=== PATIENT | female | born 1965 | race Hispanic/Latino ===

== ENCOUNTER → 2017-09-12 | Outpatient (CLI) | payer MEDICARE ==
[~2017-09-12] MED LIST: AMLO5TAB2 PO; CARV25TA PO; CINA30 PO; FOLI1TAB85 PO; INSU100I13 SQ; LANT1000 PO; LISI10TA7 PO; PRAV10TA39 PO; SEVE800T7 PO; TYL3 PO
== END | disposition home or self-care (01) ==
LOC: RAH 07:48
PROVIDERS: ATTEND Internal Medicine Cardiovascular Disease
DX: M47.26 Other spondylosis with radiculopathy, lumbar region (principal)
CPT/HCPCS: 72141; 72148

== ENCOUNTER 2017-10-07 21:31 | Emergency (ER) | payer MEDICARE ==
[2017-10-07] MEDS ORDERED: IBUPROFEN 800 MG TAB ONE (22:22)
== END 2017-10-07 23:19 | disposition home or self-care (01) ==
LOC: EDH 21:31
DX: S83.91XA Sprain of unspecified site of right knee, initial encounter (principal); S83.92XA Sprain of unspecified site of left knee, initial encounter; H04.019 Acute dacryoadenitis, unspecified lacrimal gland; M25.571 Pain in right ankle and joints of right foot; I12.0 Hypertensive chronic kidney disease with stage 5 chronic kidney disease or end stage renal disease; E11.22 Type 2 diabetes mellitus with diabetic chronic kidney disease; N18.6 End stage renal disease; Z90.710 Acquired absence of both cervix and uterus; Z99.2 Dependence on renal dialysis; W01.0XXA Fall on same level from slipping, tripping and stumbling without subsequent striking against object, initial encounter; Y93.89 Activity, other specified; Y92.89 Other specified places as the place of occurrence of the external cause; Y99.8 Other external cause status
CPT/HCPCS: 73562; 73600

== ENCOUNTER 2018-05-12 09:45 | Inpatient (IN) | payer MEDICARE ==
[~2018-05-12] VITALS: Ht 167.6 cm; Wt 132.3 kg
[~2018-05-12 09:45] MED LIST changes: -AMLO5TAB2 PO; +AMLO5TAB9 PO
[2018-05-12] MEDS ORDERED: IPRATROPIUM/ALBUTEROL SULFATE 3 ML SOLUTION IH ONE ×2 (10:16→11:48)
[2018-05-12 10:38] LABS: BASOPHILS % (AUTO) 0.6 % (0.0-5.0); EOSINOPHILS % (AUTO) 4.8 % (0.0-8.0); HEMATOCRIT 29.4 % (36-48); LYMPHOCYTES % (AUTO) 10.9 % (21.0-51.0); MEAN CORPUSCULAR HEMOGLOBIN 32.4 pg (27.0-33.0); MEAN CORPUSCULAR HGB CONC 33.4 g/dL (32.0-36.0); MEAN CORPUSCULAR VOLUME 96.9 fL (79-99); NEUTROPHILS % (AUTO) 77.7 % (40.0-77.0); NUCLEATED RED BLOOD CELLS 0.1 % (0.0-0.19); PLATELET COUNT (AUTO) 192 K/uL (130-400); RED BLOOD CELL COUNT(AUTO) 3.03 MIL/uL (4.00-5.50); RED CELL DISTRIBUTION WIDTH 16.6 % (11.0-15.5); WHITE BLOOD COUNT (AUTO) 7.7 K/uL (4.8-10.8)
[2018-05-12 10:54] LABS: ALBUMIN 3.4 g/dL (3.5-5.0); BILIRUBIN,TOTAL 0.4 mg/dL (0.2-1.0); POTASSIUM 4.9 mmol/L (3.5-5.1); TOTAL PROTEIN, SERUM 7.2 g/dL (6.0-8.3)
[2018-05-12 10:56] LABS: CREATININE 10.5 mg/dL (0.5-1.5)
[2018-05-12] MEDS ORDERED: METHYLPREDNISOLONE SOD SUCC 125MG/2ML VIAL ONE (13:37)
--- NOTE | 2018-05-12 15:00 | NUR ---
PATIENT STATES SHE URINATE EVERY OTHER DAY OR LESS Addendum: 05/12/18 at 2138 by RAQUEL STOVER RN RN Amended: Links added.
[2018-05-12 15:48] VITALS: BP 143/76
[2018-05-12] MEDS ORDERED: ACETAMINOPHEN 325 MG TAB PO PRN ×2 (16:00)
[2018-05-12] MEDS: CEFTRIAXONE SODIUM 1 GM IVP SCH (16:00)
[2018-05-12] MEDS ORDERED: IPRATROPIUM/ALBUTEROL SULFATE 3 ML SOLUTION IH PRN (16:00)
[2018-05-12] MEDS: AZITHROMYCIN 500MG+NS 250ML 250 ML IV SCH (17:00)
[2018-05-12] MEDS: IPRATROPIUM/ALBUTEROL SULFATE 3 ML SOLUTION IH SCH (19:14)
[2018-05-12 19:17] VITALS: BP 129/71
[2018-05-12] MEDS ORDERED: METHYLPREDNISOLONE SOD SUCC 40MG/ML 1ML ONE (20:57)
[2018-05-12] MEDS: METHYLPREDNISOLONE SOD SUCC 125MG/2ML VIAL IVP SCH (21:00)
[2018-05-12 23:27] VITALS: BP 127/74
[2018-05-13 03:35] VITALS: BP 136/71
[2018-05-13] MEDS: METHYLPREDNISOLONE SOD SUCC 125MG/2ML VIAL IVP SCH ×3 (05:00→21:17)
[2018-05-13] MEDS ORDERED: METHYLPREDNISOLONE SOD SUCC 40MG/ML 1ML ONE (05:10)
[2018-05-13] MEDS ORDERED: GLUCAGON 1MG KIT 1 MG ML IM PRN (05:30)
[2018-05-13] MEDS ORDERED: DEXTROSE 50%-WATER 50 ML DISP.SYRIN IV PRN (05:30)
[2018-05-13 05:38] LABS: BASOPHILS % (AUTO) 0.4 % (0.0-5.0); HEMATOCRIT 33.4 % (36-48); LYMPHOCYTES % (AUTO) 6.2 % (21.0-51.0); MEAN CORPUSCULAR HEMOGLOBIN 32.8 pg (27.0-33.0); MEAN CORPUSCULAR HGB CONC 33.6 g/dL (32.0-36.0); MEAN CORPUSCULAR VOLUME 97.4 fL (79-99); MONOCYTES % (AUTO) 0.8 % (3.0-13.0); NEUTROPHILS % (AUTO) 92.6 % (40.0-77.0); PLATELET COUNT (AUTO) 250 K/uL (130-400); RED BLOOD CELL COUNT(AUTO) 3.43 MIL/uL (4.00-5.50); RED CELL DISTRIBUTION WIDTH 16.7 % (11.0-15.5); WHITE BLOOD COUNT (AUTO) 7.4 K/uL (4.8-10.8)
[2018-05-13] MEDS: IPRATROPIUM/ALBUTEROL SULFATE 3 ML SOLUTION IH SCH ×3 (05:38→18:32)
[2018-05-13] MEDS ORDERED: LEVO500T89 PO (05:51)
[2018-05-13] MEDS ORDERED: LISI-613 PO ×2 (05:51)
[2018-05-13] MEDS ORDERED: LEVO25TA54 PO (05:51)
[2018-05-13] MEDS ORDERED: INSU100I13 SQ ×2 (05:51)
[2018-05-13] MEDS ORDERED: PRAV10TA39 PO (05:51)
[2018-05-13] MEDS ORDERED: SULI200T4 PO (05:51)
[2018-05-13] MEDS ORDERED: IBUP-2077 PO (05:51)
[2018-05-13] MEDS ORDERED: ONDA4TAB10 PO (05:51)
[2018-05-13 05:55] LABS: ALBUMIN 3.6 g/dL (3.5-5.0); BILIRUBIN,TOTAL 0.4 mg/dL (0.2-1.0); CREATININE 7.5 mg/dL (0.5-1.5); MAGNESIUM 2.6 mg/dL (1.80-2.40); PHOSPHORUS 5.3 mg/dL (2.5-4.9); THYROID STIMULATING HORMONE 1.29 uIU/mL (0.36-3.74)
[2018-05-13 06:21] LABS: % IRON SATURATION 18.4 % (22-44)
[2018-05-13] MEDS: INSULIN HUMULIN R 100 UNIT/ML 3ML SQ SCH ×4 (06:51→21:43)
--- NOTE | 2018-05-13 07:30 | NUR ---
NOTE AAOX3. DENIES PAIN OR DISCOMFORT. BBS SLIGHT WHEEZING STILL NOTED THROUGHOUT ALL LOBES. CAN HEAR SOME AIR EXCHANGE. NO COUGH NO PHLEGM AND NO FEVER. SHE IS ON STEROIDS. 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 OLIGURIA. CAME IN WITH ASTHMA EXACERBATION.
[2018-05-13 07:48] VITALS: BP 164/92
[2018-05-13] MEDS: FOLIC ACID/VITAMIN B COMP W-C 1 MG CAPSULE PO SCH (08:32)
[2018-05-13] MEDS: INSULIN LISPRO 100 UNIT/ML 3ML SQ SCH ×2 (08:44→21:42)
[2018-05-13 12:00] VITALS: BP 149/86
--- NOTE | 2018-05-13 13:09 | NUR ---
DCP CM met with pt and spouse discussed dc plans. Pt is independent prior to admission, lives at home w/spouse. Has a nebulizer and shower chair, goes to [facility] dialysis TTS. Pt feels safe to go back home, spouse able to assist with transportation and needs as necessary. DC plan to home once stable. CM to cont to follow up. Addendum: 05/13/18 at 1311 by SHELBY GUAN LVN CM Amended: Links added.
[2018-05-13 16:00] VITALS: BP 133/76
--- NOTE | 2018-05-13 18:00 | NUR ---
NOTE REMAINED STABLE THROUGHOUT THE DAY. DR KAUR CAME IN AND ORDERED FOR DIALYSIS TOMORROW AND SHE WILL GET LABS TOMORROW CBC BMP. NO CHANGE IN LOC OR RESPIRATORY STATUS.
[2018-05-13] MEDS: AZITHROMYCIN 500MG+NS 250ML 250 ML IV SCH (18:19)
[2018-05-13] MEDS: CEFTRIAXONE SODIUM 1 GM IVP SCH (18:19)
[2018-05-13 20:00] VITALS: BP 145/67
[2018-05-13] MEDS ORDERED: **HM** PRAVASTATIN 10MG PO SCH (21:00)
[2018-05-13] MEDS ORDERED: EPOETIN ALFA 10,000 UNIT/ML VIAL SQ ONE (21:00)
[2018-05-13] MEDS: CARVEDILOL 25 MG TABLET PO SCH (21:16)
[2018-05-14] VITALS: BP 134/67
[2018-05-14 04:00] VITALS: BP 134/83
[2018-05-14 04:51] LABS: HEMATOCRIT 34.1 % (36-48); MEAN CORPUSCULAR HEMOGLOBIN 32.5 pg (27.0-33.0); MEAN CORPUSCULAR HGB CONC 33.7 g/dL (32.0-36.0); MEAN CORPUSCULAR VOLUME 96.3 fL (79-99); PLATELET COUNT (AUTO) 243 K/uL (130-400); RED BLOOD CELL COUNT(AUTO) 3.55 MIL/uL (4.00-5.50); RED CELL DISTRIBUTION WIDTH 16.7 % (11.0-15.5); WHITE BLOOD COUNT (AUTO) 12.9 K/uL (4.8-10.8)
[2018-05-14 05:02] LABS: POTASSIUM 4.9 mmol/L (3.5-5.1)
[2018-05-14 05:24] LABS: CREATININE 9.4 mg/dL (0.5-1.5)
[2018-05-14] MEDS: IPRATROPIUM/ALBUTEROL SULFATE 3 ML SOLUTION IH SCH ×2 (05:34→08:57)
--- NOTE | 2018-05-14 05:51 | NUR ---
md dr. hassan to see and examen patient with orders to discharge today
[2018-05-14] MEDS: INSULIN HUMULIN R 100 UNIT/ML 3ML SQ SCH ×3 (06:14→18:18)
[2018-05-14] MEDS ORDERED: LEVOTHYROXINE 25 MCG TABLET PO SCH (07:30)
[2018-05-14 08:00] VITALS: BP 162/87
[2018-05-14] MEDS ORDERED: LISINOPRIL 20 MG TABLET PO SCH (09:00)
[2018-05-14] MEDS: METHYLPREDNISOLONE SOD SUCC 125MG/2ML VIAL IVP SCH (09:00)
[2018-05-14] MEDS: FOLIC ACID/VITAMIN B COMP W-C 1 MG CAPSULE PO SCH (09:00)
[2018-05-14] MEDS ORDERED: AMLODIPINE BESYLATE 5 MG TAB PO SCH (09:00)
[2018-05-14] MEDS: CARVEDILOL 25 MG TABLET PO SCH (09:00)
[2018-05-14] MEDS ORDERED: SULINDAC 200 MG PO SCH (09:00)
[2018-05-14 11:00] VITALS: BP 124/66
[2018-05-14] MEDS: INSULIN LISPRO 100 UNIT/ML 3ML SQ SCH (12:32)
[2018-05-14 16:00] VITALS: BP 119/59
[2018-05-14] MEDS: CEFTRIAXONE SODIUM 1 GM IVP SCH (16:00)
[2018-05-14] MEDS: AZITHROMYCIN 500MG+NS 250ML 250 ML IV SCH (17:00)
== END 2018-05-14 19:09 | disposition home or self-care (01) | DRG 202 ==
LOC: EDH 09:45 → OBSVTOIN 13:05 → EDHIP 13:05 → 4CH 14:43
PROVIDERS: ADMIT Internal Medicine; ATTEND Internal Medicine
PROC: 5A1D70Z Performance of Urinary Filtration, Intermittent, Less than 6 Hours Per Day (ICD-10-PCS; principal; 2018-05-12)
PROC: 5A1D70Z Performance of Urinary Filtration, Intermittent, Less than 6 Hours Per Day (ICD-10-PCS; 2018-05-14)
DX: J45.901 Unspecified asthma with (acute) exacerbation (principal); N18.6 End stage renal disease; I12.0 Hypertensive chronic kidney disease with stage 5 chronic kidney disease or end stage renal disease; Z68.42 Body mass index [BMI] 45.0-49.9, adult; E11.22 Type 2 diabetes mellitus with diabetic chronic kidney disease; D64.9 Anemia, unspecified; E11.51 Type 2 diabetes mellitus with diabetic peripheral angiopathy without gangrene; E66.01 Morbid (severe) obesity due to excess calories; E78.5 Hyperlipidemia, unspecified; E87.70 Fluid overload, unspecified; Z90.710 Acquired absence of both cervix and uterus; E11.65 Type 2 diabetes mellitus with hyperglycemia; I25.10 Atherosclerotic heart disease of native coronary artery without angina pectoris; Z79.84 Long term (current) use of oral hypoglycemic drugs; Z99.2 Dependence on renal dialysis
CPT/HCPCS: 36415; 71046; 80048; 80053; 82948; 83540; 83550; 83735; 84100; 84443; 85025; 85027; 87804; 90935; 93005; 93306; 94640; 94664; 99291; A4218; G0378; J0456; J0696; J0885; J1815; J2920; J2930

== ENCOUNTER 2019-01-25 00:07 | Emergency (ER) | payer MEDICARE ==
[~2019-01-25 00:07] MED LIST changes: -CINA30 PO; +IBUP-2077 PO; -LANT1000 PO; +LEVO25TA54 PO; +LEVO500T89 PO; +LISI-613 PO; -LISI10TA7 PO; +ONDA4TAB10 PO; -SEVE800T7 PO; +SULI200T4 PO
[2019-01-25] MEDS ORDERED: HYDROCODONE/ACETAMINOPHEN 10/325 MG TAB ONE (00:29)
== END 2019-01-25 02:17 | disposition home or self-care (01) ==
LOC: EDH 00:07
DX: S93.401A Sprain of unspecified ligament of right ankle, initial encounter (principal); I12.0 Hypertensive chronic kidney disease with stage 5 chronic kidney disease or end stage renal disease; E11.22 Type 2 diabetes mellitus with diabetic chronic kidney disease; N18.6 End stage renal disease; Z99.2 Dependence on renal dialysis; Z98.890 Other specified postprocedural states; Z90.710 Acquired absence of both cervix and uterus; W18.39XA Other fall on same level, initial encounter; Y93.01 Activity, walking, marching and hiking; Y92.89 Other specified places as the place of occurrence of the external cause; Y99.8 Other external cause status
CPT/HCPCS: 73610; 73620

== ENCOUNTER 2019-09-11 05:14 | Emergency (ER) | payer MEDICARE ==
[~2019-09-11 05:14] MED LIST changes: +AMLO-257 PO; -AMLO5TAB9 PO
[2019-09-11] MEDS ORDERED: ACETAMINOPHEN-CODEINE 300/30MG TAB ONE (06:04)
== END 2019-09-11 07:37 | disposition home or self-care (01) ==
LOC: EDH 05:14
DX: S52.611A Displaced fracture of right ulna styloid process, initial encounter for closed fracture (principal); S52.501A Unspecified fracture of the lower end of right radius, initial encounter for closed fracture; W18.39XA Other fall on same level, initial encounter; Y93.01 Activity, walking, marching and hiking; Y92.89 Other specified places as the place of occurrence of the external cause; Y99.8 Other external cause status
CPT/HCPCS: 29125; 73110

== ENCOUNTER 2019-12-25 11:42 | Emergency (ER) | payer MEDICARE ==
[~2019-12-25 11:42] MED LIST changes: -AMLO-257 PO; +AMLO5TAB9 PO
[2019-12-25 12:17] LABS: BASOPHILS % (AUTO) 0.3 % (0.0-5.0); EOSINOPHILS % (AUTO) 2.1 % (0.0-8.0); LYMPHOCYTES % (AUTO) 13.7 % (21.0-51.0); MEAN CORPUSCULAR HEMOGLOBIN 30.4 pg (27.0-33.0); MEAN CORPUSCULAR HGB CONC 31.4 g/dL (32.0-36.0); MEAN CORPUSCULAR VOLUME 96.9 fL (79-99); MONOCYTES % (AUTO) 10.3 % (3.0-13.0); NEUTROPHILS % (AUTO) 73.3 % (40.0-77.0); PLATELET COUNT (AUTO) 206 K/uL (130-400); RED BLOOD CELL COUNT(AUTO) 3.82 MIL/uL (4.00-5.50); RED CELL DISTRIBUTION WIDTH 16.5 % (11.0-15.5)
[2019-12-25 12:24] LABS: CREATININE 6.7 mg/dL (0.5-1.5); POTASSIUM 5.2 mmol/L (3.5-5.1)
[2019-12-25] MEDS ORDERED: HYDROCODONE/ACETAMINOPHEN 5/325 MG TAB ONE (12:29)
== END 2019-12-25 14:43 | disposition home or self-care (01) ==
LOC: EDH 11:42
DX: L98.499 Non-pressure chronic ulcer of skin of other sites with unspecified severity (principal); I12.0 Hypertensive chronic kidney disease with stage 5 chronic kidney disease or end stage renal disease; E11.22 Type 2 diabetes mellitus with diabetic chronic kidney disease; N18.6 End stage renal disease; Z90.49 Acquired absence of other specified parts of digestive tract; Z90.710 Acquired absence of both cervix and uterus; Z87.891 Personal history of nicotine dependence
CPT/HCPCS: 36415; 80048; 85025

== ENCOUNTER → 2020-08-10 | Outpatient (CLI) | payer MEDICARE ==
[~2020-08-10] MED LIST changes: +AMLO-257 PO; -AMLO5TAB9 PO; -LISI-613 PO; +LISI20TA24 PO
== END | disposition home or self-care (01) ==
LOC: RAH 11:39
PROVIDERS: ATTEND Internal Medicine
DX: Z12.31 Encounter for screening mammogram for malignant neoplasm of breast (principal)
CPT/HCPCS: 77067

== ENCOUNTER 2020-12-08 11:41 | Day surgery (SDC) | payer MEDICARE ==
[2020-12-08 13:06] LABS: BASOPHILS % (AUTO) 0.4 % (0.0-5.0); EOSINOPHILS % (AUTO) 4.1 % (0.0-8.0); HEMATOCRIT 34.8 % (36-48); LYMPHOCYTES % (AUTO) 16.7 % (21.0-51.0); MEAN CORPUSCULAR HEMOGLOBIN 31.3 pg (27.0-33.0); MEAN CORPUSCULAR HGB CONC 31.6 g/dL (32.0-36.0); MEAN CORPUSCULAR VOLUME 99.1 fL (79-99); NEUTROPHILS % (AUTO) 71.2 % (40.0-77.0); PLATELET COUNT (AUTO) 208 K/uL (130-400); RED BLOOD CELL COUNT(AUTO) 3.51 MIL/uL (4.00-5.50); RED CELL DISTRIBUTION WIDTH 14.1 % (11.0-15.5); WHITE BLOOD COUNT (AUTO) 7.7 K/uL (4.8-10.8)
[2020-12-08 13:21] LABS: INR 0.96 (0.85-1.15); PROTHROMBIN TIME 10.5 SEC (9.6-11.6)
[2020-12-08 13:22] LABS: PARTIAL THROMBOPLASTIN TIME 28.6 SEC (26.3-35.5)
[2020-12-08 13:23] LABS: ALBUMIN 3.3 g/dL (3.5-5.0); BILIRUBIN,TOTAL 0.3 mg/dL (0.2-1.0); POTASSIUM 5.2 mmol/L (3.5-5.1); TOTAL PROTEIN, SERUM 7.4 g/dL (6.0-8.3)
[2020-12-08 13:26] LABS: CREATININE 8.8 mg/dL (0.5-1.5)
[2020-12-08] MEDS ORDERED: MIDAZOLAM HCL 1 MG/ML 2ML VIAL ONE (15:15)
[2020-12-08] MEDS ORDERED: FENTANYL CITRATE PF 50 MCG/1 ML 2ML VIAL ONE (15:15)
[2020-12-08] MEDS ORDERED: HEPARIN 10,000 UNIT/10ML (1,000 UNIT/ML) VIAL ONE (15:15)
[2020-12-08] MEDS ORDERED: LIDOCAINE HCL 1% MDV 50ML VIAL ONE (15:15)
[2020-12-08] MEDS ORDERED: IODIXANOL 320 MG/ML 100 ML VIAL ONE (15:15)
== END 2020-12-08 16:45 | disposition home or self-care (01) ==
LOC: DAH 11:41
PROVIDERS: ATTEND Internal Medicine Nephrology
DX: T82.868A Thrombosis due to vascular prosthetic devices, implants and grafts, initial encounter (principal); T82.858A Stenosis of other vascular prosthetic devices, implants and grafts, initial encounter; Z79.01 Long term (current) use of anticoagulants; Y83.2 Surgical operation with anastomosis, bypass or graft as the cause of abnormal reaction of the patient, or of later complication, without mention of misadventure at the time of the procedure
CPT/HCPCS: 36415; 36905; 36907; 80053; 85025; 85610; 85730; C1757; C1769; C1894; J1644; J2250; J3010; J3490; Q9967

== ENCOUNTER → 2021-01-25 | Outpatient (CLI) | payer MEDICARE ==
[~2021-01-25] MED LIST changes: +MEPERIDINE-PF 50 MG/ML SYG ONE
== END | disposition home or self-care (01) ==
LOC: RAH 11:17
PROVIDERS: ATTEND Internal Medicine
DX: M51.35 Other intervertebral disc degeneration, thoracolumbar region (principal); M25.78 Osteophyte, vertebrae
CPT/HCPCS: 72081; J2175

== ENCOUNTER 2023-04-24 14:09 | Emergency (ER) | payer MEDICARE ==
[~2023-04-24] VITALS: Ht 162.6 cm; Wt 134.7 kg
[~2023-04-24 14:09] MED LIST changes: +LEVO-70 PO; -LEVO500T89 PO; -MEPERIDINE-PF 50 MG/ML SYG ONE; +PANT40TA55 PO
[2023-04-24 15:01] LABS: BASOPHILS # (AUTO) 0.02 K/uL (0.00-0.20); BASOPHILS % (AUTO) 0.3 % (0.0-5.0); EOSINOPHILS # (AUTO) 0.27 K/uL (0.00-0.70); EOSINOPHILS % (AUTO) 3.6 % (0.0-8.0); HEMATOCRIT 33.4 % (36-48); IMMATURE GRANULOCYTE ABSOLUTE 0.03 K/uL (0-1); LYMPHOCYTES # (AUTO) 1.2 K/uL (1.0-4.8); LYMPHOCYTES % (AUTO) 16.7 % (21.0-51.0); MEAN CORPUSCULAR HEMOGLOBIN 31.1 pg (27.0-33.0); MEAN CORPUSCULAR HGB CONC 32.6 g/dL (32.0-36.0); MEAN CORPUSCULAR VOLUME 95.2 fL (79-99); MONOCYTES # (AUTO) 0.7 K/uL (0.1-1.0); MONOCYTES % (AUTO) 8.9 % (3.0-13.0); NEUTROPHILS # (AUTO) 5.2 K/uL (1.8-7.7); NEUTROPHILS % (AUTO) 70.1 % (40.0-77.0); PLATELET COUNT (AUTO) 197 K/uL (130-400); RED BLOOD CELL COUNT(AUTO) 3.51 MIL/uL (4.00-5.50); RED CELL DISTRIBUTION WIDTH 13.2 % (11.0-15.5); WHITE BLOOD COUNT (AUTO) 7.4 K/uL (4.8-10.8)
[2023-04-24 15:20] LABS: INR 0.94 (0.85-1.15); PROTHROMBIN TIME 10.9 SEC (9.6-11.6)
[2023-04-24 15:21] LABS: PARTIAL THROMBOPLASTIN TIME 34.6 SEC (26.3-35.5)
[2023-04-24 15:25] LABS: ALBUMIN 3.3 g/dL (3.5-5.0); BILIRUBIN,TOTAL 0.4 mg/dL (0.2-1.0); POTASSIUM 4.4 mmol/L (3.5-5.1); TOTAL PROTEIN, SERUM 7.6 g/dL (6.0-8.3)
[2023-04-24 15:36] LABS: CREATININE 8.9 mg/dL (0.5-1.5)
[2023-04-24 19:15] VITALS: BP 154/59; PULSE 67; RESP 17; O2SAT 98
== END 2023-04-24 19:05 | disposition home or self-care (01) ==
LOC: EDH 14:09
DX: F41.0 Panic disorder [episodic paroxysmal anxiety] (principal); R55 Syncope and collapse; I25.10 Atherosclerotic heart disease of native coronary artery without angina pectoris; E11.9 Type 2 diabetes mellitus without complications; I10 Essential (primary) hypertension; F41.9 Anxiety disorder, unspecified; M19.90 Unspecified osteoarthritis, unspecified site; J45.909 Unspecified asthma, uncomplicated; Z79.4 Long term (current) use of insulin; Z79.899 Other long term (current) drug therapy
CPT/HCPCS: 36415; 71045; 80053; 84484; 85025; 85610; 85730; 93005

== ENCOUNTER 2024-05-26 07:23 | Inpatient (IN) | payer OTHER, MEDICARE ==
[2024-05-26] VITALS (20 sets, daily range): BP systolic 112–162; BP diastolic 29–68; PULSE 61–77; RESP 12–26; TEMP 97–97.5; O2SAT 100
[~2024-05-26] VITALS: Ht 162.6 cm; Wt 113.1 kg
[~2024-05-26 07:23] MED LIST changes: +ALBU18HF7 IH; -AMLO-257 PO; +AURYXIA PO; +CELE-125 PO; -FOLI1TAB85 PO; +GABA300C PO; -IBUP-2077 PO; -INSU100I13 SQ; +INSU100I24 SQ; -LEVO-70 PO; -LEVO25TA54 PO; -LISI20TA24 PO; -ONDA4TAB10 PO; -PANT40TA55 PO; +PHEN177S29 PO; -PRAV10TA39 PO; +SEVE800T27 PO; -SULI200T4 PO; -TYL3 PO
--- NOTE | 2024-05-26 07:31 | ERN ---
General Chief Complaint: Shortness of Breath Stated Complaint: SOB MISSED DIALYSIS X 1 WEEK Time Seen by MD: 07:25 History of Present Illness Initial Comments 58-year-old female brought in by EMS from home for respiratory distress. Patient has a history of ESRD on dialysis. She was had a flu-like illness for the last week or so. She normally goes dialysis Friday but missed the last Friday and Friday dialysis session due to the flu-like illness. She initially had fevers and a cough with a this is a side. She has had some diarrhea. She woke up this morning feeling fluid overloaded and short of breath. EMS found the patient be satting at 80% on room air tachypnea in fluid overload. They placed the patient on CPAP at 10, Lasix without urine output, nitroglycerin. Patient currently satting at 100%, mild distress, breathing about 30 times a minute with shallow inspirations. She denies any current fevers or sore throat. She was right chest wall access. Vocational Examiner is Dr. Hu. Allergies: Coded Allergies: No Known Drug Allergies (Verified Allergy, 05/18/13) Home Meds Reported Medications Phenol (Chloraseptic [place]) 1.4 % Admire, 2 SPRAY PO TID PRN for SORE THROAT for 7 Days, #20 ML 0 Refills 04/05/24 [Auryxia] No Conflict Check, 210 MG PO TID 04/02/24 Celecoxib (Celecoxib) 200 Mg Capsule, 1 CAP PO BID for pain for 30 Days, #30 CAP 0 Refills 04/02/24 Albuterol Sulfate (Ventolin Hfa) 90 Mcg Hfa.aer.ad, 2 PUFF IH QIDP PRN for wheezing for 30 Days, #18 GM 0 Refills 04/02/24 Insulin Degludec (Tresiba Flextouch U-100) 100 Unit/Ml (3 Ml) Insuln.pen, 40 UNIT SQ DAILY, SYRINGE 04/02/24 Gabapentin (Neurontin) 300 Mg Capsule, 1 CAP PO BID for 30 Days, #90 CAP 0 Refills 04/02/24 Sevelamer HCl (Sevelamer HCl) 800 Mg Tablet, 4000 MG PO TID, TAB 04/02/24 Carvedilol (Carvedilol) 25 Mg Tablet, 1 TAB PO DAILY for 30 Days, #60 TAB 0 Refills 04/02/24 Past Medical History Past Medical History: Anemia, Anxiety, Arthritis, Asthma, CAD, Diabetes-Type II, Hypertension, Hypotension, Renal Failure Medical History Other: ESRD Past Surgical History: Hysterectomy, Other, Surgical History Other: AV GRAFT R ARM W/RECENT REVISION Social History Social History: Negative, Lives with family Female( History) History: Not Applicable ROS Dictation CONSTITUTIONAL: No chills, no fever, no weakness, no diaphoresis, no malaise. HEAD/FACE: No signs of trauma. EENT: No eye pain, no blurred vision, no tearing, no double vision, no ear pain, no ear discharge, no nose pain, no nasal congestion, no throat pain, no throat swelling, no mouth pain. RESPIRATORY: Dyspnea CARDIOVASCULAR: No chest pain, no edema, no palpitations, no syncope. GASTROINTESTINAL/ABDOMINAL: No abdominal pain, no constipation, no diarrhea, no nausea, no vomiting. GENITOURINARY: No abnormal discharge, no dysuria, no frequent urination, no hematuria. No complaints of pain in the genitals. MUSCULOSKELETAL: No back pain, no gout, no joint pain, no joint swelling, no muscle pain, no muscle stiffness, no neck pain. INTEGUMENTARY: No change in color, no change in hair/nails, no dryness, no lesion, no lumps, no rash. NEUROLOGICAL/PSYCH: No anxiety, not depressed, no emotional problem, no headache, no numbness, no pre-existing deficit, no history of seizures, no t remors, no weakness. HEMATOLOGIC/LYMPHATIC: Not anemic, no history of blood clots, no apparent bleeding, no bruising, glands not swollen. All Systems Negative, Except as Noted. Physical Exam Physical Exam Dictation VITAL SIGNS: Reviewed. GENERAL APPEARANCE: Alert, oriented x3, moderate respiratory distress, obese HEAD AND FACE: Non-traumatic. EYES: PERRL, pink conjunctivas, eyelid no trauma, anterior chamber clear. EARS: Pinnas intact and no signs of trauma or erythema. Ear canals clear and no discharge. TMs no erythema. NOSE: No discharge, no bleeding. OROPHARYNX: Mouth normal, teeth no caries, tongue pink. Pharynx clear, no erythema. Tonsils no exudates, no abscesses noted. Mucous membrane moist. NECK: Supple, non-tender, no thyromegaly, no masses, no JVD, no bruits. BREAST: Deferred. CHEST: No tenderness, no crepitus, no paradoxical movement, no retractions. Right chest wall LUNGS: Pulmonary edema, shallow respirations, tachypneic HEART: Regular rate, regular rhythm, no murmur, no gallops. VASCULAR: No peripheral edema. ABDOMEN: Soft, positive bowel sounds, nondistended, no guarding, nontender, no rebound, no masses no hepatomegaly, no splenomegaly, no Raza's sign, no hernias. RECTAL: Deferred. GENITAL: Deferred. NEUROLOGICAL: Normal speech, gross motor function intact, gross sensory function intact. MUSCULOSKELETAL: Neck nontender, full range of motion, back nontender, full range of motion. Pedal edema EXTREMITIES: Nontender, full range of motion. SKIN: Color pink, dry, no turgor, no rash, no lacerations, no abrasions, no contusions. LYMPHATICS: Deferred. Results Laboratory and Microbiology Lab and Micro Result Laboratory Tests Test 05/26/24 07:44 05/26/24 07:57 White Blood Count 12.1 K/uL (4.8-10.8) H Red Blood Count 3.56 MIL/uL (4.00-5.50) L Hemoglobin 10.2 g/dL (12.0-16.0) L Hematocrit 32.4 % (36-48) L Mean Corpuscular Volume 91.0 fL (79-99) Mean Corpuscular Hemoglobin 28.7 pg (27.0-33.0) Mean Corpuscular Hemoglobin Concent 31.5 g/dL (32.0-36.0) L Red Cell Distribution Width 14.9 % (11.0-15.5) Platelet Count 147 K/uL (130-400) Mean Platelet Volume 12.0 fL (7.5-10.5) H Immature Granulocyte % (Auto) 0.5 % (0-1) Neutrophils (%) (Auto) 76.9 % (40.0-77.0) Lymphocytes (%) (Auto) 14.7 % (21.0-51.0) L Monocytes (%) (Auto) 7.4 % (3.0-13.0) Eosinophils (%) (Auto) 0.3 % (0.0-8.0) Basophils (%) (Auto) 0.2 % (0.0-5.0) Neutrophils # (Auto) 9.3 K/uL (1.8-7.7) H Lymphocytes # (Auto) 1.8 K/uL (1.0-4.8) Monocytes # (Auto) 0.9 K/uL (0.1-1.0) Eosinophils # (Auto) 0.04 K/uL (0.00-0.70) Basophils # (Auto) 0.03 K/uL (0.00-0.20) Absolute Immature Granulocyte (auto 0.06 K/uL (0-1) Nucleated Red Blood Cells 0.0 % (0.0-0.19) Sodium Level 131 mmol/L (136-145) L Potassium Level 7.5 mmol/L (3.5-5.1) *H Chloride Level 96 mmol/L (101-111) L Carbon Dioxide Level 18 mmol/L (21-32) L Blood Urea Nitrogen 87 mg/dL (7-18) *H Creatinine 14.8 mg/dL (0.5-1.0) *H Glomerular Filtration Rate Calc 3 mL/min (>90) Random Glucose 111 mg/dL (70-105) H Total Calcium 7.9 mg/dL (8.5-10.1) L Total Creatine Kinase 429 U/L (21-232) #*H Troponin I High Sensitivity 368.2 ng/L (4-50) *H B-Type Natriuretic Peptide 1460 pg/mL (0-100) H Blood Gas Specimen Type Arterial Arterial Blood pH 7.188 (7.350-7.450) Arterial Blood Partial Pressure CO2 35 mmHg (32-45) Arterial Blood Partial Pressure O2 212.1 mmHg (83.0-108.0) H Arterial Blood HCO3 12.9 mmol/L (21.0-28.0) L Arterial Blood Oxygen Saturation 98.9 % (94.0-98.0) H Arterial Blood Base Excess -14.3 mmol/L (-2.0-3.0) L Hemoglobin (Blood Gas) 11.0 g/dL (12.0-16.0) L Sodium (Blood Gas) 132 MMOL/L (136-145) L Bedside Potassium (Blood Gas) 6.8 MMOL/L (3.4-4.5) *H Bedside Chloride (Blood Gas) 102 MMOL/L (98-107) Bedside Glucose (Blood Gas) 97 MG/DL (65-95) H Bedside Ionized Calcium (Blood Gas) 1.07 MMOL/L (1.15-1.33) L Bedside Lactic Acid (Blood Gas) 0.79 MMOL/L (0.36-0.75) H Blood Gas Temperature 37.0 CELSIUS (35.5-37.0) Blood Gas Respiration Rate 19.0 min. Blood Gas Vent Mode BIPAP 12 6 (ROOM AIR) FiO2 50.0 % Blood Gas PEEP 6 cm H2O Blood Gas Specimen Comment LR DR CALIXTO MDM CC: Dyspnea Historian: Patient Comorbidities: ESRD requiring dialysis, diabetes, hypertension, obesity Differential diagnosis: Fluid overload, flu, pneumonia, electrolyte abnormalities, other. EKG: Sinus rhythm rate of 62 left axis deviation, delayed R-wave progression. No STEMI. Independently interpreted by me. Patient tachypneic, was on CPAP by EMS, switched to BiPAP. EMS already gave Lasix and nitroglycerin. Labs ( independently interpreted by me): Leukocytosis 85358 no shift no bands. Normocytic anemia hemoglobin 10.2. blood gas shows pH 7.188, P a O2 is stable. Bicarb 12.9, base excess -14. Potassium 6.8. Chemistry shows a BUN of 87 creatinine of 14.8 carbon dioxide 18 consistent with a needing dialysis. CK 429, troponin elevated 368, BNP 1460. Troponin likely due to the CKD. treatment in ED: BiPAP, hyperkalemia medications including calcium, albuterol, insulin, D5 Consultation: Dr. Carrera, nephrology, covering for [facility] [place] Consultation: Dr. Hardin, admission for Dr. burnett ED Course Orders Procedure Category Date Status Time Arterial Blood Gas RT 05/26/24 Transmitted 07:27 Bipap Settings RT 05/26/24 Transmitted 07:27 Cbc With Differential LAB 05/26/24 Complete 07:27 B-Type Natriuretic LAB 05/26/24 Complete Peptide 07:27 Cardiac Panel LAB 05/26/24 Complete 07:27 Chest 1vw RAD 05/26/24 Resulted 07:27 12 Lead Ekg Tracing- EKG 05/26/24 Complete Technical 07:27 Basic Metabolic Panel LAB 05/26/24 Complete 07:27 Arterial Blood Gas LAB 05/26/24 Complete Arterial + 07:57 Calcium Gluc 1gm PHA 05/26/24 Complete (Calcium Gluc 1gm 08:00 Dextrose 50%-Water PHA 05/26/24 Complete (Dextrose 50%-Water) 08:00 Insulin Regular, PHA 05/26/24 Complete Human 3ml (Humulin R 08:00 Albuterol 0.083% PHA 05/26/24 In Process 2.5mg/3ml (Proventil 08:00 Nephrology Consult CONPHYSVC 05/26/24 Transmitted 08:33 *Nursing CPOE 05/26/24 Transmitted Communication: 08:33 Dextrose 50%-Water PHA 05/26/24 Complete (Dextrose 50%-Water) 09:00 Admit Orders ADM 05/26/24 Transmitted 08:53 Dextrose 50%-Water PHA 05/26/24 Complete (D50w) 09:00 Current Medications Medications (Trade) Dose Ordered Sig/Susannah Route PRN Reason Start Time Stop Time Status Last Admin Dose Admin Albuterol Sulfate (Proventil 0.083% 2.5mg/3ml) 10 mg ONCE IH 05/26/24 08:00 06/25/24 07:59 05/26/24 08:11 Calcium Gluconate 1 gm/Sodium Chloride 110 ml @ 110 mls/hr ONCE ONCE IV 05/26/24 08:00 05/26/24 08:59 DC 05/26/24 08:51 Dextrose (D50w) 50 ml ONCE ONCE IV 05/26/24 09:00 05/26/24 09:01 DC 05/26/24 09:01 Dextrose (Dextrose 50%-Water) 25 gm ONCE ONCE IV 05/26/24 08:00 05/26/24 08:01 DC Dextrose (Dextrose 50%-Water) 25 gm ONCE ONCE IV 05/26/24 09:00 05/26/24 08:55 DC Insulin Human Regular (humuLIN R 100 UNIT/ML 3ML) 5 unit ONCE ONCE IV 05/26/24 08:00 05/26/24 08:01 DC 05/26/24 08:52 Vital Signs Date Time Temp Pulse Resp B/P (MAP) Pulse Ox O2 Delivery O2 Flow Rate FiO2 05/26/24 09:13 95.2 62 15 144/40 100 CPAP+ 50 05/26/24 08:32 95.2 61 15 130/54 99 CPAP+ 50 05/26/24 08:13 61 19 05/26/24 07:37 61 19 40 05/26/24 07:31 95.5 63 20 139/45 100 CPAP DX & DISP Disposition: Inpatient Departure Impression: Primary Impression: Respiratory failure with hypoxia Additional Impressions: Hyperkalemia, ESRD needing dialysis, Elevated troponin, Anemia in chronic illness, Metabolic acidosis Critical Time: 30 minutes (Critical Care Procedure NoteAuthorized and Performed by: meTotal critical care time: Approximately 36 minutesDue to a high probability of clinically significant, life threatening deterioration, the keo ent required my highest level of preparedness to intervene emergently and I personally spent this critical care time directly and personally managing the patient. This critical care time included obtaining a history; examining the patient; pulse oximetry; ordering and review of studies; arranging urgent treatment with development of a management plan; evaluation of patient's respon se to treatment; frequent reassessment; and, discussions with other providers.This critical care time was performed to assess and manage the high probability of imminent, life-threatening deterioration that could result in multi-organ failure. It was exclusive of separately billable procedures and treating other patients and teaching time.Please see MDM section and the rest of the note for further information on patient assessment and treatment.) Condition: Stable Referrals: DENISE BURNETT MD (PCP) ALONSO CALIXTO DO May 26, 2024 07:31
--- NOTE | 2024-05-26 07:44 | NUR ---
18 G LEFT AC VIA EMS
--- NOTE | 2024-05-26 07:45 | NUR ---
RT IONA AT BEDSIDE CPAP SETTINGS 03/26 RATE 18 50%
[2024-05-26 07:51] LABS: BASOPHILS # (AUTO) 0.03 K/uL (0.00-0.20); BASOPHILS % (AUTO) 0.2 % (0.0-5.0); EOSINOPHILS # (AUTO) 0.04 K/uL (0.00-0.70); EOSINOPHILS % (AUTO) 0.3 % (0.0-8.0); HEMATOCRIT 32.4 % (36-48); IMMATURE GRANULOCYTE ABSOLUTE 0.06 K/uL (0-1); LYMPHOCYTES # (AUTO) 1.8 K/uL (1.0-4.8); LYMPHOCYTES % (AUTO) 14.7 % (21.0-51.0); MEAN CORPUSCULAR HEMOGLOBIN 28.7 pg (27.0-33.0); MEAN CORPUSCULAR HGB CONC 31.5 g/dL (32.0-36.0); MONOCYTES # (AUTO) 0.9 K/uL (0.1-1.0); MONOCYTES % (AUTO) 7.4 % (3.0-13.0); NEUTROPHILS # (AUTO) 9.3 K/uL (1.8-7.7); NEUTROPHILS % (AUTO) 76.9 % (40.0-77.0); PLATELET COUNT (AUTO) 147 K/uL (130-400); RED BLOOD CELL COUNT(AUTO) 3.56 MIL/uL (4.00-5.50); RED CELL DISTRIBUTION WIDTH 14.9 % (11.0-15.5); WHITE BLOOD COUNT (AUTO) 12.1 K/uL (4.8-10.8)
--- NOTE | 2024-05-26 07:53 | NUR ---
RT MONSON OBTAINING ABG AT THIS TIME
--- NOTE | 2024-05-26 07:54 | EKG ---
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
[2024-05-26 07:59] LABS: ABG BASE EXCESS -14.3 mmol/L (-2.0-3.0); ABG HCO3 12.9 mmol/L (21.0-28.0); ABG OXYGEN SATURATION 98.9 % (94.0-98.0); ABG PCO2 35 mmHg (32-45); ABG PH 7.188 (7.350-7.450); CARBON MONOXIDE 0 % (0.5-1.5); HHb 1.1; PO2, ARTERIAL BG 212.1 mmHg (83.0-108.0); VENT MODE, BG BIPAP 12 6 (ROOM AIR)
[2024-05-26] MEDS: ALBUTEROL 0.083% 2.5 MG/3 ML INH IH SCH (08:11)
[2024-05-26 08:20] LABS: B-TYPE NATRIURETIC PEPTIDE 1460 pg/mL (0-100)
--- NOTE | 2024-05-26 08:33 | HMCIMG ---
Exam Type: CHEST 1VW Clinical Information: Dyspnea/SOB Comparison: None Findings: Pulmonary pattern is as before. No worrisome interval changes have taken place. Impression: Stable exam.
[2024-05-26 08:36] LABS: CREATININE 14.8 mg/dL (0.5-1.0)
[2024-05-26] MEDS: CALCIUM GLUC 1GM 1 GM in 0.9%NACL 100ML 100 ML IV ONE (08:51)
[2024-05-26] MEDS: INSULIN humuLIN R 100 UNIT/ML 3ML IV ONE (08:52)
[2024-05-26 08:54] LABS: POTASSIUM 7.5 mmol/L (3.5-5.1)
[2024-05-26] MEDS ORDERED: DEXTROSE 50%-WATER 25 GM/50 ML VIAL IV ONE (09:00)
[2024-05-26] MEDS: DEXTROSE 50%-WATER 25 GM/50 ML VIAL IV ONE (09:01)
[2024-05-26] MEDS: DEXTROSE 50%-WATER 50 ML DISP.SYRIN IV ONE (09:01)
--- NOTE | 2024-05-26 09:31 | NUR ---
HD NURSE BARBARA AWARE OF NEED FOR HD
--- NOTE | 2024-05-26 10:08 | NUR ---
pt opens eyes to verbal stimuli, unable to sign hd consent
--- NOTE | 2024-05-26 10:09 | NUR ---
glucose 112
--- NOTE | 2024-05-26 10:39 | NUR ---
pt alert and oriented x 4. unable to sign consent due to gbw. consent signed by 2 nurses. placed in chart
--- NOTE | 2024-05-26 11:07 | NUR ---
PT REMINDED NOT TO REMOVE CPAP. REVIEWED V/S AND LABS WITH PT, EXPLAINED WITHOUT CPAP SHE WILL DESAT AND NOT BE ABLE TO MOVE AIR CORRECTLY
--- NOTE | 2024-05-26 11:18 | NUR ---
PT RESTING, EYES CLOSED. OPENS TO VERBAL STIMULI. DOOR REMAINS OPEN FOR CLOSER OBSERVATION AND ROUNDING
--- NOTE | 2024-05-26 11:40 | NUR ---
pt placed rt recovery position, 2 pillows placed behind back. one between knees. and balnketd placed between pt and bars of stretcher for comfort. pt voicing comfort. denies complaint at this time
--- NOTE | 2024-05-26 12:16 | NUR ---
Mireya ryan in [facility] - 05/26/24 at 1315 by VIDHYA TONEY CHRISTIANSON [phone] DAUGHTER
--- NOTE | 2024-05-26 13:01 | NUR ---
HD NURSE BARBARA AT BEDSIDE
--- NOTE | 2024-05-26 13:11 | NUR ---
RETURNED CALL TO DAUGHTER, TONEY. NO ANSWER
--- NOTE | 2024-05-26 13:12 | NUR ---
REPORT TO EVANS BURDEN
--- NOTE | 2024-05-26 13:15 | NUR ---
DAUGHTER TONEY [phone] TALKED WITH DAUGHTER INFORMED OF ADMISSION
--- NOTE | 2024-05-26 14:40 | CONS ---
NEPHROLOGY CONSULTATION NOTE Date/Time Patient Seen: May 26, 2024 1315 Reason for Consultation: Respiratory distress, fluid overload, end-stage renal disease HISTORY OF PRESENT ILLNESS: This is a 58-year-old female with a past medical history of hypertension, diabetes mellitus type 2, end-stage renal disease on hemodialysis Friday, anemia, coronary artery disease, arthritis, anxiety, asthma, morbid obesity. She presented to the emergency with complaints of shortness of breath and flu- like symptoms. She reports missing dialysis sessions due to symptoms. She is due for dialysis today She was seen in the emergency room, currently on BiPAP Complaining of shortness of breath No family at the bedside REVIEW OF SYSTEMS: GENERAL: Positive for shortness of breath and flu-like symptoms NEUROLOGIC: Negative for any blurry vision, blind spots, double vision, facial asymmetry, dysphagia, dysarthria, hemiparesis, hemisensory deficits, vertigo, ataxia. HEENT: Negative for any head trauma, neck trauma, neck stiffness, photophobia, phonophobia, sinusitis, rhinitis. CARDIAC: Negative for any chest pain, dyspnea on exertion, paroxysmal nocturnal dyspnea, peripheral edema. PULMONARY: Negative for any shortness of breath, wheezing, COPD, or TB exposure. GASTROINTESTINAL: Negative for any abdominal pain, nausea, vomiting, bright red blood per rectum, melena. GENITOURINARY: Negative for any dysuria, hematuria, incontinence. INTEGUMENTARY: Negative for any rashes, cuts, insect bites. RHEUMATOLOGIC: Negative for any joint pains, photosensitive rashes, history of vasculitis or kidney problems. HEMATOLOGIC: Negative for any abnormal bruising, frequent infections or bleeding. PAST MEDICAL HISTORY: Hypertension, diabetes mellitus type 2, end-stage renal disease, anemia, coronary artery disease, arthritis, anxiety, asthma, morbid obesity. PAST SURGICAL HISTORY: Hysterectomy AV graft AV graft removal Exploration and debridement of the right ankle abscess and hardware removal PAST SOCIAL HISTORY: Denies the use of alcohol, tobacco or illicit drugs FAMILY HISTORY: Noncontributory PHYSICAL EXAM: GENERAL: Alert and oriented x 3.. Well-nourished. EYES: EOMI. Anicteric. HENT: Moist mucous membranes. No scleral icterus. No cervical lymphadenopathy. LUNGS: Clear to auscultation bilaterally. No accessory muscle use. CARDIOVASCULAR: Regular rate and rhythm. No murmur. No JVD. ABDOMEN: Soft, non-tender and non-distended. No palpable masses. EXTREMITIES: No edema. Non-tender. SKIN: No rashes or lesions. Warm. NEUROLOGIC: No focal neurological deficits. CN II-XII grossly intact, but not individually tested. PSYCHIATRIC: Cooperative. Appropriate mood and affect. MEDICATIONS: [ ] Current Medications Medications (Trade) Dose Ordered Sig/Susannah Route PRN Reason Start Time Stop Time Status Last Admin Dose Admin Albuterol Sulfate (Proventil 0.083% 2.5mg/3ml) 10 mg ONCE IH 05/26/24 08:00 06/25/24 07:59 05/26/24 08:11 10 MG Vital Signs (last 8hr) Date Time Temp Pulse Resp B/P (MAP) Pulse Ox O2 Delivery O2 Flow Rate FiO2 05/26/24 14:15 64 14 158/33 100 BIPAP 35 05/26/24 14:02 62 22 35 05/26/24 14:00 62 14 162/39 100 BIPAP 35 05/26/24 14:00 97.5 62 14 158/33 100 CPAP+ 50 05/26/24 13:45 62 14 157/39 100 BIPAP 35 05/26/24 13:30 61 14 145/36 100 BIPAP 35 05/26/24 13:23 97.5 62 16 139/44 100 BIPAP 35 05/26/24 13:00 97.5 62 14 139/44 100 BIPAP 35 05/26/24 11:18 96.6 16 18 138/41 100 CPAP+ 50 05/26/24 11:06 96.6 16 18 141/42 99 CPAP+ 50 05/26/24 10:24 96.6 60 18 141/42 100 CPAP+ 50 05/26/24 10:09 95.4 60 18 135/50 100 CPAP+ 50 05/26/24 09:13 95.2 62 15 144/40 100 CPAP+ 50 05/26/24 08:32 95.2 61 15 130/54 99 CPAP+ 50 05/26/24 08:13 61 19 05/26/24 07:37 61 19 40 05/26/24 07:31 95.5 63 20 139/45 100 CPAP DIAGNOSTICS / RADIOLOGY: REASON: Dyspnea/SOB ORDERING PHYSICIAN: ALONSO CALIXTO DO PROCEDURE: CXR1VW - CHEST 1VW Exam Type: CHEST 1VW Clinical Information: Dyspnea/SOB Comparison: None Findings: Pulmonary pattern is as before. No worrisome interval changes have taken place. Impression: Stable exam. DICTATED BY: NIKA SOTO MD DATE: 05/26/24 0829 LABORATORY: [ ] Hematology Labs: Test 05/26/24 07:44 Range/Units White Blood Count 12.1 H 4.8-10.8 K/uL Red Blood Count 3.56 L 4.00-5.50 MIL/uL Hemoglobin 10.2 L 12.0-16.0 g/dL Hematocrit 32.4 L 36-48 % Mean Corpuscular Volume 91.0 79-99 fL Mean Corpuscular Hemoglobin 28.7 27.0-33.0 pg Mean Corpuscular Hemoglobin Concent 31.5 L 32.0-36.0 g/dL Red Cell Distribution Width 14.9 11.0-15.5 % Platelet Count 147 130-400 K/uL Mean Platelet Volume 12.0 H 7.5-10.5 fL Immature Granulocyte % (Auto) 0.5 0-1 % Neutrophils (%) (Auto) 76.9 40.0-77.0 % Lymphocytes (%) (Auto) 14.7 L 21.0-51.0 % Monocytes (%) (Auto) 7.4 3.0-13.0 % Eosinophils (%) (Auto) 0.3 0.0-8.0 % Basophils (%) (Auto) 0.2 0.0-5.0 % Neutrophils # (Auto) 9.3 H 1.8-7.7 K/uL Lymphocytes # (Auto) 1.8 1.0-4.8 K/uL Monocytes # (Auto) 0.9 0.1-1.0 K/uL Eosinophils # (Auto) 0.04 0.00-0.70 K/uL Basophils # (Auto) 0.03 0.00-0.20 K/uL Absolute Immature Granulocyte (auto 0.06 0-1 K/uL Nucleated Red Blood Cells 0.0 0.0-0.19 % Chemistry Labs: Test 05/26/24 10:09 05/26/24 07:44 Range/Units Whole Blood Glucose 112 H 70-110 MG/DL Sodium Level 131 L 136-145 mmol/L Potassium Level 7.5 *H 3.5-5.1 mmol/L Chloride Level 96 L 101-111 mmol/L Carbon Dioxide Level 18 L 21-32 mmol/L Blood Urea Nitrogen 87 *H 7-18 mg/dL Creatinine 14.8 *H 0.5-1.0 mg/dL Glomerular Filtration Rate Calc 3 >90 mL/min Random Glucose 111 H 70-105 mg/dL Total Calcium 7.9 L 8.5-10.1 mg/dL Total Creatine Kinase 429 #*H 21-232 U/L Troponin I High Sensitivity 368.2 *H 4-50 ng/L B-Type Natriuretic Peptide 1460 H 0-100 pg/mL ASSESSMENT: Life-threatening hyperkalemia Fluid overload Respiratory failure with hypoxia Anemia Metabolic acidosis End-stage renal disease Diabetes mellitus type 2 Hypertension Morbid obesity PLAN: Labs and Diagnostics/ Radiology personally reviewed and interpreted by myself and supervising physician We have reviewed dialysis and external records in detail Patient received emergent dialysis today and Continue dialysis schedule Friday 1.5 L fluid restriction Continue to monitor H&H Epogen on dialysis days, as needed Continue with frequent monitoring of renal function, anemia, and electrolytes Order CBC, BMP, and electrolytes in the morning May use Dilaudid 0.5 mg IV every 6 hours as needed for severe pain Monitor blood pressure adjust medication doses as needed Maintain normotensive state Strict intake, output, and daily weight should be monitored Please renally adjust medications. Avoid nephrotoxics and nonsteroidal drugs. We will continue to monitor the patient closely We have discussed with the other team physicians in detail about the care plan Thank you for allowing us to participate in the care of this patient ATTESTATION BY PHYSICIAN I have seen and examined the patient. I reviewed the documentation, medical decision making, and treatment plan as noted by the mid-level provider above. I agree with the findings and plan of care. CARLO KAUR MD, [facility] May 26, 2024 14:40
[2024-05-26] MEDS ORDERED: 0.9% NACL 250ML 250 ML IV SCH (15:30)
--- NOTE | 2024-05-26 15:40 | NUR ---
WOUND TO RIGHT LE. PT HAS APPROX 6 INCH POORLY ADHESED INCISION TO LATERAL ASPECT OF RIGHT ANKLE AND APPROX 3 INCH POORLY ADHESED INCISION TO MEDIAL ASPECT OF RIGHT ANKLE. PT STATES LAST WOUND CLEANING WAS ON FRIDAY. CLEANING WAS DONE TODAY USING WOUND POOL CLEANER AND NON-ADHERENT BANDAGES. WRAPPED WITH KERLIX.
[2024-05-26] MEDS: HEParin 5,000 UNIT VIAL IRRIG SCH (16:06)
[2024-05-26] MEDS: 0.9%NACL 1000ML 1,000 ML IV SCH (16:06)
--- NOTE | 2024-05-26 16:52 | NUR ---
3 HRS OF HEMODIALYSIS AT BEDSIDE, 2.1 LITERS OF FLUID WERE REMOVED.
--- NOTE | 2024-05-26 17:18 | NUR ---
HBSAG - NEG OF 04/28/2024 (VI NELSON,RN @ [facility] - PT'S HD CLINIC)
--- NOTE | 2024-05-26 19:04 | NUR ---
PT WAS PLACED ON HOSPITAL BED
[2024-05-26 20:36] LABS: HEPATITIS B SURFACE ANTIBODY Negative (Reactive); HEPATITIS B SURFACE ANTIGEN Non-Reactive (Nonreactive); HEPATITIS C ANTIBODY Non-Reactive (Nonreactive)
[2024-05-26 20:37] LABS: HEPATITIS B CORE AB TOTAL Non-Reactive (Nonreactive)
[2024-05-27] VITALS (18 sets, daily range): BP systolic 116–177; BP diastolic 42–60; PULSE 71–82; RESP 19–24; TEMP 97.7–100.1; O2SAT 98–100
--- NOTE | 2024-05-27 02:19 | NUR ---
REPORT GIVEN TO KENZIE BURDEN
--- NOTE | 2024-05-27 03:37 | PN ---
SUBJECTIVE: This patient is seen for dialysis and seen multiple times. The patient is critically ill with acute hypoxic respiratory failure. The patient also has been on BiPAP. The patient has missed dialysis also. She has been having cold symptoms. No other associated finding. No other aggravating or relieving factors. The patient is generally weak. PHYSICAL EXAMINATION: GENERAL: The patient is in mild distress, on BiPAP. VITAL SIGNS: Blood pressure is around 131/56, pulse 73, respiratory rate is 16. HEENT: Head is atraumatic, normocephalic. Pupils are round, reactive to light. Sclerae are anicteric. Conjunctivae not pale. Oral mucosa is not dry. NECK: Supple. No masses or bruits. Thyroid is palpable. Neck has no bruits. CHEST: Shows equal thoracic percussion note being resonant in all areas. CARDIAC: Regular rhythm, no rub, no S3, S4. No parasternal heave. LABORATORY DATA: Labs have been reviewed and old records reviewed. PROBLEMS: Renal failure, respiratory failure, severe hypoxemia and the patient is on noninvasive ventilation. PLAN: To continue dialysis support. Continue monitoring of renal function. Overall condition is critical, guarded. Seen several times. I have discussed with other team members. We will follow up closely. Overall condition is critical, guarded. Thank you for this patient. TID: [id number] RECEIPT: [id number]
[2024-05-27 06:45] LABS: HEMATOCRIT 31.3 % (36-48); MEAN CORPUSCULAR HEMOGLOBIN 28.3 pg (27.0-33.0); MEAN CORPUSCULAR HGB CONC 31.6 g/dL (32.0-36.0); MEAN CORPUSCULAR VOLUME 89.4 fL (79-99); PLATELET COUNT (AUTO) 148 K/uL (130-400); RED CELL DISTRIBUTION WIDTH 15.1 % (11.0-15.5); WHITE BLOOD COUNT (AUTO) 7.5 K/uL (4.8-10.8)
[2024-05-27 07:02] LABS: ALBUMIN 2.5 g/dL (3.5-5.0); BILIRUBIN,TOTAL 0.4 mg/dL (0.2-1.0); PHOSPHORUS 4.5 mg/dL (2.5-4.9); POTASSIUM 5.3 mmol/L (3.5-5.1); TOTAL PROTEIN, SERUM 6.5 g/dL (6.0-8.3)
[2024-05-27 07:22] LABS: B-TYPE NATRIURETIC PEPTIDE 644 pg/mL (0-100)
[2024-05-27 07:29] LABS: CREATININE 9.5 mg/dL (0.5-1.0)
[2024-05-27 07:46] LABS: BAND NEUTROPHILS % (MANUAL) 2 % (0-2); LYMPHOCYTES % (MANUAL) 14 % (22-44); MAN.DIFF COMMENT-IMPRESSION MANUAL DIFFERENTIAL; MONOCYTES % (MANUAL) 9 % (2-9); PLATELET MORPHOLOGY COMMENT ADEQUATE; SEGMENTED NEUTROPHILS % 75 % (40-70); TOTAL CELLS COUNTED 100; WBC MORPHOLOGY CONSISTENT W/DIFF
[2024-05-27] MEDS ORDERED: cefTRIAXone 1G VIAL IVPB SCH ×2 (10:30→17:00)
--- NOTE | 2024-05-27 13:26 | PN ---
NEPHROLOGY PROGRESS NOTE Date/Time Patient Seen: May 27, 2024 Reason for Consultation: 13:25 SUBJECTIVE: This is a 58-year-old female with a past medical history of hypertension, diabetes mellitus type 2, end-stage renal disease on hemodialysis Friday, anemia, coronary artery disease, arthritis, anxiety, asthma, morbid obesity. She presented to the emergency with complaints of shortness of breath and flu- like symptoms. She reports missing dialysis sessions due to symptoms. Tolerated dialysis well yesterday She continues to complain of cough. She was seen in the medical floor , in no acute distress No family at the bedside REVIEW OF SYSTEMS: GENERAL: Positive for shortness of breath and flu-like symptoms NEUROLOGIC: Negative for any blurry vision, blind spots, double vision, facial asymmetry, dysphagia, dysarthria, hemiparesis, hemisensory deficits, vertigo, ataxia. HEENT: Negative for any head trauma, neck trauma, neck stiffness, photophobia, phonophobia, sinusitis, rhinitis. CARDIAC: Negative for any chest pain, dyspnea on exertion, paroxysmal nocturnal dyspnea, peripheral edema. PULMONARY: Negative for any shortness of breath, wheezing, COPD, or TB exposure. GASTROINTESTINAL: Negative for any abdominal pain, nausea, vomiting, bright red blood per rectum, melena. GENITOURINARY: Negative for any dysuria, hematuria, incontinence. INTEGUMENTARY: Negative for any rashes, cuts, insect bites. RHEUMATOLOGIC: Negative for any joint pains, photosensitive rashes, history of vasculitis or kidney problems. HEMATOLOGIC: Negative for any abnormal bruising, frequent infections or bleeding. PHYSICAL EXAM: GENERAL: Alert and oriented x 3.. Well-nourished. EYES: EOMI. Anicteric. HENT: Moist mucous membranes. No scleral icterus. No cervical lymphadenopathy. LUNGS: Clear to auscultation bilaterally. No accessory muscle use. CARDIOVASCULAR: Regular rate and rhythm. No murmur. No JVD. ABDOMEN: Soft, non-tender and non-distended. No palpable masses. EXTREMITIES: No edema. Non-tender. SKIN: No rashes or lesions. Warm. NEUROLOGIC: No focal neurological deficits. CN II-XII grossly intact, but not individually tested. PSYCHIATRIC: Cooperative. Appropriate mood and affect. LABORATORY: [ ] Hematology Labs: Test 05/27/24 06:00 05/26/24 07:44 Range/Units White Blood Count 7.5 # 4.8-10.8 K/uL Red Blood Count 3.50 L 4.00-5.50 MIL/uL Hemoglobin 9.9 L 12.0-16.0 g/dL Hematocrit 31.3 L 36-48 % Mean Corpuscular Volume 89.4 79-99 fL Mean Corpuscular Hemoglobin 28.3 27.0-33.0 pg Mean Corpuscular Hemoglobin Concent 31.6 L 32.0-36.0 g/dL Red Cell Distribution Width 15.1 11.0-15.5 % Platelet Count 148 130-400 K/uL Mean Platelet Volume 11.9 H 7.5-10.5 fL Segmented Neutrophils % 75 H 40-70 % Band Neutrophils % 2 0-2 % Lymphocytes % (Manual) 14 L 22-44 % Monocytes % (Manual) 9 2-9 % Nucleated Red Blood Cells 0.0 0.0-0.19 % Differential Comment MANUAL DIFFERENTIAL White Cell Morphology Comment CONSISTENT W/DIFF Platelet Morphology Comment ADEQUATE Red Blood Cell Morphology See comments Immature Granulocyte % (Auto) 0.5 0-1 % Neutrophils (%) (Auto) 76.9 40.0-77.0 % Lymphocytes (%) (Auto) 14.7 L 21.0-51.0 % Monocytes (%) (Auto) 7.4 3.0-13.0 % Eosinophils (%) (Auto) 0.3 0.0-8.0 % Basophils (%) (Auto) 0.2 0.0-5.0 % Neutrophils # (Auto) 9.3 H 1.8-7.7 K/uL Lymphocytes # (Auto) 1.8 1.0-4.8 K/uL Monocytes # (Auto) 0.9 0.1-1.0 K/uL Eosinophils # (Auto) 0.04 0.00-0.70 K/uL Basophils # (Auto) 0.03 0.00-0.20 K/uL Absolute Immature Granulocyte (auto 0.06 0-1 K/uL Chemistry Labs: Test 05/27/24 10:52 05/27/24 06:00 05/26/24 07:44 Range/Units Whole Blood Glucose 83 70-110 MG/DL Sodium Level 135 L 136-145 mmol/L Potassium Level 5.3 H 3.5-5.1 mmol/L Chloride Level 97 L 101-111 mmol/L Carbon Dioxide Level 25 21-32 mmol/L Blood Urea Nitrogen 49 #H 7-18 mg/dL Creatinine 9.5 *H 0.5-1.0 mg/dL Glomerular Filtration Rate Calc 4 >90 mL/min Random Glucose 82 70-105 mg/dL Total Calcium 7.6 L 8.5-10.1 mg/dL Phosphorus Level 4.5 2.5-4.9 mg/dL Total Bilirubin 0.4 0.2-1.0 mg/dL Aspartate Amino Transf (AST/SGOT) 30 10-37 U/L Alanine Aminotransferase (ALT/SGPT) 8 L 12-78 U/L Alkaline Phosphatase 380 H 50-136 U/L Troponin I High Sensitivity 164 *H 4-50 ng/L B-Type Natriuretic Peptide 644 H 0-100 pg/mL Total Protein 6.5 6.0-8.3 g/dL Albumin 2.5 L 3.5-5.0 g/dL Total Creatine Kinase 429 #*H 21-232 U/L DIAGNOSTICS / RADIOLOGY: REASON: Dyspnea/SOB ORDERING PHYSICIAN: ALONSO CALIXTO DO PROCEDURE: CXR1VW - CHEST 1VW Exam Type: CHEST 1VW Clinical Information: Dyspnea/SOB Comparison: None Findings: Pulmonary pattern is as before. No worrisome interval changes have taken place. Impression: Stable exam. DICTATED BY: NIKA SOTO MD DATE: 05/26/24828 ASSESSMENT: Life-threatening hyperkalemia Fluid overload Respiratory failure with hypoxia Anemia Metabolic acidosis End-stage renal disease Diabetes mellitus type 2 Hypertension Morbid obesity PLAN: Labs and Diagnostics/ Radiology personally reviewed and interpreted by myself and supervising physician We have reviewed dialysis and external records in detail Continue dialysis schedule Friday Consult CV surgeon for AV access evaluation 1.5 L fluid restriction Continue to monitor H&H Epogen on dialysis days, as needed Continue with frequent monitoring of renal function, anemia, and electrolytes Order CBC, BMP, and electrolytes in the morning May use Dilaudid 0.5 mg IV every 6 hours as needed for severe pain Monitor blood pressure adjust medication doses as needed Maintain normotensive state Strict intake, output, and daily weight should be monitored Please renally adjust medications. Avoid nephrotoxics and nonsteroidal drugs. We will continue to monitor the patient closely We have discussed with the other team physicians in detail about the care plan ATTESTATION BY PHYSICIAN I have seen and examined the patient. I reviewed the documentation, medical decision making, and treatment plan as noted by the mid-level provider above. I agree with the findings and plan of care. CARLO KAUR MD, [facility] May 27, 2024 13:26
--- NOTE | 2024-05-27 14:59 | NUR ---
DCP Patient lives at parent's house with daughter, Brandy Villegas sister/provider [phone] ([address]). daughter is provider with [facility] for about 20 hours. Brandy Villegas, [phone] is temporary POA at this time. receives $23 food stamps. needs assistance with most ADL's and is dependent of her daughter/provider. uses a walk in shower with a shower chair, walker with a seat, wheelchair and has bedside commode. Denies home health services and dialysis services. goes to [facility] Friday, Friday and Friday. PCP - Maya Crowder MD Pharmacy - [facility]. she prefers to go home; although, she has recently been discharged from [facility] for a bone infection which required 30 day antibiotic treatment (discharge date 04/19/2024); and, is satisfied with the facility. Sister Menendez [phone] will provide transportation home upon discharge. Addendum: 05/27/24 at 1518 by LYNDON CHAMBERS RN CM Amended: Links added.
[2024-05-27] MEDS ORDERED: hydrALAZine 20MG/ML VIAL IV PRN (15:00)
[2024-05-27] MEDS ORDERED: ceFEPime HCL 1 GM VIAL IVPB SCH (15:00)
[2024-05-27] MEDS: SODIUM CHLORIDE 3% FOR INHALATION 4 ML/AMP VIAL.NEB IH ONE ×3 (15:04→23:30)
[2024-05-27] MEDS: ALBUTEROL 0.083% 2.5 MG/3 ML INH IH SCH (15:08)
--- NOTE | 2024-05-27 15:14 | HP ---
[facility] HISTORY AND PHYSICAL Date of Service: May 27, 2024 Time of Service: 15:14 HISTORY OF PRESENT ILLNESS: Date Of service: 05/27/2024 This is a 58-year-old female with past medical history of ESRD on dialysis Friday, hypertension, hyperlipidemia, asthma presented hospital secondary to shortness of breaths. Please note there is no HNP available on chart review. Patient was initially admitted under Dr. Hardin's service since patient was previously being followed by and was admitted on 05/26/2024. Patient's history is obtained from chart review and from patient. Patient states previously she was admitted to [facility] secondary to right ankle abscess/cellulitis. Patient was evaluated by Orthopedic surgery secondary to failed hardware and had exploration and debridement of the abscess with removal of the lateral plate, screws including syndesmotic screw. Patient's wound culture was notable for MSSA and patient was being treated with IV antibiotics. Patient had PICC line placed and was thereafter discharged to [facility] for six weeks of IV antibiotics. Patient states he was discharged from [facility] on May 20 and was staying at home. She noted that her daughter was sick with URI and she developed fevers at home. She noted her temperature was 103 F and she had associated cough with sputum production. She also noted some episodes of diarrhea at home. Since she was not feeling well she did not undergo dialysis for the past 5-6 days. She thereafter was brought to the hospital secondary to non improving symptoms. She denied any chest pain, abdominal pain, nausea, vomiting. She gets dialysis through [facility] and she sees Dr. Hu as outpatient. She currently denies any chest pain at rest or exertion. Hospitalist service was consulted since Dr. Hardin wanted to transfer care to hospitalist. Patient states Dr. Crowder had fired her and she currently does not have a pcp. Labs were notable for white count of 12.1, hemoglobin was 10.2, platelet count was 147k, sodium on presentation was 131, potassium was 7.5, creatinine was 14.8 bicarb was 13, total CK was 429, troponin was mildly elevated at 368 and down trended to 164, BNP was 1460. Labs from morning showed potassium was 5.3, alk- phos was 380, BNP was 644 was today. Chest x-ray showed mild congestive changes. REVIEW OF SYSTEMS CONSTITUTIONAL: Denies or night sweats. No unintentional weight loss reported. Positive for fever, chills NEUROLOGICAL: Denies headache, amaurosis fugax, motor weakness, sensory deficit, vertigo/spinning sensation, gait abnormalities, or tremors. ENT: No hearing loss, otalgia, otorrhea, rhinitis, rhinorrhea, hoarseness, or sore throat. CARDIOVASCULAR: Denies any exertional angina, dyspnea on exertion, orthopnea, paroxysmal nocturnal dyspnea, palpitations, life-threatening arrhythmias, claudication. PULMONARY: Positive for cough, sputum production. Denied any hemoptysis GASTROINTESTINAL: Denies any type of dysphagia to either liquids or solids. Denies nausea, vomiting, pyrosis, early satiety, abdominal pain, constipation, or changes in stool consistency or caliber. Denies coffee-ground emesis, hematemesis, hematochezia, or melanotic stools. Positive for diarrhea GENITOURINARY: Denies frequency, urgency, nocturia, hematuria or incontinence (Storage/Irritative symptoms.) Low urinary stream, straining to void, urinary intermittency or hesitancy, splitting of the voiding stream, terminal dribbling. ENDOCRINOLOGIC: Denies polyuria, polydipsia, polyphagia or heat/cold intolerances. HEMATOLOGIC: Denies thrombophilia/previous clots, or coagulopathy/bleeding disorders. ONCOLOGIC: Denies personal history of malignancy. DERMATOLOGIC: Denies rashes or pruritus. PSYCHIATRIC: Denies any suicidal or homicidal ideation. Denies hallucinations. PAST MEDICAL HISTORY: ESRD, hypertension, hyperlipidemia, diabetes mellitus type 2, recent hospitalization for right ankle cellulitis/abscess, asthma PAST SURGICAL HISTORY: Hysterectomy, , history of AV graft, av graft removal, PermCath, hardware removal in the right ankle PAST SOCIAL HISTORY: Denied smoking, alcohol, drug use FAMILY HISTORY: Denied any pertinent family history Coded Allergies: No Known Drug Allergies (Verified Allergy, Unknown, 05/27/24) PHYSICAL EXAM GENERAL APPEARANCE: The patient is awake, alert, and oriented, in no acute cardiopulmonary distress. NEUROLOGICAL: Cranial nerves II-XII grossly intact. Motor is 5/5 in bilateral upper and lower extremities proximal to distal. No sensory deficits. HEENT: Face is symmetric. Pupils are equal and reactive. Extraocular movements are intact. NECK: Supple. No JVD. No thyromegaly. No submental, submandibular, pre-/p ostauricular, occipital or supraclavicular lymphadenopathy. CHEST: Normal chest expansion. No Telemetry. LUNGS: She has wheezing present bilaterally with rhonchi. CARDIOVASCULAR: Regular. S1 and S2 normal. No appreciable rubs, murmurs or gallops. ABDOMEN: Soft, nontender, and nondistended. There is no rebound, voluntary guarding, or rigidity. : Deferred. No Ardon. EXTREMITIES: She has a wound noted in the right ankle. She has a wound in the lateral and medial aspect of the leg. There is some purulent discharge noted. SKIN: No skin breakdown. Vital Sign (Last 24 Hours) 05/27/24 05/27/24 12:00 12:01 Temp 98.6 Pulse 78 Resp 20 B/P (MAP) 120/60 Pulse Ox 99 O2 Delivery N/Cannula Low lpm O2 Flow Rate 3.0 FiO2 32 Intake & Output (last 24hrs) 05/26/24 05/26/24 05/27/24 15:00 23:00 07:00 Output Total 4200 ml Balance -4200 ml LABS: Laboratory: Test 05/27/24 10:52 05/27/24 06:00 05/26/24 14:00 05/26/24 07:57 Range/Units Whole Blood Glucose 83 70-110 MG/DL White Blood Count 7.5 # 4.8-10.8 K/uL Red Blood Count 3.50 L 4.00-5.50 MIL/uL Hemoglobin 9.9 L 12.0-16.0 g/dL Hematocrit 31.3 L 36-48 % Mean Corpuscular Volume 89.4 79-99 fL Mean Corpuscular Hemoglobin 28.3 27.0-33.0 pg Mean Corpuscular Hemoglobin Concent 31.6 L 32.0-36.0 g/dL Red Cell Distribution Width 15.1 11.0-15.5 % Platelet Count 148 130-400 K/uL Mean Platelet Volume 11.9 H 7.5-10.5 fL Segmented Neutrophils % 75 H 40-70 % Band Neutrophils % 2 0-2 % Lymphocytes % (Manual) 14 L 22-44 % Monocytes % (Manual) 9 2-9 % Nucleated Red Blood Cells 0.0 0.0-0.19 % Differential Comment MANUAL DIFFERENTIAL White Cell Morphology Comment CONSISTENT W/DIFF Platelet Morphology Comment ADEQUATE Red Blood Cell Morphology See comments Sodium Level 135 L 136-145 mmol/L Potassium Level 5.3 H 3.5-5.1 mmol/L Chloride Level 97 L 101-111 mmol/L Carbon Dioxide Level 25 21-32 mmol/L Blood Urea Nitrogen 49 #H 7-18 mg/dL Creatinine 9.5 *H 0.5-1.0 mg/dL Glomerular Filtration Rate Calc 4 >90 mL/min Random Glucose 82 70-105 mg/dL Total Calcium 7.6 L 8.5-10.1 mg/dL Phosphorus Level 4.5 2.5-4.9 mg/dL Total Bilirubin 0.4 0.2-1.0 mg/dL Aspartate Amino Transf (AST/SGOT) 30 10-37 U/L Alanine Aminotransferase (ALT/SGPT) 8 L 12-78 U/L Alkaline Phosphatase 380 H 50-136 U/L Troponin I High Sensitivity 164 *H 4-50 ng/L B-Type Natriuretic Peptide 644 H 0-100 pg/mL Total Protein 6.5 6.0-8.3 g/dL Albumin 2.5 L 3.5-5.0 g/dL Hepatitis B Surface Antigen. Non-Reactive Nonreactive Hepatitis B Surface Antibody. Negative L Reactive Hepatitis B Core Total Antibody. Non-Reactive Nonreactive Hepatitis C Antibody Non-Reactive Nonreactive Blood Gas Specimen Type Arterial Arterial Blood pH 7.188 *L 7.350-7.450 Arterial Blood Partial Pressure CO2 35 32-45 mmHg Arterial Blood Partial Pressure O2 212.1 H 83.0-108.0 mmHg Arterial Blood HCO3 12.9 L 21.0-28.0 mmol/L Arterial Blood Oxygen Saturation 98.9 H 94.0-98.0 % Arterial Blood Base Excess -14.3 L -2.0-3.0 mmol/L Hemoglobin (Blood Gas) 11.0 L 12.0-16.0 g/dL Sodium (Blood Gas) 132 L 136-145 MMOL/L Bedside Potassium (Blood Gas) 6.8 *H 3.4-4.5 MMOL/L Bedside Chloride (Blood Gas) 102 98-107 MMOL/L Bedside Glucose (Blood Gas) 97 H 65-95 MG/DL Bedside Ionized Calcium (Blood Gas) 1.07 L 1.15-1.33 MMOL/L Bedside Lactic Acid (Blood Gas) 0.79 H 0.36-0.75 MMOL/L Blood Gas Temperature 37.0 35.5-37.0 CELSIUS Blood Gas Respiration Rate 19.0 min. Blood Gas Vent Mode BIPAP 12 6 ROOM AIR FiO2 50.0 % Blood Gas PEEP 6 cm H2O Blood Gas Specimen Comment LR DURGA Test 05/26/24 07:44 Range/Units Immature Granulocyte % (Auto) 0.5 0-1 % Neutrophils (%) (Auto) 76.9 40.0-77.0 % Lymphocytes (%) (Auto) 14.7 L 21.0-51.0 % Monocytes (%) (Auto) 7.4 3.0-13.0 % Eosinophils (%) (Auto) 0.3 0.0-8.0 % Basophils (%) (Auto) 0.2 0.0-5.0 % Neutrophils # (Auto) 9.3 H 1.8-7.7 K/uL Lymphocytes # (Auto) 1.8 1.0-4.8 K/uL Monocytes # (Auto) 0.9 0.1-1.0 K/uL Eosinophils # (Auto) 0.04 0.00-0.70 K/uL Basophils # (Auto) 0.03 0.00-0.20 K/uL Absolute Immature Granulocyte (auto 0.06 0-1 K/uL Total Creatine Kinase 429 #*H 21-232 U/L Current Medications Medications (Trade) Dose Ordered Sig/Susannah Route PRN Reason Start Time Stop Time Status Last Admin Dose Admin Acetaminophen (TYLenol 500MG TAB) 500 mg Q6H PRN PO MILD PAIN (1-3) 05/27/24 15:00 06/26/24 14:59 Albuterol Sulfate (Proventil 0.083% 2.5mg/3ml) 2.5MG [id number] IH 05/27/24 15:00 06/26/24 14:59 05/27/24 15:08 2.5 MG Albuterol Sulfate (Proventil 0.083% 2.5mg/3ml) 10 mg ONCE IH 05/26/24 08:00 05/26/24 15:17 DC 05/26/24 08:11 10 MG Cefepime HCl (MAXipime 1 GM vial) 1 gm Q12H IVPB 05/27/24 15:00 06/06/24 14:59 Ceftriaxone Sodium (ROCEphine 1G INJ) 1 gm Q24H IVPB 05/27/24 10:30 05/27/24 14:24 DC Ceftriaxone Sodium (ROCEphine 1G INJ) 1 gm Q24H IVPB 05/27/24 17:00 05/27/24 14:58 DC Heparin Sodium (Porcine) (HEParin 5,000 UNIT VIAL) 10,000 unit AD IRRIG 05/26/24 15:30 06/25/24 15:29 05/26/24 16:06 10,000 UNIT Hydralazine HCl (APRESOLine 20MG INJ) 10 mg Q6H PRN IV ADMINISTER FOR SBP > 180 05/27/24 15:00 06/26/24 14:59 Sodium Chloride 250 ml @ 0 mls/hr AD IV 05/26/24 15:30 06/25/24 15:29 Sodium Chloride 1,000 ml @ 0 mls/hr ONCE IV 05/26/24 15:30 06/25/24 15:29 05/26/24 16:06 100 MLS/HR DIAGNOSTICS / RADIOLOGY: [ ] ASSESSMENT: Acute hypoxic respiratory failure POA Volume overload secondary to missed dialysis Metabolic acidosis Troponin elevation likely in setting of missed dialysis and type 2 DE (down trending) no chest Metabolic/infectious encephalopathy. Suspected pneumonia/URI POA Acute asthma exacerbation History of right ankle abscess status post incision and drainage and hardware removal by Dr. Cabrera on 03/2025 Suspected cellulitis in the right ankle with mild purulent drainage History of MSSA infection Hypertension History of hyperlipidemia History of diabetes mellitus type two Obesity BMI 45.5 PLAN: - continue with admission in medical-surgical unit - in reference to asthma exacerbation. The patient will be started on vanc and cefepime doxycycline. We will obtain a sputum sample. Patient will be on albuterol q.6 hours. Repeat ABG. We will request consultation with pul monology. Obtain home medications to reconciled once available obtain a flu, COVID -in reference to volume overload/ESRD. Patient underwent dialysis yesterday with removal of 2.1 L fluid. Continue with recommendations service per Nephrology. -in reference to suspected right ankle cellulitis. We will request consultation with Wound Care. Obtain a foot x-ray. We will request ID consultation. Continue with vancomycin, cefepime. We will deescalate antibiotics if cultures remain negative. -obtain home medications which will be reconciled once available -in reference to troponin elevation. Patient currently denies any chest pain. We will obtain echocardiogram. -further orders per hospitalization course. Plan of care was discussed with patient at bedside Advanced Care Planning Which of the following were discussed: Hospice care: Yes __ No _x_ Therapeutic options: Yes __ No __ Advance directives: Yes __ No __ Other discussions: Discussed with who?: Patient (Patient, family or surrogates) Voluntary nature of this service was explained to the patient? Yes _x_ No __ Amount of time spent: 30 minutes CARMINE Meraz MD, MD May 27, 2024 15:14
--- NOTE | 2024-05-27 15:27 | NUR ---
[facility] Consult: Patient assessed by wound healing team. See wound assessment. Assessment and recommendations provided to primary nurse. Education provided. Addendum: 05/28/24 at 0943 by ANDREA CUMMINGS RN RN/ Amended: Links added.
[2024-05-27 15:34] LABS: ABG BASE EXCESS -1.4 mmol/L (-2.0-3.0); ABG HCO3 24.3 mmol/L (21.0-28.0); ABG OXYGEN SATURATION 97.8 % (94.0-98.0); ABG PCO2 45 mmHg (32-45); ABG PH 7.356 (7.350-7.450); PO2, ARTERIAL BG 109.3 mmHg (83.0-108.0); VENT MODE, BG NC (ROOM AIR)
[2024-05-27 15:45] LABS: HEMOGLOBIN A1C 6.9 % (4.0-6.0)
[2024-05-27] MEDS ORDERED: VANCOMYCIN PROTOCOL PER PHARMACY IV SCH (16:00)
--- NOTE | 2024-05-27 16:21 | HMCIMG ---
Exam Type: FOOT LIMITED 2VWS RT Clinical Information: history of ankle abscess, assess for osteo Comparison: None Findings and impression: Soft tissue swelling of the ankle which could represent cellulitis. Postoperative changes of the distal tibia. Degenerative changes of the interphalangeal joints. Calcaneal spurs. Osteopenia.
--- NOTE | 2024-05-27 17:42 | CONS ---
CONSULTATION NOTE Date of Service: May 27, 2024 Reason for Consultation: [ ] Requesting Physician: [ ] HISTORY OF PRESENT ILLNESS: [ ] REVIEW OF SYSTEMS CONSTITUTIONAL: Denies fever, chills, or fatigue. HEAD/FACE: No signs of trauma. EENT: Denies eye pain, blurred vision, double vision, or light sensitivity. RESPIRATORY: Denies shortness of breath, cough, wheezing CARDIOVASCULAR: Denies chest pain, palpitation, syncope GASTROINTESTINAL/ABDOMINAL: Denies abdominal pain, constipation, diarrhea, nausea or vomiting GENITOURINARY: Denies dysuria or hematuria. MUSCULOSKELETAL: Denies joint pain, tenderness, or trauma. INTEGUMENTARY: Denies rash or itchiness NEUROLOGICAL/PSYCH: Denies anxiety, depression, heat or cold intolerance. PAST MEDICAL HISTORY: [ ] PAST SURGICAL HISTORY: [ ] PAST SOCIAL HISTORY: [ ] FAMILY HISTORY: [ ] Coded Allergies: No Known Drug Allergies (Verified Allergy, Unknown, 05/27/24) PHYSICAL EXAM EYES: Anicteric. Pupils equal and reactive. HENT: No oral thrush seen, moist Oral mucosa NECK: Supple, no JVD or thyromegaly. LUNGS: Good air entry. No rales, no rhonchi. CARDIOVASCULAR: S1, S2 regular. No murmur heard. ABDOMEN: Soft, non tender, bowel sounds present, no organomegaly CENTRAL NERVOUS SYSTEM: Awake, alert, oriented x 3. No focal deficits. SKIN: No rashes, no swelling. LYMPHATICS: No peripheral lymphadenopathy MUSCULOSKELETAL: No joint swelling, erythema or tenderness. EXTREMITIES: No cyanosis or clubbing BACK: No deformity, no pressure ulcer. GENITOURINARY: No dysuria or hematuria Vital Sign (Last 24 Hours) 05/27/24 05/27/24 15:18 16:00 Temp 99.0 Pulse 80 Resp 21 B/P (MAP) 116/46 Pulse Ox 97 O2 Delivery Nasal Cannula O2 Flow Rate 3.0 FiO2 32 Intake & Output (last 24hrs) 05/26/24 05/26/24 05/27/24 15:00 23:00 07:00 Output Total 4200 ml Balance -4200 ml LABS: Laboratory: Test 05/27/24 15:41 05/27/24 15:33 05/27/24 15:30 05/27/24 06:00 Range/Units Whole Blood Glucose 75 70-110 MG/DL Blood Gas Specimen Type Arterial Arterial Blood pH 7.356 7.350-7.450 Arterial Blood Partial Pressure CO2 45 32-45 mmHg Arterial Blood Partial Pressure O2 109.3 H 83.0-108.0 mmHg Arterial Blood HCO3 24.3 21.0-28.0 mmol/L Arterial Blood Oxygen Saturation 97.8 94.0-98.0 % Arterial Blood Base Excess -1.4 -2.0-3.0 mmol/L Blood Gas Temperature 37.0 35.5-37.0 CELSIUS Blood Gas Flow-by 3.00 0.00-15.00 L/min Blood Gas Vent Mode NC ROOM AIR FiO2 32.0 % Blood Gas Specimen Comment RR SHREYA Lactic Acid Level 0.6 L 0.8-2.5 mmol/L Procalcitonin 2.73 H 0.05-0.5 ng/mL White Blood Count 7.5 # 4.8-10.8 K/uL Red Blood Count 3.50 L 4.00-5.50 MIL/uL Hemoglobin 9.9 L 12.0-16.0 g/dL Hematocrit 31.3 L 36-48 % Mean Corpuscular Volume 89.4 79-99 fL Mean Corpuscular Hemoglobin 28.3 27.0-33.0 pg Mean Corpuscular Hemoglobin Concent 31.6 L 32.0-36.0 g/dL Red Cell Distribution Width 15.1 11.0-15.5 % Platelet Count 148 130-400 K/uL Mean Platelet Volume 11.9 H 7.5-10.5 fL Segmented Neutrophils % 75 H 40-70 % Band Neutrophils % 2 0-2 % Lymphocytes % (Manual) 14 L 22-44 % Monocytes % (Manual) 9 2-9 % Nucleated Red Blood Cells 0.0 0.0-0.19 % Differential Comment MANUAL DIFFERENTIAL White Cell Morphology Comment CONSISTENT W/DIFF Platelet Morphology Comment ADEQUATE Red Blood Cell Morphology See comments Sodium Level 135 L 136-145 mmol/L Potassium Level 5.3 H 3.5-5.1 mmol/L Chloride Level 97 L 101-111 mmol/L Carbon Dioxide Level 25 21-32 mmol/L Blood Urea Nitrogen 49 #H 7-18 mg/dL Creatinine 9.5 *H 0.5-1.0 mg/dL Glomerular Filtration Rate Calc 4 >90 mL/min Random Glucose 82 70-105 mg/dL Hemoglobin A1c 6.9 H 4.0-6.0 % Estimated Average Glucose (eAG) 151 H 70-126 mg/dL Total Calcium 7.6 L 8.5-10.1 mg/dL Phosphorus Level 4.5 2.5-4.9 mg/dL Total Bilirubin 0.4 0.2-1.0 mg/dL Aspartate Amino Transf (AST/SGOT) 30 10-37 U/L Alanine Aminotransferase (ALT/SGPT) 8 L 12-78 U/L Alkaline Phosphatase 380 H 50-136 U/L Troponin I High Sensitivity 164 *H 4-50 ng/L B-Type Natriuretic Peptide 644 H 0-100 pg/mL Total Protein 6.5 6.0-8.3 g/dL Albumin 2.5 L 3.5-5.0 g/dL Test 05/26/24 14:00 05/26/24 07:57 05/26/24 07:44 Range/Units Hepatitis B Surface Antigen. Non-Reactive Nonreactive Hepatitis B Surface Antibody. Negative L Reactive Hepatitis B Core Total Antibody. Non-Reactive Nonreactive Hepatitis C Antibody Non-Reactive Nonreactive Hemoglobin (Blood Gas) 11.0 L 12.0-16.0 g/dL Sodium (Blood Gas) 132 L 136-145 MMOL/L Bedside Potassium (Blood Gas) 6.8 *H 3.4-4.5 MMOL/L Bedside Chloride (Blood Gas) 102 98-107 MMOL/L Bedside Glucose (Blood Gas) 97 H 65-95 MG/DL Bedside Ionized Calcium (Blood Gas) 1.07 L 1.15-1.33 MMOL/L Bedside Lactic Acid (Blood Gas) 0.79 H 0.36-0.75 MMOL/L Blood Gas Respiration Rate 19.0 min. Blood Gas PEEP 6 cm H2O Immature Granulocyte % (Auto) 0.5 0-1 % Neutrophils (%) (Auto) 76.9 40.0-77.0 % Lymphocytes (%) (Auto) 14.7 L 21.0-51.0 % Monocytes (%) (Auto) 7.4 3.0-13.0 % Eosinophils (%) (Auto) 0.3 0.0-8.0 % Basophils (%) (Auto) 0.2 0.0-5.0 % Neutrophils # (Auto) 9.3 H 1.8-7.7 K/uL Lymphocytes # (Auto) 1.8 1.0-4.8 K/uL Monocytes # (Auto) 0.9 0.1-1.0 K/uL Eosinophils # (Auto) 0.04 0.00-0.70 K/uL Basophils # (Auto) 0.03 0.00-0.20 K/uL Absolute Immature Granulocyte (auto 0.06 0-1 K/uL Total Creatine Kinase 429 #*H 21-232 U/L DIAGNOSTICS / RADIOLOGY: [ ] PROBLEM LIST : Medical Problems: (1) Anemia in chronic illness ICD Codes: D63.8 - Anemia in other chronic diseases classified elsewhere (2) Elevated troponin ICD Codes: R79.89 - Other specified abnormal findings of blood chemistry (3) ESRD needing dialysis ICD Codes: N18.6 - End stage renal disease; Z99.2 - Dependence on renal dialysis (4) Hyperkalemia ICD Codes: E87.5 - Hyperkalemia; Z99.2 - Dependence on renal dialysis (5) Metabolic acidosis ICD Codes: E87.20 - Acidosis, unspecified (6) Respiratory failure with hypoxia ICD Codes: J96.91 - Respiratory failure, unspecified with hypoxia PLAN: [ ] CRISPIN LAROSE MD May 27, 2024 17:42
[2024-05-27 19:01] LABS: SARS-CoV-2, RNA, NAAT NEGATIVE SARS CoV-2 (NEGATIVE)
[2024-05-27 19:08] LABS: INFLUENZA TYPE B Negative For Type B (NEGATIVE)
[2024-05-27] MEDS: BUDESONIDE 0.5 MG/2 ML INH IH SCH (19:15)
[2024-05-27 19:25] LABS: INFLUENZA TYPE A Positive For Type A (NEGATIVE)
[2024-05-27] MEDS ORDERED: PHARMACY COMMUNICATION MISC SCH (19:30)
[2024-05-27] MEDS ORDERED: DOXYCYCLINE HYCLATE 100 MG TABLET PO SCH (21:00)
[2024-05-27] MEDS ORDERED: Solu-medROL 40MG VIAL IVP SCH (21:00)
[2024-05-27] MEDS: OSELTAMIVIR PHOSPHATE 75 MG CAP PO SCH (21:41)
[2024-05-27] MEDS: ceFEPime HCL 1 GM VIAL IVPB SCH (21:41)
[2024-05-27] MEDS: carVEDIlol 12.5 MG TABLET PO SCH (21:41)
--- NOTE | 2024-05-27 21:57 | CONS ---
[facility] CONSULTATION NOTE Date Patient Seen: May 27, 2024 Time of Visit: 21:56 Supervising Physician: Dr. Berlin Barfield Reason for Consultation: Asthma exacerbation, possible pneumonia, respiratory distress Primary Care Physician: Attending team: Mark Hospitalist Team Outpatient Specialists: Inpatient Consults: BIS, pulmonology group Cardiovascular, infectious Disease, Nephrology, Wound Care PROBLEM LIST: Acute hypoxic respiratory failure POA Acute asthma exacerbation, POA Influenza A virus infection, POA Volume overload secondary to missed dialysis, POA Metabolic acidosis Troponin elevation likely in setting of missed dialysis and type 2 SD (down trending) no chest Metabolic/infectious encephalopathy. Suspected pneumonia/URI POA History of right ankle abscess status post incision and drainage and hardware removal by Dr. Cabrera on 03/2025 Suspected cellulitis in the right ankle with mild purulent drainage History of MSSA infection Hypertension History of hyperlipidemia History of diabetes mellitus type two Morbid obesity BMI 45.5 HPI: Ms. Villegas is a 58-year-old female with history of ESRD on dialysis Friday, hypertension, hyperlipidemia, and asthma who presented to [facility] on 05/26/24 for evaluation of shortness of breath. Per naa review the "patient stated previously she was admitted to [facility] secondary to right ankle abscess/cellulitis. Patient was evaluated by Orthopedic surgery secondary to failed hardware and had exploration and debridement of the abscess with removal of the lateral plate, screws including syndesmotic screw. Patient's wound culture was notable for MSSA and patient was being treated with IV antibiotics. Patient had PICC line placed and was thereafter discharged to [place] for six weeks of IV antibiotics. Patient states he was discharged from [place] on May 20 and was staying at home. She noted that her daughter was sick with URI and she developed fevers at home. She noted her temperature was 103 F and she had associated cough with sputum production. She also noted some episodes of diarrhea at home. Since she was not feeling well she did not undergo dialysis for the past 5-6 days. She thereafter was brought to the hospital secondary to non improving symptoms. She denied any chest pain, abdominal pain, nausea, vomiting. She gets dialysis through [facility] and she sees Dr. Hu as outpatient. She currently denies any chest pain at rest or exertion. Hospitalist service was consulted since Dr. Hardin wanted to transfer care to hospitalist. Patient states Dr. Crowder had fired her and she currently does not have a PCP. On 05/27/2024 BI team was consulted for asthma exacerbation, possible pneumonia, respiratory failure. I went to assess the patient at bedside. Patient's breathing was even, unlabored, in no distress. The patient is intermittently coughing. She is positive for influenza A. Informed patient of hostess party sales representative's plan of care. She verbalized understanding and is agreement with the plan. Plan and assessment are listed below. PAST MEDICAL HX: see above PAST SURGICAL HX: Hysterectomy, , history of AV graft, av graft removal, PermCath, hardware removal in the right ankle. SOCIAL HISTORY: No tobacco, ETOH, or illicit drug use Coded Allergies: No Known Drug Allergies (Verified Allergy, Unknown, 05/27/24) REVIEW OF SYSTEMS: 12 point ROS reviewed with patient. Pertinent positives mentioned above. Otherwise negative. PHYSICAL EXAM: GENERAL: Alert, weak, awake oriented x 3 HEENT: EOMI, Sclera non icteric, moist mucosa NECK: Supple, no JVD, trachea midline LUNGS: Rhonchi breath sounds to upper extremities, diminished on lower ex tremities bilaterally. No wheezes HEART: Regular rate and rhythm. Normal S1 and S2, without murmurs ABD: Abdomen soft, nontender. Bowel sounds present EXT: No clubbing cyanosis or edema NEURO: Awake, alert, oriented, follows commands, no neuro deficits noted. Vital Signs (last 8hr) Date Time Temp Pulse Resp B/P (MAP) Pulse Ox O2 Delivery O2 Flow Rate FiO2 05/27/24 21:41 177/60 05/27/24 20:00 100.0 81 19 177/60 100 Nasal Cannula 5.0 36 05/27/24 19:34 71 20 N/Cannula Low lpm 3.0 32 05/27/24 19:15 78 20 05/27/24 16:00 99.0 80 21 116/46 97 Nasal Cannula 3.0 05/27/24 15:18 77 20 N/Cannula Low lpm 3.0 32 05/27/24 15:08 78 20 LABS: Hematology Labs: Test 05/27/24 06:00 05/26/24 07:44 Range/Units White Blood Count 7.5 # 4.8-10.8 K/uL Red Blood Count 3.50 L 4.00-5.50 MIL/uL Hemoglobin 9.9 L 12.0-16.0 g/dL Hematocrit 31.3 L 36-48 % Mean Corpuscular Volume 89.4 79-99 fL Mean Corpuscular Hemoglobin 28.3 27.0-33.0 pg Mean Corpuscular Hemoglobin Concent 31.6 L 32.0-36.0 g/dL Red Cell Distribution Width 15.1 11.0-15.5 % Platelet Count 148 130-400 K/uL Mean Platelet Volume 11.9 H 7.5-10.5 fL Segmented Neutrophils % 75 H 40-70 % Band Neutrophils % 2 0-2 % Lymphocytes % (Manual) 14 L 22-44 % Monocytes % (Manual) 9 2-9 % Nucleated Red Blood Cells 0.0 0.0-0.19 % Differential Comment MANUAL DIFFERENTIAL White Cell Morphology Comment CONSISTENT W/DIFF Platelet Morphology Comment ADEQUATE Red Blood Cell Morphology See comments Immature Granulocyte % (Auto) 0.5 0-1 % Neutrophils (%) (Auto) 76.9 40.0-77.0 % Lymphocytes (%) (Auto) 14.7 L 21.0-51.0 % Monocytes (%) (Auto) 7.4 3.0-13.0 % Eosinophils (%) (Auto) 0.3 0.0-8.0 % Basophils (%) (Auto) 0.2 0.0-5.0 % Neutrophils # (Auto) 9.3 H 1.8-7.7 K/uL Lymphocytes # (Auto) 1.8 1.0-4.8 K/uL Monocytes # (Auto) 0.9 0.1-1.0 K/uL Eosinophils # (Auto) 0.04 0.00-0.70 K/uL Basophils # (Auto) 0.03 0.00-0.20 K/uL Absolute Immature Granulocyte (auto 0.06 0-1 K/uL Chemistry Labs: Test 05/27/24 19:24 05/27/24 15:30 05/27/24 06:00 05/26/24 07:44 Range/Units Whole Blood Glucose 89 70-110 MG/DL Lactic Acid Level 0.6 L 0.8-2.5 mmol/L Procalcitonin 2.73 H 0.05-0.5 ng/mL Sodium Level 135 L 136-145 mmol/L Potassium Level 5.3 H 3.5-5.1 mmol/L Chloride Level 97 L 101-111 mmol/L Carbon Dioxide Level 25 21-32 mmol/L Blood Urea Nitrogen 49 #H 7-18 mg/dL Creatinine 9.5 *H 0.5-1.0 mg/dL Glomerular Filtration Rate Calc 4 >90 mL/min Random Glucose 82 70-105 mg/dL Hemoglobin A1c 6.9 H 4.0-6.0 % Estimated Average Glucose (eAG) 151 H 70-126 mg/dL Total Calcium 7.6 L 8.5-10.1 mg/dL Phosphorus Level 4.5 2.5-4.9 mg/dL Total Bilirubin 0.4 0.2-1.0 mg/dL Aspartate Amino Transf (AST/SGOT) 30 10-37 U/L Alanine Aminotransferase (ALT/SGPT) 8 L 12-78 U/L Alkaline Phosphatase 380 H 50-136 U/L Troponin I High Sensitivity 164 *H 4-50 ng/L B-Type Natriuretic Peptide 644 H 0-100 pg/mL Total Protein 6.5 6.0-8.3 g/dL Albumin 2.5 L 3.5-5.0 g/dL Total Creatine Kinase 429 #*H 21-232 U/L DIAGNOSTICS / RADIOLOGY RESULTS: [ ] Pulmonary plan: Monitor respiratory status closely. Continue oxygen therapy as needed. Titrate oxygen as needed to keep SpO2 equal to greater than 92%. Continue Albuterol nebulizer in Pulmicort nebulizer treatments scheduled. Add Atrovent nebulizer scheduled. Continue Tamiflu. RT to provide IS and education on use. Natalie DM sugar free as needed for cough. Continue antibiotic therapy. HUGO PARRAP May 27, 2024 21:57
[2024-05-27] MEDS: IpraTROPium 0.5 MG/2.5 ML INH IH SCH (23:29)
[2024-05-27] MEDS: IpraTROPium 0.5 MG/2.5 ML INH IH ONE (23:29)
[2024-05-27] MEDS: guaiFENesin SUGAR-FREE 100 MG/5 ML UDCUP PO ONE (23:34)
[2024-05-28] VITALS (31 sets, daily range): BP systolic 95–153; BP diastolic 42–81; PULSE 68–77; RESP 14–25; TEMP 98–99.7; O2SAT 99–100
[2024-05-28 05:45] LABS: BASOPHILS # (AUTO) 0.02 K/uL (0.00-0.20); BASOPHILS % (AUTO) 0.3 % (0.0-5.0); EOSINOPHILS # (AUTO) 0.04 K/uL (0.00-0.70); EOSINOPHILS % (AUTO) 0.6 % (0.0-8.0); HEMATOCRIT 30.6 % (36-48); IMMATURE GRANULOCYTE ABSOLUTE 0.03 K/uL (0-1); LYMPHOCYTES # (AUTO) 1.1 K/uL (1.0-4.8); LYMPHOCYTES % (AUTO) 16.4 % (21.0-51.0); MEAN CORPUSCULAR HEMOGLOBIN 29.2 pg (27.0-33.0); MEAN CORPUSCULAR VOLUME 91.1 fL (79-99); MONOCYTES # (AUTO) 0.9 K/uL (0.1-1.0); MONOCYTES % (AUTO) 14.4 % (3.0-13.0); NEUTROPHILS # (AUTO) 4.4 K/uL (1.8-7.7); NEUTROPHILS % (AUTO) 67.8 % (40.0-77.0); PLATELET COUNT (AUTO) 145 K/uL (130-400); RED BLOOD CELL COUNT(AUTO) 3.36 MIL/uL (4.00-5.50); RED CELL DISTRIBUTION WIDTH 14.8 % (11.0-15.5); WHITE BLOOD COUNT (AUTO) 6.5 K/uL (4.8-10.8)
[2024-05-28] MEDS: INSULIN humuLIN R 100 UNIT/ML 3ML SQ SCH (05:56)
[2024-05-28] MEDS ORDERED: PHARMACY COMMUNICATION MISC SCH ×2 (06:00→15:30)
[2024-05-28 06:13] LABS: ALBUMIN 2.4 g/dL (3.5-5.0); BILIRUBIN,TOTAL 0.4 mg/dL (0.2-1.0); PHOSPHORUS 4.9 mg/dL (2.5-4.9); POTASSIUM 5.9 mmol/L (3.5-5.1); TOTAL PROTEIN, SERUM 6.4 g/dL (6.0-8.3)
[2024-05-28 06:19] LABS: CREATININE 11.5 mg/dL (0.5-1.0)
--- NOTE | 2024-05-28 06:26 | HP ---
HISTORY OF PRESENT ILLNESS: I was called to admit the patient, who initially was thought to be Dr. Crowder's patient; however, after talking to patient, it was clear that she was no longer being followed by Dr. Crowder who transferred the patient to hospitalist service. The patient came to the Emergency Room complaining of respiratory distress. She has had flu like symptoms for the last week, also reporting some productive cough for the last few days. She missed hemodialysis session due to feeling sick. In the Emergency Room, she was evaluated after being brought by EMS that reported O2 saturation 80% on room air. Thus she was placed on CPAP. Lasix was given. Nephrology consultation was made. I was called from the Emergency Room to admit the patient. ALLERGIES: No known drug allergies. MEDICATIONS: Auryxia, Celebrex, albuterol, insulin Tresiba, gabapentin, sevelamer, carvedilol. PAST MEDICAL HISTORY: Type 2 diabetes, hypertension, dyslipidemia, chronic kidney disease, on hemodialysis, asthma, coronary artery disease, chronic anemia, anxiety. PAST SURGICAL HISTORY: Status post hysterectomy, , AV graft in the right arm. PHYSICAL EXAMINATION: GENERAL: She is currently awake, alert, oriented in person, time, and place, not in distress. VITAL SIGNS: In the chart. HEENT: Normocephalic, atraumatic. LUNGS: Decreased breath sounds bilaterally with productive cough and expiratory wheezes in bases. HEART: S1, S2 are distant. ABDOMEN: Soft, nontender, no masses. EXTREMITIES: No clubbing, cyanosis, no edema. LABORATORY DATA: WBC count 12.1, hemoglobin 10.2, platelets 147. Sodium 131, potassium 7.5, BUN 87, creatinine 14.8, glucose 111. Chest x-ray reports stable exam. ASSESSMENT AND PLAN: * Volume overload. The patient will have a consultation with Nephrology for hemodialysis. * Acute bronchitis, asthma exacerbation. DuoNeb via nebulizer and Rocephin 1 gram will be given. * Type 2 diabetes, hypertension, dyslipidemia. Continue home medications. The patient will be followed up by hospitalist team. DOS: 05/27/2024 TID: [id number] RECEIPT: [id number] [facility]
--- NOTE | 2024-05-28 07:44 | NUR ---
PATIENT UPDATE PT REMAINED SOUNDING CONGESTED WITH THE AUDIBLE CRACKLES, ON O2 AT 2L PER NASAL CANNULA DURING WAKING HRS. PT DROWSY TO LETHARGIC, ORIENTED X 1, PLACED ON BIPAP 12/6 RATE OF 18 AT 35% AT BEDTIME. HOB UP AT 40 DEGREES, REPOSITIONED IN THE BED Q 2HRS FOR PRESSURE RELIEF. BILS SCD'S ON BLE FOR DVT PROPHYLAXIS. SEEN BY PATRICIA PARRA TEST CONSULTANT LAST NIGHT FROM [facility] AND ORDERED COUGH MEDICATIONS AND DUONEBS TX WITH CPT. STARTED ON PRESCRIBED ANTIBIOTICS. DUE FOR HEMODIALYSIS TODAY PER SCHEDULE. NO COMPLAINTS OF PAIN. TESTED POSITIVE FOR INFLUENZA A, SOLUMEDROL D/C PER TEST CONSULTANT, PT STARTED ON TAMIFLU Q OD. BLOOD SUGARS WITHIN NORMAL LIMITS, NORMOTENSIVE. PT MOVED FROM 317 TO 315 BEC OF HER RESP STATUS WELL HER CONFUSED STATE. SHE PULLED HER PIV YESTERDAY ON AM SHIFT. PT DUE FOR HEMODIALYSIS TODAY. REPORT GIVEN TO AMY HARTLEY WHO WILL ASSUME CARE OF PATIENT.
[2024-05-28] MEDS: HONEY 1 APPL/ML TUBE TP SCH (07:46)
--- NOTE | 2024-05-28 11:37 | PN ---
[facility] PROGRESS NOTE Date of Service: May 28, 2024 Time of Service: 11:25 SUBJECTIVE: [ ] This is a 50-year-old with a significant medical history of end-stage renal disease on dialysis on Friday hypertension hyperlipidemia and asthma presented in ED with chief complaints of shortness a breath apparently patient missed her dialysis. ER workup was consistent with asthma exacerbation possible pneumonia respiratory failure apparently 05/28/2024 patient was having dialysis she is currently on BiPAP support. Patient we will work with physical therapy out of bed to chair as tolerated. REVIEW OF SYSTEMS CONSTITUTIONAL: Denies or night sweats. No unintentional weight loss reported. Positive for fever, chills NEUROLOGICAL: Denies headache, amaurosis fugax, motor weakness, sensory deficit, vertigo/spinning sensation, gait abnormalities, or tremors. ENT: No hearing loss, otalgia, otorrhea, rhinitis, rhinorrhea, hoarseness, or sore throat. CARDIOVASCULAR: Denies any exertional angina, dyspnea on exertion, orthopnea, paroxysmal nocturnal dyspnea, palpitations, life-threatening arrhythmias, claudication. PULMONARY: Positive for cough, sputum production. Denied any hemoptysis GASTROINTESTINAL: Denies any type of dysphagia to either liquids or solids. Denies nausea, vomiting, pyrosis, early satiety, abdominal pain, constipation, or changes in stool consistency or caliber. Denies coffee-ground emesis, hematemesis, hematochezia, or melanotic stools. Positive for diarrhea GENITOURINARY: Denies frequency, urgency, nocturia, hematuria or incontinence (Storage/Irritative symptoms.) Low urinary stream, straining to void, urinary intermittency or hesitancy, splitting of the voiding stream, terminal dribbling. ENDOCRINOLOGIC: Denies polyuria, polydipsia, polyphagia or heat/cold intoler ances. HEMATOLOGIC: Denies thrombophilia/previous clots, or coagulopathy/bleeding disorders. ONCOLOGIC: Denies personal history of malignancy. DERMATOLOGIC: Denies rashes or pruritus. PSYCHIATRIC: Denies any suicidal or homicidal ideation. Denies hallucinations. PHYSICAL EXAM GENERAL APPEARANCE: The patient is awake, alert, and oriented, in no acute cardiopulmonary distress. NEUROLOGICAL: Cranial nerves II-XII grossly intact. Motor is 5/5 in bilateral upper and lower extremities proximal to distal. No sensory deficits. HEENT: Face is symmetric. Pupils are equal and reactive. Extraocular movements are intact. NECK: Supple. No JVD. No thyromegaly. No submental, submandibular, pre- /postauricular, occipital or supraclavicular lymphadenopathy. CHEST: Normal chest expansion. No Telemetry. LUNGS: She has wheezing present bilaterally with rhonchi. CARDIOVASCULAR: Regular. S1 and S2 normal. No appreciable rubs, murmurs or gallops. ABDOMEN: Soft, nontender, and nondistended. There is no rebound, voluntary guarding, or rigidity. : Deferred. No Ardon. EXTREMITIES: She has a wound noted in the right ankle. She has a wound in the lateral and medial aspect of the leg. There is some purulent discharge noted. SKIN: No skin breakdown. Vital Signs (last 8hr) Date Time Temp Pulse Resp B/P (MAP) Pulse Ox O2 Delivery O2 Flow Rate FiO2 05/28/24 11:05 70 14 152/77 BIPAP 35 05/28/24 10:50 70 14 136/81 BIPAP 35 05/28/24 10:35 70 16 127/66 BIPAP 35 05/28/24 10:20 70 16 128/68 BIPAP 35 05/28/24 10:05 70 16 130/68 BIPAP 35 05/28/24 09:50 71 16 143/71 BIPAP 35 05/28/24 09:35 70 18 149/66 BIPAP 35 05/28/24 09:20 70 18 146/67 100 BIPAP 35 05/28/24 09:05 99.7 70 18 119/60 BIPAP 35 05/28/24 08:40 99.7 69 14 126/62 BIPAP 35 05/28/24 07:50 98.4 71 19 95/42 99 CPAP 05/28/24 06:34 74 23 05/28/24 06:33 75 23 35 05/28/24 04:00 98.2 73 25 147/52 100 BIPAP LABS: Laboratory: Test 05/28/24 11:18 05/28/24 10:44 05/28/24 05:34 05/27/24 18:40 Range/Units Lactic Acid Level < 0.3 L 0.8-2.5 mmol/L Whole Blood Glucose 90 70-110 MG/DL White Blood Count 6.5 4.8-10.8 K/uL Red Blood Count 3.36 L 4.00-5.50 MIL/uL Hemoglobin 9.8 L 12.0-16.0 g/dL Hematocrit 30.6 L 36-48 % Mean Corpuscular Volume 91.1 79-99 fL Mean Corpuscular Hemoglobin 29.2 27.0-33.0 pg Mean Corpuscular Hemoglobin Concent 32.0 32.0-36.0 g/dL Red Cell Distribution Width 14.8 11.0-15.5 % Platelet Count 145 130-400 K/uL Mean Platelet Volume 11.8 H 7.5-10.5 fL Immature Granulocyte % (Auto) 0.5 0-1 % Neutrophils (%) (Auto) 67.8 40.0-77.0 % Lymphocytes (%) (Auto) 16.4 L 21.0-51.0 % Monocytes (%) (Auto) 14.4 H 3.0-13.0 % Eosinophils (%) (Auto) 0.6 0.0-8.0 % Basophils (%) (Auto) 0.3 0.0-5.0 % Neutrophils # (Auto) 4.4 1.8-7.7 K/uL Lymphocytes # (Auto) 1.1 1.0-4.8 K/uL Monocytes # (Auto) 0.9 0.1-1.0 K/uL Eosinophils # (Auto) 0.04 0.00-0.70 K/uL Basophils # (Auto) 0.02 0.00-0.20 K/uL Absolute Immature Granulocyte (auto 0.03 0-1 K/uL Nucleated Red Blood Cells 0.0 0.0-0.19 % Sodium Level 135 L 136-145 mmol/L Potassium Level 5.9 H 3.5-5.1 mmol/L Chloride Level 97 L 101-111 mmol/L Carbon Dioxide Level 23 21-32 mmol/L Blood Urea Nitrogen 55 H 7-18 mg/dL Creatinine 11.5 *H 0.5-1.0 mg/dL Glomerular Filtration Rate Calc 3 >90 mL/min Random Glucose 119 H 70-105 mg/dL Total Calcium 7.2 L 8.5-10.1 mg/dL Phosphorus Level 4.9 2.5-4.9 mg/dL Total Bilirubin 0.4 0.2-1.0 mg/dL Aspartate Amino Transf (AST/SGOT) 24 10-37 U/L Alanine Aminotransferase (ALT/SGPT) 9 L 12-78 U/L Alkaline Phosphatase 333 H 50-136 U/L Total Protein 6.4 6.0-8.3 g/dL Albumin 2.4 L 3.5-5.0 g/dL Influenza Type A Antigen Positive For Type A *A NEGATIVE Influenza Type B Antigen Negative For Type B NEGATIVE SARS-CoV-2, RNA, NAAT NEGATIVE SARS CoV-2 NEGATIVE Test 05/27/24 15:33 05/27/24 15:30 05/27/24 06:00 05/26/24 14:00 Range/Units Blood Gas Specimen Type Arterial Arterial Blood pH 7.356 7.350-7.450 Arterial Blood Partial Pressure CO2 45 32-45 mmHg Arterial Blood Partial Pressure O2 109.3 H 83.0-108.0 mmHg Arterial Blood HCO3 24.3 21.0-28.0 mmol/L Arterial Blood Oxygen Saturation 97.8 94.0-98.0 % Arterial Blood Base Excess -1.4 -2.0-3.0 mmol/L Blood Gas Temperature 37.0 35.5-37.0 CELSIUS Blood Gas Flow-by 3.00 0.00-15.00 L/min Blood Gas Vent Mode NC ROOM AIR FiO2 32.0 % Blood Gas Specimen Comment RR SHREYA Procalcitonin 2.73 H 0.05-0.5 ng/mL Segmented Neutrophils % 75 H 40-70 % Band Neutrophils % 2 0-2 % Lymphocytes % (Manual) 14 L 22-44 % Monocytes % (Manual) 9 2-9 % Differential Comment MANUAL DIFFERENTIAL White Cell Morphology Comment CONSISTENT W/DIFF Platelet Morphology Comment ADEQUATE Red Blood Cell Morphology See comments Hemoglobin A1c 6.9 H 4.0-6.0 % Estimated Average Glucose (eAG) 151 H 70-126 mg/dL Troponin I High Sensitivity 164 *H 4-50 ng/L B-Type Natriuretic Peptide 644 H 0-100 pg/mL Hepatitis B Surface Antigen. Non-Reactive Nonreactive Hepatitis B Surface Antibody. Negative L Reactive Hepatitis B Core Total Antibody. Non-Reactive Nonreactive Hepatitis C Antibody Non-Reactive Nonreactive Current Medications Medications (Trade) Dose Ordered Sig/Susannah Route PRN Reason Start Time Stop Time Status Last Admin Dose Admin Acetaminophen (TYLenol 500MG TAB) 500 mg Q6H PRN PO MILD PAIN (1-3) 05/27/24 15:00 06/26/24 14:59 Albuterol Sulfate (Proventil 0.083% 2.5mg/3ml) 2.5MG [id number] IH 05/27/24 15:00 06/26/24 14:59 05/28/24 06:36 2.5 MG Albuterol Sulfate (Proventil 0.083% 2.5mg/3ml) 10 mg ONCE IH 05/26/24 08:00 05/26/24 15:17 DC 05/26/24 08:11 10 MG Budesonide (Pulmicort 0.5 Mg/2ml) 0.5 mg BIDRESP IH 05/27/24 18:00 06/26/24 17:59 05/28/24 06:36 0.5 MG Carvedilol (Coreg 12.5MG) 12.5 mg BID PO 05/27/24 21:00 06/26/24 20:59 05/27/24 21:41 12.5 MG Cefepime HCl (MAXipime 1 GM vial) 1 gm Q12H IVPB 05/27/24 15:00 05/27/24 18:22 DC Cefepime HCl (MAXipime 1 GM vial) 1 gm Q12H9 IVPB 05/27/24 21:00 06/06/24 20:59 05/28/24 07:46 1 GM Ceftriaxone Sodium (ROCEphine 1G INJ) 1 gm Q24H IVPB 05/27/24 10:30 05/27/24 14:24 DC Ceftriaxone Sodium (ROCEphine 1G INJ) 1 gm Q24H IVPB 05/27/24 17:00 05/27/24 14:58 DC Doxycycline Hyclate (Doxycycline Hyclate) 100 mg BID PO 05/27/24 21:00 05/27/24 15:46 DC Guaifenesin (RobiTUSSin SUGAR-FREE 100 MG/ 5 ML UDCUP) 400 mg Q4H PRN PO COUGH 05/28/24 06:30 06/27/24 06:29 Heparin Sodium (Porcine) (HEParin 5,000 UNIT VIAL) 10,000 unit AD IRRIG 05/26/24 15:30 06/25/24 15:29 05/26/24 16:06 10,000 UNIT Hydralazine HCl (APRESOLine 20MG INJ) 10 mg Q6H PRN IV ADMINISTER FOR SBP > 180 05/27/24 15:00 06/26/24 14:59 Insulin Human Regular (humuLIN R 100 UNIT/ML 3ML) INSULIN SLIDING SCAL... ACHS SQ 05/28/24 07:30 06/27/24 07:29 Ipratropium [place] (AtrovENT UD) 0.5 mg E8OIBAL IH 05/28/24 00:00 06/27/24 00:00 05/28/24 06:36 0.5 MG Leptospermum Honey (kenxusney) APPLY DIRECTED DAILY TP 05/28/24 09:00 06/27/24 08:59 05/28/24 07:46 1 APPL Methylprednisolone Sodium Succinate (Solu-medROL 40MG) 20 mg BID IVP 05/27/24 21:00 05/27/24 19:34 DC Oseltamivir Phosphate (Tamiflu) 75 mg QODAY@2100 PO 05/27/24 21:00 06/01/24 20:59 05/27/24 21:41 75 MG Pharmacy Profile Note (Pharmacy Communication) 1 each AD MISC 05/28/24 06:00 06/04/24 05:59 Pharmacy Profile Note (Pharmacy Communication) 1 each ONCE MISC 05/27/24 19:30 06/03/24 19:29 Sodium Chloride 250 ml @ 0 mls/hr AD IV 05/26/24 15:30 06/25/24 15:29 Sodium Chloride 1,000 ml @ 0 mls/hr ONCE IV 05/26/24 15:30 06/25/24 15:29 05/26/24 16:06 100 MLS/HR Vancomycin HCl 250 ml @ 125 mls/hr MoWeFr IV 05/31/24 21:00 06/10/24 20:59 Vancomycin HCl 250 ml @ 125 mls/hr ONCE IV 05/28/24 21:00 05/28/24 23:59 Vancomycin HCl (Vancomycin Protocol) 1 each AD IV 05/27/24 16:00 06/10/24 15:59 DIAGNOSTICS / RADIOLOGY: [ ] ASSESSMENT: Acute hypoxic respiratory failure POA Volume overload secondary to missed dialysis POA Metabolic acidosis POA Troponin elevation likely in setting of missed dialysis and type 2 VT (down trending) no chest POA Metabolic/infectious encephalopathy. Suspected pneumonia/URI POA Acute asthma exacerbation History of right ankle abscess status post incision and drainage and hardware removal by Dr. Cabrera on 03/2025 Suspected cellulitis in the right ankle with mild purulent drainage History of MSSA infection Hypertension History of hyperlipidemia History of diabetes mellitus type two Obesity BMI 45.5 PLAN: ADMIT: medical-surgical unit DIET: Renal consultants: Director Of [employer], biofuels production associate's abts" continue vancomycin cefepime and doxycycline sputum cultures in progress Oxygen supplemental to keep O2 sats above 92% BiPAP as needed titrate per TIMBER POISONER if tolerated Continues IV steroids and bronchodilators Test: ECHO pendng Continue dialysis 3x week we will follow biofuels production associate's fluid restriction strict I&Os and daily weights Home medications reviewed -further orders per hospitalization course. Plan of care was discussed with patient at bedside PT services eval and treat once patient is more stable. All questions addressed ATTESTATION BY PHYSICIAN I have seen and examined the patient. I reviewed the documentation, medical decision making, and treatment plan as noted by the mid-level provider above. I agree with the findings and plan of care. La Herron MD, ELIZABETH NP May 28, 2024 11:37
[2024-05-28 11:52] LABS: CREATINE KINASE, TOTAL 81 U/L (21-232)
[2024-05-28 14:42] LABS: ABG HCO3 26.9 mmol/L (21.0-28.0); ABG OXYGEN SATURATION 37.6 % (94.0-98.0); ABG PCO2 53 mmHg (32-45); ABG PH 7.326 (7.350-7.450); DEVICE COMMENT LBNORA; PO2, ARTERIAL BG < 45.0 mmHg (83.0-108.0); VENT MODE, BG BIPAP (ROOM AIR)
--- NOTE | 2024-05-28 15:37 | HMCIMG ---
Exam Type: CHEST 1VW Clinical Information: sob Comparison: None Findings: Right permacath line is noted with tip at the distal superior vena caval level. The lungs are clear of infiltrates. The heart is enlarged. Bony and soft tissue structures of the chest wall are unremarkable. IMPRESSION: Cardiomegaly. Clear lungs.
[2024-05-28] MEDS: OSELTAMIVIR PHOSPHATE 75 MG CAP PO SCH (20:52)
[2024-05-28] MEDS: VANCOMYCIN 1.25 GM/250 ML BAG 250 ML IV SCH (20:53)
--- NOTE | 2024-05-28 21:50 | PN ---
SUBJECTIVE: The patient is a 58-year-old female who has diabetes mellitus, hypertension, hyperlipidemia and end-stage renal disease. She also has peripheral vascular disease and reportedly had a bypass surgery done on her right leg. The patient had a previous right upper extremity AV graft (the patient is left-handed), which had to be removed due to infection. The patient came to the hospital with shortness of breath after missing several runs of hemodialysis. She is currently on BiPAP, appears swollen. Cardiovascular surgery was consulted for a long-term hemodialysis access. OBJECTIVE: GENERAL: The patient is a pleasant lady, but is on BiPAP. HEENT: Reveals normocephalic, atraumatic. Extraocular movements intact. HEART: S1, S2 regular. LUNGS: Somewhat distant ____ rales, no rhonchi bilaterally. ABDOMEN: Reveals moderate obesity with positive bowel sounds. EXTREMITIES: Her right upper extremity shows scars from previously removed AV graft. Her left upper extremity has several Band-Aids on it where blood had been drawn. There are no visible veins in either arm. Her lower extremities ____ appeared somewhat swollen. ASSESSMENT AND PLAN: End-stage renal disease requiring long-term hemodialysis access. The patient will need a bilateral vein mapping. I discussed the possibility of needing access in her left arm, which is the one she writes with. The patient will also need to be off BiPAP prior to proceeding with an elective AV fistula or AV graft placement. TID: [id number] RECEIPT: [id number]
--- NOTE | 2024-05-28 22:27 | PN ---
NEPHROLOGY NOTE SUBJECTIVE: The patient has been evaluated and seen for dialysis and seen multiple times. The patient is generally very weak. The patient has mental status changes. The patient has been on BiPAP. She has been getting treated for flu. The patient has underlying sepsis, being treated with cefepime, dose may need adjustment. PHYSICAL EXAMINATION: GENERAL: Short of breath. VITAL SIGNS: Blood pressure is 141/68, pulse 76, respiratory rate 19. HEENT: Head is atraumatic. Pupils are round and reactive. Sclerae are anicteric. Conjunctivae not pale. Oral mucosa is not dry. NECK: Supple. No masses or bruits. Thyroid is palpable. NEUROLOGIC: Lethargic. LABORATORY DATA: We have reviewed available labs in detail and old records reviewed. The patient's hemoglobin is 9.8. Old records reviewed. White cell count normal. ASSESSMENT: The patient has renal failure, anemia, mental status changes. PLAN: Will be to continued monitoring. Minimize sedative drugs. Continue dialysis. Adjust dose of medicine including Tamiflu as well as cefepime. Continue followup. Thank you for this patient. TID: [id number] RECEIPT: [id number]
--- NOTE | 2024-05-28 23:55 | PN ---
SUBJECTIVE: The patient has multiple problems, renal failure and anemia. The patient has multiple other comorbidities. No other associated finding. No other aggravating or relieving factors. The patient is having mental status changes. Other systemic review is unchanged and unremarkable. The patient is generally weak. PHYSICAL EXAMINATION: GENERAL: Pale, no other distress or deformities, lying in bed. VITAL SIGNS: Blood pressure is 118/70, respiratory rate is 18, afebrile. HEENT: Head is atraumatic, normocephalic. Pupils are round and reactive to light. Sclerae are anicteric. Conjunctivae not pale. Oral mucosa is not dry. NECK: Supple. No masses, bruits. Thyroid is palpable. CHEST: Shows equal thoracic percussion note being resonant in all areas. CARDIAC: Regular rhythm, no rub. No S3, S4. No parasternal heave. LABORATORY DATA: Labs have been reviewed and old records reviewed. PROBLEMS: Renal failure, anemia, multiple other comorbidities. PLAN: To continue dialysis support. Continue monitoring of renal function. Continued monitoring of electrolytes. Intake, output, weight and overall status will be monitored. Nonsteroidal drugs to be avoided. Dose of medicine to be adjusted and we will be following up closely. The patient was evaluated and seen for dialysis and seen multiple times. Condition remained critical and guarded. We will order ammonia level and we will be following up closely. Thank you for this patient. TID: [id number] RECEIPT: [id number]
[2024-05-29] VITALS (17 sets, daily range): BP systolic 127–157; BP diastolic 50–106; PULSE 65–77; RESP 18–28; TEMP 97.8–98.6; O2SAT 97–100
--- NOTE | 2024-05-29 02:44 | CONS ---
INFECTIOUS DISEASE CONSULTATION DATE OF SERVICE: 05/28/2024 REQUESTING PHYSICIAN: Adolfo Price MD REASON FOR CONSULTATION: Right ankle osteomyelitis. HISTORY OF PRESENT ILLNESS: This is a 58-year-old female with morbid obesity, hypertension, diabetes mellitus, ESRD on dialysis, who was admitted from skilled nursing with cough and shortness of breath. The patient came back positive with influenza type A. The patient has a history of right ankle osteomyelitis. She recently underwent surgery with removal of hardware from the right ankle. Wound culture at that time grew MSSA. The patient was receiving cefazolin . The patient now found with respiratory failure and has been placed on BiPAP therapy. Procalcitonin is elevated. PAST MEDICAL HISTORY: * ESRD, on dialysis. * Hypertension. * Morbid obesity. * Dyslipidemia. * . * Right ankle hardware infection. * Right vertebral osteomyelitis. PAST SURGICAL HISTORY: * ORIF for right ankle fracture. * PermCath placement and removal. * AV graft placement. * Hysterectomy. * section. * Right ankle hardware removal. ALLERGIES: No known drug allergy. CURRENT MEDICATIONS: Include: * Vancomycin. * Cefepime. * Tamiflu. * Tylenol. * Zofran. SOCIAL HISTORY: No alcohol, tobacco, or illicit drug use. FAMILY HISTORY: Noncontributory. REVIEW OF SYSTEMS: Greater than 10 systems were reviewed, negatives as documented above. PHYSICAL EXAMINATION: GENERAL: Elderly female, awake. VITAL SIGNS: Temperature 98.5, pulse 60, respiratory rate 22. EYES: No icterus. Pupils equal and reactive. HENT: No oral thrush seen. Moist oral mucosa. NECK: Supple. No JVD or thyromegaly. LUNGS: Good air entry. No rales, no rhonchi. CARDIOVASCULAR: S1, S2 regular. No murmur heard. ABDOMEN: Full, soft, nontender. Bowel sounds present. CENTRAL NERVOUS SYSTEM: Awake, alert, oriented x 3. No focal deficits. SKIN: No rashes, no itchiness. LYMPHATIC: There is right inguinal lymphadenopathy. MUSCULOSKELETAL: Wound involving the right lateral aspect of the right ankle, granulating well. No purulent drainage. VASCULAR: No ischemia or gangrene of extremities. LABORATORY DATA: Procalcitonin 2.6. Sodium 135, potassium 5.9, BUN 55, creatinine 1.5, WBC 6.5, hemoglobin 9.8, platelet 145. ASSESSMENT: A 58-year-old female admitted with fever. CURRENT PROBLEMS: Include: * Sepsis. * Viral influenzae infection. * Acute on chronic respiratory failure. * Right ankle osteomyelitis. * End-stage renal disease, on dialysis. * Morbid obesity. PLAN: * Continue wound care. * Continue cefepime. * Continue vancomycin. * Continue pain management. * Continue BiPAP therapy. * Continue Tamiflu. * Continue DVT prophylaxis. * Monitor electrolyte. * The patient will follow up closely. Thank you for allowing me to participate in the care of this patient. TID: [id number] RECEIPT: [id number]
[2024-05-29 05:28] LABS: HEMATOCRIT 31.9 % (36-48); MEAN CORPUSCULAR HEMOGLOBIN 28.3 pg (27.0-33.0); MEAN CORPUSCULAR HGB CONC 31.7 g/dL (32.0-36.0); MEAN CORPUSCULAR VOLUME 89.4 fL (79-99); PLATELET COUNT (AUTO) 153 K/uL (130-400); RED BLOOD CELL COUNT(AUTO) 3.57 MIL/uL (4.00-5.50); RED CELL DISTRIBUTION WIDTH 14.4 % (11.0-15.5); WHITE BLOOD COUNT (AUTO) 4.7 K/uL (4.8-10.8)
--- NOTE | 2024-05-29 05:42 | PN ---
[facility] PROGRESS NOTE Date Patient Seen: May 28, 2024 Time of Visit: 10:38 Supervising Physician: [Dr. Mauro] Primary Care Physician: Attending team: [facility]ist Team Outpatient Specialists: Inpatient Consults: BIS, pulmonology group Cardiovascular, infectious Disease, Nephrology, Wound Care PROBLEM LIST: Acute hypoxic respiratory failure POA Acute asthma exacerbation, POA Influenza A virus infection, POA Volume overload secondary to missed dialysis, POA Metabolic acidosis Troponin elevation likely in setting of missed dialysis and type 2 LA (down trending) no chest Metabolic/infectious encephalopathy. Suspected pneumonia/URI POA History of right ankle abscess status post incision and drainage and hardware removal by Dr. Cabrera on 03/2025 Suspected cellulitis in the right ankle with mild purulent drainage History of MSSA infection Hypertension History of hyperlipidemia History of diabetes mellitus type two Morbid obesity BMI 45.5 INTERVAL HISTORY: [Patient is evaluated at bedside. She is more altered today. Is lethargic upon evaluation at bedside, difficult to arouse. She continues on BiPAP with most recent ABG within normal limits with a pH of 7.35, pCO2 45, PO2 109 and bicarb 24. She continues on treatment for flu. Tamiflu dosing adjusted renally. He continues on nebulizer. He is currently receiving a dialysis treatment at bedside, we will follow-up with repeat ABG and monitor mental status.] REVIEW OF SYSTEMS: 12 point ROS reviewed with patient. Pertinent positives mentioned above. Otherwise negative. PHYSICAL EXAM: GENERAL: Alert, weak, awake oriented x 3 HEENT: EOMI, Sclera non icteric, moist mucosa NECK: Supple, no JVD, trachea midline LUNGS: Rhonchi breath sounds to upper extremities, diminished on lower extremities bilaterally. No wheezes HEART: Regular rate and rhythm. Normal S1 and S2, without murmurs ABD: Abdomen soft, nontender. Bowel sounds present EXT: No clubbing cyanosis or edema NEURO: Awake, alert, oriented, follows commands, no neuro deficits noted. Vital Signs (last 8hr) Date Time Temp Pulse Resp B/P (MAP) Pulse Ox O2 Delivery O2 Flow Rate FiO2 05/29/24 04:00 97.9 75 20 127/62 98 BIPAP 05/29/24 00:07 70 19 35 05/29/24 00:00 98.1 76 20 144/67 96 BIPAP 05/28/24 23:11 77 20 LABS: Hematology Labs: Test 05/29/24 05:15 05/28/24 05:34 05/27/24 06:00 Range/Units White Blood Count 4.7 #L 4.8-10.8 K/uL Red Blood Count 3.57 L 4.00-5.50 MIL/uL Hemoglobin 10.1 L 12.0-16.0 g/dL Hematocrit 31.9 L 36-48 % Mean Corpuscular Volume 89.4 79-99 fL Mean Corpuscular Hemoglobin 28.3 27.0-33.0 pg Mean Corpuscular Hemoglobin Concent 31.7 L 32.0-36.0 g/dL Red Cell Distribution Width 14.4 11.0-15.5 % Platelet Count 153 130-400 K/uL Mean Platelet Volume 11.1 H 7.5-10.5 fL Nucleated Red Blood Cells 0.0 0.0-0.19 % Immature Granulocyte % (Auto) 0.5 0-1 % Neutrophils (%) (Auto) 67.8 40.0-77.0 % Lymphocytes (%) (Auto) 16.4 L 21.0-51.0 % Monocytes (%) (Auto) 14.4 H 3.0-13.0 % Eosinophils (%) (Auto) 0.6 0.0-8.0 % Basophils (%) (Auto) 0.3 0.0-5.0 % Neutrophils # (Auto) 4.4 1.8-7.7 K/uL Lymphocytes # (Auto) 1.1 1.0-4.8 K/uL Monocytes # (Auto) 0.9 0.1-1.0 K/uL Eosinophils # (Auto) 0.04 0.00-0.70 K/uL Basophils # (Auto) 0.02 0.00-0.20 K/uL Absolute Immature Granulocyte (auto 0.03 0-1 K/uL Segmented Neutrophils % 75 H 40-70 % Band Neutrophils % 2 0-2 % Lymphocytes % (Manual) 14 L 22-44 % Monocytes % (Manual) 9 2-9 % Chemistry Labs: Test 05/29/24 05:14 05/28/24 14:23 05/28/24 11:18 05/28/24 05:34 Range/Units Whole Blood Glucose 96 70-110 MG/DL Ammonia < 10 L 11-32 umol/L Lactic Acid Level < 0.3 L 0.8-2.5 mmol/L Total Creatine Kinase 81 # 21-232 U/L Procalcitonin 2.68 H 0.05-0.5 ng/mL Sodium Level 135 L 136-145 mmol/L Potassium Level 5.9 H 3.5-5.1 mmol/L Chloride Level 97 L 101-111 mmol/L Carbon Dioxide Level 23 21-32 mmol/L Blood Urea Nitrogen 55 H 7-18 mg/dL Creatinine 11.5 *H 0.5-1.0 mg/dL Glomerular Filtration Rate Calc 3 >90 mL/min Random Glucose 119 H 70-105 mg/dL Total Calcium 7.2 L 8.5-10.1 mg/dL Phosphorus Level 4.9 2.5-4.9 mg/dL Total Bilirubin 0.4 0.2-1.0 mg/dL Aspartate Amino Transf (AST/SGOT) 24 10-37 U/L Alanine Aminotransferase (ALT/SGPT) 9 L 12-78 U/L Alkaline Phosphatase 333 H 50-136 U/L Total Protein 6.4 6.0-8.3 g/dL Albumin 2.4 L 3.5-5.0 g/dL Test 05/27/24 06:00 Range/Units Hemoglobin A1c 6.9 H 4.0-6.0 % Estimated Average Glucose (eAG) 151 H 70-126 mg/dL Troponin I High Sensitivity 164 *H 4-50 ng/L B-Type Natriuretic Peptide 644 H 0-100 pg/mL DIAGNOSTICS / RADIOLOGY RESULTS: [ ] Pulmonary plan: Monitor respiratory status closely. Continue oxygen therapy as needed. Titrate oxygen as needed to keep SpO2 equal to greater than 92%. Continue Albuterol nebulizer in Pulmicort nebulizer treatments scheduled. Add Atrovent nebulizer scheduled. Continue Tamiflu. RT to provide IS and education on use. Robitussin DM sugar free as needed for cough. Continue antibiotic therapy. EVELINE ASHLEY May 29, 2024 05:41
[2024-05-29 05:55] LABS: CREATININE 7.8 mg/dL (0.5-1.0); PHOSPHORUS 4.6 mg/dL (2.5-4.9); POTASSIUM 4.7 mmol/L (3.5-5.1); THYROID STIMULATING HORMONE 2.19 uIU/mL (0.36-3.74)
[2024-05-29 06:04] LABS: EOSINOPHILS % (MANUAL) 2 % (1-6); LYMPHOCYTES % (MANUAL) 21 % (22-44); MAN.DIFF COMMENT-IMPRESSION MANUAL DIFFERENTIAL; MONOCYTES % (MANUAL) 9 % (2-9); SEGMENTED NEUTROPHILS % 68 % (40-70); TOTAL CELLS COUNTED 100
[2024-05-29 07:49] LABS: ABG BASE EXCESS -3.4 mmol/L (-2.0-3.0); ABG HCO3 22.4 mmol/L (21.0-28.0); ABG OXYGEN SATURATION 97.6 % (94.0-98.0); ABG PCO2 43 mmHg (32-45); ABG PH 7.336 (7.350-7.450); DEVICE COMMENT LR; PO2, ARTERIAL BG 107.2 mmHg (83.0-108.0); VENT MODE, BG BIPAP 12-6 (ROOM AIR)
--- NOTE | 2024-05-29 09:36 | PN ---
[facility] PROGRESS NOTE Date Patient Seen: May 29, 2024 Time of Visit: 09:36 Supervising Physician: [Dr. Mauro] Primary Care Physician: Attending team: [facility] Team Outpatient Specialists: Inpatient Consults: BIS, pulmonology group Cardiovascular, infectious Disease, Nephrology, Wound Care PROBLEM LIST: Metabolic/infectious encephalopathy, not POA, Acute hypoxic respiratory failure POA , requiring continuous bipap Acute asthma exacerbation, POA, decompensated Influenza A virus infection, POA, treated Volume overload secondary to missed dialysis, POA, treated Metabolic acidosis , improved Troponin elevation likely in setting of missed dialysis and type 2 MT (down trending) Suspected pneumonia/URI POA History of right ankle abscess status post incision and drainage and hardware removal by Dr. Cabrera on 03/2025 Suspected cellulitis in the right ankle with mild purulent drainage, r/o clinically and per Xray imaging History of MSSA infection Hypertension History of hyperlipidemia History of diabetes mellitus type two Morbid obesity BMI 45.5 INTERVAL HISTORY: [Patient is evaluated at bedside. She is more altered today. Is lethargic upon evaluation at bedside, difficult to arouse. She continues on BiPAP with most recent ABG within normal limits with a pH of 7.35, pCO2 45, PO2 109 and bicarb 24. She continues on treatment for flu. Tamiflu dosing adjusted renally. He continues on nebulizer. He is currently receiving a dialysis treatment at bedside, we will follow-up with repeat ABG and monitor mental status.] 05/29 patient is evaluated at bedside. She remains lethargic on continuous BiPAP. Per bedside nurse has remained difficult to arouse overnight. Has not worsened, and does appear to be slightly more arousable than previous. She responds to verbal commands, unable to follow commands but does open her eyes and turns to face me. Does have an occasional twitch noted to LUE. Tamiflu dosing is inappropriate for dialysis patient. Pharmacy states no 30mg available for dialysis patient, advised to not use 75mg dose. Patient continues on cefepime and vancomycin. Labs appear grossly unremarkable with a WBC of 4. Pupils are equal, round, and reactive to light. Update: Nurse texted me later to inform me that patient had woken up, had been taken BiPAP and was comfortably watching TV. REVIEW OF SYSTEMS: 12 point ROS reviewed with patient. Pertinent positives mentioned above. Otherwise negative. PHYSICAL EXAM: GENERAL: Alert, weak, awake oriented x 3 HEENT: EOMI, Sclera non icteric, moist mucosa NECK: Supple, no JVD, trachea midline LUNGS: Rhonchi breath sounds to upper extremities, diminished on lower extremities bilaterally. No wheezes HEART: Regular rate and rhythm. Normal S1 and S2, without murmurs ABD: Abdomen soft, nontender. Bowel sounds present EXT: No clubbing cyanosis or edema NEURO: Awake, alert, oriented, follows commands, no neuro deficits noted. Vital Signs (last 8hr) Date Time Temp Pulse Resp B/P (MAP) Pulse Ox O2 Delivery O2 Flow Rate FiO2 05/29/24 08:00 98.6 75 18 141/50 97 BIPAP 05/29/24 07:17 76 20 05/29/24 07:13 76 20 35 05/29/24 04:00 97.9 75 20 127/62 98 BIPAP LABS: Hematology Labs: Test 05/29/24 05:15 05/28/24 05:34 Range/Units White Blood Count 4.7 #L 4.8-10.8 K/uL Red Blood Count 3.57 L 4.00-5.50 MIL/uL Hemoglobin 10.1 L 12.0-16.0 g/dL Hematocrit 31.9 L 36-48 % Mean Corpuscular Volume 89.4 79-99 fL Mean Corpuscular Hemoglobin 28.3 27.0-33.0 pg Mean Corpuscular Hemoglobin Concent 31.7 L 32.0-36.0 g/dL Red Cell Distribution Width 14.4 11.0-15.5 % Platelet Count 153 130-400 K/uL Mean Platelet Volume 11.1 H 7.5-10.5 fL Segmented Neutrophils % 68 40-70 % Lymphocytes % (Manual) 21 L 22-44 % Monocytes % (Manual) 9 2-9 % Eosinophils % (Manual) 2 1-6 % Nucleated Red Blood Cells 0.0 0.0-0.19 % Differential Comment MANUAL DIFFERENTIAL White Cell Morphology Comment Platelet Morphology Comment See comments Red Blood Cell Morphology ANISO 1+ Immature Granulocyte % (Auto) 0.5 0-1 % Neutrophils (%) (Auto) 67.8 40.0-77.0 % Lymphocytes (%) (Auto) 16.4 L 21.0-51.0 % Monocytes (%) (Auto) 14.4 H 3.0-13.0 % Eosinophils (%) (Auto) 0.6 0.0-8.0 % Basophils (%) (Auto) 0.3 0.0-5.0 % Neutrophils # (Auto) 4.4 1.8-7.7 K/uL Lymphocytes # (Auto) 1.1 1.0-4.8 K/uL Monocytes # (Auto) 0.9 0.1-1.0 K/uL Eosinophils # (Auto) 0.04 0.00-0.70 K/uL Basophils # (Auto) 0.02 0.00-0.20 K/uL Absolute Immature Granulocyte (auto 0.03 0-1 K/uL Chemistry Labs: Test 05/29/24 05:15 05/29/24 05:14 05/28/24 14:23 05/28/24 11:18 Range/Units Sodium Level 137 136-145 mmol/L Potassium Level 4.7 3.5-5.1 mmol/L Chloride Level 95 L 101-111 mmol/L Carbon Dioxide Level 30 21-32 mmol/L Blood Urea Nitrogen 35 #H 7-18 mg/dL Creatinine 7.8 H 0.5-1.0 mg/dL Glomerular Filtration Rate Calc 6 >90 mL/min Random Glucose 97 70-105 mg/dL Total Calcium 7.5 L 8.5-10.1 mg/dL Phosphorus Level 4.6 2.5-4.9 mg/dL Magnesium Level 2.00 1.80-2.40 mg/dL Thyroid Stimulating Hormone (TSH) 2.19 # 0.36-3.74 uIU/mL Whole Blood Glucose 96 70-110 MG/DL Ammonia < 10 L 11-32 umol/L Lactic Acid Level < 0.3 L 0.8-2.5 mmol/L Total Creatine Kinase 81 # 21-232 U/L Procalcitonin 2.68 H 0.05-0.5 ng/mL Test 05/28/24 05:34 Range/Units Total Bilirubin 0.4 0.2-1.0 mg/dL Aspartate Amino Transf (AST/SGOT) 24 10-37 U/L Alanine Aminotransferase (ALT/SGPT) 9 L 12-78 U/L Alkaline Phosphatase 333 H 50-136 U/L Total Protein 6.4 6.0-8.3 g/dL Albumin 2.4 L 3.5-5.0 g/dL DIAGNOSTICS / RADIOLOGY RESULTS: [Pending CT head] Pulmonary plan: Order CT Head Stop cefepime Monitor ABG Monitor s/s of infection Monitor respiratory status closely. Continue oxygen therapy as needed. Titrate oxygen as needed to keep SpO2 equal to greater than 92%. Continue Albuterol nebulizer in Pulmicort nebulizer treatments scheduled. Add Atrovent nebulizer scheduled. Continue Tamiflu. RT to provide IS and education on use. Robitussin DM sugar free as needed for cough. Continue antibiotic therapy. Time spent on patient care exceeds 50 minutes, not including time spent on any procedures. EVELINE ASHLEY May 29, 2024 09:36
[2024-05-29] MEDS: ceFEPime HCL 1 GM VIAL IVPB SCH (09:50)
--- NOTE | 2024-05-29 10:10 | PN ---
[facility] PROGRESS NOTE Date of Service: May 29, 2024 Time of Service: 10:09 SUBJECTIVE: [ ] This is a 50-year-old with a significant medical history of end-stage renal disease on dialysis on Friday hypertension hyperlipidemia and asthma presented in ED with chief complaints of shortness a breath apparently patient missed her dialysis. ER workup was consistent with asthma exacerbation possible pneumonia respiratory failure apparently 05/28/2024 patient was having dialysis she is currently on BiPAP support. Patient we will work with physical therapy out of bed to chair as tolerated. 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 Patient is being monitored closely. Encourage patient out of bed to chair as tolerated. REVIEW OF SYSTEMS CONSTITUTIONAL: Denies or night sweats. No unintentional weight loss reported. Positive for fever, chills NEUROLOGICAL: Denies headache, amaurosis fugax, motor weakness, sensory deficit, vertigo/spinning sensation, gait abnormalities, or tremors. ENT: No hearing loss, otalgia, otorrhea, rhinitis, rhinorrhea, hoarseness, or sore throat. CARDIOVASCULAR: Denies any exertional angina, dyspnea on exertion, orthopnea, paroxysmal nocturnal dyspnea, palpitations, life-threatening arrhythmias, claudication. PULMONARY: Positive for cough, sputum production. Denied any hemoptysis GASTROINTESTINAL: Denies any type of dysphagia to either liquids or solids. Denies nausea, vomiting, pyrosis, early satiety, abdominal pain, constipation, or changes in stool consistency or caliber. Denies coffee-ground emesis, hematemesis, hematochezia, or melanotic stools. Positive for diarrhea GENITOURINARY: Denies frequency, urgency, nocturia, hematuria or incontinence (Storage/Irritative symptoms.) Low urinary stream, straining to void, urinary intermittency or hesitancy, splitting of the voiding stream, terminal dribbling. ENDOCRINOLOGIC: Denies polyuria, polydipsia, polyphagia or heat/cold intolerances. HEMATOLOGIC: Denies thrombophilia/previous clots, or coagulopathy/bleeding disorders. ONCOLOGIC: Denies personal history of malignancy. DERMATOLOGIC: Denies rashes or pruritus. PSYCHIATRIC: Denies any suicidal or homicidal ideation. Denies hallucinations. PHYSICAL EXAM GENERAL APPEARANCE: The patient is awake, alert, and oriented, in no acute cardiopulmonary distress. NEUROLOGICAL: Cranial nerves II-XII grossly intact. Motor is 5/5 in bilateral upper and lower extremities proximal to distal. No sensory deficits. HEENT: Face is symmetric. Pupils are equal and reactive. Extraocular movements are intact. NECK: Supple. No JVD. No thyromegaly. No submental, submandibular, pre- /postauricular, occipital or supraclavicular lymphadenopathy. CHEST: Normal chest expansion. No Telemetry. LUNGS: She has wheezing present bilaterally with rhonchi. CARDIOVASCULAR: Regular. S1 and S2 normal. No appreciable rubs, murmurs or gallops. ABDOMEN: Soft, nontender, and nondistended. There is no rebound, voluntary guarding, or rigidity. : Deferred. No Ardon. EXTREMITIES: She has a wound noted in the right ankle. She has a wound in the lateral and medial aspect of the leg. There is some purulent discharge noted. SKIN: No skin breakdown. Vital Signs (last 8hr) Date Time Temp Pulse Resp B/P (MAP) Pulse Ox O2 Delivery O2 Flow Rate FiO2 05/29/24 08:00 98.6 75 18 141/50 97 BIPAP 05/29/24 07:17 76 20 05/29/24 07:13 76 20 35 05/29/24 04:00 97.9 75 20 127/62 98 BIPAP LABS: Laboratory: Test 05/29/24 07:47 05/29/24 05:15 05/29/24 05:14 05/28/24 14:23 Range/Units Blood Gas Specimen Type Arterial Arterial Blood pH 7.336 L 7.350-7.450 Arterial Blood Partial Pressure CO2 43 32-45 mmHg Arterial Blood Partial Pressure O2 107.2 83.0-108.0 mmHg Arterial Blood HCO3 22.4 21.0-28.0 mmol/L Arterial Blood Oxygen Saturation 97.6 94.0-98.0 % Arterial Blood Base Excess -3.4 L -2.0-3.0 mmol/L Blood Gas Temperature 37.0 35.5-37.0 CELSIUS Blood Gas Respiration Rate 18.0 min. Blood Gas Vent Mode BIPAP 12-6 ROOM AIR FiO2 35.0 % Blood Gas Specimen Comment LR White Blood Count 4.7 #L 4.8-10.8 K/uL Red Blood Count 3.57 L 4.00-5.50 MIL/uL Hemoglobin 10.1 L 12.0-16.0 g/dL Hematocrit 31.9 L 36-48 % Mean Corpuscular Volume 89.4 79-99 fL Mean Corpuscular Hemoglobin 28.3 27.0-33.0 pg Mean Corpuscular Hemoglobin Concent 31.7 L 32.0-36.0 g/dL Red Cell Distribution Width 14.4 11.0-15.5 % Platelet Count 153 130-400 K/uL Mean Platelet Volume 11.1 H 7.5-10.5 fL Segmented Neutrophils % 68 40-70 % Lymphocytes % (Manual) 21 L 22-44 % Monocytes % (Manual) 9 2-9 % Eosinophils % (Manual) 2 1-6 % Nucleated Red Blood Cells 0.0 0.0-0.19 % Differential Comment MANUAL DIFFERENTIAL White Cell Morphology Comment Platelet Morphology Comment See comments Red Blood Cell Morphology ANISO 1+ Sodium Level 137 136-145 mmol/L Potassium Level 4.7 3.5-5.1 mmol/L Chloride Level 95 L 101-111 mmol/L Carbon Dioxide Level 30 21-32 mmol/L Blood Urea Nitrogen 35 #H 7-18 mg/dL Creatinine 7.8 H 0.5-1.0 mg/dL Glomerular Filtration Rate Calc 6 >90 mL/min Random Glucose 97 70-105 mg/dL Total Calcium 7.5 L 8.5-10.1 mg/dL Phosphorus Level 4.6 2.5-4.9 mg/dL Magnesium Level 2.00 1.80-2.40 mg/dL Thyroid Stimulating Hormone (TSH) 2.19 # 0.36-3.74 uIU/mL Whole Blood Glucose 96 70-110 MG/DL Ammonia < 10 L 11-32 umol/L Test 05/28/24 11:18 05/28/24 05:34 05/27/24 18:40 05/27/24 15:33 Range/Units Lactic Acid Level < 0.3 L 0.8-2.5 mmol/L Total Creatine Kinase 81 # 21-232 U/L Procalcitonin 2.68 H 0.05-0.5 ng/mL Immature Granulocyte % (Auto) 0.5 0-1 % Neutrophils (%) (Auto) 67.8 40.0-77.0 % Lymphocytes (%) (Auto) 16.4 L 21.0-51.0 % Monocytes (%) (Auto) 14.4 H 3.0-13.0 % Eosinophils (%) (Auto) 0.6 0.0-8.0 % Basophils (%) (Auto) 0.3 0.0-5.0 % Neutrophils # (Auto) 4.4 1.8-7.7 K/uL Lymphocytes # (Auto) 1.1 1.0-4.8 K/uL Monocytes # (Auto) 0.9 0.1-1.0 K/uL Eosinophils # (Auto) 0.04 0.00-0.70 K/uL Basophils # (Auto) 0.02 0.00-0.20 K/uL Absolute Immature Granulocyte (auto 0.03 0-1 K/uL Total Bilirubin 0.4 0.2-1.0 mg/dL Aspartate Amino Transf (AST/SGOT) 24 10-37 U/L Alanine Aminotransferase (ALT/SGPT) 9 L 12-78 U/L Alkaline Phosphatase 333 H 50-136 U/L Total Protein 6.4 6.0-8.3 g/dL Albumin 2.4 L 3.5-5.0 g/dL Influenza Type A Antigen Positive For Type A *A NEGATIVE Influenza Type B Antigen Negative For Type B NEGATIVE SARS-CoV-2, RNA, NAAT NEGATIVE SARS CoV-2 NEGATIVE Blood Gas Flow-by 3.00 0.00-15.00 L/min Current Medications Medications (Trade) Dose Ordered Sig/Susannah Route PRN Reason Start Time Stop Time Status Last Admin Dose Admin Acetaminophen (TYLenol 500MG TAB) 500 mg Q6H PRN PO MILD PAIN (1-3) 05/27/24 15:00 06/26/24 14:59 Albuterol Sulfate (Proventil 0.083% 2.5mg/3ml) 2.5MG [id number] IH 05/27/24 15:00 06/26/24 14:59 05/29/24 07:15 2.5 MG Albuterol Sulfate (Proventil 0.083% 2.5mg/3ml) 10 mg ONCE IH 05/26/24 08:00 05/26/24 15:17 DC 05/26/24 08:11 10 MG Budesonide (Pulmicort 0.5 Mg/2ml) 0.5 mg BIDRESP IH 05/27/24 18:00 06/26/24 17:59 05/29/24 07:15 0.5 MG Carvedilol (Coreg 12.5MG) 12.5 mg BID PO 05/27/24 21:00 06/26/24 20:59 05/28/24 20:53 12.5 MG Cefepime HCl (MAXipime 1 GM vial) 1 gm Q12H IVPB 05/27/24 15:00 05/27/24 18:22 DC Cefepime HCl (MAXipime 1 GM vial) 1 gm Q12H9 IVPB 05/27/24 21:00 05/28/24 11:36 DC 05/28/24 07:46 1 GM Cefepime HCl (MAXipime 1 GM vial) 1 gm Q24H IVPB 05/29/24 09:00 06/06/24 20:59 05/29/24 09:50 1 GM Ceftriaxone Sodium (ROCEphine 1G INJ) 1 gm Q24H IVPB 05/27/24 10:30 05/27/24 14:24 DC Ceftriaxone Sodium (ROCEphine 1G INJ) 1 gm Q24H IVPB 05/27/24 17:00 05/27/24 14:58 DC Doxycycline Hyclate (Doxycycline Hyclate) 100 mg BID PO 05/27/24 21:00 05/27/24 15:46 DC Guaifenesin (RobiTUSSin SUGAR-FREE 100 MG/ 5 ML UDCUP) 400 mg Q4H PRN PO COUGH 05/28/24 06:30 06/27/24 06:29 Heparin Sodium (Porcine) (HEParin 5,000 UNIT VIAL) 10,000 unit AD IRRIG 05/26/24 15:30 06/25/24 15:29 05/28/24 11:31 10,000 UNIT Hydralazine HCl (APRESOLine 20MG INJ) 10 mg Q6H PRN IV ADMINISTER FOR SBP > 180 05/27/24 15:00 06/26/24 14:59 Insulin Human Regular (humuLIN R 100 UNIT/ML 3ML) INSULIN SLIDING SCAL... ACHS SQ 05/28/24 07:30 06/27/24 07:29 Ipratropium [place] (AtrovENT UD) 0.5 mg [id number] IH 05/28/24 00:00 06/27/24 00:00 05/29/24 07:15 0.5 MG Leptospermum Honey ([facility]) APPLY DIRECTED DAILY TP 05/28/24 09:00 06/27/24 08:59 05/29/24 09:50 1 APPL Methylprednisolone Sodium Succinate (Solu-medROL 40MG) 20 mg BID IVP 05/27/24 21:00 05/27/24 19:34 DC Oseltamivir Phosphate (Tamiflu) 75 mg Q24H PO 05/28/24 21:00 05/31/24 21:01 05/28/24 20:52 75 MG Oseltamivir Phosphate (Tamiflu) 75 mg QODAY@2100 PO 05/27/24 21:00 05/28/24 14:12 DC 05/27/24 21:41 75 MG Pharmacy Profile Note (Pharmacy Communication) 1 each AD MISC 05/28/24 06:00 05/28/24 11:37 DC Pharmacy Profile Note (Pharmacy Communication) 1 each ONCE MISC 05/27/24 19:30 05/28/24 11:37 DC Pharmacy Profile Note (Pharmacy Communication) 1 each ONCE MISC 05/28/24 15:30 05/28/24 15:14 DC Sodium Chloride 250 ml @ 0 mls/hr AD IV 05/26/24 15:30 06/25/24 15:29 Sodium Chloride 1,000 ml @ 0 mls/hr ONCE IV 05/26/24 15:30 06/25/24 15:29 05/28/24 11:29 100 MLS/HR Vancomycin HCl 250 ml @ 125 mls/hr ONCE IV 05/28/24 21:00 05/28/24 23:59 DC 05/28/24 20:53 125 MLS/HR Vancomycin HCl 250 ml @ 125 mls/hr [id number][DIALYSIS] IV 05/31/24 16:00 06/10/24 15:59 Vancomycin HCl (Vancomycin Protocol) 1 each AD IV 05/27/24 16:00 06/10/24 15:59 DIAGNOSTICS / RADIOLOGY: [ ] ASSESSMENT: Acute hypoxic respiratory failure POA Volume overload secondary to missed dialysis POA Metabolic acidosis POA Troponin elevation likely in setting of missed dialysis and type 2 LA (down trending) no chest POA Metabolic/infectious encephalopathy. Suspected pneumonia/URI POA Acute asthma exacerbation History of right ankle abscess status post incision and drainage and hardware removal by Dr. Cabrera on 03/2025 Suspected cellulitis in the right ankle with mild purulent drainage History of MSSA infection Hypertension History of hyperlipidemia History of diabetes mellitus type two Obesity BMI 45.5 Metabolic encephalopathy POA PLAN: ADMIT: medical-surgical unit DIET: Renal consultants: Windows Administrator's, dock boss's abts" continue vancomycin cefepime and doxycycline sputum cultures in progress Oxygen supplemental to keep O2 sats above 92% BiPAP as needed titrate per ATTENDANT HONOR BAR if tolerated Continues IV steroids and bronchodilators Test: ECHO pendng Continue dialysis 3x week we will follow dock boss's fluid restriction strict I&Os and daily weights Aspiration precautions head of the bed at 45 at all times -further orders per hospitalization course. Plan of care was discussed with patient at bedside PT services eval and treat once patient is more stable. All questions addressed ATTESTATION BY PHYSICIAN I have seen and examined the patient. I reviewed the documentation, medical decision making, and treatment plan as noted by the mid-level provider above. I agree with the findings and plan of care. La Herron MD, ELIZABETH NP May 29, 2024 10:10
--- NOTE | 2024-05-29 12:16 | HMCSR ---
APPROVED REPORT EXAM: Two-dimensional and M-mode echocardiogram with Doppler and color Doppler. INDICATION ICD: Elevated troponin 2D Dimensions RVDd5.1 cmLVEF(%)59.0 (>50%)LVED Vol(simp.)73.2 mL IVSd1.2 (0.7-1.1cm)FS(%)31 %LVES Vol(simp.)27.3 mL LVDd3.9 (3.8-5.6cm)LA (2D)4.6 (1.6-4.0cm)LVEF(%, simp.)63 % PWd1.2 (0.7-1.1cm)Ao Root(2D)3.6 (2.0-3.7cm)LA ESV INDEX (4CH)31.90 mL/m2 IVSs1.5 cmLVOT diam1.9 (1.8-2.4cm) LVDs2.7 (2.5-4.0cm) PWs1.5 cm M-Mode Dimensions EPSS0.9 cm LA (MM)4.1 (1.6-4.0cm) Ao Root(MM)3.1 (2.0-3.7cm) Aortic Valve AoV VTI0.3 mAo Mean GR4.0 mmHgLVOT VTI0.20 m LUIS FELIPE (VMAX)2.1 cm2AVA (VTI) 2.1 cm2 Mitral Valve MV E Weby162.0 cm/sDECEL Vxpi508 msMV Mean GR6 mmHg MV A Fwbn517.0 cm/sMVA (VTI)1.2 cm2 E/A ratio1.0 MR Max PG33 mmHg TDI E/E' Ggifel55.7E/E' Gmcorbc69.1 Medial E' Peak V2.80 cm/sLateral E' Peak V5.40 cm/s Pulmonary Valve PV Vmax1.2 m/s PV Peak GR6.0 mmHg Left Ventricle The left ventricle is normal size. There is normal LV segmental wall motion. Mild concentric left urvashi tricular hypertrophy. LVEF is 60-65%. Indeterminate diastolic dysfunction. Right Ventricle The right ventricle is severely dilated. The right ventricular systolic function is normal. Moderator band is seen in the right ventricle. Atria The left atrium size is normal. The right atrium is moderately dilated. Aortic Valve Aortic valve nodular calcification noted. Aortic valve is trileaflet and opens well. No aortic regurg itation is present. There is no aortic valvular stenosis. Mitral Valve There is mitral annular calcification. There is mild mitral valve regurgitation noted. There is moder ate mitral valve stenosis with mean gradient of 6mmHg. Tricuspid Valve The tricuspid valve is normal in structure. There is no tricuspid valve regurgitation noted. Pulmonic Valve The pulmonary valve is normal in structure. There is no pulmonic valvular regurgitation. Great Vessels The aortic root is normal in size. The IVC is normal in size and collapses >50% with inspiration. Pericardium There is no pericardial effusion. Other Information Quality : Technically difficult study due to body habitus Conclusion LVEF is 60-65%. There is moderate mitral valve stenosis with mean gradient of 6mmHg. There is no pericardial effusion.
[2024-05-29 13:42] LABS: AMMONIA < 11 umol/L (11-32)
--- NOTE | 2024-05-29 15:58 | HMCIMG ---
CT HEAD/BRAIN W/O CONTRAST CLINICAL HISTORY: ACUTE ENCEPHALOPATHY COMPARISON: None TECHNIQUE: Multiple sequential axial images of the head were obtained from the base of the skull through vertex. CT was performed with one or more of the following dose reduction techniques: automated exposure control, adjustment of the mA and/or kV according to patient size, or use of iterative reconstruction technique FINDINGS: There is resolved right basal ganglia lacunar infarct. The orbital contents are unremarkable. There is right mastoid air cell opacification extending into the middle ear. This demonstrated is mucoperiosteal thickening throughout the paranasal sinuses with small air-fluid level in the sphenoid sinuses. The calvarium is intact. IMPRESSION: Resolved right basal ganglia lacunar infarct. Acute and chronic sinusitis. Right mastoid effusion or mastoiditis with otitis media
--- NOTE | 2024-05-29 16:45 | PN ---
INFECTIOUS DISEASE PROGRESS NOTE Date of Service: May 29, 2024 SUBJECTIVE: Patient is being seen this morning at bedside. She remains on bipap at this time. She opens eyes, difficult to arouse. In no respiratory distress. Continues on antibiotics and tamiflu. No fever or chills. Tolerating dialysis well. Nurse states shes more arousable than yesterday. We continue to monitor patient closely. PHYSICAL EXAM EYES: Anicteric. Pupils equal and reactive. HENT: No oral thrush seen, moist Oral mucosa NECK: Supple, no JVD or thyromegaly. LUNGS: Good air entry. No rales, no rhonchi. CARDIOVASCULAR: S1, S2 regular. No murmur heard. ABDOMEN: Soft, non tender, bowel sounds present, no organomegaly CENTRAL NERVOUS SYSTEM: Awake, alert, oriented x 3. No focal deficits. SKIN: No rashes, no swelling. LYMPHATICS: No peripheral lymphadenopathy MUSCULOSKELETAL: No joint swelling, erythema or tenderness. EXTREMITIES: No cyanosis or clubbing BACK: No deformity, no pressure ulcer. GENITOURINARY: No dysuria or hematuria Vital Sign (Last 12 Hours) 05/29/24 05/29/24 05/29/24 05/29/24 07:13 07:17 08:00 12:00 Temp 98.6 98.4 Pulse 76 76 75 71 Resp 20 20 18 18 B/P (MAP) 141/50 136/66 Pulse Ox 97 99 O2 Delivery BIPAP BIPAP FiO2 35 05/29/24 05/29/24 05/29/24 12:07 12:10 15:20 Pulse 69 69 65 Resp 20 20 19 O2 Delivery N/Cannula Low lpm O2 Flow Rate 3.0 FiO2 35 32 Intake & Output (last 24hrs) 05/28/24 05/28/24 05/29/24 15:00 23:00 07:00 Intake Total 250.0 ml Output Total 5200 ml Balance -5200 ml 250.0 ml LABS: Laboratory: Test 05/29/24 16:14 05/29/24 13:24 05/29/24 07:47 05/29/24 05:15 Range/Units Whole Blood Glucose 89 70-110 MG/DL Erythrocyte Sedimentation Rate 112 H 0-30 MM/HR Ammonia < 11 L 11-32 umol/L C-Reactive Protein, Quantitative 306.30 H 0.5-3.0 mg/L Blood Gas Specimen Type Arterial Arterial Blood pH 7.336 L 7.350-7.450 Arterial Blood Partial Pressure CO2 43 32-45 mmHg Arterial Blood Partial Pressure O2 107.2 83.0-108.0 mmHg Arterial Blood HCO3 22.4 21.0-28.0 mmol/L Arterial Blood Oxygen Saturation 97.6 94.0-98.0 % Arterial Blood Base Excess -3.4 L -2.0-3.0 mmol/L Blood Gas Temperature 37.0 35.5-37.0 CELSIUS Blood Gas Respiration Rate 18.0 min. Blood Gas Vent Mode BIPAP 12-6 ROOM AIR FiO2 35.0 % Blood Gas Specimen Comment LR White Blood Count 4.7 #L 4.8-10.8 K/uL Red Blood Count 3.57 L 4.00-5.50 MIL/uL Hemoglobin 10.1 L 12.0-16.0 g/dL Hematocrit 31.9 L 36-48 % Mean Corpuscular Volume 89.4 79-99 fL Mean Corpuscular Hemoglobin 28.3 27.0-33.0 pg Mean Corpuscular Hemoglobin Concent 31.7 L 32.0-36.0 g/dL Red Cell Distribution Width 14.4 11.0-15.5 % Platelet Count 153 130-400 K/uL Mean Platelet Volume 11.1 H 7.5-10.5 fL Segmented Neutrophils % 68 40-70 % Lymphocytes % (Manual) 21 L 22-44 % Monocytes % (Manual) 9 2-9 % Eosinophils % (Manual) 2 1-6 % Nucleated Red Blood Cells 0.0 0.0-0.19 % Differential Comment MANUAL DIFFERENTIAL White Cell Morphology Comment Platelet Morphology Comment See comments Red Blood Cell Morphology ANISO 1+ Sodium Level 137 136-145 mmol/L Potassium Level 4.7 3.5-5.1 mmol/L Chloride Level 95 L 101-111 mmol/L Carbon Dioxide Level 30 21-32 mmol/L Blood Urea Nitrogen 35 #H 7-18 mg/dL Creatinine 7.8 H 0.5-1.0 mg/dL Glomerular Filtration Rate Calc 6 >90 mL/min Random Glucose 97 70-105 mg/dL Total Calcium 7.5 L 8.5-10.1 mg/dL Phosphorus Level 4.6 2.5-4.9 mg/dL Magnesium Level 2.00 1.80-2.40 mg/dL Thyroid Stimulating Hormone (TSH) 2.19 # 0.36-3.74 uIU/mL Test 05/28/24 11:18 05/28/24 05:34 05/27/24 18:40 Range/Units Lactic Acid Level < 0.3 L 0.8-2.5 mmol/L Total Creatine Kinase 81 # 21-232 U/L Procalcitonin 2.68 H 0.05-0.5 ng/mL Immature Granulocyte % (Auto) 0.5 0-1 % Neutrophils (%) (Auto) 67.8 40.0-77.0 % Lymphocytes (%) (Auto) 16.4 L 21.0-51.0 % Monocytes (%) (Auto) 14.4 H 3.0-13.0 % Eosinophils (%) (Auto) 0.6 0.0-8.0 % Basophils (%) (Auto) 0.3 0.0-5.0 % Neutrophils # (Auto) 4.4 1.8-7.7 K/uL Lymphocytes # (Auto) 1.1 1.0-4.8 K/uL Monocytes # (Auto) 0.9 0.1-1.0 K/uL Eosinophils # (Auto) 0.04 0.00-0.70 K/uL Basophils # (Auto) 0.02 0.00-0.20 K/uL Absolute Immature Granulocyte (auto 0.03 0-1 K/uL Total Bilirubin 0.4 0.2-1.0 mg/dL Aspartate Amino Transf (AST/SGOT) 24 10-37 U/L Alanine Aminotransferase (ALT/SGPT) 9 L 12-78 U/L Alkaline Phosphatase 333 H 50-136 U/L Total Protein 6.4 6.0-8.3 g/dL Albumin 2.4 L 3.5-5.0 g/dL Influenza Type A Antigen Positive For Type A *A NEGATIVE Influenza Type B Antigen Negative For Type B NEGATIVE SARS-CoV-2, RNA, NAAT NEGATIVE SARS CoV-2 NEGATIVE ASSESSMENT: This is a 58 year old male patient with current problems which include: * Sepsis. * Viral influenzae infection. * Acute on chronic respiratory failure requiring oxygen. * History Right ankle osteomyelitis. * End-stage renal disease, on dialysis. * Morbid obesity. PLAN: * Continue wound care. * Continue cefepime. * Continue vancomycin. * Continue pain management. * Continue BiPAP therapy. * Continue Tamiflu. * Continue DVT prophylaxis. * Monitor electrolyte. * The patient will follow up closely. * Continue dialysis This case has been discussed with my supervising physician Dr. De Souza. LOU ABRAMS SENIOR MEDICAL WRITER May 29, 2024 16:45
--- NOTE | 2024-05-29 16:54 | PN ---
NEPHROLOGY PROGRESS NOTE Date/Time Patient Seen: May 29, 2024 Reason for Consultation: 16:51 SUBJECTIVE: This is a 58-year-old female with a past medical history of hypertension, diabetes mellitus type 2, end-stage renal disease on hemodialysis Friday, anemia, coronary artery disease, arthritis, anxiety, asthma, morbid obesity. She presented to the emergency with complaints of shortness of breath and flu- like symptoms. She reports missing dialysis sessions due to symptoms. Tolerated dialysis well yesterday Positive for influenza a, she has been started on Tamiflu. She continues with altered mental status Ammonia level was within normal limits. She was seen in the medical floor, currently on BiPAP No family at the bedside REVIEW OF SYSTEMS: Unable to obtain due to patient's status PHYSICAL EXAM: GENERAL: Alert and oriented x 3.. Well-nourished. EYES: EOMI. Anicteric. HENT: Moist mucous membranes. No scleral icterus. No cervical lymphadenopathy. LUNGS: Clear to auscultation bilaterally. No accessory muscle use. CARDIOVASCULAR: Regular rate and rhythm. No murmur. No JVD. ABDOMEN: Soft, non-tender and non-distended. No palpable masses. EXTREMITIES: No edema. Non-tender. SKIN: No rashes or lesions. Warm. NEUROLOGIC: No focal neurological deficits. CN II-XII grossly intact, but not individually tested. PSYCHIATRIC: Cooperative. Appropriate mood and affect. LABORATORY: [ ] Hematology Labs: Test 05/29/24 13:24 05/29/24 05:15 05/28/24 05:34 Range/Units Erythrocyte Sedimentation Rate 112 H 0-30 MM/HR White Blood Count 4.7 #L 4.8-10.8 K/uL Red Blood Count 3.57 L 4.00-5.50 MIL/uL Hemoglobin 10.1 L 12.0-16.0 g/dL Hematocrit 31.9 L 36-48 % Mean Corpuscular Volume 89.4 79-99 fL Mean Corpuscular Hemoglobin 28.3 27.0-33.0 pg Mean Corpuscular Hemoglobin Concent 31.7 L 32.0-36.0 g/dL Red Cell Distribution Width 14.4 11.0-15.5 % Platelet Count 153 130-400 K/uL Mean Platelet Volume 11.1 H 7.5-10.5 fL Segmented Neutrophils % 68 40-70 % Lymphocytes % (Manual) 21 L 22-44 % Monocytes % (Manual) 9 2-9 % Eosinophils % (Manual) 2 1-6 % Nucleated Red Blood Cells 0.0 0.0-0.19 % Differential Comment MANUAL DIFFERENTIAL White Cell Morphology Comment Platelet Morphology Comment See comments Red Blood Cell Morphology ANISO 1+ Immature Granulocyte % (Auto) 0.5 0-1 % Neutrophils (%) (Auto) 67.8 40.0-77.0 % Lymphocytes (%) (Auto) 16.4 L 21.0-51.0 % Monocytes (%) (Auto) 14.4 H 3.0-13.0 % Eosinophils (%) (Auto) 0.6 0.0-8.0 % Basophils (%) (Auto) 0.3 0.0-5.0 % Neutrophils # (Auto) 4.4 1.8-7.7 K/uL Lymphocytes # (Auto) 1.1 1.0-4.8 K/uL Monocytes # (Auto) 0.9 0.1-1.0 K/uL Eosinophils # (Auto) 0.04 0.00-0.70 K/uL Basophils # (Auto) 0.02 0.00-0.20 K/uL Absolute Immature Granulocyte (auto 0.03 0-1 K/uL Chemistry Labs: Test 05/29/24 16:14 05/29/24 13:24 05/29/24 05:15 05/28/24 11:18 Range/Units Whole Blood Glucose 89 70-110 MG/DL Ammonia < 11 L 11-32 umol/L C-Reactive Protein, Quantitative 306.30 H 0.5-3.0 mg/L Sodium Level 137 136-145 mmol/L Potassium Level 4.7 3.5-5.1 mmol/L Chloride Level 95 L 101-111 mmol/L Carbon Dioxide Level 30 21-32 mmol/L Blood Urea Nitrogen 35 #H 7-18 mg/dL Creatinine 7.8 H 0.5-1.0 mg/dL Glomerular Filtration Rate Calc 6 >90 mL/min Random Glucose 97 70-105 mg/dL Total Calcium 7.5 L 8.5-10.1 mg/dL Phosphorus Level 4.6 2.5-4.9 mg/dL Magnesium Level 2.00 1.80-2.40 mg/dL Thyroid Stimulating Hormone (TSH) 2.19 # 0.36-3.74 uIU/mL Lactic Acid Level < 0.3 L 0.8-2.5 mmol/L Total Creatine Kinase 81 # 21-232 U/L Procalcitonin 2.68 H 0.05-0.5 ng/mL Test 05/28/24 05:34 Range/Units Total Bilirubin 0.4 0.2-1.0 mg/dL Aspartate Amino Transf (AST/SGOT) 24 10-37 U/L Alanine Aminotransferase (ALT/SGPT) 9 L 12-78 U/L Alkaline Phosphatase 333 H 50-136 U/L Total Protein 6.4 6.0-8.3 g/dL Albumin 2.4 L 3.5-5.0 g/dL DIAGNOSTICS / RADIOLOGY: REASON: ACUTE ENCEPHALOPATHY ORDERING PHYSICIAN: EVELINE ASHLEY PROCEDURE: HEAD WO - CT HEAD/BRAIN W/O CONTRAST CT HEAD/BRAIN W/O CONTRAST CLINICAL HISTORY: ACUTE ENCEPHALOPATHY COMPARISON: None TECHNIQUE: Multiple sequential axial images of the head were obtained from the base of the skull through vertex. CT was performed with one or more of the following dose reduction techniques: automated exposure control, adjustment of the mA and/or kV according to patient size, or use of iterative reconstruction technique FINDINGS: There is resolved right basal ganglia lacunar infarct. The orbital contents are unremarkable. There is right mastoid air cell opacification extending into the middle ear. This demonstrated is mucoperiosteal thickening throughout the paranasal sinuses with small air-fluid level in the sphenoid sinuses. The calvarium is intact. IMPRESSION: Resolved right basal ganglia lacunar infarct. Acute and chronic sinusitis. Right mastoid effusion or mastoiditis with otitis media DICTATED BY: REGGIE GUARDADO DO DATE: 05/29/24 1554 REASON: elevated troponin ORDERING PHYSICIAN: CARMINE GAMBLE MD PROCEDURE: ECHO CMP - ECHO 2-D COMPLETE APPROVED REPORT EXAM: Two-dimensional and M-mode echocardiogram with Doppler and color Doppler. INDICATION ICD: Elevated troponin 2D Dimensions RVDd 5.1 cm LVEF(%) 59.0 (>50%) LVED Vol(simp.) 73.2 mL IVSd 1.2 (0.7-1.1cm) FS(%) 31 % LVES Vol(simp.) 27.3 mL LVDd 3.9 (3.8-5.6cm) LA (2D) 4.6 (1.6-4.0cm) LVEF(%, simp.) 63 % PWd 1.2 (0.7-1.1cm) Ao Root(2D) 3.6 (2.0-3.7cm) LA ESV INDEX (4CH) 31.90 mL/m2 IVSs 1.5 cm LVOT diam 1.9 (1.8-2.4cm) LVDs 2.7 (2.5-4.0cm) PWs 1.5 cm M-Mode Dimensions EPSS 0.9 cm LA (MM) 4.1 (1.6-4.0cm) Ao Root(MM) 3.1 (2.0-3.7cm) Aortic Valve AoV VTI 0.3 m Ao Mean GR 4.0 mmHg LVOT VTI 0.20 m LUIS FELIPE (VMAX) 2.1 cm2 LUIS FELIPE (VTI) 2.1 cm2 Mitral Valve MV E Vmax 114.0 cm/s DECEL Time 331 ms MV Mean GR 6 mmHg MV A Vmax 115.0 cm/s MVA (VTI) 1.2 cm2 E/A ratio 1.0 MR Max PG 33 mmHg TDI E/E' Medial 40.7 E/E' Lateral 21.1 Medial E' Peak V 2.80 cm/s Lateral E' Peak V 5.40 cm/s Pulmonary Valve PV Vmax 1.2 m/s PV Peak GR 6.0 mmHg Left Ventricle The left ventricle is normal size. There is normal LV segmental wall motion. Mild concentric left ventricular hypertrophy. LVEF is 60-65%. Indeterminate diastolic dysfunction. Right Ventricle The right ventricle is severely dilated. The right ventricular systolic function is normal. Moderator band is seen in the right ventricle. Atria The left atrium size is normal. The right atrium is moderately dilated. Aortic Valve Aortic valve nodular calcification noted. Aortic valve is trileaflet and opens well. No aortic regurgitation is present. There is no aortic valvular stenosis. Mitral Valve There is mitral annular calcification. There is mild mitral valve regurgitation noted. There is moderate mitral valve stenosis with mean gradient of 6mmHg. Tricuspid Valve The tricuspid valve is normal in structure. There is no tricuspid valve regurgitation noted. Pulmonic Valve The pulmonary valve is normal in structure. There is no pulmonic valvular regurgitation. Great Vessels The aortic root is normal in size. The IVC is normal in size and collapses >50% with inspiration. Pericardium There is no pericardial effusion. Other Information Quality : Technically difficult study due to body habitus Conclusion LVEF is 60-65%. There is moderate mitral valve stenosis with mean gradient of 6mmHg. There is no pericardial effusion. DICTATED BY: LISA RM MD DATE: 05/28/24 1401 REASON: sob ORDERING PHYSICIAN: EVELINE ASHLEY PROCEDURE: CXR1VW - CHEST 1VW Exam Type: CHEST 1VW Clinical Information: sob Comparison: None Findings: Right permacath line is noted with tip at the distal superior vena caval level. The lungs are clear of infiltrates. The heart is enlarged. Bony and soft tissue structures of the chest wall are unremarkable. IMPRESSION: Cardiomegaly. Clear lungs. DICTATED BY: NIKA SOTO MD DATE: 05/28/24 1534 REASON: history of ankle abscess, assess for osteo ORDERING PHYSICIAN: CARMINE GAMBLE MD PROCEDURE: FT 2VW RT - FOOT LIMITED 2VWS RT Exam Type: FOOT LIMITED 2VWS RT Clinical Information: history of ankle abscess, assess for osteo Comparison: None Findings and impression: Soft tissue swelling of the ankle which could represent cellulitis. Postoperative changes of the distal tibia. Degenerative changes of the interphalangeal joints. Calcaneal spurs. Osteopenia. DICTATED BY: NIKA SOTO MD DATE: 05/27/24 1618 REASON: Dyspnea/SOB ORDERING PHYSICIAN: ALONSO CALIXTO DO PROCEDURE: CXR1VW - CHEST 1VW Exam Type: CHEST 1VW Clinical Information: Dyspnea/SOB Comparison: None Findings: Pulmonary pattern is as before. No worrisome interval changes have taken place. Impression: Stable exam. DICTATED BY: NIKA SOTO MD DATE: 05/26/24 0876 ASSESSMENT: Life-threatening hyperkalemia Fluid overload Respiratory failure with hypoxia Anemia Metabolic acidosis End-stage renal disease Diabetes mellitus type 2 Hypertension Morbid obesity PLAN: Labs and Diagnostics/ Radiology personally reviewed and interpreted by myself and supervising physician We have reviewed dialysis and external records in detail Continue dialysis schedule Friday Continue with [id number] mg p.o. after dialysis 1.5 L fluid restriction Continue to monitor H&H Epogen on dialysis days, as needed Continue with frequent monitoring of renal function, anemia, and electrolytes Order CBC, BMP, and electrolytes in the morning May use Dilaudid 0.5 mg IV every 6 hours as needed for severe pain Monitor blood pressure adjust medication doses as needed Maintain normotensive state Strict intake, output, and daily weight should be monitored Please renally adjust medications. Avoid nephrotoxics and nonsteroidal drugs. We will continue to monitor the patient closely We have discussed with the other team physicians in detail about the care plan ATTESTATION BY PHYSICIAN I have seen and examined the patient. I reviewed the documentation, medical decision making, and treatment plan as noted by the mid-level provider above. I agree with the findings and plan of care. CARLO KAUR MD, [facility] [place] [facility] May 29, 2024 16:54
[2024-05-29] MEDS: guaiFENesin SUGAR-FREE 100 MG/5 ML UDCUP PO PRN (22:44)
[2024-05-30] VITALS (11 sets, daily range): BP systolic 152–164; BP diastolic 66–79; PULSE 18–71; RESP 18–22; TEMP 97.4–98.5; O2SAT 96–99
[2024-05-30] MEDS: acetaMINOPHEN 500 MG TABLET PO PRN (04:18)
[2024-05-30 05:33] LABS: ABG BASE EXCESS -0.7 mmol/L (-2.0-3.0); ABG HCO3 23.7 mmol/L (21.0-28.0); ABG OXYGEN SATURATION 95.5 % (94.0-98.0); ABG PCO2 38 mmHg (32-45); ABG PH 7.409 (7.350-7.450); PO2, ARTERIAL BG 76.8 mmHg (83.0-108.0); VENT MODE, BG RA (ROOM AIR)
--- NOTE | 2024-05-30 09:51 | PN ---
[facility] PROGRESS NOTE Date of Service: May 30, 2024 Time of Service: 09:41 SUBJECTIVE: [ ] This is a 50-year-old with a significant medical history of end-stage renal disease on dialysis on Friday hypertension hyperlipidemia and asthma presented in ED with chief complaints of shortness a breath apparently patient missed her dialysis. ER workup was consistent with asthma exacerbation possible pneumonia respiratory failure apparently 05/28/2024 patient was having dialysis she is currently on BiPAP support. Patient we will work with physical therapy out of bed to chair as tolerated. 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 Patient is being monitored closely. Encourage patient out of bed to chair as tolerated. 05/30/24 patient is currently on nasal cannula 3 L. Patient response to verbal stimuli she answer all questions apparently however she appears very sleepy we will get a blood gas now. She denies chest pain. Or shortness a breath we will have Physical therapy to work patient out of bed to chair with meals. REVIEW OF SYSTEMS CONSTITUTIONAL: Denies or night sweats. No unintentional weight loss reported. Positive for fever, chills NEUROLOGICAL: Denies headache, amaurosis fugax, motor weakness, sensory deficit, vertigo/spinning sensation, gait abnormalities, or tremors. ENT: No hearing loss, otalgia, otorrhea, rhinitis, rhinorrhea, hoarseness, or sore throat. CARDIOVASCULAR: Denies any exertional angina, dyspnea on exertion, orthopnea, paroxysmal nocturnal dyspnea, palpitations, life-threatening arrhythmias, claudication. PULMONARY: Positive for cough, sputum production. Denied any hemoptysis GASTROINTESTINAL: Denies any type of dysphagia to either liquids or solids. Denies nausea, vomiting, pyrosis, early satiety, abdominal pain, constipation, or changes in stool consistency or caliber. Denies coffee-ground emesis, hematemesis, hematochezia, or melanotic stools. Positive for diarrhea GENITOURINARY: Denies frequency, urgency, nocturia, hematuria or incontinence (Storage/Irritative symptoms.) Low urinary stream, straining to void, urinary intermittency or hesitancy, splitting of the voiding stream, terminal dribbling. ENDOCRINOLOGIC: Denies polyuria, polydipsia, polyphagia or heat/cold intolerances. HEMATOLOGIC: Denies thrombophilia/previous clots, or coagulopathy/bleeding disorders. ONCOLOGIC: Denies personal history of malignancy. DERMATOLOGIC: Denies rashes or pruritus. PSYCHIATRIC: Denies any suicidal or homicidal ideation. Denies hallucinations. PHYSICAL EXAM GENERAL APPEARANCE: The patient is awake, alert, and oriented, in no acute cardiopulmonary distress. NEUROLOGICAL: Cranial nerves II-XII grossly intact. Motor is 5/5 in bilateral upper and lower extremities proximal to distal. No sensory deficits. HEENT: Face is symmetric. Pupils are equal and reactive. Extraocular movements are intact. NECK: Supple. No JVD. No thyromegaly. No submental, submandibular, pre- /postauricular, occipital or supraclavicular lymphadenopathy. CHEST: Normal chest expansion. No Telemetry. LUNGS: She has wheezing present bilaterally with rhonchi. CARDIOVASCULAR: Regular. S1 and S2 normal. No appreciable rubs, murmurs or gallops. ABDOMEN: Soft, nontender, and nondistended. There is no rebound, voluntary guarding, or rigidity. : Deferred. No Ardon. EXTREMITIES: She has a wound noted in the right ankle. She has a wound in the lateral and medial aspect of the leg. There is some purulent discharge noted. SKIN: No skin breakdown. Vital Signs (last 8hr) Date Time Temp Pulse Resp B/P (MAP) Pulse Ox O2 Delivery O2 Flow Rate FiO2 05/30/24 08:00 97.9 18 18 158/66 97 Nasal Cannula 2.0 05/30/24 07:14 68 19 05/30/24 07:13 68 22 N/Cannula Low lpm 2.0 28 05/30/24 04:14 98.2 71 18 160/69 98 Room Air LABS: Laboratory: Test 05/30/24 05:31 05/30/24 05:21 05/29/24 13:24 05/29/24 07:47 Range/Units Blood Gas Specimen Type Arterial Arterial Blood pH 7.409 7.350-7.450 Arterial Blood Partial Pressure CO2 38 32-45 mmHg Arterial Blood Partial Pressure O2 76.8 L 83.0-108.0 mmHg Arterial Blood HCO3 23.7 21.0-28.0 mmol/L Arterial Blood Oxygen Saturation 95.5 94.0-98.0 % Arterial Blood Base Excess -0.7 -2.0-3.0 mmol/L Blood Gas Temperature 37.0 35.5-37.0 CELSIUS Blood Gas Vent Mode RA ROOM AIR FiO2 21.0 % Blood Gas Specimen Comment PIETER,JENISE GALINDO Whole Blood Glucose 98 70-110 MG/DL Erythrocyte Sedimentation Rate 112 H 0-30 MM/HR Ammonia < 11 L 11-32 umol/L C-Reactive Protein, Quantitative 306.30 H 0.5-3.0 mg/L Blood Gas Respiration Rate 18.0 min. Test 05/29/24 05:15 05/28/24 11:18 Range/Units White Blood Count 4.7 #L 4.8-10.8 K/uL Red Blood Count 3.57 L 4.00-5.50 MIL/uL Hemoglobin 10.1 L 12.0-16.0 g/dL Hematocrit 31.9 L 36-48 % Mean Corpuscular Volume 89.4 79-99 fL Mean Corpuscular Hemoglobin 28.3 27.0-33.0 pg Mean Corpuscular Hemoglobin Concent 31.7 L 32.0-36.0 g/dL Red Cell Distribution Width 14.4 11.0-15.5 % Platelet Count 153 130-400 K/uL Mean Platelet Volume 11.1 H 7.5-10.5 fL Segmented Neutrophils % 68 40-70 % Lymphocytes % (Manual) 21 L 22-44 % Monocytes % (Manual) 9 2-9 % Eosinophils % (Manual) 2 1-6 % Nucleated Red Blood Cells 0.0 0.0-0.19 % Differential Comment MANUAL DIFFERENTIAL White Cell Morphology Comment Platelet Morphology Comment See comments Red Blood Cell Morphology ANISO 1+ Sodium Level 137 136-145 mmol/L Potassium Level 4.7 3.5-5.1 mmol/L Chloride Level 95 L 101-111 mmol/L Carbon Dioxide Level 30 21-32 mmol/L Blood Urea Nitrogen 35 #H 7-18 mg/dL Creatinine 7.8 H 0.5-1.0 mg/dL Glomerular Filtration Rate Calc 6 >90 mL/min Random Glucose 97 70-105 mg/dL Total Calcium 7.5 L 8.5-10.1 mg/dL Phosphorus Level 4.6 2.5-4.9 mg/dL Magnesium Level 2.00 1.80-2.40 mg/dL Thyroid Stimulating Hormone (TSH) 2.19 # 0.36-3.74 uIU/mL Lactic Acid Level < 0.3 L 0.8-2.5 mmol/L Total Creatine Kinase 81 # 21-232 U/L Procalcitonin 2.68 H 0.05-0.5 ng/mL Current Medications Medications (Trade) Dose Ordered Sig/Susannah Route PRN Reason Start Time Stop Time Status Last Admin Dose Admin Acetaminophen (TYLenol 500MG TAB) 500 mg Q6H PRN PO MILD PAIN (1-3) 05/27/24 15:00 06/26/24 14:59 05/30/24 04:18 500 MG Albuterol Sulfate (Proventil 0.083% 2.5mg/3ml) 2.5MG [id number] IH 05/27/24 15:00 06/26/24 14:59 05/30/24 07:12 2.5 MG Albuterol Sulfate (Proventil 0.083% 2.5mg/3ml) 10 mg ONCE IH 05/26/24 08:00 05/26/24 15:17 DC 05/26/24 08:11 10 MG Budesonide (Pulmicort 0.5 Mg/2ml) 0.5 mg BIDRESP IH 05/27/24 18:00 06/26/24 17:59 05/30/24 07:12 0.5 MG Carvedilol (Coreg 12.5MG) 12.5 mg BID PO 05/27/24 21:00 06/26/24 20:59 05/29/24 20:32 12.5 MG Cefepime HCl (MAXipime 1 GM vial) 1 gm Q12H IVPB 05/27/24 15:00 05/27/24 18:22 DC Cefepime HCl (MAXipime 1 GM vial) 1 gm Q12H9 IVPB 05/27/24 21:00 05/28/24 11:36 DC 05/28/24 07:46 1 GM Cefepime HCl (MAXipime 1 GM vial) 1 gm Q24H IVPB 05/29/24 09:00 05/29/24 12:58 DC 05/29/24 09:50 1 GM Ceftriaxone Sodium (ROCEphine 1G INJ) 1 gm Q24H IVPB 05/27/24 10:30 05/27/24 14:24 DC Ceftriaxone Sodium (ROCEphine 1G INJ) 1 gm Q24H IVPB 05/27/24 17:00 05/27/24 14:58 DC Doxycycline Hyclate (Doxycycline Hyclate) 100 mg BID PO 05/27/24 21:00 05/27/24 15:46 DC Guaifenesin (RobiTUSSin SUGAR-FREE 100 MG/ 5 ML UDCUP) 400 mg Q4H PRN PO COUGH 05/28/24 06:30 06/27/24 06:29 05/29/24 22:44 400 MG Heparin Sodium (Porcine) (HEParin 5,000 UNIT VIAL) 10,000 unit AD IRRIG 05/26/24 15:30 06/25/24 15:29 05/28/24 11:31 10,000 UNIT Hydralazine HCl (APRESOLine 20MG INJ) 10 mg Q6H PRN IV ADMINISTER FOR SBP > 180 05/27/24 15:00 06/26/24 14:59 Insulin Human Regular (humuLIN R 100 UNIT/ML 3ML) INSULIN SLIDING SCAL... ACHS SQ 05/28/24 07:30 06/27/24 07:29 Ipratropium [place] (AtrovENT UD) 0.5 mg [id number] IH 05/28/24 00:00 06/27/24 00:00 05/30/24 07:12 0.5 MG Leptospermum [place] ([place]) APPLY DIRECTED DAILY TP 05/28/24 09:00 06/27/24 08:59 05/29/24 09:50 1 APPL Methylprednisolone Sodium Succinate (Solu-medROL 40MG) 20 mg BID IVP 05/27/24 21:00 05/27/24 19:34 DC Montelukast Sodium (SinguLAIR) 10 mg DAILY PO 05/30/24 09:00 06/29/24 08:59 Oseltamivir Phosphate (Tamiflu) 30 mg QODAY PO 05/31/24 20:00 05/29/24 12:55 DC Oseltamivir Phosphate (Tamiflu) 75 mg MWFPHD PO 05/31/24 16:00 06/05/24 15:59 Oseltamivir Phosphate (Tamiflu) 75 mg Q24H PO 05/28/24 21:00 05/29/24 12:47 DC 05/28/24 20:52 75 MG Oseltamivir Phosphate (Tamiflu) 75 mg QODAY@2100 PO 05/27/24 21:00 05/28/24 14:12 DC 05/27/24 21:41 75 MG Pharmacy Profile Note (Pharmacy Communication) 1 each AD MISC 05/28/24 06:00 05/28/24 11:37 DC Pharmacy Profile Note (Pharmacy Communication) 1 each ONCE MISC 05/27/24 19:30 05/28/24 11:37 DC Pharmacy Profile Note (Pharmacy Communication) 1 each ONCE MISC 05/28/24 15:30 05/28/24 15:14 DC Sodium Chloride 250 ml @ 0 mls/hr AD IV 05/26/24 15:30 06/25/24 15:29 Sodium Chloride 1,000 ml @ 0 mls/hr ONCE IV 05/26/24 15:30 06/25/24 15:29 05/28/24 11:29 100 MLS/HR Vancomycin HCl 250 ml @ 125 mls/hr ONCE IV 05/28/24 21:00 05/28/24 23:59 DC 05/28/24 20:53 125 MLS/HR Vancomycin HCl 250 ml @ 125 mls/hr [id number][DIALYSIS] IV 05/31/24 16:00 06/10/24 15:59 Vancomycin HCl (Vancomycin Protocol) 1 each AD IV 05/27/24 16:00 06/10/24 15:59 DIAGNOSTICS / RADIOLOGY: [ ] ASSESSMENT: Acute hypoxic respiratory failure POA Volume overload secondary to missed dialysis POA Metabolic acidosis POA Troponin elevation likely in setting of missed dialysis and type 2 ID (down trending) no chest POA Metabolic/infectious encephalopathy. Suspected pneumonia/URI POA UTI Gram-negative E coli/ESBL POA Positive Influenza A POA Acute asthma exacerbation History of right ankle abscess status post incision and drainage and hardware removal by Dr. Cabrera on 03/2025 Suspected cellulitis in the right ankle with mild purulent drainage History of MSSA infection Hypertension History of hyperlipidemia History of diabetes mellitus type two Obesity BMI 45.5 PLAN: ADMIT: medical-surgical unit DIET: Renal consultants: Binder Fixer's, plater helper's, Infectious Disease for antibiotics stewardship( ESBL) abts" continue with Tamiflu PO, Vancomycin will start on Merrem 500 mg IV q12 hrs. Blood culture so far negative Oxygen supplemental to keep O2 sats above 92% BiPAP as needed titrate per ANAESTHETIC TECHNICIAN if tolerated": Blood gase now ammonia level now Continues bronchodilators Test: ECHO LVEF: 60-65% with moderate mitral value stenosis Continue dialysis 3x week we will follow plater helper's fluid restriction strict I&Os and daily weights Aspiration precautions head of the bed at 45 at all times -further orders per hospitalization course. Plan of care was discussed with patient at bedside PT services eval and treat once patient is more stable. All questions addressed ATTESTATION BY PHYSICIAN I have seen and examined the patient. I reviewed the documentation, medical decision making, and treatment plan as noted by the mid-level provider above. I agree with the findings and plan of care. La Herron MD, ELIZABETH NP May 30, 2024 09:51
[2024-05-30 09:54] LABS: ABG BASE EXCESS -1.2 mmol/L (-2.0-3.0); ABG HCO3 24.3 mmol/L (21.0-28.0); ABG OXYGEN SATURATION 97.3 % (94.0-98.0); ABG PCO2 44 mmHg (32-45); ABG PH 7.364 (7.350-7.450); PO2, ARTERIAL BG 99.7 mmHg (83.0-108.0); VENT MODE, BG 2LNC (ROOM AIR)
[2024-05-30 10:12] LABS: HEMATOCRIT 31.9 % (36-48); MEAN CORPUSCULAR HEMOGLOBIN 28.6 pg (27.0-33.0); MEAN CORPUSCULAR HGB CONC 31.7 g/dL (32.0-36.0); MEAN CORPUSCULAR VOLUME 90.4 fL (79-99); PLATELET COUNT (AUTO) 167 K/uL (130-400); RED BLOOD CELL COUNT(AUTO) 3.53 MIL/uL (4.00-5.50); RED CELL DISTRIBUTION WIDTH 14.1 % (11.0-15.5); WHITE BLOOD COUNT (AUTO) 5.5 K/uL (4.8-10.8)
[2024-05-30] MEDS: monteLUKAST sodIUM 10 MG TAB PO SCH (10:20)
[2024-05-30 10:26] LABS: ALANINE AMINOTRANSFERASE 7 U/L (12-78); ALBUMIN 2.3 g/dL (3.5-5.0); AMMONIA < 10 umol/L (11-32); ASPARTATE AMINOTRANSFERASE 17 U/L (10-37); BILIRUBIN,TOTAL 0.5 mg/dL (0.2-1.0); CARBON DIOXIDE 28 mmol/L (21-32); CHLORIDE 95 mmol/L (101-111); GLOMERULAR FILTR. RATE CALC 4 mL/min (>90); GLUCOSE,RANDOM 104 mg/dL (70-105); POTASSIUM 4.6 mmol/L (3.5-5.1); SODIUM SERUM 135 mmol/L (136-145); TOTAL PROTEIN, SERUM 6.4 g/dL (6.0-8.3); UREA NITROGEN, BLOOD 51 mg/dL (7-18)
[2024-05-30 10:31] LABS: CREATININE 9.9 mg/dL (0.5-1.0)
--- NOTE | 2024-05-30 10:55 | HMCIMG ---
PORTABLE CHEST RADIOGRAPH INDICATION: SHORT OF BREATH COMPARISON: 05/28/2024 FINDINGS: acquisition marketing coordinator leads overlie the field of view. Stable right-sided hemodialysis catheter. Stable mild cardiac enlargement. The pulmonary vascularity and zachery appear normal. No abnormal pulmonary parenchymal opacity or consolidation identified. No significant pleural effusion noted. No pneumothorax detected. IMPRESSION: Mild cardiac enlargement without radiographic evidence for any acute cardiopulmonary process.
--- NOTE | 2024-05-30 11:30 | NUR ---
BLOOD GLUCOSE 117. NO INSULIN COVERAGE NEEDED AT THIS TIME.
[2024-05-30 11:32] LABS: BAND NEUTROPHILS % (MANUAL) 1 % (0-2); EOSINOPHILS % (MANUAL) 5 % (1-6); LYMPHOCYTES % (MANUAL) 18 % (22-44); MONOCYTES % (MANUAL) 4 % (2-9); REACTIVE LYMPHOCYTES 4 % (0-0); SEGMENTED NEUTROPHILS % 68 % (40-70); TOTAL CELLS COUNTED 100
[2024-05-30 11:33] LABS: MAN.DIFF COMMENT-IMPRESSION MANUAL DIFFERENTIAL; PLATELET MORPHOLOGY COMMENT ADEQUATE
[2024-05-30] MEDS: MEROPENEM 500MG 500 MG VIAL IV SCH (12:22)
--- NOTE | 2024-05-30 14:02 | PN ---
NEPHROLOGY PROGRESS NOTE Date/Time Patient Seen: May 30, 2024 Reason for Consultation: 14:01 SUBJECTIVE: This is a 58-year-old female with a past medical history of hypertension, diabetes mellitus type 2, end-stage renal disease on hemodialysis Friday, anemia, coronary artery disease, arthritis, anxiety, asthma, morbid obesity. She presented to the emergency with complaints of shortness of breath and flu- like symptoms. She reports missing dialysis sessions due to symptoms. Tolerated dialysis well yesterday Positive for influenza A, she has been started on Tamiflu. Patient remains very lethargic however she is responsive to verbal stimuli. She tolerated dialysis without difficulty She was seen in the medical floor No family at the bedside REVIEW OF SYSTEMS: Unable to obtain due to patient's status PHYSICAL EXAM: GENERAL: Alert and oriented x 3.. Well-nourished. EYES: EOMI. Anicteric. HENT: Moist mucous membranes. No scleral icterus. No cervical lymphadenopathy. LUNGS: Clear to auscultation bilaterally. No accessory muscle use. CARDIOVASCULAR: Regular rate and rhythm. No murmur. No JVD. ABDOMEN: Soft, non-tender and non-distended. No palpable masses. EXTREMITIES: No edema. Non-tender. SKIN: No rashes or lesions. Warm. NEUROLOGIC: No focal neurological deficits. CN II-XII grossly intact, but not individually tested. PSYCHIATRIC: Cooperative. Appropriate mood and affect. LABORATORY: [ ] Hematology Labs: Test 05/30/24 10:05 05/29/24 13:24 Range/Units White Blood Count 5.5 4.8-10.8 K/uL Red Blood Count 3.53 L 4.00-5.50 MIL/uL Hemoglobin 10.1 L 12.0-16.0 g/dL Hematocrit 31.9 L 36-48 % Mean Corpuscular Volume 90.4 79-99 fL Mean Corpuscular Hemoglobin 28.6 27.0-33.0 pg Mean Corpuscular Hemoglobin Concent 31.7 L 32.0-36.0 g/dL Red Cell Distribution Width 14.1 11.0-15.5 % Platelet Count 167 130-400 K/uL Mean Platelet Volume 10.7 H 7.5-10.5 fL Segmented Neutrophils % 68 40-70 % Band Neutrophils % 1 0-2 % Lymphocytes % (Manual) 18 L 22-44 % Monocytes % (Manual) 4 2-9 % Eosinophils % (Manual) 5 1-6 % Nucleated Red Blood Cells 0.0 0.0-0.19 % Differential Comment MANUAL DIFFERENTIAL Reactive Lymphocytes 4 H 0-0 % White Cell Morphology Comment Platelet Morphology Comment ADEQUATE Red Blood Cell Morphology HYPOCHROM CELLS 1+ Erythrocyte Sedimentation Rate 112 H 0-30 MM/HR Chemistry Labs: Test 05/30/24 10:57 05/30/24 10:05 05/29/24 13:24 05/29/24 05:15 Range/Units Whole Blood Glucose 117 H 70-110 MG/DL Sodium Level 135 L 136-145 mmol/L Potassium Level 4.6 3.5-5.1 mmol/L Chloride Level 95 L 101-111 mmol/L Carbon Dioxide Level 28 21-32 mmol/L Blood Urea Nitrogen 51 H 7-18 mg/dL Creatinine 9.9 *H 0.5-1.0 mg/dL Glomerular Filtration Rate Calc 4 >90 mL/min Random Glucose 104 70-105 mg/dL Total Calcium 7.0 L 8.5-10.1 mg/dL Magnesium Level 2.10 1.80-2.40 mg/dL Total Bilirubin 0.5 0.2-1.0 mg/dL Aspartate Amino Transf (AST/SGOT) 17 10-37 U/L Alanine Aminotransferase (ALT/SGPT) 7 L 12-78 U/L Alkaline Phosphatase 243 H 50-136 U/L Ammonia < 10 L 11-32 umol/L Total Protein 6.4 6.0-8.3 g/dL Albumin 2.3 L 3.5-5.0 g/dL Procalcitonin 1.72 H 0.05-0.5 ng/mL C-Reactive Protein, Quantitative 306.30 H 0.5-3.0 mg/L Phosphorus Level 4.6 2.5-4.9 mg/dL Thyroid Stimulating Hormone (TSH) 2.19 # 0.36-3.74 uIU/mL DIAGNOSTICS / RADIOLOGY: REASON: SHORT OF BREATH ORDERING PHYSICIAN: EVELINE ASHLEY PROCEDURE: CXR1VW - CHEST 1VW PORTABLE CHEST RADIOGRAPH INDICATION: SHORT OF BREATH COMPARISON: 05/28/2024 FINDINGS: satellite project site monitor leads overlie the field of view. Stable right-sided hemodialysis catheter. Stable mild cardiac enlargement. The pulmonary vascularity and zachery appear normal. No abnormal pulmonary parenchymal opacity or consolidation identified. No significant pleural effusion noted. No pneumothorax detected. IMPRESSION: Mild cardiac enlargement without radiographic evidence for any acute cardiopulmonary process. DICTATED BY: MEGA RADFORD MD DATE: 05/30/24 1052 REASON: ACUTE ENCEPHALOPATHY ORDERING PHYSICIAN: EVELINE ASHLEY PROCEDURE: HEAD WO - CT HEAD/BRAIN W/O CONTRAST CT HEAD/BRAIN W/O CONTRAST CLINICAL HISTORY: ACUTE ENCEPHALOPATHY COMPARISON: None TECHNIQUE: Multiple sequential axial images of the head were obtained from the base of the skull through vertex. CT was performed with one or more of the following dose reduction techniques: automated exposure control, adjustment of the mA and/or kV according to patient size, or use of iterative reconstruction technique FINDINGS: There is resolved right basal ganglia lacunar infarct. The orbital contents are unremarkable. There is right mastoid air cell opacification extending into the middle ear. This demonstrated is mucoperiosteal thickening throughout the paranasal sinuses with small air-fluid level in the sphenoid sinuses. The calvarium is intact. IMPRESSION: Resolved right basal ganglia lacunar infarct. Acute and chronic sinusitis. Right mastoid effusion or mastoiditis with otitis media DICTATED BY: REGGIE GUARDADO DO DATE: 05/29/24 1554 REASON: elevated troponin ORDERING PHYSICIAN: CARMINE GAMBLE MD PROCEDURE: ECHO CMP - ECHO 2-D COMPLETE APPROVED REPORT EXAM: Two-dimensional and M-mode echocardiogram with Doppler and color Doppler. INDICATION ICD: Elevated troponin 2D Dimensions RVDd 5.1 cm LVEF(%) 59.0 (>50%) LVED Vol(simp.) 73.2 mL IVSd 1.2 (0.7-1.1cm) FS(%) 31 % LVES Vol(simp.) 27.3 mL LVDd 3.9 (3.8-5.6cm) LA (2D) 4.6 (1.6-4.0cm) LVEF(%, simp.) 63 % PWd 1.2 (0.7-1.1cm) Ao Root(2D) 3.6 (2.0-3.7cm) LA ESV INDEX (4CH) 31.90 mL/m2 IVSs 1.5 cm LVOT diam 1.9 (1.8-2.4cm) LVDs 2.7 (2.5-4.0cm) PWs 1.5 cm M-Mode Dimensions EPSS 0.9 cm LA (MM) 4.1 (1.6-4.0cm) Ao Root(MM) 3.1 (2.0-3.7cm) Aortic Valve AoV VTI 0.3 m Ao Mean GR 4.0 mmHg LVOT VTI 0.20 m LUIS FELIPE (VMAX) 2.1 cm2 LUIS FELIPE (VTI) 2.1 cm2 Mitral Valve MV E Vmax 114.0 cm/s DECEL Time 331 ms MV Mean GR 6 mmHg MV A Vmax 115.0 cm/s MVA (VTI) 1.2 cm2 E/A ratio 1.0 MR Max PG 33 mmHg TDI E/E' Medial 40.7 E/E' Lateral 21.1 Medial E' Peak V 2.80 cm/s Lateral E' Peak V 5.40 cm/s Pulmonary Valve PV Vmax 1.2 m/s PV Peak GR 6.0 mmHg Left Ventricle The left ventricle is normal size. There is normal LV segmental wall motion. Mild concentric left ventricular hypertrophy. LVEF is 60-65%. Indeterminate diastolic dysfunction. Right Ventricle The right ventricle is severely dilated. The right ventricular systolic function is normal. Moderator band is seen in the right ventricle. Atria The left atrium size is normal. The right atrium is moderately dilated. Aortic Valve Aortic valve nodular calcification noted. Aortic valve is trileaflet and opens well. No aortic regurgitation is present. There is no aortic valvular stenosis. Mitral Valve There is mitral annular calcification. There is mild mitral valve regurgitation noted. There is moderate mitral valve stenosis with mean gradient of 6mmHg. Tricuspid Valve The tricuspid valve is normal in structure. There is no tricuspid valve regurgitation noted. Pulmonic Valve The pulmonary valve is normal in structure. There is no pulmonic valvular regurg itation. Great Vessels The aortic root is normal in size. The IVC is normal in size and collapses >50% with inspiration. Pericardium There is no pericardial effusion. Other Information Quality : Technically difficult study due to body habitus Conclusion LVEF is 60-65%. There is moderate mitral valve stenosis with mean gradient of 6mmHg. There is no pericardial effusion. DICTATED BY: LISA RM MD DATE: 05/28/24 1401 REASON: sob ORDERING PHYSICIAN: EVELINE ASHLEY PROCEDURE: CXR1VW - CHEST 1VW Exam Type: CHEST 1VW Clinical Information: sob Comparison: None Findings: Right permacath line is noted with tip at the distal superior vena caval level. The lungs are clear of infiltrates. The heart is enlarged. Bony and soft tissue structures of the chest wall are unremarkable. IMPRESSION: Cardiomegaly. Clear lungs. DICTATED BY: NIKA SOTO MD DATE: 05/28/24 1534 REASON: history of ankle abscess, assess for osteo ORDERING PHYSICIAN: CARMINE GAMBLE MD PROCEDURE: FT 2VW RT - FOOT LIMITED 2VWS RT Exam Type: FOOT LIMITED 2VWS RT Clinical Information: history of ankle abscess, assess for osteo Comparison: None Findings and impression: Soft tissue swelling of the ankle which could represent cellulitis. Postoperative changes of the distal tibia. Degenerative changes of the interphalangeal joints. Calcaneal spurs. Osteopenia. DICTATED BY: NIKA SOTO MD DATE: 05/27/24 1618 REASON: Dyspnea/SOB ORDERING PHYSICIAN: ALONSO CALIXTO DO PROCEDURE: CXR1VW - CHEST 1VW Exam Type: CHEST 1VW Clinical Information: Dyspnea/SOB Comparison: None Findings: Pulmonary pattern is as before. No worrisome interval changes have taken place. Impression: Stable exam. DICTATED BY: NIKA SOTO MD DATE: 05/26/24 0829 ASSESSMENT: Life-threatening hyperkalemia Fluid overload Respiratory failure with hypoxia Anemia Metabolic acidosis End-stage renal disease Diabetes mellitus type 2 Hypertension Morbid obesity PLAN: Labs and Diagnostics/ Radiology personally reviewed and interpreted by myself and supervising physician We have reviewed dialysis and external records in detail Continue dialysis schedule Friday Continue with Tamiflu 1.5 L fluid restriction Continue to monitor H&H Epogen on dialysis days, as needed Continue with frequent monitoring of renal function, anemia, and electrolytes Order CBC, BMP, and electrolytes in the morning May use Dilaudid 0.5 mg IV every 6 hours as needed for severe pain Monitor blood pressure adjust medication doses as needed Maintain normotensive state Strict intake, output, and daily weight should be monitored Please renally adjust medications. Avoid nephrotoxics and nonsteroidal drugs. We will continue to monitor the patient closely We have discussed with the other team physicians in detail about the care plan ATTESTATION BY PHYSICIAN I have seen and examined the patient. I reviewed the documentation, medical decision making, and treatment plan as noted by the mid-level provider above. I agree with the findings and plan of care. CARLO KAUR MD, EL[facility]ABETH [facility] May 30, 2024 14:02
--- NOTE | 2024-05-30 16:30 | NUR ---
BLOOD GLUCOSE 129. NO INSULIN COVERAGE NEEDED AT THIS TIME.
--- NOTE | 2024-05-30 17:00 | NUR ---
DID NOT COLLECT C-DIFF SAMPLE, PATIENT DOES NOT HAVE WATERY STOOLS.
--- NOTE | 2024-05-30 19:56 | PN ---
INFECTIOUS DISEASE PROGRESS NOTE Date of Service: May 30, 2024 SUBJECTIVE: This is a 58-year-old female patient who was admitted to the hospital for shortness of breaths, fever, cough and reported missing hemodialysis due to not feeling well. On admission patient was positive for influenza type A. Patient is more awake and oriented x3 this morning. No dyspnea observed and patient is currently on oxygen via nasal cannula at 2 liters/minute. Patient was dialyzed on Friday and 2.6 L were removed. Patient has been vein mapped. Cardiovascular surgeon has evaluated patient and is currently pending an AV graft placement once patient' respiratory status is stable. The right foot wound culture came back positive for ESBL, E coli. We will continue on vancomycin, Meropenem and Tamiflu. Patient is afebrile, temperature is 97.9 and a WBC of 5.5. Will continue to monitor patient's care. PHYSICAL EXAM EYES: Anicteric. Pupils equal and reactive. HENT: No oral thrush seen, moist Oral mucosa. NECK: Supple, no JVD or thyromegaly. RESPIRATORY: Good air entry. Oxygen support via nasal cannula. CARDIOVASCULAR: S1, S2 regular. No murmur heard. ABDOMEN: Soft, non tender, bowel sounds present, no organomegaly. CENTRAL NERVOUS SYSTEM: Awake, alert, oriented x 3. SKIN: No rashes, no swelling. LYMPHATICS: No peripheral lymphadenopathy. MUSCULOSKELETAL: No joint swelling, erythema or tenderness. EXTREMITIES: No cyanosis or clubbing. Right ankle wound infection. BACK: No deformity, no pressure ulcer. GENITOURINARY: No dysuria or hematuria. Vital Sign (Last 12 Hours) 05/30/24 05/30/24 05/30/24 05/30/24 08:00 08:00 10:20 11:33 Temp 97.9 Pulse 18 66 Resp 18 20 B/P (MAP) 158/66 156/66 Pulse Ox 99 97 O2 Delivery Room Air* Nasal Cannula O2 Flow Rate 0 2.0 FiO2 21 05/30/24 05/30/24 05/30/24 05/30/24 12:00 16:00 18:42 18:42 Temp 97.3 97.9 Pulse 65 65 64 65 Resp 18 18 20 18 B/P (MAP) 152/75 155/75 Pulse Ox 99 100 O2 Delivery Nasal Cannula Nasal Cannula N/Cannula Low lpm O2 Flow Rate 2.0 2.0 2.0 FiO2 28 Intake & Output (last 24hrs) 05/29/24 05/29/24 05/30/24 15:00 23:00 07:00 Intake Total 220 ml Balance 220 ml LABS: Laboratory: Test 05/30/24 15:36 05/30/24 10:05 05/30/24 09:53 05/29/24 13:24 Range/Units Whole Blood Glucose 129 H 70-110 MG/DL White Blood Count 5.5 4.8-10.8 K/uL Red Blood Count 3.53 L 4.00-5.50 MIL/uL Hemoglobin 10.1 L 12.0-16.0 g/dL Hematocrit 31.9 L 36-48 % Mean Corpuscular Volume 90.4 79-99 fL Mean Corpuscular Hemoglobin 28.6 27.0-33.0 pg Mean Corpuscular Hemoglobin Concent 31.7 L 32.0-36.0 g/dL Red Cell Distribution Width 14.1 11.0-15.5 % Platelet Count 167 130-400 K/uL Mean Platelet Volume 10.7 H 7.5-10.5 fL Segmented Neutrophils % 68 40-70 % Band Neutrophils % 1 0-2 % Lymphocytes % (Manual) 18 L 22-44 % Monocytes % (Manual) 4 2-9 % Eosinophils % (Manual) 5 1-6 % Nucleated Red Blood Cells 0.0 0.0-0.19 % Differential Comment MANUAL DIFFERENTIAL Reactive Lymphocytes 4 H 0-0 % White Cell Morphology Comment Platelet Morphology Comment ADEQUATE Red Blood Cell Morphology HYPOCHROM CELLS 1+ Sodium Level 135 L 136-145 mmol/L Potassium Level 4.6 3.5-5.1 mmol/L Chloride Level 95 L 101-111 mmol/L Carbon Dioxide Level 28 21-32 mmol/L Blood Urea Nitrogen 51 H 7-18 mg/dL Creatinine 9.9 *H 0.5-1.0 mg/dL Glomerular Filtration Rate Calc 4 >90 mL/min Random Glucose 104 70-105 mg/dL Total Calcium 7.0 L 8.5-10.1 mg/dL Magnesium Level 2.10 1.80-2.40 mg/dL Total Bilirubin 0.5 0.2-1.0 mg/dL Aspartate Amino Transf (AST/SGOT) 17 10-37 U/L Alanine Aminotransferase (ALT/SGPT) 7 L 12-78 U/L Alkaline Phosphatase 243 H 50-136 U/L Ammonia < 10 L 11-32 umol/L Total Protein 6.4 6.0-8.3 g/dL Albumin 2.3 L 3.5-5.0 g/dL Procalcitonin 1.72 H 0.05-0.5 ng/mL Blood Gas Specimen Type Arterial Arterial Blood pH 7.364 7.350-7.450 Arterial Blood Partial Pressure CO2 44 32-45 mmHg Arterial Blood Partial Pressure O2 99.7 83.0-108.0 mmHg Arterial Blood HCO3 24.3 21.0-28.0 mmol/L Arterial Blood Oxygen Saturation 97.3 94.0-98.0 % Arterial Blood Base Excess -1.2 -2.0-3.0 mmol/L Blood Gas Temperature 37.0 35.5-37.0 CELSIUS Blood Gas Flow-by 2.00 0.00-15.00 L/min Blood Gas Vent Mode 2LNC ROOM AIR FiO2 28.0 % Blood Gas Specimen Comment RR PREMA Erythrocyte Sedimentation Rate 112 H 0-30 MM/HR C-Reactive Protein, Quantitative 306.30 H 0.5-3.0 mg/L Test 05/29/24 07:47 05/29/24 05:15 Range/Units Blood Gas Respiration Rate 18.0 min. Phosphorus Level 4.6 2.5-4.9 mg/dL Thyroid Stimulating Hormone (TSH) 2.19 # 0.36-3.74 uIU/mL ASSESSMENT: Acute on chronic respiratory failure requiring oxygen support. Sepsis. Influenza Viral infection type A. Right ankle wound infection with ESBL, E coli. History of right ankle hardware infection, status post removal. End-stage renal disease, on dialysis. Morbid obesity. PLAN: Continue vancomycin per pharmacy protocol. Continue Meropenem. Continue Tamiflu. Continue dialysis as recommended by rn case mgr. Patient has been vein mapped and pending a AV graft placement. Continue wound care to the right ankle. Continue pain management. Continue oxygen support. Continue DVT prophylaxis. This case was reviewed and discussed with my supervising physician and the above assessment and plan was formulated and agreed upon. ATTESTATION BY PHYSICIAN I have seen and examined the patient. I reviewed the documentation, medical decision making, and treatment plan as noted by the mid-level provider above. I agree with the findings and plan of care. DIDIER CONTRERAS MD, [facility] May 30, 2024 19:56
--- NOTE | 2024-05-30 20:57 | PN ---
[facility] PROGRESS NOTE Date Patient Seen: May 30, 2024 Time of Visit: 20:56 Supervising Physician: [Dr. Mauro] Primary Care Physician: Attending team: [facility] Team Outpatient Specialists: Inpatient Consults: BIS, pulmonology group Cardiovascular, infectious Disease, Nephrology, Wound Care PROBLEM LIST: Metabolic/infectious encephalopathy, not POA, resolved Acute hypoxic respiratory failure POA , requiring continuous bipap, improved to NC Acute asthma exacerbation, POA, decompensated Influenza A virus infection, POA, treated Volume overload secondary to missed dialysis, POA, treated Metabolic acidosis , improved Troponin elevation likely in setting of missed dialysis and type 2 HI (down trending) Suspected pneumonia/URI POA History of right ankle abscess status post incision and drainage and hardware removal by Dr. Cabrera on 03/2025 Suspected cellulitis in the right ankle with mild purulent drainage, r/o clinically and per Xray imaging History of MSSA infection Hypertension History of hyperlipidemia History of diabetes mellitus type two Morbid obesity BMI 45.5 INTERVAL HISTORY: [Patient is evaluated at bedside. She is more altered today. Is lethargic upon evaluation at bedside, difficult to arouse. She continues on BiPAP with most recent ABG within normal limits with a pH of 7.35, pCO2 45, PO2 109 and bicarb 24. She continues on treatment for flu. Tamiflu dosing adjusted renally. He continues on nebulizer. He is currently receiving a dialysis treatment at bedside, we will follow-up with repeat ABG and monitor mental status.] 05/29 patient is evaluated at bedside. She remains lethargic on continuous BiPAP. Per bedside nurse has remained difficult to arouse overnight. Has not worsened, and does appear to be slightly more arousable than previous. She responds to verbal commands, unable to follow commands but does open her eyes and turns to face me. Does have an occasional twitch noted to LUE. Tamiflu dosing is inappropriate for dialysis patient. Pharmacy states no 30mg available for dialysis patient, advised to not use 75mg dose. Patient continues on cefepime and vancomycin. Labs appear grossly unremarkable with a WBC of 4. Pupils are equal, round, and reactive to light. Update: Nurse texted me later to inform me that patient had woken up, had been taken BiPAP and was comfortably watching TV. 05/30 patient is evaluated at bedside. She is more awake today, per nurse was off BiPAP at night and is tolerating nasal cannula. Her ABG this morning was within normal limits. Patient continues with productive cough. She is not currently on Tamiflu as dose adjustment was unavailable for patient. Continue with nebulizer and supplemental oxygen. cbc is unremarkable. Patient continues with dialysis as scheduled. REVIEW OF SYSTEMS: 12 point ROS reviewed with patient. Pertinent positives mentioned above. Otherwise negative. PHYSICAL EXAM: GENERAL: Alert, weak, awake oriented x 3 HEENT: EOMI, Sclera non icteric, moist mucosa NECK: Supple, no JVD, trachea midline LUNGS: Rhonchi breath sounds to upper extremities, diminished on lower extremities bilaterally. No wheezes HEART: Regular rate and rhythm. Normal S1 and S2, without murmurs ABD: Abdomen soft, nontender. Bowel sounds present EXT: No clubbing cyanosis or edema NEURO: Awake, alert, oriented, follows commands, no neuro deficits noted. Vital Signs (last 8hr) Date Time Temp Pulse Resp B/P (MAP) Pulse Ox O2 Delivery O2 Flow Rate FiO2 05/30/24 20:18 98.4 66 19 164/79 96 Nasal Cannula 2.0 05/30/24 18:42 65 18 N/Cannula Low lpm 2.0 28 05/30/24 18:42 64 20 05/30/24 16:00 97.9 65 18 155/75 100 Nasal Cannula 2.0 LABS: Hematology Labs: Test 05/30/24 10:05 05/29/24 13:24 Range/Units White Blood Count 5.5 4.8-10.8 K/uL Red Blood Count 3.53 L 4.00-5.50 MIL/uL Hemoglobin 10.1 L 12.0-16.0 g/dL Hematocrit 31.9 L 36-48 % Mean Corpuscular Volume 90.4 79-99 fL Mean Corpuscular Hemoglobin 28.6 27.0-33.0 pg Mean Corpuscular Hemoglobin Concent 31.7 L 32.0-36.0 g/dL Red Cell Distribution Width 14.1 11.0-15.5 % Platelet Count 167 130-400 K/uL Mean Platelet Volume 10.7 H 7.5-10.5 fL Segmented Neutrophils % 68 40-70 % Band Neutrophils % 1 0-2 % Lymphocytes % (Manual) 18 L 22-44 % Monocytes % (Manual) 4 2-9 % Eosinophils % (Manual) 5 1-6 % Nucleated Red Blood Cells 0.0 0.0-0.19 % Differential Comment MANUAL DIFFERENTIAL Reactive Lymphocytes 4 H 0-0 % White Cell Morphology Comment Platelet Morphology Comment ADEQUATE Red Blood Cell Morphology HYPOCHROM CELLS 1+ Erythrocyte Sedimentation Rate 112 H 0-30 MM/HR Chemistry Labs: Test 05/30/24 19:44 05/30/24 10:05 05/29/24 13:24 05/29/24 05:15 Range/Units Whole Blood Glucose 136 H 70-110 MG/DL Sodium Level 135 L 136-145 mmol/L Potassium Level 4.6 3.5-5.1 mmol/L Chloride Level 95 L 101-111 mmol/L Carbon Dioxide Level 28 21-32 mmol/L Blood Urea Nitrogen 51 H 7-18 mg/dL Creatinine 9.9 *H 0.5-1.0 mg/dL Glomerular Filtration Rate Calc 4 >90 mL/min Random Glucose 104 70-105 mg/dL Total Calcium 7.0 L 8.5-10.1 mg/dL Magnesium Level 2.10 1.80-2.40 mg/dL Total Bilirubin 0.5 0.2-1.0 mg/dL Aspartate Amino Transf (AST/SGOT) 17 10-37 U/L Alanine Aminotransferase (ALT/SGPT) 7 L 12-78 U/L Alkaline Phosphatase 243 H 50-136 U/L Ammonia < 10 L 11-32 umol/L Total Protein 6.4 6.0-8.3 g/dL Albumin 2.3 L 3.5-5.0 g/dL Procalcitonin 1.72 H 0.05-0.5 ng/mL C-Reactive Protein, Quantitative 306.30 H 0.5-3.0 mg/L Phosphorus Level 4.6 2.5-4.9 mg/dL Thyroid Stimulating Hormone (TSH) 2.19 # 0.36-3.74 uIU/mL DIAGNOSTICS / RADIOLOGY RESULTS: [Reviewed] Pulmonary plan: Order CT Head Stop cefepime Monitor ABG Monitor s/s of infection Monitor respiratory status closely. Continue oxygen therapy as needed. Titrate oxygen as needed to keep SpO2 equal to greater than 92%. Continue Albuterol nebulizer in Pulmicort nebulizer treatments scheduled. Add Atrovent nebulizer scheduled. Continue Tamiflu. RT to provide IS and education on use. Natalie PEREZ sugar free as needed for cough. Continue antibiotic therapy. Time spent on patient care exceeds 50 minutes, not including time spent on any procedures. EVELINE ASHLEY May 30, 2024 20:57
[2024-05-31] VITALS (27 sets, daily range): BP systolic 122–183; BP diastolic 47–89; PULSE 62–71; RESP 16–20; TEMP 97.7–98.8; O2SAT 93–99
--- NOTE | 2024-05-31 00:46 | HMCIMG ---
US VEIN MAPPING BILATERAL HISTORY: AVF creation COMPARISON: None TECHNIQUE: Ultrasound upper extremity venous mapping study was performed for hemodialysis access. FINDINGS: Right cephalic vein is thrombosed. Left cephalic vein is thrombosed in the upper arm and forearm level. Left basilar vein is collapsed. Right basilic vein Upper arm: 21 x 2 millimeter Lower arm: 16 x 2 millimeter Antecubital fossa: collapsed IMPRESSION: 1. Ultrasound upper extremity venous mapping study as described above.
[2024-05-31 05:47] LABS: HEMATOCRIT 30.9 % (36-48); MEAN CORPUSCULAR HEMOGLOBIN 28.3 pg (27.0-33.0); MEAN CORPUSCULAR HGB CONC 32.4 g/dL (32.0-36.0); MEAN CORPUSCULAR VOLUME 87.5 fL (79-99); RED BLOOD CELL COUNT(AUTO) 3.53 MIL/uL (4.00-5.50); RED CELL DISTRIBUTION WIDTH 13.8 % (11.0-15.5); WHITE BLOOD COUNT (AUTO) 5.6 K/uL (4.8-10.8)
[2024-05-31 05:59] LABS: POTASSIUM 4.7 mmol/L (3.5-5.1); VANCOMYCIN TROUGH 17.2 UG/ML (10.0-20.0)
--- NOTE | 2024-05-31 10:01 | PN ---
[facility] PROGRESS NOTE Date Patient Seen: May 31, 2024 Time of Visit: 10:00 Supervising Physician: [Dr. Mauro] Primary Care Physician: Attending team: [facility] Outpatient Specialists: Inpatient Consults: BIS, pulmonology group Cardiovascular, infectious Disease, Nephrology, Wound Care PROBLEM LIST: Metabolic/infectious encephalopathy, not POA, resolved Acute hypoxic respiratory failure POA , requiring continuous bipap, improved to NC Acute asthma exacerbation, POA, decompensated Influenza A virus infection, POA, treated Volume overload secondary to missed dialysis, POA, treated Metabolic acidosis , improved Troponin elevation likely in setting of missed dialysis and type 2 HI (down trending) Suspected pneumonia/URI POA History of right ankle abscess status post incision and drainage and hardware removal by Dr. Cabrear on 03/2025 Suspected cellulitis in the right ankle with mild purulent drainage, r/o clinically and per Xray imaging History of MSSA infection Hypertension History of hyperlipidemia History of diabetes mellitus type two Morbid obesity BMI 45.5 INTERVAL HISTORY: [Patient is evaluated at bedside. She is more altered today. Is lethargic upon evaluation at bedside, difficult to arouse. She continues on BiPAP with most recent ABG within normal limits with a pH of 7.35, pCO2 45, PO2 109 and bicarb 24. She continues on treatment for flu. Tamiflu dosing adjusted renally. He continues on nebulizer. He is currently receiving a dialysis treatment at bedside, we will follow-up with repeat ABG and monitor mental status.] 05/29 patient is evaluated at bedside. She remains lethargic on continuous BiPAP. Per bedside nurse has remained difficult to arouse overnight. Has not worsened, and does appear to be slightly more arousable than previous. She responds to verbal commands, unable to follow commands but does open her eyes and turns to face me. Does have an occasional twitch noted to LUE. Tamiflu dosing is inappropriate for dialysis patient. Pharmacy states no 30mg available for dialysis patient, advised to not use 75mg dose. Patient continues on cefepime and vancomycin. Labs appear grossly unremarkable with a WBC of 4. Pupils are equal, round, and reactive to light. Update: Nurse texted me later to inform me that patient had woken up, had been taken BiPAP and was comfortably watching TV. 05/30 patient is evaluated at bedside. She is more awake today, per nurse was off BiPAP at night and is tolerating nasal cannula. Her ABG this morning was within normal limits. Patient continues with productive cough. She is not currently on Tamiflu as dose adjustment was unavailable for patient. Continue with nebulizer and supplemental oxygen. cbc is unremarkable. Patient continues with dialysis as scheduled. 05/31 patient is evaluated at bedside. She was drowsy but easily arousable. Continues with grogginess but is more awake. She was alert and oriented x3. Able to hold a meaningful conversation but does exhibit excessive drowsiness. Her wound cultures are positive for Enterococcus faecalis and ESBL E coli. Continues on meropenem and vancomycin. REVIEW OF SYSTEMS: 12 point ROS reviewed with patient. Pertinent positives mentioned above. Otherwise negative. PHYSICAL EXAM: GENERAL: Alert, weak, awake oriented x 3 HEENT: EOMI, Sclera non icteric, moist mucosa NECK: Supple, no JVD, trachea midline LUNGS: Rhonchi breath sounds to upper extremities, diminished on lower extremities bilaterally. No wheezes HEART: Regular rate and rhythm. Normal S1 and S2, without murmurs ABD: Abdomen soft, nontender. Bowel sounds present EXT: No clubbing cyanosis or edema NEURO: Awake, alert, oriented, follows commands, no neuro deficits noted. Vital Signs (last 8hr) Date Time Temp Pulse Resp B/P (MAP) Pulse Ox O2 Delivery O2 Flow Rate FiO2 05/31/24 08:00 68 18 N/Cannula Low lpm 2.0 28 05/31/24 07:53 98.1 69 18 156/67 96 Room Air 05/31/24 07:38 67 20 05/31/24 03:52 97.7 66 19 159/73 95 Nasal Cannula 2.0 LABS: Hematology Labs: Test 05/31/24 05:07 05/30/24 10:05 05/29/24 13:24 Range/Units White Blood Count 5.6 4.8-10.8 K/uL Red Blood Count 3.53 L 4.00-5.50 MIL/uL Hemoglobin 10.0 L 12.0-16.0 g/dL Hematocrit 30.9 L 36-48 % Mean Corpuscular Volume 87.5 79-99 fL Mean Corpuscular Hemoglobin 28.3 27.0-33.0 pg Mean Corpuscular Hemoglobin Concent 32.4 32.0-36.0 g/dL Red Cell Distribution Width 13.8 11.0-15.5 % Platelet Count 192 130-400 K/uL Mean Platelet Volume 11.3 H 7.5-10.5 fL Nucleated Red Blood Cells 0.0 0.0-0.19 % Segmented Neutrophils % 68 40-70 % Band Neutrophils % 1 0-2 % Lymphocytes % (Manual) 18 L 22-44 % Monocytes % (Manual) 4 2-9 % Eosinophils % (Manual) 5 1-6 % Differential Comment MANUAL DIFFERENTIAL Reactive Lymphocytes 4 H 0-0 % White Cell Morphology Comment Platelet Morphology Comment ADEQUATE Red Blood Cell Morphology HYPOCHROM CELLS 1+ Erythrocyte Sedimentation Rate 112 H 0-30 MM/HR Chemistry Labs: Test 05/31/24 05:13 05/31/24 05:07 05/30/24 10:05 05/29/24 13:24 Range/Units Whole Blood Glucose 119 H 70-110 MG/DL Sodium Level 135 L 136-145 mmol/L Potassium Level 4.7 3.5-5.1 mmol/L Chloride Level 95 L 101-111 mmol/L Carbon Dioxide Level 26 21-32 mmol/L Blood Urea Nitrogen 59 H 7-18 mg/dL Creatinine 11.0 *H 0.5-1.0 mg/dL Glomerular Filtration Rate Calc 4 >90 mL/min Random Glucose 112 H 70-105 mg/dL Total Calcium 7.4 L 8.5-10.1 mg/dL Phosphorus Level 5.0 H 2.5-4.9 mg/dL Magnesium Level 2.10 1.80-2.40 mg/dL Total Bilirubin 0.5 0.2-1.0 mg/dL Aspartate Amino Transf (AST/SGOT) 17 10-37 U/L Alanine Aminotransferase (ALT/SGPT) 7 L 12-78 U/L Alkaline Phosphatase 243 H 50-136 U/L Ammonia < 10 L 11-32 umol/L Total Protein 6.4 6.0-8.3 g/dL Albumin 2.3 L 3.5-5.0 g/dL Procalcitonin 1.72 H 0.05-0.5 ng/mL C-Reactive Protein, Quantitative 306.30 H 0.5-3.0 mg/L DIAGNOSTICS / RADIOLOGY RESULTS: [reviewed] Pulmonary plan: Stop merrem and vancomycin Start Zosyn renally adjusted Monitor respiratory and ABG Monitor s/s of infection Pending CTS for vein mapping Continue oxygen therapy as needed. Titrate oxygen as needed to keep SpO2 equal to greater than 92%. Continue Albuterol nebulizer in Pulmicort nebulizer treatments scheduled. Add Atrovent nebulizer scheduled. Continue Tamiflu. RT to provide IS and education on use. Time spent on patient care exceeds 35 minutes, not including time spent on any procedures. EVELINE ASHLEY May 31, 2024 10:00
--- NOTE | 2024-05-31 11:30 | NUR ---
BLOOD GLUCOSE 119. NO INSULIN COVERAGE NEEDED AT THIS TIME.
--- NOTE | 2024-05-31 12:12 | PN ---
[facility] PROGRESS NOTE Date of Service: May 31, 2024 Time of Service: 12:[address] Herron SUBJECTIVE: [ ] This is a 50-year-old with a significant medical history of end-stage renal disease on dialysis on Friday hypertension hyperlipidemia and asthma presented in ED with chief complaints of shortness a breath apparently patient missed her dialysis. ER workup was consistent with asthma exacerbation possible pneumonia respiratory failure apparently 05/28/2024 patient was having dialysis she is currently on BiPAP support. Patient we will work with physical therapy out of bed to chair as tolerated. 05/29/24 patient continues on BiPAP support coil winder hand's following we will follow recommendations. Patient is being monitored closely. Encourage patient out of bed to chair as tolerated. 05/30/24 patient is currently on nasal cannula 3 L. Patient response to verbal stimuli she answer all questions apparently however she appears very sleepy we will get a blood gas now. She denies chest pain. Or shortness a breath we will have Physical therapy to work patient out of bed to chair with meals. 05/31/24 patient was seen by nurse practitioner and physician during rounding in room 315. Patient is more awake today compared to the previous days as stated by RN. Patient is off the BiPAP and is tolerating nasal cannula. Patient is on Tamiflu 75 mg p.o. Friday. Patient is pending PermCath placement by cardiovascular surgeon once more awake. Patient continues to be on vancomycin and Merrem for Enterococcus faecalis and E coli in a aerobic and anaerobic culture that showed on 05/27/2024. We will continue to monitor patient. A.m. labs REVIEW OF SYSTEMS CONSTITUTIONAL: Denies or night sweats. No unintentional weight loss reported. Positive for fever, chills NEUROLOGICAL: Denies headache, amaurosis fugax, motor weakness, sensory deficit, vertigo/spinning sensation, gait abnormalities, or tremors. ENT: No hearing loss, otalgia, otorrhea, rhinitis, rhinorrhea, hoarseness, or sore throat. CARDIOVASCULAR: Denies any exertional angina, dyspnea on exertion, orthopnea, paroxysmal nocturnal dyspnea, palpitations, life-threatening arrhythmias, claudication. PULMONARY: Positive for cough, sputum production. Denied any hemoptysis GASTROINTESTINAL: Denies any type of dysphagia to either liquids or solids. Denies nausea, vomiting, pyrosis, early satiety, abdominal pain, constipation, or changes in stool consistency or caliber. Denies coffee-ground emesis, hematemesis, hematochezia, or melanotic stools. Positive for diarrhea GENITOURINARY: Denies frequency, urgency, nocturia, hematuria or incontinence (Storage/Irritative symptoms.) Low urinary stream, straining to void, urinary intermittency or hesitancy, splitting of the voiding stream, terminal dribbling. ENDOCRINOLOGIC: Denies polyuria, polydipsia, polyphagia or heat/cold intolerances. HEMATOLOGIC: Denies thrombophilia/previous clots, or coagulopathy/bleeding disorders. ONCOLOGIC: Denies personal history of malignancy. DERMATOLOGIC: Denies rashes or pruritus. PSYCHIATRIC: Denies any suicidal or homicidal ideation. Denies hallucinations. PHYSICAL EXAM GENERAL APPEARANCE: The patient is awake, alert, and oriented, in no acute cardiopulmonary distress. NEUROLOGICAL: Cranial nerves II-XII grossly intact. Motor is 5/5 in bilateral upper and lower extremities proximal to distal. No sensory deficits. HEENT: Face is symmetric. Pupils are equal and reactive. Extraocular movements are intact. NECK: Supple. No JVD. No thyromegaly. No submental, submandibular, pre- /postauricular, occipital or supraclavicular lymphadenopathy. CHEST: Normal chest expansion. No Telemetry. LUNGS: She has wheezing present bilaterally with rhonchi. CARDIOVASCULAR: Regular. S1 and S2 normal. No appreciable rubs, murmurs or gallops. ABDOMEN: Soft, nontender, and nondistended. There is no rebound, voluntary guarding, or rigidity. : Deferred. No Ardon. EXTREMITIES: She has a wound noted in the right ankle. She has a wound in the lateral and medial aspect of the leg. There is some purulent discharge noted. SKIN: No skin breakdown. Vital Signs (last 8hr) Date Time Temp Pulse Resp B/P (MAP) Pulse Ox O2 Delivery O2 Flow Rate FiO2 05/31/24 12:00 65 16 172/75 Nasal Cannula 2.0 05/31/24 11:45 65 16 177/78 Nasal Cannula 2.0 05/31/24 11:43 97.9 66 18 156/76 96 Room Air 05/31/24 11:30 65 16 157/58 Nasal Cannula 2.0 05/31/24 11:15 97.9 65 16 168/73 Nasal Cannula 2.0 05/31/24 11:00 97.9 66 16 168/83 Room Air 2.0 05/31/24 10:07 156/69 05/31/24 08:00 68 18 N/Cannula Low lpm 2.0 28 05/31/24 07:53 98.1 69 18 156/67 96 Room Air 05/31/24 07:38 67 20 LABS: Laboratory: Test 05/31/24 10:52 05/31/24 05:07 05/30/24 10:05 05/30/24 09:53 Range/Units Whole Blood Glucose 119 H 70-110 MG/DL White Blood Count 5.6 4.8-10.8 K/uL Red Blood Count 3.53 L 4.00-5.50 MIL/uL Hemoglobin 10.0 L 12.0-16.0 g/dL Hematocrit 30.9 L 36-48 % Mean Corpuscular Volume 87.5 79-99 fL Mean Corpuscular Hemoglobin 28.3 27.0-33.0 pg Mean Corpuscular Hemoglobin Concent 32.4 32.0-36.0 g/dL Red Cell Distribution Width 13.8 11.0-15.5 % Platelet Count 192 130-400 K/uL Mean Platelet Volume 11.3 H 7.5-10.5 fL Nucleated Red Blood Cells 0.0 0.0-0.19 % Sodium Level 135 L 136-145 mmol/L Potassium Level 4.7 3.5-5.1 mmol/L Chloride Level 95 L 101-111 mmol/L Carbon Dioxide Level 26 21-32 mmol/L Blood Urea Nitrogen 59 H 7-18 mg/dL Creatinine 11.0 *H 0.5-1.0 mg/dL Glomerular Filtration Rate Calc 4 >90 mL/min Random Glucose 112 H 70-105 mg/dL Total Calcium 7.4 L 8.5-10.1 mg/dL Phosphorus Level 5.0 H 2.5-4.9 mg/dL Vancomycin Level Trough 17.2 10.0-20.0 UG/ML Segmented Neutrophils % 68 40-70 % Band Neutrophils % 1 0-2 % Lymphocytes % (Manual) 18 L 22-44 % Monocytes % (Manual) 4 2-9 % Eosinophils % (Manual) 5 1-6 % Differential Comment MANUAL DIFFERENTIAL Reactive Lymphocytes 4 H 0-0 % White Cell Morphology Comment Platelet Morphology Comment ADEQUATE Red Blood Cell Morphology HYPOCHROM CELLS 1+ Magnesium Level 2.10 1.80-2.40 mg/dL Total Bilirubin 0.5 0.2-1.0 mg/dL Aspartate Amino Transf (AST/SGOT) 17 10-37 U/L Alanine Aminotransferase (ALT/SGPT) 7 L 12-78 U/L Alkaline Phosphatase 243 H 50-136 U/L Ammonia < 10 L 11-32 umol/L Total Protein 6.4 6.0-8.3 g/dL Albumin 2.3 L 3.5-5.0 g/dL Procalcitonin 1.72 H 0.05-0.5 ng/mL Blood Gas Specimen Type Arterial Arterial Blood pH 7.364 7.350-7.450 Arterial Blood Partial Pressure CO2 44 32-45 mmHg Arterial Blood Partial Pressure O2 99.7 83.0-108.0 mmHg Arterial Blood HCO3 24.3 21.0-28.0 mmol/L Arterial Blood Oxygen Saturation 97.3 94.0-98.0 % Arterial Blood Base Excess -1.2 -2.0-3.0 mmol/L Blood Gas Temperature 37.0 35.5-37.0 CELSIUS Blood Gas Flow-by 2.00 0.00-15.00 L/min Blood Gas Vent Mode 2LNC ROOM AIR FiO2 28.0 % Blood Gas Specimen Comment RR PREMA Test 05/29/24 13:24 Range/Units Erythrocyte Sedimentation Rate 112 H 0-30 MM/HR C-Reactive Protein, Quantitative 306.30 H 0.5-3.0 mg/L Current Medications Medications (Trade) Dose Ordered Sig/Susannah Route PRN Reason Start Time Stop Time Status Last Admin Dose Admin Acetaminophen (TYLenol 500MG TAB) 500 mg Q6H PRN PO MILD PAIN (1-3) 05/27/24 15:00 06/26/24 14:59 05/30/24 04:18 500 MG Albuterol Sulfate (Proventil 0.083% 2.5mg/3ml) 2.5MG [id number] IH 05/27/24 15:00 06/26/24 14:59 05/31/24 07:38 2.5 MG Albuterol Sulfate (Proventil 0.083% 2.5mg/3ml) 10 mg ONCE IH 05/26/24 08:00 05/26/24 15:17 DC 05/26/24 08:11 10 MG Budesonide (Pulmicort 0.5 Mg/2ml) 0.5 mg BIDRESP IH 05/27/24 18:00 06/26/24 17:59 05/31/24 07:38 0.5 MG Carvedilol (Coreg 12.5MG) 12.5 mg BID PO 05/27/24 21:00 06/26/24 20:59 05/31/24 10:07 12.5 MG Cefepime HCl (MAXipime 1 GM vial) 1 gm Q12H IVPB 05/27/24 15:00 05/27/24 18:22 DC Cefepime HCl (MAXipime 1 GM vial) 1 gm Q12H9 IVPB 05/27/24 21:00 05/28/24 11:36 DC 05/28/24 07:46 1 GM Cefepime HCl (MAXipime 1 GM vial) 1 gm Q24H IVPB 05/29/24 09:00 05/29/24 12:58 DC 05/29/24 09:50 1 GM Ceftriaxone Sodium (ROCEphine 1G INJ) 1 gm Q24H IVPB 05/27/24 10:30 05/27/24 14:24 DC Ceftriaxone Sodium (ROCEphine 1G INJ) 1 gm Q24H IVPB 05/27/24 17:00 05/27/24 14:58 DC Doxycycline Hyclate (Doxycycline Hyclate) 100 mg BID PO 05/27/24 21:00 05/27/24 15:46 DC Guaifenesin (RobiTUSSin SUGAR-FREE 100 MG/ 5 ML UDCUP) 400 mg Q4H PRN PO COUGH 05/28/24 06:30 06/27/24 06:29 05/29/24 22:44 400 MG Heparin Sodium (Porcine) (HEParin 5,000 UNIT VIAL) 10,000 unit AD IRRIG 05/26/24 15:30 06/25/24 15:29 05/28/24 11:31 10,000 UNIT Hydralazine HCl (APRESOLine 20MG INJ) 10 mg Q6H PRN IV ADMINISTER FOR SBP > 180 05/27/24 15:00 06/26/24 14:59 Insulin Human Regular (humuLIN R 100 UNIT/ML 3ML) INSULIN SLIDING SCAL... ACHS SQ 05/28/24 07:30 06/27/24 07:29 Ipratropium [place] (AtrovENT UD) 0.5 mg [id number] IH 05/28/24 00:00 06/27/24 00:00 05/31/24 07:38 0.5 MG Leptospermum Honey (Medihoney) APPLY DIRECTED DAILY TP 05/28/24 09:00 06/27/24 08:59 05/31/24 10:08 1 APPL Meropenem (Merrem 500mg) 500 mg Q12H IV 05/30/24 12:30 06/09/24 12:29 05/30/24 23:46 500 MG Methylprednisolone Sodium Succinate (Solu-medROL 40MG) 20 mg BID IVP 05/27/24 21:00 05/27/24 19:34 DC Montelukast Sodium (SinguLAIR) 10 mg DAILY PO 05/30/24 09:00 06/29/24 08:59 05/31/24 10:07 10 MG Oseltamivir Phosphate (Tamiflu) 30 mg QODAY PO 05/31/24 20:00 05/29/24 12:55 DC Oseltamivir Phosphate (Tamiflu) 75 mg MWFPHD PO 05/31/24 16:00 06/05/24 15:59 Oseltamivir Phosphate (Tamiflu) 75 mg Q24H PO 05/28/24 21:00 05/29/24 12:47 DC 05/28/24 20:52 75 MG Oseltamivir Phosphate (Tamiflu) 75 mg QODAY@2100 PO 05/27/24 21:00 05/28/24 14:12 DC 05/27/24 21:41 75 MG Pharmacy Profile Note (Pharmacy Communication) 1 each AD MISC 05/28/24 06:00 05/28/24 11:37 DC Pharmacy Profile Note (Pharmacy Communication) 1 each ONCE MISC 05/27/24 19:30 05/28/24 11:37 DC Pharmacy Profile Note (Pharmacy Communication) 1 each ONCE MISC 05/28/24 15:30 05/28/24 15:14 DC Sodium Chloride 250 ml @ 0 mls/hr AD IV 05/26/24 15:30 06/25/24 15:29 Sodium Chloride 1,000 ml @ 0 mls/hr ONCE IV 05/26/24 15:30 06/25/24 15:29 05/31/24 11:03 1,000 MLS/HR Vancomycin HCl 250 ml @ 125 mls/hr ONCE IV 05/28/24 21:00 05/28/24 23:59 DC 05/28/24 20:53 125 MLS/HR Vancomycin HCl 250 ml @ 125 mls/hr [id number][DIALYSIS] IV 05/31/24 16:00 06/10/24 15:59 Vancomycin HCl (Vancomycin Protocol) 1 each AD IV 05/27/24 16:00 06/10/24 15:59 DIAGNOSTICS / RADIOLOGY: [ ] ASSESSMENT: Acute sepsis due to UTI POA Acute hypoxic respiratory failure POA Volume overload secondary to missed dialysis POA Metabolic acidosis POA Troponin elevation likely in setting of missed dialysis and type 2 [place] (down trending) no chest POA Metabolic/infectious encephalopathy. Suspected pneumonia/URI POA Acute complicated cystitis POA Enterococcus faecalis and E coli on anaerobic and aerobic culture 05/27/2024 POA Positive Influenza A POA Acute asthma exacerbation History of right ankle abscess status post incision and drainage and hardware removal by Dr. Cabrera on 03/2025 Suspected cellulitis in the right ankle with mild purulent drainage History of MSSA infection Uncontrolled hypertension Uncontrolled diabetes mellitus type 2 with hypoglycemia Hyperlipidemia Obesity BMI 45.5 PLAN: ADMIT: medical-surgical unit DIET: Renal consultants: Business Office Coordinator's, heater worker's, Infectious Disease for a ntibiotics stewardship( ESBL) abts" continue with Tamiflu PO, Continue antibiotics vancomycin and Merrem Blood culture negative after three days Patient on 2 L nasal cannula satting above 90% Continues bronchodilators Test: ECHO LVEF: 60-65% with moderate mitral value stenosis Continue dialysis 3x week we will follow heater worker's fluid restriction strict I&Os and daily weights Aspiration precautions head of the bed at 45 at all times -further orders per hospitalization course. Plan of care was discussed with patient at bedside PT services eval and treat once patient is more stable. All questions addressed ATTESTATION BY PHYSICIAN I have seen and examined the patient. I reviewed the documentation, medical decision making, and treatment plan as noted by the mid-level provider above. I agree with the findings and plan of care. La Herron MD, KATARZYNA B APRN May 31, 2024 12:12
--- NOTE | 2024-05-31 13:37 | PN ---
NEPHROLOGY PROGRESS NOTE Date/Time Patient Seen: May 31, 2024 Reason for Consultation: 13:36 SUBJECTIVE: This is a 58-year-old female with a past medical history of hypertension, diabetes mellitus type 2, end-stage renal disease on hemodialysis Friday, anemia, coronary artery disease, arthritis, anxiety, asthma, morbid obesity. She presented to the emergency with complaints of shortness of breath and flu- like symptoms. She reports missing dialysis sessions due to symptoms. Tolerated dialysis well yesterday Positive for influenza A, she has been started on Tamiflu. Patient remains very lethargic however she is responsive to verbal stimuli. She tolerated dialysis without difficulty She was seen in the medical floor No family at the bedside REVIEW OF SYSTEMS: Unable to obtain due to patient's status PHYSICAL EXAM: GENERAL: Alert and oriented x 3.. Well-nourished. EYES: EOMI. Anicteric. HENT: Moist mucous membranes. No scleral icterus. No cervical lymphadenopathy. LUNGS: Clear to auscultation bilaterally. No accessory muscle use. CARDIOVASCULAR: Regular rate and rhythm. No murmur. No JVD. ABDOMEN: Soft, non-tender and non-distended. No palpable masses. EXTREMITIES: No edema. Non-tender. SKIN: No rashes or lesions. Warm. NEUROLOGIC: No focal neurological deficits. CN II-XII grossly intact, but not individually tested. PSYCHIATRIC: Cooperative. Appropriate mood and affect. LABORATORY: [ ] Hematology Labs: Test 05/31/24 05:07 05/30/24 10:05 Range/Units White Blood Count 5.6 4.8-10.8 K/uL Red Blood Count 3.53 L 4.00-5.50 MIL/uL Hemoglobin 10.0 L 12.0-16.0 g/dL Hematocrit 30.9 L 36-48 % Mean Corpuscular Volume 87.5 79-99 fL Mean Corpuscular Hemoglobin 28.3 27.0-33.0 pg Mean Corpuscular Hemoglobin Concent 32.4 32.0-36.0 g/dL Red Cell Distribution Width 13.8 11.0-15.5 % Platelet Count 192 130-400 K/uL Mean Platelet Volume 11.3 H 7.5-10.5 fL Nucleated Red Blood Cells 0.0 0.0-0.19 % Segmented Neutrophils % 68 40-70 % Band Neutrophils % 1 0-2 % Lymphocytes % (Manual) 18 L 22-44 % Monocytes % (Manual) 4 2-9 % Eosinophils % (Manual) 5 1-6 % Differential Comment MANUAL DIFFERENTIAL Reactive Lymphocytes 4 H 0-0 % White Cell Morphology Comment Platelet Morphology Comment ADEQUATE Red Blood Cell Morphology HYPOCHROM CELLS 1+ Chemistry Labs: Test 05/31/24 10:52 05/31/24 05:07 05/30/24 10:05 Range/Units Whole Blood Glucose 119 H 70-110 MG/DL Sodium Level 135 L 136-145 mmol/L Potassium Level 4.7 3.5-5.1 mmol/L Chloride Level 95 L 101-111 mmol/L Carbon Dioxide Level 26 21-32 mmol/L Blood Urea Nitrogen 59 H 7-18 mg/dL Creatinine 11.0 *H 0.5-1.0 mg/dL Glomerular Filtration Rate Calc 4 >90 mL/min Random Glucose 112 H 70-105 mg/dL Total Calcium 7.4 L 8.5-10.1 mg/dL Phosphorus Level 5.0 H 2.5-4.9 mg/dL Magnesium Level 2.10 1.80-2.40 mg/dL Total Bilirubin 0.5 0.2-1.0 mg/dL Aspartate Amino Transf (AST/SGOT) 17 10-37 U/L Alanine Aminotransferase (ALT/SGPT) 7 L 12-78 U/L Alkaline Phosphatase 243 H 50-136 U/L Ammonia < 10 L 11-32 umol/L Total Protein 6.4 6.0-8.3 g/dL Albumin 2.3 L 3.5-5.0 g/dL Procalcitonin 1.72 H 0.05-0.5 ng/mL DIAGNOSTICS / RADIOLOGY: REASON: SHORT OF BREATH ORDERING PHYSICIAN: EVELINE ASHLEY PROCEDURE: CXR1VW - CHEST 1VW PORTABLE CHEST RADIOGRAPH INDICATION: SHORT OF BREATH COMPARISON: 05/28/2024 FINDINGS: bundle cutter leads overlie the field of view. Stable right-sided hemodialysis catheter. Stable mild cardiac enlargement. The pulmonary vascularity and zachery appear normal. No abnormal pulmonary parenchymal opacity or consolidation identified. No significant pleural effusion noted. No pneumothorax detected. IMPRESSION: Mild cardiac enlargement without radiographic evidence for any acute cardiopulmonary process. DICTATED BY: MEGA RADFORD MD DATE: 05/30/24 1052 REASON: ACUTE ENCEPHALOPATHY ORDERING PHYSICIAN: EVELINE ASHLEY PROCEDURE: HEAD WO - CT HEAD/BRAIN W/O CONTRAST CT HEAD/BRAIN W/O CONTRAST CLINICAL HISTORY: ACUTE ENCEPHALOPATHY COMPARISON: None TECHNIQUE: Multiple sequential axial images of the head were obtained from the base of the skull through vertex. CT was performed with one or more of the following dose reduction techniques: automated exposure control, adjustment of the mA and/or kV according to patient size, or use of iterative reconstruction technique FINDINGS: There is resolved right basal ganglia lacunar infarct. The orbital contents are unremarkable. There is right mastoid air cell opacification extending into the middle ear. This demonstrated is mucoperiosteal thickening throughout the paranasal sinuses with small air-fluid level in the sphenoid sinuses. The calvarium is intact. IMPRESSION: Resolved right basal ganglia lacunar infarct. Acute and chronic sinusitis. Right mastoid effusion or mastoiditis with otitis media DICTATED BY: REGGIE GUARDADO DO DATE: 05/29/24 1554 REASON: elevated troponin ORDERING PHYSICIAN: CARMINE GAMBLE MD PROCEDURE: ECHO CMP - ECHO 2-D COMPLETE APPROVED REPORT EXAM: Two-dimensional and M-mode echocardiogram with Doppler and color Doppler. INDICATION ICD: Elevated troponin 2D Dimensions RVDd 5.1 cm LVEF(%) 59.0 (>50%) LVED Vol(simp.) 73.2 mL IVSd 1.2 (0.7-1.1cm) FS(%) 31 % LVES Vol(simp.) 27.3 mL LVDd 3.9 (3.8-5.6cm) LA (2D) 4.6 (1.6-4.0cm) LVEF(%, simp.) 63 % PWd 1.2 (0.7-1.1cm) Ao Root(2D) 3.6 (2.0-3.7cm) LA ESV INDEX (4CH) 31.90 mL/m2 IVSs 1.5 cm LVOT diam 1.9 (1.8-2.4cm) LVDs 2.7 (2.5-4.0cm) PWs 1.5 cm M-Mode Dimensions EPSS 0.9 cm LA (MM) 4.1 (1.6-4.0cm) Ao Root(MM) 3.1 (2.0-3.7cm) Aortic Valve AoV VTI 0.3 m Ao Mean GR 4.0 mmHg LVOT VTI 0.20 m LUIS FELIPE (VMAX) 2.1 cm2 LUIS FELIPE (VTI) 2.1 cm2 Mitral Valve MV E Vmax 114.0 cm/s DECEL Time 331 ms MV Mean GR 6 mmHg MV A Vmax 115.0 cm/s MVA (VTI) 1.2 cm2 E/A ratio 1.0 MR Max PG 33 mmHg TDI E/E' Medial 40.7 E/E' Lateral 21.1 Medial E' Peak V 2.80 cm/s Lateral E' Peak V 5.40 cm/s Pulmonary Valve PV Vmax 1.2 m/s PV Peak GR 6.0 mmHg Left Ventricle The left ventricle is normal size. There is normal LV segmental wall motion. Mild concentric left ventricular hypertrophy. LVEF is 60-65%. Indeterminate diastolic dysfunction. Right Ventricle The right ventricle is severely dilated. The right ventricular systolic function is normal. Moderator band is seen in the right ventricle. Atria The left atrium size is normal. The right atrium is moderately dilated. Aortic Valve Aortic valve nodular calcification noted. Aortic valve is trileaflet and opens well. No aortic regurgitation is present. There is no aortic valvular stenosis. Mitral Valve There is mitral annular calcification. There is mild mitral valve regurgitation noted. There is moderate mitral valve stenosis with mean gradient of 6mmHg. Tricuspid Valve The tricuspid valve is normal in structure. There is no tricuspid valve regurgitation noted. Pulmonic Valve The pulmonary valve is normal in structure. There is no pulmonic valvular regurgitation. Great Vessels The aortic root is normal in size. The IVC is normal in size and collapses >50% with inspiration. Pericardium There is no pericardial effusion. Other Information Quality : Technically difficult study due to body habitus Conclusion LVEF is 60-65%. There is moderate mitral valve stenosis with mean gradient of 6mmHg. There is no pericardial effusion. DICTATED BY: LISA RM MD DATE: 05/28/24 1401 REASON: sob ORDERING PHYSICIAN: EVELINE ASHLEY PROCEDURE: CXR1VW - CHEST 1VW Exam Type: CHEST 1VW Clinical Information: sob Comparison: None Findings: Right permacath line is noted with tip at the distal superior vena caval level. The lungs are clear of infiltrates. The heart is enlarged. Bony and soft tissue structures of the chest wall are unremarkable. IMPRESSION: Cardiomegaly. Clear lungs. DICTATED BY: NIKA SOTO MD DATE: 05/28/24 1534 REASON: history of ankle abscess, assess for osteo ORDERING PHYSICIAN: CARMINE GAMBLE MD PROCEDURE: FT 2VW RT - FOOT LIMITED 2VWS RT Exam Type: FOOT LIMITED 2VWS RT Clinical Information: history of ankle abscess, assess for osteo Comparison: None Findings and impression: Soft tissue swelling of the ankle which could represent cellulitis. Postoperative changes of the distal tibia. Degenerative changes of the interphalangeal joints. Calcaneal spurs. Osteopenia. DICTATED BY: NIKA SOTO MD DATE: 05/27/24 1618 REASON: Dyspnea/SOB ORDERING PHYSICIAN: ALONSO CALIXTO DO PROCEDURE: CXR1VW - CHEST 1VW Exam Type: CHEST 1VW Clinical Information: Dyspnea/SOB Comparison: None Findings: Pulmonary pattern is as before. No worrisome interval changes have taken place. Impression: Stable exam. DICTATED BY: NIKA SOTO MD DATE: 05/26/24 0829 ASSESSMENT: Life-threatening hyperkalemia Fluid overload Respiratory failure with hypoxia Anemia Metabolic acidosis End-stage renal disease Diabetes mellitus type 2 Hypertension Morbid obesity PLAN: Labs and Diagnostics/ Radiology personally reviewed and interpreted by myself and supervising physician We have reviewed dialysis and external records in detail Continue dialysis schedule Friday Continue with Tamiflu 1.5 L fluid restriction Continue to monitor H&H Epogen on dialysis days, as needed Continue with frequent monitoring of renal function, anemia, and electrolytes Order CBC, BMP, and electrolytes in the morning May use Dilaudid 0.5 mg IV every 6 hours as needed for severe pain Monitor blood pressure adjust medication doses as needed Maintain normotensive state Strict intake, output, and daily weight should be monitored Please renally adjust medications. Avoid nephrotoxics and nonsteroidal drugs. We will continue to monitor the patient closely We have discussed with the other team physicians in detail about the care plan TERE KERR May 31, 2024 13:37
--- NOTE | 2024-05-31 16:30 | NUR ---
BLOOD GLUCOSE 136. NO INSULIN COVERAGE NEEDED AT THIS TIME.
--- NOTE | 2024-05-31 17:00 | NUR ---
GAVE TAMIFLU AND VANCOMYCIN AFTER HEMODIALYSIS.
[2024-05-31] MEDS: OSELTAMIVIR PHOSPHATE 75 MG CAP PO SCH (17:47)
[2024-05-31] MEDS: VANCOMYCIN 1G/250ML KIT 250 ML IV SCH (17:53)
--- NOTE | 2024-05-31 18:00 | NUR ---
DID NOT COLLECT C-DIFF SAMPLE, PATIENT DOES NOT HAVE WATERY STOOLS.
--- NOTE | 2024-05-31 18:20 | PN ---
PROGRESS NOTE AND PREOPERATIVE EVALUATION SUBJECTIVE: This is a 58-year-old lady, new to hemodialysis. Undergoing hemodialysis through a temporary catheter. I had discussion with the patient regarding the different modes of dialysis and the different access. She agrees and would like to proceed with a brachiocephalic AV fistula for long-term dialysis access. I have explained to her the indications for surgery as well as the potential complications of the operation including, but not limited to postoperative bleeding, infection, stroke and/or . She understands these as well as the morbidity of the procedure as it relates to the patient's comorbidities and the long-term consequences including, but not limited to steal syndrome and/or loss of digits and/or extremity. She wishes to proceed with brachiocephalic AV fistula. Plan to proceed with mapping of the left upper extremity. TID: [id number] RECEIPT: [id number]
--- NOTE | 2024-05-31 18:43 | PN ---
INFECTIOUS DISEASE PROGRESS NOTE Date of Service: May 31, 2024 SUBJECTIVE: This is a 58-year-old female patient who was admitted to the hospital for shortness of breaths, fever, cough and reported missing hemodialysis due to not feeling well. On admission patient was positive for influenza type A. Patient is more awake and oriented x3. Patient has been vein mapped and is currently pending an AV graft placement once patient' respiratory status is stable. We will continue on vancomycin, Meropenem and Tamiflu. Will continue to monitor patient's care. PHYSICAL EXAM EYES: Anicteric. Pupils equal and reactive. HENT: No oral thrush seen, moist Oral mucosa. NECK: Supple, no JVD or thyromegaly. RESPIRATORY: Good air entry. Oxygen support via nasal cannula. CARDIOVASCULAR: S1, S2 regular. No murmur heard. ABDOMEN: Soft, non tender, bowel sounds present, no organomegaly. CENTRAL NERVOUS SYSTEM: Awake, alert, oriented x 3. SKIN: No rashes, no swelling. LYMPHATICS: No peripheral lymphadenopathy. MUSCULOSKELETAL: No joint swelling, erythema or tenderness. EXTREMITIES: No cyanosis or clubbing. Right ankle wound infection. BACK: No deformity, no pressure ulcer. GENITOURINARY: No dysuria or hematuria. Vital Sign (Last 12 Hours) 05/31/24 05/31/24 05/31/24 05/31/24 07:38 07:53 08:00 10:07 Temp 98.1 Pulse 67 69 68 Resp 20 18 18 B/P (MAP) 156/67 156/69 Pulse Ox 96 O2 Delivery Room Air N/Cannula Low lpm O2 Flow Rate 2.0 FiO2 28 05/31/24 05/31/24 05/31/24 05/31/24 11:00 11:15 11:30 11:43 Temp 97.9 97.9 97.9 Pulse 66 65 65 66 Resp 16 16 16 18 B/P (MAP) 168/83 168/73 157/58 156/76 Pulse Ox 96 O2 Delivery Room Air Nasal Cannula Nasal Cannula Room Air O2 Flow Rate 2.0 2.0 2.0 05/31/24 05/31/24 05/31/24 05/31/24 11:45 12:00 12:11 12:15 Pulse 65 65 65 62 Resp 16 16 20 16 B/P (MAP) 177/78 172/75 183/76 O2 Delivery Nasal Cannula Nasal Cannula Nasal Cannula O2 Flow Rate 2.0 2.0 2.0 05/31/24 05/31/24 05/31/24 05/31/24 12:30 12:45 13:00 13:15 Pulse 65 64 67 67 Resp 16 16 16 16 B/P (MAP) 169/65 159/70 139/61 147/73 O2 Delivery Nasal Cannula Nasal Cannula Nasal Cannula Nasal Cannula O2 Flow Rate 2.0 2.0 2.0 2.0 05/31/24 05/31/24 05/31/24 13:30 13:45 16:24 Temp 98.1 Pulse 67 68 69 Resp 16 16 18 B/P (MAP) 142/63 135/67 124/63 Pulse Ox 99 O2 Delivery Nasal Cannula Nasal Cannula Nasal Cannula O2 Flow Rate 2.0 2.0 2.0 Intake & Output (last 24hrs) 05/30/24 05/30/24 05/31/24 15:00 23:00 07:00 Intake Total 220 ml Balance 220 ml LABS: Laboratory: Test 05/31/24 15:23 05/31/24 05:07 05/30/24 10:05 05/30/24 09:53 Range/Units Whole Blood Glucose 136 H 70-110 MG/DL White Blood Count 5.6 4.8-10.8 K/uL Red Blood Count 3.53 L 4.00-5.50 MIL/uL Hemoglobin 10.0 L 12.0-16.0 g/dL Hematocrit 30.9 L 36-48 % Mean Corpuscular Volume 87.5 79-99 fL Mean Corpuscular Hemoglobin 28.3 27.0-33.0 pg Mean Corpuscular Hemoglobin Concent 32.4 32.0-36.0 g/dL Red Cell Distribution Width 13.8 11.0-15.5 % Platelet Count 192 130-400 K/uL Mean Platelet Volume 11.3 H 7.5-10.5 fL Nucleated Red Blood Cells 0.0 0.0-0.19 % Sodium Level 135 L 136-145 mmol/L Potassium Level 4.7 3.5-5.1 mmol/L Chloride Level 95 L 101-111 mmol/L Carbon Dioxide Level 26 21-32 mmol/L Blood Urea Nitrogen 59 H 7-18 mg/dL Creatinine 11.0 *H 0.5-1.0 mg/dL Glomerular Filtration Rate Calc 4 >90 mL/min Random Glucose 112 H 70-105 mg/dL Total Calcium 7.4 L 8.5-10.1 mg/dL Phosphorus Level 5.0 H 2.5-4.9 mg/dL Vancomycin Level Trough 17.2 10.0-20.0 UG/ML Segmented Neutrophils % 68 40-70 % Band Neutrophils % 1 0-2 % Lymphocytes % (Manual) 18 L 22-44 % Monocytes % (Manual) 4 2-9 % Eosinophils % (Manual) 5 1-6 % Differential Comment MANUAL DIFFERENTIAL Reactive Lymphocytes 4 H 0-0 % White Cell Morphology Comment Platelet Morphology Comment ADEQUATE Red Blood Cell Morphology HYPOCHROM CELLS 1+ Magnesium Level 2.10 1.80-2.40 mg/dL Total Bilirubin 0.5 0.2-1.0 mg/dL Aspartate Amino Transf (AST/SGOT) 17 10-37 U/L Alanine Aminotransferase (ALT/SGPT) 7 L 12-78 U/L Alkaline Phosphatase 243 H 50-136 U/L Ammonia < 10 L 11-32 umol/L Total Protein 6.4 6.0-8.3 g/dL Albumin 2.3 L 3.5-5.0 g/dL Procalcitonin 1.72 H 0.05-0.5 ng/mL Blood Gas Specimen Type Arterial Arterial Blood pH 7.364 7.350-7.450 Arterial Blood Partial Pressure CO2 44 32-45 mmHg Arterial Blood Partial Pressure O2 99.7 83.0-108.0 mmHg Arterial Blood HCO3 24.3 21.0-28.0 mmol/L Arterial Blood Oxygen Saturation 97.3 94.0-98.0 % Arterial Blood Base Excess -1.2 -2.0-3.0 mmol/L Blood Gas Temperature 37.0 35.5-37.0 CELSIUS Blood Gas Flow-by 2.00 0.00-15.00 L/min Blood Gas Vent Mode 2LNC ROOM AIR FiO2 28.0 % Blood Gas Specimen Comment GWEN LLOYD ASSESSMENT: Acute on chronic respiratory failure requiring oxygen support. Sepsis. Influenza Viral infection type A. Right ankle wound infection with ESBL, E coli. History of right ankle osteomyelitis, status post hardware removal. End-stage renal disease, on dialysis. Morbid obesity. PLAN: Continue vancomycin per pharmacy protocol. Continue Meropenem. Continue Tamiflu. Continue dialysis as recommended by drupal php developer. Patient has been vein mapped and pending a AV graft placement. Continue wound care to the right ankle. Continue pain management. Continue oxygen support. Continue DVT prophylaxis. This case was reviewed and discussed with my supervising physician and the above assessment and plan was formulated and agreed upon. ATTESTATION BY PHYSICIAN I have seen and examined the patient. I reviewed the documentation, medical decision making, and treatment plan as noted by the mid-level provider above. I agree with the findings and plan of care. DIDIER CONTRERAS MD, MIRTA L CHIEF TECHNICIAN May 31, 2024 18:43
[2024-05-31] MEDS ORDERED: OSELTAMIVIR PHOSPHATE 75 MG CAP PO SCH (20:00)
--- NOTE | 2024-05-31 20:08 | HMCIMG ---
US VEIN MAPPING UNI/LTD HISTORY: AV graft COMPARISON: None TECHNIQUE: Ultrasound upper extremity venous mapping study was performed for hemodialysis access. FINDINGS: Left cephalic vein High upper arm: 18 x 3 millimeter Mid upper arm: 16 x 2 millimeter Low upper arm: 14 x 3 millimeter High forearm: 4 x 3 millimeter Mid forearm: 3 x 2 millimeter Low forearm: 4 x 3 millimeter Left basilic vein Upper arm: 24 x 3 millimeter Lower arm: 22 x 4 millimeter Antecubital fossa: 19 x 2 millimeter IMPRESSION: 1. Ultrasound upper extremity venous mapping study as described above.
--- NOTE | 2024-05-31 21:36 | PN ---
NEPHROLOGY NOTE SUBJECTIVE: The patient has been evaluated and seen for dialysis and seen several times. The patient has multiple mental status changes, seen several times, critically ill. No other associated finding. No other aggravating or relieving factors. No other associated symptoms. The patient has been seen several times. Condition remained critical and guarded. The patient has significant anemia and has been on Epogen. The patient is generally weak, obese and other comorbidities. PLAN: To continue dialysis support. Continue monitoring of renal function. Continue monitoring of electrolytes. Intake, output, weight and overall status will be monitored. The patient was evaluated and seen for dialysis and seen multiple times. I have discussed with other team members in detail. Condition remained critical and guarded. TID: [id number] RECEIPT: [id number]
--- NOTE | 2024-05-31 21:39 | PN ---
NEPHROLOGY NOTE SUBJECTIVE: The patient has been evaluated and seen for dialysis and seen multiple times. The patient is still quite weak. No other associated symptoms. No other aggravating or relieving factors. The patient has altered mental status before. PHYSICAL EXAMINATION: VITAL SIGNS: Blood pressure is 128/76, pulse 70, respiratory rate is 16. HEENT: Head is atraumatic, normocephalic. Pupils are round and reactive. Sclerae anicteric. Conjunctivae not pale. Oral mucosa is not dry. NECK: Without masses or bruits. Thyroid is palpable. Neck has no bruits. CHEST: Shows equal to thoracic percussion. CARDIAC: Regular rhythm. No rub. No S3, S4. No parasternal heave. ABDOMEN: No guarding or tenderness. Bowel sounds are normoactive. No free fluid. LABORATORY DATA: Have been reviewed. Old records reviewed. IMAGING STUDIES: Personally reviewed. PROBLEMS: Renal failure and anemia. PLAN: To continue monitoring. Follow up on renal function. Follow up on electrolytes. Intake, output, weight, and overall condition will be monitored. The patient has been evaluated and seen for dialysis and seen multiple times. She remains weak. She has been lethargic before. We will be following up closely. Condition remained guarded. The patient was evaluated and seen for dialysis, seen multiple times. I have discussed with other team members. TID: [id number] RECEIPT: [id number]
[2024-06-01] VITALS (12 sets, daily range): BP systolic 144–163; BP diastolic 64–85; PULSE 66–82; RESP 18–20; TEMP 98.2–98.7; O2SAT 95–100
[2024-06-01 05:15] LABS: BASOPHILS # (AUTO) 0.02 K/uL (0.00-0.20); BASOPHILS % (AUTO) 0.3 % (0.0-5.0); EOSINOPHILS # (AUTO) 0.24 K/uL (0.00-0.70); EOSINOPHILS % (AUTO) 4.1 % (0.0-8.0); HEMATOCRIT 32.3 % (36-48); IMMATURE GRANULOCYTE ABSOLUTE 0.03 K/uL (0-1); LYMPHOCYTES % (AUTO) 17.3 % (21.0-51.0); MEAN CORPUSCULAR HEMOGLOBIN 28.3 pg (27.0-33.0); MEAN CORPUSCULAR HGB CONC 32.5 g/dL (32.0-36.0); MEAN CORPUSCULAR VOLUME 87.1 fL (79-99); MONOCYTES # (AUTO) 0.6 K/uL (0.1-1.0); MONOCYTES % (AUTO) 10.2 % (3.0-13.0); NEUTROPHILS % (AUTO) 67.6 % (40.0-77.0); PLATELET COUNT (AUTO) 224 K/uL (130-400); RED BLOOD CELL COUNT(AUTO) 3.71 MIL/uL (4.00-5.50); RED CELL DISTRIBUTION WIDTH 13.3 % (11.0-15.5); WHITE BLOOD COUNT (AUTO) 5.9 K/uL (4.8-10.8)
[2024-06-01 05:48] LABS: ALBUMIN 2.5 g/dL (3.5-5.0); BILIRUBIN,TOTAL 0.7 mg/dL (0.2-1.0); CREATININE 7.3 mg/dL (0.5-1.0); POTASSIUM 4.1 mmol/L (3.5-5.1); TOTAL PROTEIN, SERUM 7.1 g/dL (6.0-8.3)
[2024-06-01] MEDS: ZOSYN 3.375GM +NS 50ML IV SCH (06:42)
[2024-06-01] MEDS: HEParin 5,000 UNIT VIAL SQ SCH (10:09)
--- NOTE | 2024-06-01 11:26 | PN ---
[facility] PROGRESS NOTE Date of Service: Jun 01, 2024 Time of Service: 11:25 SUBJECTIVE: [ ] This is a 50-year-old with a significant medical history of end-stage renal disease on dialysis on Friday hypertension hyperlipidemia and asthma presented in ED with chief complaints of shortness a breath apparently patient missed her dialysis. ER workup was consistent with asthma exacerbation possible pneumonia respiratory failure apparently 06/01/2024 Today on bedside evaluation patient was found awake alert and oriented x 3. The power chart reviewed, vital signs, laboratory tests, imaging test and medications have been reviewed. Latest vitals are stable, afebrile. CBC and CMP are stable. Urine culture growing Enterococcus faecalis and ESBL E coli. Patient was pending AV graft Dr. Madrigal. Vein mapping completed. Continue dialysis. Continue IV Zosyn and Tamiflu per ID direction. Discussed with primary nurse REVIEW OF SYSTEMS CONSTITUTIONAL: Denies or night sweats. No unintentional weight loss reported. Positive for fever, chills NEUROLOGICAL: Denies headache, amaurosis fugax, motor weakness, sensory deficit, vertigo/spinning sensation, gait abnormalities, or tremors. ENT: No hearing loss, otalgia, otorrhea, rhinitis, rhinorrhea, hoarseness, or sore throat. CARDIOVASCULAR: Denies any exertional angina, dyspnea on exertion, orthopnea, paroxysmal nocturnal dyspnea, palpitations, life-threatening arrhythmias, claudication. PULMONARY: Positive for cough, sputum production. Denied any hemoptysis GASTROINTESTINAL: Denies any type of dysphagia to either liquids or solids. Denies nausea, vomiting, pyrosis, early satiety, abdominal pain, constipation, or changes in stool consistency or caliber. Denies coffee-ground emesis, hematemesis, hematochezia, or melanotic stools. Positive for diarrhea GENITOURINARY: Denies frequency, urgency, nocturia, hematuria or incontinence (Storage/Irritative symptoms.) Low urinary stream, straining to void, urinary intermittency or hesitancy, splitting of the voiding stream, terminal dribbling. ENDOCRINOLOGIC: Denies polyuria, polydipsia, polyphagia or heat/cold intolerances. HEMATOLOGIC: Denies thrombophilia/previous clots, or coagulopathy/bleeding disorders. ONCOLOGIC: Denies personal history of malignancy. DERMATOLOGIC: Denies rashes or pruritus. PSYCHIATRIC: Denies any suicidal or homicidal ideation. Denies hallucinations. PHYSICAL EXAM GENERAL APPEARANCE: The patient is awake, alert, and oriented, in no acute cardiopulmonary distress. NEUROLOGICAL: Cranial nerves II-XII grossly intact. Motor is 5/5 in bilateral upper and lower extremities proximal to distal. No sensory deficits. HEENT: Face is symmetric. Pupils are equal and reactive. Extraocular movements are intact. NECK: Supple. No JVD. No thyromegaly. No submental, submandibular, pre- /postauricular, occipital or supraclavicular lymphadenopathy. CHEST: Normal chest expansion. No Telemetry. LUNGS: She has wheezing present bilaterally with rhonchi. CARDIOVASCULAR: Regular. S1 and S2 normal. No appreciable rubs, murmurs or gallops. ABDOMEN: Soft, nontender, and nondistended. There is no rebound, voluntary guarding, or rigidity. : Deferred. No Ardon. EXTREMITIES: She has a wound noted in the right ankle. She has a wound in the lateral and medial aspect of the leg. There is some purulent discharge noted. SKIN: No skin breakdown. Vital Signs (last 8hr) Date Time Temp Pulse Resp B/P (MAP) Pulse Ox O2 Delivery O2 Flow Rate FiO2 06/01/24 10:03 144/72 06/01/24 08:07 98.2 75 18 144/72 96 Nasal Cannula 1.0 06/01/24 06:20 72 20 06/01/24 06:20 72 18 N/A Room Air 21 06/01/24 04:00 98.4 73 19 150/65 92 Room Air LABS: Laboratory: Test 06/01/24 11:19 06/01/24 04:29 05/31/24 05:07 Range/Units Whole Blood Glucose 185 #H 70-110 MG/DL White Blood Count 5.9 4.8-10.8 K/uL Red Blood Count 3.71 L 4.00-5.50 MIL/uL Hemoglobin 10.5 L 12.0-16.0 g/dL Hematocrit 32.3 L 36-48 % Mean Corpuscular Volume 87.1 79-99 fL Mean Corpuscular Hemoglobin 28.3 27.0-33.0 pg Mean Corpuscular Hemoglobin Concent 32.5 32.0-36.0 g/dL Red Cell Distribution Width 13.3 11.0-15.5 % Platelet Count 224 130-400 K/uL Mean Platelet Volume 10.7 H 7.5-10.5 fL Immature Granulocyte % (Auto) 0.5 0-1 % Neutrophils (%) (Auto) 67.6 40.0-77.0 % Lymphocytes (%) (Auto) 17.3 L 21.0-51.0 % Monocytes (%) (Auto) 10.2 3.0-13.0 % Eosinophils (%) (Auto) 4.1 0.0-8.0 % Basophils (%) (Auto) 0.3 0.0-5.0 % Neutrophils # (Auto) 4.0 1.8-7.7 K/uL Lymphocytes # (Auto) 1.0 1.0-4.8 K/uL Monocytes # (Auto) 0.6 0.1-1.0 K/uL Eosinophils # (Auto) 0.24 0.00-0.70 K/uL Basophils # (Auto) 0.02 0.00-0.20 K/uL Absolute Immature Granulocyte (auto 0.03 0-1 K/uL Nucleated Red Blood Cells 0.0 0.0-0.19 % Sodium Level 136 136-145 mmol/L Potassium Level 4.1 3.5-5.1 mmol/L Chloride Level 95 L 101-111 mmol/L Carbon Dioxide Level 24 21-32 mmol/L Blood Urea Nitrogen 34 #H 7-18 mg/dL Creatinine 7.3 H 0.5-1.0 mg/dL Glomerular Filtration Rate Calc 6 >90 mL/min Random Glucose 126 H 70-105 mg/dL Total Calcium 8.1 L 8.5-10.1 mg/dL Magnesium Level 2.00 1.80-2.40 mg/dL Total Bilirubin 0.7 0.2-1.0 mg/dL Aspartate Amino Transf (AST/SGOT) 17 10-37 U/L Alanine Aminotransferase (ALT/SGPT) 9 L 12-78 U/L Alkaline Phosphatase 242 H 50-136 U/L Total Protein 7.1 6.0-8.3 g/dL Albumin 2.5 L 3.5-5.0 g/dL Phosphorus Level 5.0 H 2.5-4.9 mg/dL Vancomycin Level Trough 17.2 10.0-20.0 UG/ML Current Medications Medications (Trade) Dose Ordered Sig/Susannah Route PRN Reason Start Time Stop Time Status Last Admin Dose Admin Acetaminophen (TYLenol 500MG TAB) 500 mg Q6H PRN PO MILD PAIN (1-3) 05/27/24 15:00 06/26/24 14:59 06/01/24 04:00 500 MG Albuterol Sulfate (Proventil 0.083% 2.5mg/3ml) 2.5MG [id number] IH 05/27/24 15:00 06/26/24 14:59 06/01/24 06:32 2.5 MG Albuterol Sulfate (Proventil 0.083% 2.5mg/3ml) 10 mg ONCE IH 05/26/24 08:00 05/26/24 15:17 DC 05/26/24 08:11 10 MG Budesonide (Pulmicort 0.5 Mg/2ml) 0.5 mg BIDRESP IH 05/27/24 18:00 06/26/24 17:59 06/01/24 06:20 0.5 MG Carvedilol (Coreg 12.5MG) 12.5 mg BID PO 05/27/24 21:00 06/26/24 20:59 06/01/24 10:03 12.5 MG Cefepime HCl (MAXipime 1 GM vial) 1 gm Q12H IVPB 05/27/24 15:00 05/27/24 18:22 DC Cefepime HCl (MAXipime 1 GM vial) 1 gm Q12H9 IVPB 05/27/24 21:00 05/28/24 11:36 DC 05/28/24 07:46 1 GM Cefepime HCl (MAXipime 1 GM vial) 1 gm Q24H IVPB 05/29/24 09:00 05/29/24 12:58 DC 05/29/24 09:50 1 GM Ceftriaxone Sodium (ROCEphine 1G INJ) 1 gm Q24H IVPB 05/27/24 10:30 05/27/24 14:24 DC Ceftriaxone Sodium (ROCEphine 1G INJ) 1 gm Q24H IVPB 05/27/24 17:00 05/27/24 14:58 DC Doxycycline Hyclate (Doxycycline Hyclate) 100 mg BID PO 05/27/24 21:00 05/27/24 15:46 DC Guaifenesin (RobiTUSSin SUGAR-FREE 100 MG/ 5 ML UDCUP) 400 mg Q4H PRN PO COUGH 05/28/24 06:30 06/27/24 06:29 05/29/24 22:44 400 MG Heparin Sodium (Porcine) (HEParin 5,000 UNIT VIAL) 5,000 unit Q12H SQ 06/01/24 09:00 07/01/24 08:59 06/01/24 10:09 5,000 UNIT Heparin Sodium (Porcine) (HEParin 5,000 UNIT VIAL) 10,000 unit AD IRRIG 05/26/24 15:30 06/25/24 15:29 05/28/24 11:31 10,000 UNIT Hydralazine HCl (APRESOLine 20MG INJ) 10 mg Q6H PRN IV ADMINISTER FOR SBP > 180 05/27/24 15:00 06/26/24 14:59 Insulin Human Regular (humuLIN R 100 UNIT/ML 3ML) INSULIN SLIDING SCAL... ACHS SQ 05/28/24 07:30 06/27/24 07:29 Ipratropium Boyce (AtrovENT UD) 0.5 mg [id number] IH 05/28/24 00:00 06/27/24 00:00 06/01/24 06:20 0.5 MG Leptospermum Honey ([facility]) APPLY DIRECTED DAILY TP 05/28/24 09:00 06/27/24 08:59 06/01/24 10:10 1 APPL Meropenem (Merrem 500mg) 500 mg Q12H IV 05/30/24 12:30 06/01/24 04:53 DC 06/01/24 01:07 500 MG Methylprednisolone Sodium Succinate (Solu-medROL 40MG) 20 mg BID IVP 05/27/24 21:00 05/27/24 19:34 DC Montelukast Sodium (SinguLAIR) 10 mg DAILY PO 05/30/24 09:00 06/29/24 08:59 06/01/24 10:01 10 MG Oseltamivir Phosphate (Tamiflu) 30 mg QODAY PO 05/31/24 20:00 05/29/24 12:55 DC Oseltamivir Phosphate (Tamiflu) 75 mg MWFPHD PO 05/31/24 16:00 06/05/24 15:59 05/31/24 17:47 75 MG Oseltamivir Phosphate (Tamiflu) 75 mg Q24H PO 05/28/24 21:00 05/29/24 12:47 DC 05/28/24 20:52 75 MG Oseltamivir Phosphate (Tamiflu) 75 mg QODAY@2100 PO 05/27/24 21:00 05/28/24 14:12 DC 05/27/24 21:41 75 MG Pharmacy Profile Note (Pharmacy Communication) 1 each AD MISC 05/28/24 06:00 05/28/24 11:37 DC Pharmacy Profile Note (Pharmacy Communication) 1 each ONCE MISC 05/27/24 19:30 05/28/24 11:37 DC Pharmacy Profile Note (Pharmacy Communication) 1 each ONCE MISC 05/28/24 15:30 05/28/24 15:14 DC Piperacillin Sod/ Tazobactam Sod (Zosyn 3.375gm+NS 50ml) 3.375 gm Q12H IV 06/01/24 05:00 06/11/24 04:59 06/01/24 06:42 3.375 GM Sodium Chloride 250 ml @ 0 mls/hr AD IV 05/26/24 15:30 06/25/24 15:29 Sodium Chloride 1,000 ml @ 0 mls/hr ONCE IV 05/26/24 15:30 06/25/24 15:29 05/31/24 11:03 1,000 MLS/HR Vancomycin HCl 250 ml @ 125 mls/hr ONCE IV 05/28/24 21:00 05/28/24 23:59 DC 05/28/24 20:53 125 MLS/HR Vancomycin HCl 250 ml @ 125 mls/hr [id number][DIALYSIS] IV 05/31/24 16:00 06/01/24 04:53 DC 05/31/24 17:53 125 MLS/HR Vancomycin HCl (Vancomycin Protocol) 1 each AD IV 05/27/24 16:00 06/10/24 15:59 DIAGNOSTICS / RADIOLOGY: [ ] ASSESSMENT: Acute sepsis due to UTI POA Acute hypoxic respiratory failure due to volume overload/missed dialysis POA Volume overload secondary to missed dialysis POA Metabolic acidosis POA Troponin elevation likely in setting of missed dialysis and type 2 MD (down trending) no chest POA Metabolic/infectious encephalopathy. Suspected pneumonia/URI POA Acute complicated cystitis POA Right ankle wound infection with Enterococcus faecalis and ESBL E coli from anaerobic and aerobic culture 05/27/2024 POA Positive Influenza A POA Acute asthma exacerbation History of right ankle abscess status post incision and drainage and hardware removal by Dr. Cabrera on 03/2025 Suspected cellulitis in the right ankle with mild purulent drainage History of MSSA infection Uncontrolled hypertension Uncontrolled diabetes mellitus type 2 with hypoglycemia Hyperlipidemia Obesity BMI 45.5 PLAN: Admitted to the medical floor Continue renal dialysis diet consultants: Property Damage Claims Adjustor's, supervisor customer services's, Infectious Disease, cardiovascular Continue Tamiflu Continue IV Zosyn Dr. De Souza for antimicrobial stewardship. Intraoperative cultures positive for Enterococcus faecalis and ESBL E coli Blood culture negative Continue supplemental O2 to keep O2 saturations above 92%, currently satting 96% on 1 L nasal cannula Please titrate down supplemental O2 to keep O2 sats >92%. DC if not needed. Continues bronchodilators Test: ECHO LVEF: 60-65% with moderate mitral value stenosis Continue dialysis 3x week we will follow supervisor customer services's fluid restriction strict I&Os and daily weights Fluid restriction 1.5 L/daily Aspiration precautions head of the bed at [address] Madrigal planning brachiocephalic AV fistula Vein mapping complete Continue to work with physical therapy Monitor a.m. labs PRN Treatment - Add when necessary meds for nausea, vomiting, pain, co nstipation, insomnia. DVT/GI prophylaxis- Continue heparin at current doses. Full CODE STATUS Disposition: Home once cleared for discharge This document was generated in part using voice recognition software, occasional wrong word or sound alike substitutions may have occurred due to the inherent limitations of voice recognition software. Read the chart carefully and recognize using context, where the substitutions have occurred. Although every effort was made to edit the content, cook mess and typing errors may occur This case was discussed with Dr. Herron and above plan was formulated ATTESTATION BY PHYSICIAN I have seen and examined the patient. I reviewed the documentation, medical decision making, and treatment plan as noted by the mid-level provider above. I agree with the findings and plan of care. La Herron MD, MARCELO O APRN Jun 01, 2024 11:25
--- NOTE | 2024-06-01 11:27 | PN ---
[facility] PROGRESS NOTE Date Patient Seen: Jun 01, 2024 Time of Visit: 11:17 Supervising Physician: Dr Adolph Barfield Primary Care Physician: Attending team: [facility] Hospitalist Team Outpatient Specialists: Inpatient Consults: BIS, pulmonology group Cardiovascular, infectious Disease, Nephrology, Wound Care PROBLEM LIST: Metabolic/infectious encephalopathy, not POA, resolved Acute hypoxic respiratory failure POA , requiring continuous bipap, improved to NC Acute asthma exacerbation, POA, decompensated Influenza A virus infection, POA, treated Volume overload secondary to missed dialysis, POA, treated Metabolic acidosis , improved Troponin elevation likely in setting of missed dialysis and type 2 UT (down trending) Suspected pneumonia/URI POA History of right ankle abscess status post incision and drainage and hardware re moval by Dr. Cabrera on 03/2025 Suspected cellulitis in the right ankle with mild purulent drainage, r/o clinically and per Xray imaging History of MSSA infection Hypertension History of hyperlipidemia History of diabetes mellitus type two Morbid obesity BMI 45.5 Plan Summary: Supplemental oxygen as needed Wean off as tolerates Bipap as needed Outpt Sleep study for GISELA eval and treatment HD as per nephrology 1.5 L Fluid restriction Follow CVS recommendations Pending AV graft formation Continue abts as per ID INTERVAL HISTORY: [Patient is evaluated at bedside. She is more altered today. Is lethargic upon evaluation at bedside, difficult to arouse. She continues on BiPAP with most recent ABG within normal limits with a pH of 7.35, pCO2 45, PO2 109 and bicarb 24. She continues on treatment for flu. Tamiflu dosing adjusted renally. He continues on nebulizer. He is currently receiving a dialysis treatment at bedside, we will follow-up with repeat ABG and monitor mental status.] 05/29 patient is evaluated at bedside. She remains lethargic on continuous BiPAP. Per bedside nurse has remained difficult to arouse overnight. Has not worsened, and does appear to be slightly more arousable than previous. She responds to verbal commands, unable to follow commands but does open her eyes and turns to face me. Does have an occasional twitch noted to LUE. Tamiflu dosing is inappropriate for dialysis patient. Pharmacy states no 30mg available for dialysis patient, advised to not use 75mg dose. Patient continues on cefepime and vancomycin. Labs appear grossly unremarkable with a WBC of 4. Pupils are equal, round, and reactive to light. Update: Nurse texted me later to inform me that patient had woken up, had been taken BiPAP and was comfortably watching TV. 05/30 patient is evaluated at bedside. She is more awake today, per nurse was off BiPAP at night and is tolerating nasal cannula. Her ABG this morning was within normal limits. Patient continues with productive cough. She is not currently on Tamiflu as dose adjustment was unavailable for patient. Continue with ne bulizer and supplemental oxygen. cbc is unremarkable. Patient continues with dialysis as scheduled. 05/31 patient is evaluated at bedside. She was drowsy but easily arousable. Continues with grogginess but is more awake. She was alert and oriented x3. Able to hold a meaningful conversation but does exhibit excessive drowsiness. Her wound cultures are positive for Enterococcus faecalis and ESBL E coli. Continues on meropenem and vancomycin. 06/01 - patient is seen and evaluated at the bedside. Patient is sitting up in bed does not appear to be in any acute distress at this time. Patient is awake alert and oriented x3. patient denies chest discomfort, chest pain, or shortness on breath. No acute changes reported overnight. Patient continues on IV antibiotics for polymicrobial infection. Patient continues on hemodialysis as scheduled MWF. Patient had vein mapping performed yesterday and pending AV fistula creation. Vital signs are stable. Labs are within normal limits. REVIEW OF SYSTEMS: 12 point ROS reviewed with patient. Pertinent positives mentioned above. Otherwise negative. PHYSICAL EXAM: GENERAL: Alert, weak, awake oriented x 3 HEENT: EOMI, Sclera non icteric, moist mucosa NECK: Supple, no JVD, trachea midline LUNGS: Rhonchi breath sounds to upper extremities, diminished on lower extremities bilaterally. No wheezes HEART: Regular rate and rhythm. Normal S1 and S2, without murmurs ABD: Abdomen soft, nontender. Bowel sounds present EXT: No clubbing cyanosis or edema NEURO: Awake, alert, oriented, follows commands, no neuro deficits noted. Vital Signs (last 8hr) Date Time Temp Pulse Resp B/P (MAP) Pulse Ox O2 Delivery O2 Flow Rate FiO2 06/01/24 10:03 144/72 06/01/24 08:07 98.2 75 18 144/72 96 Nasal Cannula 1.0 06/01/24 06:20 72 20 06/01/24 06:20 72 18 N/A Room Air 21 06/01/24 04:00 98.4 73 19 150/65 92 Room Air LABS: Hematology Labs: Test 06/01/24 04:29 Range/Units White Blood Count 5.9 4.8-10.8 K/uL Red Blood Count 3.71 L 4.00-5.50 MIL/uL Hemoglobin 10.5 L 12.0-16.0 g/dL Hematocrit 32.3 L 36-48 % Mean Corpuscular Volume 87.1 79-99 fL Mean Corpuscular Hemoglobin 28.3 27.0-33.0 pg Mean Corpuscular Hemoglobin Concent 32.5 32.0-36.0 g/dL Red Cell Distribution Width 13.3 11.0-15.5 % Platelet Count 224 130-400 K/uL Mean Platelet Volume 10.7 H 7.5-10.5 fL Immature Granulocyte % (Auto) 0.5 0-1 % Neutrophils (%) (Auto) 67.6 40.0-77.0 % Lymphocytes (%) (Auto) 17.3 L 21.0-51.0 % Monocytes (%) (Auto) 10.2 3.0-13.0 % Eosinophils (%) (Auto) 4.1 0.0-8.0 % Basophils (%) (Auto) 0.3 0.0-5.0 % Neutrophils # (Auto) 4.0 1.8-7.7 K/uL Lymphocytes # (Auto) 1.0 1.0-4.8 K/uL Monocytes # (Auto) 0.6 0.1-1.0 K/uL Eosinophils # (Auto) 0.24 0.00-0.70 K/uL Basophils # (Auto) 0.02 0.00-0.20 K/uL Absolute Immature Granulocyte (auto 0.03 0-1 K/uL Nucleated Red Blood Cells 0.0 0.0-0.19 % Chemistry Labs: Test 06/01/24 05:59 06/01/24 04:29 05/31/24 05:07 Range/Units Whole Blood Glucose 123 H 70-110 MG/DL Sodium Level 136 136-145 mmol/L Potassium Level 4.1 3.5-5.1 mmol/L Chloride Level 95 L 101-111 mmol/L Carbon Dioxide Level 24 21-32 mmol/L Blood Urea Nitrogen 34 #H 7-18 mg/dL Creatinine 7.3 H 0.5-1.0 mg/dL Glomerular Filtration Rate Calc 6 >90 mL/min Random Glucose 126 H 70-105 mg/dL Total Calcium 8.1 L 8.5-10.1 mg/dL Magnesium Level 2.00 1.80-2.40 mg/dL Total Bilirubin 0.7 0.2-1.0 mg/dL Aspartate Amino Transf (AST/SGOT) 17 10-37 U/L Alanine Aminotransferase (ALT/SGPT) 9 L 12-78 U/L Alkaline Phosphatase 242 H 50-136 U/L Total Protein 7.1 6.0-8.3 g/dL Albumin 2.5 L 3.5-5.0 g/dL Phosphorus Level 5.0 H 2.5-4.9 mg/dL DIAGNOSTICS / RADIOLOGY RESULTS: [ ] Pulmonary plan: Monitor respiratory and ABG Monitor s/s of infection Pending CTS for vein mapping Continue oxygen therapy as needed. Titrate oxygen as needed to keep SpO2 equal to greater than 92%. Continue Albuterol nebulizer in Pulmicort nebulizer treatments scheduled. Add Atrovent nebulizer scheduled. Continue Tamiflu. RT to provide IS and education on use. Time spent on patient care exceeds 35 minutes, not including time spent on any procedures. ATTESTATION BY PHYSICIAN The patient has been seen and evaluated, the case has been discussed with the MANAGER FIRE, I agree with the clinical findings and plan of care. [place] Barfield MD, ECTOR N NP Jun 01, 2024 11:27
--- NOTE | 2024-06-01 16:15 | NUR ---
CANCELLED ORDER FOR C-DIFF. PATIENT DOES NOT HAVE WATERY STOOLS.
--- NOTE | 2024-06-01 16:22 | PN ---
SUBJECTIVE: A 58-year-old lady, new to hemodialysis and has a PermCath. For that purpose, the patient is referred for an AV fistula and/or a permanent port for dialysis access. I have had the opportunity to examine the patient and discussed the different modes of dialysis as well as the access ports. The patient wishes to continue hemodialysis and will require a nooksack brachiocephalic fistula. Venous mapping was obtained. The patient understands the indications for surgery as well as the potential complications of the operation including, but not limited to postoperative bleeding, infection, stroke and/or as well as the associated chronic problems including steal syndrome and/or problems related to the fistula. She understands and wishes to proceed. We will work up in preparation for creation of AV fistula. TID: [id number] RECEIPT: [id number]
--- NOTE | 2024-06-01 16:30 | NUR ---
Blood glucose 134. No insulin coverage needed at this time.
--- NOTE | 2024-06-01 17:23 | PN ---
INFECTIOUS DISEASE PROGRESS NOTE Date of Service: Jun 01, 2024 SUBJECTIVE: This is a 58-year-old female patient who was admitted to the hospital for shortness of breaths, fever, cough and reported missing hemodialysis due to not feeling well. On admission patient was positive for influenza type A. Patient was seen and examined at bedside in room 315. Patient is more awake and oriented x3. Patient reported she has not been out of bed since admission. Patient's respiratory status has been unstable. No dyspnea observe today and the oxygen is down to1 liter/minute via nasal cannula. We will have Physical therapy evaluate and treat. Patient is pending an AV graft placement. Patient is afebrile, temperature is 98.2. Patient has been started on Zosyn. Will continue to monitor patient's care. PHYSICAL EXAM EYES: Anicteric. Pupils equal and reactive. HENT: No oral thrush seen, moist Oral mucosa. NECK: Supple, no JVD or thyromegaly. RESPIRATORY: Good air entry. Oxygen support via nasal cannula. CARDIOVASCULAR: S1, S2 regular. No murmur heard. ABDOMEN: Soft, non tender, bowel sounds present, no organomegaly. CENTRAL NERVOUS SYSTEM: Awake, alert, oriented x 3. SKIN: No rashes, no swelling. LYMPHATICS: No peripheral lymphadenopathy. MUSCULOSKELETAL: No joint swelling, erythema or tenderness. EXTREMITIES: No cyanosis or clubbing. Right ankle wound infection. BACK: No deformity, no pressure ulcer. GENITOURINARY: No dysuria or hematuria. Vital Sign (Last 12 Hours) 06/01/24 06/01/24 06/01/24 06/01/24 06:20 06:20 08:00 08:07 Temp 98.2 Pulse 72 72 75 Resp 18 20 18 B/P (MAP) 144/72 Pulse Ox 96 96 O2 Delivery N/A Room Air Room Air* Nasal Cannula O2 Flow Rate 0 1.0 FiO2 21 21 06/01/24 06/01/24 06/01/24 06/01/24 10:03 11:31 11:41 16:19 Temp 98.2 98.2 Pulse 82 70 67 Resp 20 18 18 B/P (MAP) 144/72 152/64 151/85 Pulse Ox 96 99 O2 Delivery Nasal Cannula Nasal Cannula O2 Flow Rate 1.0 1.5 Intake & Output (last 24hrs) 2/02/1205/31/24 06/01/24 15:00 23:00 07:00 Intake Total 100.0 ml Output Total 3000 ml Balance -3000 ml 100.0 ml LABS: Laboratory: Test 06/01/24 15:25 06/01/24 04:29 05/31/24 05:07 Range/Units Whole Blood Glucose 134 H 70-110 MG/DL White Blood Count 5.9 4.8-10.8 K/uL Red Blood Count 3.71 L 4.00-5.50 MIL/uL Hemoglobin 10.5 L 12.0-16.0 g/dL Hematocrit 32.3 L 36-48 % Mean Corpuscular Volume 87.1 79-99 fL Mean Corpuscular Hemoglobin 28.3 27.0-33.0 pg Mean Corpuscular Hemoglobin Concent 32.5 32.0-36.0 g/dL Red Cell Distribution Width 13.3 11.0-15.5 % Platelet Count 224 130-400 K/uL Mean Platelet Volume 10.7 H 7.5-10.5 fL Immature Granulocyte % (Auto) 0.5 0-1 % Neutrophils (%) (Auto) 67.6 40.0-77.0 % Lymphocytes (%) (Auto) 17.3 L 21.0-51.0 % Monocytes (%) (Auto) 10.2 3.0-13.0 % Eosinophils (%) (Auto) 4.1 0.0-8.0 % Basophils (%) (Auto) 0.3 0.0-5.0 % Neutrophils # (Auto) 4.0 1.8-7.7 K/uL Lymphocytes # (Auto) 1.0 1.0-4.8 K/uL Monocytes # (Auto) 0.6 0.1-1.0 K/uL Eosinophils # (Auto) 0.24 0.00-0.70 K/uL Basophils # (Auto) 0.02 0.00-0.20 K/uL Absolute Immature Granulocyte (auto 0.03 0-1 K/uL Nucleated Red Blood Cells 0.0 0.0-0.19 % Sodium Level 136 136-145 mmol/L Potassium Level 4.1 3.5-5.1 mmol/L Chloride Level 95 L 101-111 mmol/L Carbon Dioxide Level 24 21-32 mmol/L Blood Urea Nitrogen 34 #H 7-18 mg/dL Creatinine 7.3 H 0.5-1.0 mg/dL Glomerular Filtration Rate Calc 6 >90 mL/min Random Glucose 126 H 70-105 mg/dL Total Calcium 8.1 L 8.5-10.1 mg/dL Magnesium Level 2.00 1.80-2.40 mg/dL Total Bilirubin 0.7 0.2-1.0 mg/dL Aspartate Amino Transf (AST/SGOT) 17 10-37 U/L Alanine Aminotransferase (ALT/SGPT) 9 L 12-78 U/L Alkaline Phosphatase 242 H 50-136 U/L Total Protein 7.1 6.0-8.3 g/dL Albumin 2.5 L 3.5-5.0 g/dL Phosphorus Level 5.0 H 2.5-4.9 mg/dL Vancomycin Level Trough 17.2 10.0-20.0 UG/ML ASSESSMENT: Acute on chronic respiratory failure requiring oxygen support. Sepsis. Influenza Viral infection type A. Right ankle wound infection with ESBL, E coli. History of right ankle hardware infection, status post removal. End-stage renal disease, on dialysis. Morbid obesity. Debility. PLAN: Vancomycin and Meropenem have been discontinued. Continue Zosyn as currently ordered Continue Tamiflu. Continue dialysis as recommended by lasting machine operator bed. Patient has been vein mapped and pending a AV graft placement. Continue wound care to the right ankle. Continue pain management. Continue oxygen support. Continue DVT prophylaxis. Physical therapy to evaluate and treat. This case was reviewed and discussed with my supervising physician and the above assessment and plan was formulated and agreed upon. ATTESTATION BY PHYSICIAN I have seen and examined the patient. I reviewed the documentation, medical decision making, and treatment plan as noted by the mid-level provider above. I agree with the findings and plan of care. DIDIER CONTRERAS MD, MIRTA L DIRECTOR OF CORPORATE COMMUNICATIONS Jun 01, 2024 17:23
--- NOTE | 2024-06-01 21:56 | PN ---
NEPHROLOGY NOTE SUBJECTIVE: This patient has renal failure, anemia, volume overload, obesity, possible sleep apnea, mental status changes. The patient has weakness and has shortness of breath, cough, and pneumonia. All the other systemic review is unchanged. No other associated finding. The patient has been found to have influenza infection and sepsis. The patient also has obesity. All the other system unchanged. PHYSICAL EXAMINATION: GENERAL: Obese, lying in bed. VITAL SIGNS: Blood pressure is 144/72, pulse 75, respiratory rate is 18. NECK: Supple. No masses or bruits. Thyroid is palpable. Neck has no bruits. CHEST: Shows equal thoracic percussion note being resonant in all areas. CARDIAC: Regular rhythm, no rub, no S3, S4. No parasternal heave. ABDOMEN: No guarding or tenderness. Bowel sounds are normoactive. No free fluid. LABORATORY DATA: Labs have been reviewed in detail and old records viewed. Labs have shown white cell count is normal. Hemoglobin is 10.5, creatinine is 7.3. PROBLEMS: Renal failure, anemia, mental status changes, diabetes, hypertension and other comorbidities. PLAN: Will be to continued monitoring of mental status. Follow up on electrolytes. Intake, output and weight will be monitored. Nonsteroidal drugs to be avoided. Doses of medicine to be adjusted and continued followup. Intake, output, weight and overall condition remained guarded. We will follow up closely. Dialysis planned for tomorrow. TID: [id number] RECEIPT: [id number]
[2024-06-02] VITALS (28 sets, daily range): BP systolic 95–167; BP diastolic 40–89; PULSE 59–73; RESP 16–20; TEMP 97.4–98.1; O2SAT 95–100
[2024-06-02 05:49] LABS: BASOPHILS # (AUTO) 0.02 K/uL (0.00-0.20); BASOPHILS % (AUTO) 0.4 % (0.0-5.0); EOSINOPHILS # (AUTO) 0.23 K/uL (0.00-0.70); EOSINOPHILS % (AUTO) 4.5 % (0.0-8.0); HEMATOCRIT 32.1 % (36-48); IMMATURE GRANULOCYTE ABSOLUTE 0.06 K/uL (0-1); LYMPHOCYTES # (AUTO) 1.1 K/uL (1.0-4.8); LYMPHOCYTES % (AUTO) 22.2 % (21.0-51.0); MEAN CORPUSCULAR HEMOGLOBIN 28.3 pg (27.0-33.0); MEAN CORPUSCULAR HGB CONC 32.1 g/dL (32.0-36.0); MEAN CORPUSCULAR VOLUME 88.2 fL (79-99); MONOCYTES # (AUTO) 0.5 K/uL (0.1-1.0); MONOCYTES % (AUTO) 10.5 % (3.0-13.0); NEUTROPHILS # (AUTO) 3.1 K/uL (1.8-7.7); NEUTROPHILS % (AUTO) 61.2 % (40.0-77.0); PLATELET COUNT (AUTO) 231 K/uL (130-400); RED BLOOD CELL COUNT(AUTO) 3.64 MIL/uL (4.00-5.50); RED CELL DISTRIBUTION WIDTH 13.2 % (11.0-15.5); WHITE BLOOD COUNT (AUTO) 5.1 K/uL (4.8-10.8)
[2024-06-02 06:01] LABS: POTASSIUM 4.3 mmol/L (3.5-5.1)
--- NOTE | 2024-06-02 08:15 | PN ---
[facility] PROGRESS NOTE Date of Service: Jun 02, 2024 Time of Service: 08:15 SUBJECTIVE: [ ] This is a 50-year-old with a significant medical history of end-stage renal disease on dialysis on Friday hypertension hyperlipidemia and asthma presented in ED with chief complaints of shortness a breath apparently patient missed her dialysis. ER workup was consistent with asthma exacerbation possible pneumonia respiratory failure apparently Today on bedside evaluation patient was found awake alert and oriented x 3. Latest vitals and labs are stable. No incidences reported overnight. Cardiovascular surgeon Dr. Madrigal planning AV fistula and/or permanent port. Patient agrees to move forward with the plan. Continue dialysis, next session is today, dialysis nurse planning for 2 L of output. Continue Tamiflu and IV Zosyn at ID's direction. Continue wound care. Discussed with primary nurse REVIEW OF SYSTEMS CONSTITUTIONAL: Denies or night sweats. No unintentional weight loss reported. Positive for fever, chills NEUROLOGICAL: Denies headache, amaurosis fugax, motor weakness, sensory deficit, vertigo/spinning sensation, gait abnormalities, or tremors. ENT: No hearing loss, otalgia, otorrhea, rhinitis, rhinorrhea, hoarseness, or sore throat. CARDIOVASCULAR: Denies any exertional angina, dyspnea on exertion, orthopnea, paroxysmal nocturnal dyspnea, palpitations, life-threatening arrhythmias, claudication. PULMONARY: Positive for cough, sputum production. Denied any hemoptysis GASTROINTESTINAL: Denies any type of dysphagia to either liquids or solids. Denies nausea, vomiting, pyrosis, early satiety, abdominal pain, constipation, or changes in stool consistency or caliber. Denies coffee-ground emesis, hemat emesis, hematochezia, or melanotic stools. Positive for diarrhea GENITOURINARY: Denies frequency, urgency, nocturia, hematuria or incontinence (Storage/Irritative symptoms.) Low urinary stream, straining to void, urinary intermittency or hesitancy, splitting of the voiding stream, terminal dribbling. ENDOCRINOLOGIC: Denies polyuria, polydipsia, polyphagia or heat/cold intolerances. HEMATOLOGIC: Denies thrombophilia/previous clots, or coagulopathy/bleeding disorders. ONCOLOGIC: Denies personal history of malignancy. DERMATOLOGIC: Denies rashes or pruritus. PSYCHIATRIC: Denies any suicidal or homicidal ideation. Denies hallucinations. PHYSICAL EXAM GENERAL APPEARANCE: The patient is awake, alert, and oriented, in no acute cardiopulmonary distress. NEUROLOGICAL: Cranial nerves II-XII grossly intact. Motor is 5/5 in bilateral upper and lower extremities proximal to distal. No sensory deficits. HEENT: Face is symmetric. Pupils are equal and reactive. Extraocular movements are intact. NECK: Supple. No JVD. No thyromegaly. No submental, submandibular, pre- /postauricular, occipital or supraclavicular lymphadenopathy. CHEST: Normal chest expansion. No Telemetry. LUNGS: She has wheezing present bilaterally with rhonchi. CARDIOVASCULAR: Regular. S1 and S2 normal. No appreciable rubs, murmurs or gallops. ABDOMEN: Soft, nontender, and nondistended. There is no rebound, voluntary guarding, or rigidity. : Deferred. No Ardon. EXTREMITIES: She has a wound noted in the right ankle. She has a wound in the lateral and medial aspect of the leg. There is some purulent discharge noted. SKIN: No skin breakdown. Vital Signs (last 8hr) Date Time Temp Pulse Resp B/P (MAP) Pulse Ox O2 Delivery O2 Flow Rate FiO2 06/02/24 07:45 69 19 N/A Room Air 21 06/02/24 07:28 66 19 N/Cannula Low lpm 2.0 28 06/02/24 07:26 66 18 06/02/24 04:56 95 Room Air* 0 21 06/02/24 04:00 97.9 66 19 151/72 97 Nasal Cannula 2.5 LABS: Laboratory: Test 06/02/24 05:24 06/02/24 05:05 06/01/24 04:29 Range/Units Whole Blood Glucose 136 H 70-110 MG/DL White Blood Count 5.1 4.8-10.8 K/uL Red Blood Count 3.64 L 4.00-5.50 MIL/uL Hemoglobin 10.3 L 12.0-16.0 g/dL Hematocrit 32.1 L 36-48 % Mean Corpuscular Volume 88.2 79-99 fL Mean Corpuscular Hemoglobin 28.3 27.0-33.0 pg Mean Corpuscular Hemoglobin Concent 32.1 32.0-36.0 g/dL Red Cell Distribution Width 13.2 11.0-15.5 % Platelet Count 231 130-400 K/uL Mean Platelet Volume 10.7 H 7.5-10.5 fL Immature Granulocyte % (Auto) 1.2 H 0-1 % Neutrophils (%) (Auto) 61.2 40.0-77.0 % Lymphocytes (%) (Auto) 22.2 21.0-51.0 % Monocytes (%) (Auto) 10.5 3.0-13.0 % Eosinophils (%) (Auto) 4.5 0.0-8.0 % Basophils (%) (Auto) 0.4 0.0-5.0 % Neutrophils # (Auto) 3.1 1.8-7.7 K/uL Lymphocytes # (Auto) 1.1 1.0-4.8 K/uL Monocytes # (Auto) 0.5 0.1-1.0 K/uL Eosinophils # (Auto) 0.23 0.00-0.70 K/uL Basophils # (Auto) 0.02 0.00-0.20 K/uL Absolute Immature Granulocyte (auto 0.06 0-1 K/uL Nucleated Red Blood Cells 0.0 0.0-0.19 % Sodium Level 136 136-145 mmol/L Potassium Level 4.3 3.5-5.1 mmol/L Chloride Level 96 L 101-111 mmol/L Carbon Dioxide Level 27 21-32 mmol/L Blood Urea Nitrogen 46 H 7-18 mg/dL Creatinine 9.0 *H 0.5-1.0 mg/dL Glomerular Filtration Rate Calc 5 >90 mL/min Random Glucose 148 H 70-105 mg/dL Total Calcium 8.2 L 8.5-10.1 mg/dL Magnesium Level 2.00 1.80-2.40 mg/dL Total Bilirubin 0.7 0.2-1.0 mg/dL Aspartate Amino Transf (AST/SGOT) 17 10-37 U/L Alanine Aminotransferase (ALT/SGPT) 9 L 12-78 U/L Alkaline Phosphatase 242 H 50-136 U/L Total Protein 7.1 6.0-8.3 g/dL Albumin 2.5 L 3.5-5.0 g/dL Current Medications Medications (Trade) Dose Ordered Sig/Susannah Route PRN Reason Start Time Stop Time Status Last Admin Dose Admin Acetaminophen (TYLenol 500MG TAB) 500 mg Q6H PRN PO MILD PAIN (1-3) 05/27/24 15:00 06/26/24 14:59 06/01/24 04:00 500 MG Albuterol Sulfate (Proventil 0.083% 2.5mg/3ml) 2.5MG [id number] IH 05/27/24 15:00 06/26/24 14:59 06/02/24 07:26 2.5 MG Albuterol Sulfate (Proventil 0.083% 2.5mg/3ml) 10 mg ONCE IH 05/26/24 08:00 05/26/24 15:17 DC 05/26/24 08:11 10 MG Budesonide (Pulmicort 0.5 Mg/2ml) 0.5 mg BIDRESP IH 05/27/24 18:00 06/26/24 17:59 06/02/24 07:25 0.5 MG Carvedilol (Coreg 12.5MG) 12.5 mg BID PO 05/27/24 21:00 06/26/24 20:59 06/01/24 20:55 12.5 MG Cefepime HCl (MAXipime 1 GM vial) 1 gm Q12H IVPB 05/27/24 15:00 05/27/24 18:22 DC Cefepime HCl (MAXipime 1 GM vial) 1 gm Q12H9 IVPB 05/27/24 21:00 05/28/24 11:36 DC 05/28/24 07:46 1 GM Cefepime HCl (MAXipime 1 GM vial) 1 gm Q24H IVPB 05/29/24 09:00 05/29/24 12:58 DC 05/29/24 09:50 1 GM Ceftriaxone Sodium (ROCEphine 1G INJ) 1 gm Q24H IVPB 05/27/24 10:30 05/27/24 14:24 DC Ceftriaxone Sodium (ROCEphine 1G INJ) 1 gm Q24H IVPB 05/27/24 17:00 05/27/24 14:58 DC Doxycycline Hyclate (Doxycycline Hyclate) 100 mg BID PO 05/27/24 21:00 05/27/24 15:46 DC Guaifenesin (RobiTUSSin SUGAR-FREE 100 MG/ 5 ML UDCUP) 400 mg Q4H PRN PO COUGH 05/28/24 06:30 06/27/24 06:29 05/29/24 22:44 400 MG Heparin Sodium (Porcine) (HEParin 5,000 UNIT VIAL) 5,000 unit Q12H SQ 06/01/24 09:00 07/01/24 08:59 06/01/24 20:54 5,000 UNIT Heparin Sodium (Porcine) (HEParin 5,000 UNIT VIAL) 10,000 unit AD IRRIG 05/26/24 15:30 06/25/24 15:29 05/28/24 11:31 10,000 UNIT Hydralazine HCl (APRESOLine 20MG INJ) 10 mg Q6H PRN IV ADMINISTER FOR SBP > 180 05/27/24 15:00 06/26/24 14:59 Insulin Human Regular (humuLIN R 100 UNIT/ML 3ML) INSULIN SLIDING SCAL... ACHS SQ 05/28/24 07:30 06/27/24 07:29 Ipratropium [place] (AtrovENT UD) 0.5 mg [id number] IH 05/28/24 00:00 06/27/24 00:00 06/02/24 07:25 0.5 MG Leptospermum Honey (Medihoney) APPLY DIRECTED DAILY TP 05/28/24 09:00 06/27/24 08:59 06/01/24 10:10 1 APPL Meropenem (Merrem 500mg) 500 mg Q12H IV 05/30/24 12:30 06/01/24 04:53 DC 06/01/24 01:07 500 MG Methylprednisolone Sodium Succinate (Solu-medROL 40MG) 20 mg BID IVP 05/27/24 21:00 05/27/24 19:34 DC Montelukast Sodium (SinguLAIR) 10 mg DAILY PO 05/30/24 09:00 06/29/24 08:59 06/01/24 10:01 10 MG Oseltamivir Phosphate (Tamiflu) 30 mg QODAY PO 05/31/24 20:00 05/29/24 12:55 DC Oseltamivir Phosphate (Tamiflu) 75 mg MWFPHD PO 05/31/24 16:00 06/05/24 15:59 05/31/24 17:47 75 MG Oseltamivir Phosphate (Tamiflu) 75 mg Q24H PO 05/28/24 21:00 05/29/24 12:47 DC 05/28/24 20:52 75 MG Oseltamivir Phosphate (Tamiflu) 75 mg QODAY@2100 PO 05/27/24 21:00 05/28/24 14:12 DC 05/27/24 21:41 75 MG Pharmacy Profile Note (Pharmacy Communication) 1 each AD MISC 05/28/24 06:00 05/28/24 11:37 DC Pharmacy Profile Note (Pharmacy Communication) 1 each ONCE MISC 05/27/24 19:30 05/28/24 11:37 DC Pharmacy Profile Note (Pharmacy Communication) 1 each ONCE MISC 05/28/24 15:30 05/28/24 15:14 DC Piperacillin Sod/ Tazobactam Sod (Zosyn 3.375gm+NS 50ml) 3.375 gm Q12H IV 06/01/24 05:00 06/11/24 04:59 06/02/24 04:29 3.375 GM Sodium Chloride 250 ml @ 0 mls/hr AD IV 05/26/24 15:30 06/25/24 15:29 Sodium Chloride 1,000 ml @ 0 mls/hr ONCE IV 05/26/24 15:30 06/25/24 15:29 05/31/24 11:03 1,000 MLS/HR Vancomycin HCl 250 ml @ 125 mls/hr ONCE IV 05/28/24 21:00 05/28/24 23:59 DC 05/28/24 20:53 125 MLS/HR Vancomycin HCl 250 ml @ 125 mls/hr [id number][DIALYSIS] IV 05/31/24 16:00 06/01/24 04:53 DC 05/31/24 17:53 125 MLS/HR Vancomycin HCl (Vancomycin Protocol) 1 each AD IV 05/27/24 16:00 06/02/24 00:08 DC DIAGNOSTICS / RADIOLOGY: [ ] ASSESSMENT: Acute sepsis due to UTI POA Acute hypoxic respiratory failure due to volume overload/missed dialysis POA Volume overload secondary to missed dialysis POA Metabolic acidosis POA Troponin elevation likely in setting of missed dialysis and type 2 CO (down trending) no chest POA Metabolic/infectious encephalopathy. Suspected pneumonia/URI POA Acute complicated cystitis POA Right ankle wound infection with Enterococcus faecalis and ESBL E coli from a naerobic and aerobic culture 05/27/2024 POA Positive Influenza A POA Acute asthma exacerbation History of right ankle abscess status post incision and drainage and hardware removal by Dr. Cabrera on 03/2025 Suspected cellulitis in the right ankle with mild purulent drainage History of MSSA infection Uncontrolled hypertension Uncontrolled diabetes mellitus type 2 with hypoglycemia Hyperlipidemia Obesity BMI 45.5 PLAN: Admitted to the medical floor Continue renal dialysis diet consultants: Clearance Center Manager's, rubber worker's, Infectious Disease, cardiovascular Continue Tamiflu Continue IV Zosyn Dr. De Souza for antimicrobial stewardship. Wound cultures positive for Enterococcus faecalis and ESBL E coli Blood culture negative Continue wound care Continue supplemental O2 to keep O2 saturations above 92%, currently satting 99% Please titrate down supplemental O2 to keep O2 sats >92%. DC if not needed. Continues bronchodilators Test: ECHO LVEF: 60-65% with moderate mitral value stenosis Continue dialysis 3x week we will follow rubber worker's fluid restriction strict I&Os and daily weights Fluid restriction 1.5 L/daily Aspiration precautions head of the bed at [address] Madrigal planning brachiocephalic AV fistula Vein mapping complete Continue to work with physical therapy Monitor a.m. labs PRN Treatment - Add when necessary meds for nausea, vomiting, pain, constipation, insomnia. DVT/GI prophylaxis- Continue heparin at current doses. Full CODE STATUS Disposition: Home once cleared for discharge This document was generated in part using voice recognition software, occasional wrong word or sound alike substitutions may have occurred due to the inherent limitations of voice recognition software. Read the chart carefully and re cognize using context, where the substitutions have occurred. Although every effort was made to edit the content, toll bridge operator and typing errors may occur I have seen and evaluated the patient alongside the nurse practitioner/physician equity sales assistant. I agree with the assessment and plan as above. ZAYDA PINA APRN Jun 02, 2024 08:15 FRANCO WESTON IV, MD Jun 02, 2024 13:22
--- NOTE | 2024-06-02 10:32 | PN ---
[facility] PROGRESS NOTE Date Patient Seen: Jun 02, 2024 Time of Visit: 10:29 Supervising Physician: Dr Rodriguez Primary Care Physician: Attending team: Mark Hospitalist Team Outpatient Specialists: Inpatient Consults: BIS, pulmonology group Cardiovascular, infectious Disease, Nephrology, Wound Care PROBLEM LIST: Metabolic/infectious encephalopathy, not POA, resolved Acute hypoxic respiratory failure POA , requiring continuous bipap, resolved Acute asthma exacerbation, POA, decompensated - resolved Influenza A virus infection, POA, treated Volume overload secondary to missed dialysis, POA, treated Metabolic acidosis , improved Troponin elevation likely in setting of missed dialysis and type 2 MN (down trending) Suspected pneumonia/URI POA History of right ankle abscess status post incision and drainage and hardware r emoval by Dr. Cabrera on 03/2025 Suspected cellulitis in the right ankle with mild purulent drainage, r/o clinically and per Xray imaging History of MSSA infection Hypertension History of hyperlipidemia History of diabetes mellitus type two Morbid obesity BMI 45.5 Plan Summary: Supplemental oxygen as needed Wean off as tolerates Bipap as needed Outpt Sleep study for GISELA eval and treatment HD as per nephrology 1.5 L Fluid restriction Follow [facility] recommendations Pending AV graft formation Continue abts as per ID INTERVAL HISTORY: [Patient is evaluated at bedside. She is more altered today. Is lethargic upon evaluation at bedside, difficult to arouse. She continues on BiPAP with most recent ABG within normal limits with a pH of 7.35, pCO2 45, PO2 109 and bicarb 24. She continues on treatment for flu. Tamiflu dosing adjusted renally. He continues on nebulizer. He is currently receiving a dialysis treatment at bedside, we will follow-up with repeat ABG and monitor mental status.] 05/29 patient is evaluated at bedside. She remains lethargic on continuous BiPAP. Per bedside nurse has remained difficult to arouse overnight. Has not worsened, and does appear to be slightly more arousable than previous. She responds to verbal commands, unable to follow commands but does open her eyes and turns to face me. Does have an occasional twitch noted to LUE. Tamiflu dosing is inappropriate for dialysis patient. Pharmacy states no 30mg available for dialysis patient, advised to not use 75mg dose. Patient continues on cefepime and vancomycin. Labs appear grossly unremarkable with a WBC of 4. Pupils are equal, round, and reactive to light. Update: Nurse texted me later to inform me that patient had woken up, had been taken BiPAP and was comfortably watching TV. 05/30 patient is evaluated at bedside. She is more awake today, per nurse was off BiPAP at night and is tolerating nasal cannula. Her ABG this morning was within normal limits. Patient continues with productive cough. She is not currently on Tamiflu as dose adjustment was unavailable for patient. Continue with n ebulizer and supplemental oxygen. cbc is unremarkable. Patient continues with dialysis as scheduled. 05/31 patient is evaluated at bedside. She was drowsy but easily arousable. Continues with grogginess but is more awake. She was alert and oriented x3. Able to hold a meaningful conversation but does exhibit excessive drowsiness. Her wound cultures are positive for Enterococcus faecalis and ESBL E coli. Continues on meropenem and vancomycin. 06/01 - patient is seen and evaluated at the bedside. Patient is sitting up in bed does not appear to be in any acute distress at this time. Patient is awake alert and oriented x3. patient denies chest discomfort, chest pain, or shortness on breath. No acute changes reported overnight. Patient continues on IV antibiotics for polymicrobial infection. Patient continues on hemodialysis as scheduled MWF. Patient had vein mapping performed yesterday and pending AV fistula creation. Vital signs are stable. Labs are within normal limits. 06/02 - patient is seen lying in bed resting quietly with no signs of acute distress. Patient has been weaned off O2 and currently remains on room air with no complaints of dyspnea. Patient is currently about to start hemodialysis treatment. No acute changes reported overnight. Patient's vital signs are stable. Labs are within normal limits. Patient is currently pending AV fistula creation by Cardiovascular surgery. REVIEW OF SYSTEMS: 12 point ROS reviewed with patient. Pertinent positives mentioned above. Otherwise negative. PHYSICAL EXAM: GENERAL: Alert, weak, awake oriented x 3 HEENT: EOMI, Sclera non icteric, moist mucosa NECK: Supple, no JVD, trachea midline LUNGS: Rhonchi breath sounds to upper extremities, diminished on lower ex tremities bilaterally. No wheezes HEART: Regular rate and rhythm. Normal S1 and S2, without murmurs ABD: Abdomen soft, nontender. Bowel sounds present EXT: No clubbing cyanosis or edema NEURO: Awake, alert, oriented, follows commands, no neuro deficits noted. Vital Signs (last 8hr) Date Time Temp Pulse Resp B/P (MAP) Pulse Ox O2 Delivery O2 Flow Rate FiO2 06/02/24 09:00 97.9 66 16 131/61 Room Air 06/02/24 08:00 98.1 67 20 143/62 99 Room Air 06/02/24 07:45 69 19 N/A Room Air 21 06/02/24 07:28 66 19 N/Cannula Low lpm 2.0 28 06/02/24 07:26 66 18 06/02/24 04:56 95 Room Air* 0 21 06/02/24 04:00 97.9 66 19 151/72 97 Nasal Cannula 2.5 LABS: Hematology Labs: Test 06/02/24 05:05 Range/Units White Blood Count 5.1 4.8-10.8 K/uL Red Blood Count 3.64 L 4.00-5.50 MIL/uL Hemoglobin 10.3 L 12.0-16.0 g/dL Hematocrit 32.1 L 36-48 % Mean Corpuscular Volume 88.2 79-99 fL Mean Corpuscular Hemoglobin 28.3 27.0-33.0 pg Mean Corpuscular Hemoglobin Concent 32.1 32.0-36.0 g/dL Red Cell Distribution Width 13.2 11.0-15.5 % Platelet Count 231 130-400 K/uL Mean Platelet Volume 10.7 H 7.5-10.5 fL Immature Granulocyte % (Auto) 1.2 H 0-1 % Neutrophils (%) (Auto) 61.2 40.0-77.0 % Lymphocytes (%) (Auto) 22.2 21.0-51.0 % Monocytes (%) (Auto) 10.5 3.0-13.0 % Eosinophils (%) (Auto) 4.5 0.0-8.0 % Basophils (%) (Auto) 0.4 0.0-5.0 % Neutrophils # (Auto) 3.1 1.8-7.7 K/uL Lymphocytes # (Auto) 1.1 1.0-4.8 K/uL Monocytes # (Auto) 0.5 0.1-1.0 K/uL Eosinophils # (Auto) 0.23 0.00-0.70 K/uL Basophils # (Auto) 0.02 0.00-0.20 K/uL Absolute Immature Granulocyte (auto 0.06 0-1 K/uL Nucleated Red Blood Cells 0.0 0.0-0.19 % Chemistry Labs: Test 06/02/24 05:24 06/02/24 05:05 06/01/24 04:29 Range/Units Whole Blood Glucose 136 H 70-110 MG/DL Sodium Level 136 136-145 mmol/L Potassium Level 4.3 3.5-5.1 mmol/L Chloride Level 96 L 101-111 mmol/L Carbon Dioxide Level 27 21-32 mmol/L Blood Urea Nitrogen 46 H 7-18 mg/dL Creatinine 9.0 *H 0.5-1.0 mg/dL Glomerular Filtration Rate Calc 5 >90 mL/min Random Glucose 148 H 70-105 mg/dL Total Calcium 8.2 L 8.5-10.1 mg/dL Magnesium Level 2.00 1.80-2.40 mg/dL Total Bilirubin 0.7 0.2-1.0 mg/dL Aspartate Amino Transf (AST/SGOT) 17 10-37 U/L Alanine Aminotransferase (ALT/SGPT) 9 L 12-78 U/L Alkaline Phosphatase 242 H 50-136 U/L Total Protein 7.1 6.0-8.3 g/dL Albumin 2.5 L 3.5-5.0 g/dL DIAGNOSTICS / RADIOLOGY RESULTS: [ ] Pulmonary plan: Monitor respiratory and ABG Monitor s/s of infection Pending CTS for AV graft formation Continue oxygen therapy as needed. Titrate oxygen as needed to keep SpO2 equal to greater than 92%. Continue Albuterol nebulizer in Pulmicort nebulizer treatments scheduled. Add Atrovent nebulizer scheduled. RT to provide IS and education on use. Time spent on patient care exceeds 35 minutes, not including time spent on any procedures. ATTESTATION BY PHYSICIAN I attest that I reviewed and discussed the case with the Physician Vb Net Programmer as well as agree with the Physician Vb Net Programmer's findings, plans of care, and documentation above. Dread Hill MD, ECTOR N NP Jun 02, 2024 10:32
--- NOTE | 2024-06-02 13:13 | PN ---
INFECTIOUS DISEASE PROGRESS NOTE Date of Service: Jun 02, 2024 SUBJECTIVE: This is a 58-year-old female patient who was admitted to the hospital for shortness of breaths, fever, cough and reported missing hemodialysis due to not feeling well. On admission patient was positive for influenza type A. Patient was seen and examined at bedside in room 315. Patient is awake alert and oriented x3. Patient was dialyzed today and 3 L were removed. No fever reported, temperature 97.5 and a WBC of 5.1. Patient is saturating 95 to 97% on room air. Patient is pending a physical therapy evaluation. Patient has been vein mapped and is pending an AV graft placement. Presently on Zosyn. Patient is also on Tamiflu for Influenza viral infection type A. Will continue to monitor patient's care. PHYSICAL EXAM EYES: Anicteric. Pupils equal and reactive. HENT: No oral thrush seen, moist Oral mucosa. NECK: Supple, no JVD or thyromegaly. RESPIRATORY: Good air entry. Oxygen support via nasal cannula. CARDIOVASCULAR: S1, S2 regular. No murmur heard. ABDOMEN: Soft, non tender, bowel sounds present, no organomegaly. CENTRAL NERVOUS SYSTEM: Awake, alert, oriented x 3. SKIN: No rashes, no swelling. LYMPHATICS: No peripheral lymphadenopathy. MUSCULOSKELETAL: No joint swelling, erythema or tenderness. EXTREMITIES: No cyanosis or clubbing. Right ankle wound infection. BACK: No deformity, no pressure ulcer. GENITOURINARY: No dysuria or hematuria. Vital Sign (Last 12 Hours) 06/02/24 06/02/24 06/02/24 06/02/24 04:00 04:56 07:26 07:28 Temp 97.9 Pulse 66 66 66 Resp 19 18 19 B/P (MAP) 151/72 Pulse Ox 97 95 O2 Delivery Nasal Cannula Room Air* N/Cannula Low lpm O2 Flow Rate 2.5 0 2.0 FiO2 21 28 06/02/24 06/02/24 06/02/24 06/02/24 07:45 08:00 08:00 09:00 Temp 98.1 97.9 Pulse 69 67 66 Resp 19 20 16 B/P (MAP) 143/62 131/61 Pulse Ox 99 99 O2 Delivery N/A Room Air Room Air Room Air* Room Air O2 Flow Rate 0 FiO2 21 21 2/1206/02/24 06/02/24 06/02/24 09:25 09:45 10:00 10:15 Temp 97.9 Pulse 66 59 65 61 Resp 16 16 16 16 B/P (MAP) 142/78 153/85 122/79 167/65 O2 Delivery Room Air Room Air Room Air Room Air 06/02/24 06/02/24 06/02/24 06/02/24 10:30 10:45 11:00 11:15 Pulse 62 62 63 64 Resp 16 16 16 16 B/P (MAP) 136/81 132/69 115/50 116/42 O2 Delivery Room Air Room Air Room Air Room Air 06/02/24 06/02/24 06/02/24 06/02/24 11:30 11:33 11:45 12:00 Pulse 65 65 61 69 Resp 16 18 16 16 B/P (MAP) 126/40 154/83 131/89 O2 Delivery Room Air Room Air Room Air 06/02/24 06/02/24 06/02/24 12:00 12:15 12:35 Temp 97.3 97.5 Pulse 61 66 67 Resp 18 16 16 B/P (MAP) 154/83 126/61 126/45 Pulse Ox 99 O2 Delivery Room Air Room Air Room Air Intake & Output (last 24hrs) 06/01/24 06/01/24 06/02/24 15:00 23:00 07:00 Output Total 0 ml Balance 0 ml LABS: Laboratory: Test 06/02/24 11:57 06/02/24 05:05 06/01/24 04:29 Range/Units Whole Blood Glucose 135 H 70-110 MG/DL White Blood Count 5.1 4.8-10.8 K/uL Red Blood Count 3.64 L 4.00-5.50 MIL/uL Hemoglobin 10.3 L 12.0-16.0 g/dL Hematocrit 32.1 L 36-48 % Mean Corpuscular Volume 88.2 79-99 fL Mean Corpuscular Hemoglobin 28.3 27.0-33.0 pg Mean Corpuscular Hemoglobin Concent 32.1 32.0-36.0 g/dL Red Cell Distribution Width 13.2 11.0-15.5 % Platelet Count 231 130-400 K/uL Mean Platelet Volume 10.7 H 7.5-10.5 fL Immature Granulocyte % (Auto) 1.2 H 0-1 % Neutrophils (%) (Auto) 61.2 40.0-77.0 % Lymphocytes (%) (Auto) 22.2 21.0-51.0 % Monocytes (%) (Auto) 10.5 3.0-13.0 % Eosinophils (%) (Auto) 4.5 0.0-8.0 % Basophils (%) (Auto) 0.4 0.0-5.0 % Neutrophils # (Auto) 3.1 1.8-7.7 K/uL Lymphocytes # (Auto) 1.1 1.0-4.8 K/uL Monocytes # (Auto) 0.5 0.1-1.0 K/uL Eosinophils # (Auto) 0.23 0.00-0.70 K/uL Basophils # (Auto) 0.02 0.00-0.20 K/uL Absolute Immature Granulocyte (auto 0.06 0-1 K/uL Nucleated Red Blood Cells 0.0 0.0-0.19 % Sodium Level 136 136-145 mmol/L Potassium Level 4.3 3.5-5.1 mmol/L Chloride Level 96 L 101-111 mmol/L Carbon Dioxide Level 27 21-32 mmol/L Blood Urea Nitrogen 46 H 7-18 mg/dL Creatinine 9.0 *H 0.5-1.0 mg/dL Glomerular Filtration Rate Calc 5 >90 mL/min Random Glucose 148 H 70-105 mg/dL Total Calcium 8.2 L 8.5-10.1 mg/dL Magnesium Level 2.00 1.80-2.40 mg/dL Total Bilirubin 0.7 0.2-1.0 mg/dL Aspartate Amino Transf (AST/SGOT) 17 10-37 U/L Alanine Aminotransferase (ALT/SGPT) 9 L 12-78 U/L Alkaline Phosphatase 242 H 50-136 U/L Total Protein 7.1 6.0-8.3 g/dL Albumin 2.5 L 3.5-5.0 g/dL ASSESSMENT: Acute on chronic respiratory failure requiring oxygen support. Sepsis. Influenza Viral infection type A. Right ankle wound infection with ESBL, E coli. History of right ankle osteomyelitis, status post hardware removal. End-stage renal disease, on dialysis. Morbid obesity. Debility. PLAN: Vancomycin and Meropenem have been discontinued. Continue Zosyn as currently ordered Continue Tamiflu. Continue dialysis as recommended by account receivable clerk. Patient has been vein mapped and pending a AV graft placement. Continue wound care to the right ankle. Continue pain management. Continue oxygen support. Continue DVT prophylaxis. Pending Physical therapy evaluation. This case was reviewed and discussed with my supervising physician and the above assessment and plan was formulated and agreed upon. ATTESTATION BY PHYSICIAN I have seen and examined the patient. I reviewed the documentation, medical decision making, and treatment plan as noted by the mid-level provider above. I agree with the findings and plan of care. DIDIER CONTRERAS MD, [employer] TEAM MEMBER Jun 02, 2024 13:13
--- NOTE | 2024-06-02 19:45 | NUR ---
MEDS SHIFT ASSESSMENT DONE, PLEASE REFER TO CHART. DUE MEDS ADMINISTERED, TOLERATED. KEPT RESTED AND COMFORTABLE IN BED. CALL LIGHT WITHIN REACH. KEPT BED ALARM ACTIVATED.
--- NOTE | 2024-06-02 22:42 | PN ---
NEPHROLOGY NOTE SUBJECTIVE: The patient has been evaluated and seen for dialysis and seen several times. The patient is generally weak and no other associated symptoms. The patient has metabolic encephalopathy. Multiple other comorbidities are present. No other associated finding. No other aggravating or relieving factors. Other systemic review is unchanged. PHYSICAL EXAMINATION: GENERAL: Pale, no other distress, obese, lying in bed. VITAL SIGNS: Blood pressure is 118/61, pulse 73, respiratory rate 20, afebrile. HEENT: Head is atraumatic. Pupils are round and reactive. Sclerae are anicteric. Conjunctivae are not pale. Oral mucosa is not dry. NECK: Supple. No masses or bruits. Thyroid is palpable. Neck has no bruits. CHEST: Shows equal thoracic percussion note being resonant in all areas. LABORATORY DATA: Labs have been reviewed and old records reviewed. PROBLEMS: Renal failure, anemia, mental status changes, end-stage renal disease, obesity, sleep apnea. PLAN: Plan is to continue dialysis support. Continue monitoring of renal function. Continued monitoring of electrolytes. Intake, output, weight will be monitored. The patient was evaluated and seen for dialysis and seen multiple times. Overall, condition remained critical and guarded. TID: [id number] RECEIPT: [id number]
--- NOTE | 2024-06-02 22:44 | PN ---
NEPHROLOGY NOTE SUBJECTIVE: The patient has been evaluated and seen for dialysis, seen several times. The patient's condition is critical, guarded. She is still having intermittent encephalopathy. The patient has end-stage renal disease, underlying hypertension, obesity and sleep apnea. The patient has anemia, on Epogen as needed. PROBLEMS: Renal failure, obesity, multiple other comorbidities. PLAN: To continue dialysis support. Continue monitoring of renal function. Continue monitoring of electrolytes. Intake, output, weight will be monitored. The patient was evaluated and seen for dialysis and seen several times. We will be monitoring. We have discussed with other team members in detail. TID: [id number] RECEIPT: [id number]
[2024-06-03] VITALS (12 sets, daily range): BP systolic 94–125; BP diastolic 30–61; PULSE 67–75; RESP 18–20; TEMP 97.5–98.3; O2SAT 99–100
--- NOTE | 2024-06-03 00:44 | PN ---
This is a 58-year-old lady who presents new to hemodialysis, referred for creation of a permanent dialysis access port. The patient has been ____ arm. Left arm has been marked and the patient is to be scheduled for surgery. TID: [id number] RECEIPT: [id number]
[2024-06-03 05:05] LABS: BASOPHILS # (AUTO) 0.02 K/uL (0.00-0.20); BASOPHILS % (AUTO) 0.4 % (0.0-5.0); EOSINOPHILS # (AUTO) 0.18 K/uL (0.00-0.70); EOSINOPHILS % (AUTO) 3.5 % (0.0-8.0); IMMATURE GRANULOCYTE ABSOLUTE 0.04 K/uL (0-1); LYMPHOCYTES # (AUTO) 1.2 K/uL (1.0-4.8); LYMPHOCYTES % (AUTO) 23.7 % (21.0-51.0); MEAN CORPUSCULAR HEMOGLOBIN 28.5 pg (27.0-33.0); MEAN CORPUSCULAR HGB CONC 32.9 g/dL (32.0-36.0); MEAN CORPUSCULAR VOLUME 86.8 fL (79-99); MONOCYTES # (AUTO) 0.5 K/uL (0.1-1.0); MONOCYTES % (AUTO) 9.8 % (3.0-13.0); NEUTROPHILS # (AUTO) 3.2 K/uL (1.8-7.7); NEUTROPHILS % (AUTO) 61.8 % (40.0-77.0); PLATELET COUNT (AUTO) 225 K/uL (130-400); RED BLOOD CELL COUNT(AUTO) 4.03 MIL/uL (4.00-5.50); RED CELL DISTRIBUTION WIDTH 13.2 % (11.0-15.5); WHITE BLOOD COUNT (AUTO) 5.2 K/uL (4.8-10.8)
[2024-06-03 05:16] LABS: POTASSIUM 4.4 mmol/L (3.5-5.1)
--- NOTE | 2024-06-03 05:50 | NUR ---
ROUNDS PT SLEPT AT INTERVALS DURING THE SHIFT. NO DISTRESS NOTED. KEPT RESTED AND COMFORTABLE IN BED. CALL LIGHT WITHIN REACH. FOR MORE CARE.
--- NOTE | 2024-06-03 08:33 | PN ---
[facility] PROGRESS NOTE Date of Service: Jun 03, 2024 Time of Service: 08:29 SUBJECTIVE: [ ] This is a 50-year-old with a significant medical history of end-stage renal disease on dialysis on Friday hypertension hyperlipidemia and asthma presented in ED with chief complaints of shortness a breath apparently patient missed her dialysis. ER workup was consistent with asthma exacerbation possible pneumonia respiratory failure apparently Today on bedside evaluation patient was found awake alert and oriented x 3. The power chart reviewed, vital signs, laboratory tests, imaging test and medications have been reviewed. Latest vitals and labs are stable. Continue renal dialysis diet. Continue dialysis. Cardiovascular surgeon Dr. Madrigal planning permanent dialysis access support/AV fistula. Continue IV Merrem at ID direction. Dr. De Souza recommends patient continue IV Merrem times 10 days. Case management consulted for SNF placement. REVIEW OF SYSTEMS CONSTITUTIONAL: Denies or night sweats. No unintentional weight loss reported. Positive for fever, chills NEUROLOGICAL: Denies headache, amaurosis fugax, motor weakness, sensory deficit, vertigo/spinning sensation, gait abnormalities, or tremors. ENT: No hearing loss, otalgia, otorrhea, rhinitis, rhinorrhea, hoarseness, or sore throat. CARDIOVASCULAR: Denies any exertional angina, dyspnea on exertion, orthopnea, paroxysmal nocturnal dyspnea, palpitations, life-threatening arrhythmias, claudication. PULMONARY: Positive for cough, sputum production. Denied any hemoptysis GASTROINTESTINAL: Denies any type of dysphagia to either liquids or solids. Denies nausea, vomiting, pyrosis, early satiety, abdominal pain, constipation, or changes in stool consistency or caliber. Denies coffee-ground emesis, hematemesis, hematochezia, or melanotic stools. Positive for diarrhea GENITOURINARY: Denies frequency, urgency, nocturia, hematuria or incontinence (Storage/Irritative symptoms.) Low urinary stream, straining to void, urinary intermittency or hesitancy, splitting of the voiding stream, terminal dribbling. ENDOCRINOLOGIC: Denies polyuria, polydipsia, polyphagia or heat/cold intolerances. HEMATOLOGIC: Denies thrombophilia/previous clots, or coagulopathy/bleeding disorders. ONCOLOGIC: Denies personal history of malignancy. DERMATOLOGIC: Denies rashes or pruritus. PSYCHIATRIC: Denies any suicidal or homicidal ideation. Denies hallucinations. PHYSICAL EXAM GENERAL APPEARANCE: The patient is awake, alert, and oriented, in no acute cardiopulmonary distress. NEUROLOGICAL: Cranial nerves II-XII grossly intact. Motor is 5/5 in bilateral upper and lower extremities proximal to distal. No sensory deficits. HEENT: Face is symmetric. Pupils are equal and reactive. Extraocular movements are intact. NECK: Supple. No JVD. No thyromegaly. No submental, submandibular, pre- /postauricular, occipital or supraclavicular lymphadenopathy. CHEST: Normal chest expansion. No Telemetry. LUNGS: She has wheezing present bilaterally with rhonchi. CARDIOVASCULAR: Regular. S1 and S2 normal. No appreciable rubs, murmurs or gallops. ABDOMEN: Soft, nontender, and nondistended. There is no rebound, voluntary guarding, or rigidity. : Deferred. No Ardon. EXTREMITIES: She has a wound noted in the right ankle. She has a wound in the lateral and medial aspect of the leg. There is some purulent discharge noted. SKIN: No skin breakdown. Vital Signs (last 8hr) Date Time Temp Pulse Resp B/P (MAP) Pulse Ox O2 Delivery O2 Flow Rate FiO2 06/03/24 07:15 67 19 06/03/24 07:15 67 18 N/A Room Air 21 06/03/24 04:00 98.2 70 20 122/51 100 Room Air LABS: Laboratory: Test 06/03/24 05:21 06/03/24 04:55 Range/Units Whole Blood Glucose 165 H 70-110 MG/DL White Blood Count 5.2 4.8-10.8 K/uL Red Blood Count 4.03 4.00-5.50 MIL/uL Hemoglobin 11.5 L 12.0-16.0 g/dL Hematocrit 35.0 L 36-48 % Mean Corpuscular Volume 86.8 79-99 fL Mean Corpuscular Hemoglobin 28.5 27.0-33.0 pg Mean Corpuscular Hemoglobin Concent 32.9 32.0-36.0 g/dL Red Cell Distribution Width 13.2 11.0-15.5 % Platelet Count 225 130-400 K/uL Mean Platelet Volume 10.6 H 7.5-10.5 fL Immature Granulocyte % (Auto) 0.8 0-1 % Neutrophils (%) (Auto) 61.8 40.0-77.0 % Lymphocytes (%) (Auto) 23.7 21.0-51.0 % Monocytes (%) (Auto) 9.8 3.0-13.0 % Eosinophils (%) (Auto) 3.5 0.0-8.0 % Basophils (%) (Auto) 0.4 0.0-5.0 % Neutrophils # (Auto) 3.2 1.8-7.7 K/uL Lymphocytes # (Auto) 1.2 1.0-4.8 K/uL Monocytes # (Auto) 0.5 0.1-1.0 K/uL Eosinophils # (Auto) 0.18 0.00-0.70 K/uL Basophils # (Auto) 0.02 0.00-0.20 K/uL Absolute Immature Granulocyte (auto 0.04 0-1 K/uL Nucleated Red Blood Cells 0.0 0.0-0.19 % Sodium Level 133 L 136-145 mmol/L Potassium Level 4.4 3.5-5.1 mmol/L Chloride Level 94 L 101-111 mmol/L Carbon Dioxide Level 26 21-32 mmol/L Blood Urea Nitrogen 34 H 7-18 mg/dL Creatinine 7.0 H 0.5-1.0 mg/dL Glomerular Filtration Rate Calc 6 >90 mL/min Random Glucose 175 H 70-105 mg/dL Total Calcium 8.9 8.5-10.1 mg/dL Current Medications Medications (Trade) Dose Ordered Sig/Susannah Route PRN Reason Start Time Stop Time Status Last Admin Dose Admin Acetaminophen (TYLenol 500MG TAB) 500 mg Q6H PRN PO MILD PAIN (1-3) 05/27/24 15:00 06/26/24 14:59 06/02/24 20:18 500 MG Albuterol Sulfate (Proventil 0.083% 2.5mg/3ml) 2.5MG [id number] IH 05/27/24 15:00 06/26/24 14:59 06/03/24 07:12 2.5 MG Albuterol Sulfate (Proventil 0.083% 2.5mg/3ml) 10 mg ONCE IH 05/26/24 08:00 05/26/24 15:17 DC 05/26/24 08:11 10 MG Budesonide (Pulmicort 0.5 Mg/2ml) 0.5 mg BIDRESP IH 05/27/24 18:00 06/26/24 17:59 06/03/24 07:12 0.5 MG Carvedilol (Coreg 12.5MG) 12.5 mg BID PO 05/27/24 21:00 06/26/24 20:59 06/02/24 19:43 12.5 MG Cefepime HCl (MAXipime 1 GM vial) 1 gm Q12H IVPB 05/27/24 15:00 05/27/24 18:22 DC Cefepime HCl (MAXipime 1 GM vial) 1 gm Q12H9 IVPB 05/27/24 21:00 05/28/24 11:36 DC 05/28/24 07:46 1 GM Cefepime HCl (MAXipime 1 GM vial) 1 gm Q24H IVPB 05/29/24 09:00 05/29/24 12:58 DC 05/29/24 09:50 1 GM Ceftriaxone Sodium (ROCEphine 1G INJ) 1 gm Q24H IVPB 05/27/24 10:30 05/27/24 14:24 DC Ceftriaxone Sodium (ROCEphine 1G INJ) 1 gm Q24H IVPB 05/27/24 17:00 05/27/24 14:58 DC Doxycycline Hyclate (Doxycycline Hyclate) 100 mg BID PO 05/27/24 21:00 05/27/24 15:46 DC Guaifenesin (RobiTUSSin SUGAR-FREE 100 MG/ 5 ML UDCUP) 400 mg Q4H PRN PO COUGH 05/28/24 06:30 06/27/24 06:29 05/29/24 22:44 400 MG Heparin Sodium (Porcine) (HEParin 5,000 UNIT VIAL) 5,000 unit Q12H SQ 06/01/24 09:00 07/01/24 08:59 06/02/24 19:44 5,000 UNIT Heparin Sodium (Porcine) (HEParin 5,000 UNIT VIAL) 10,000 unit AD IRRIG 05/26/24 15:30 06/25/24 15:29 06/02/24 12:28 10,000 UNIT Hydralazine HCl (APRESOLine 20MG INJ) 10 mg Q6H PRN IV ADMINISTER FOR SBP > 180 05/27/24 15:00 06/26/24 14:59 Insulin Human Regular (humuLIN R 100 UNIT/ML 3ML) INSULIN SLIDING SCAL... ACHS SQ 05/28/24 07:30 06/27/24 07:29 Ipratropium [place] (AtrovENT UD) 0.5 mg [id number] IH 05/28/24 00:00 06/27/24 00:00 06/03/24 07:12 0.5 MG Leptospermum Honey (Medihoney) APPLY DIRECTED DAILY TP 05/28/24 09:00 06/27/24 08:59 06/02/24 09:16 1 APPL Meropenem (Merrem 500mg) 500 mg Q12H IV 05/30/24 12:30 06/01/24 04:53 DC 06/01/24 01:07 500 MG Methylprednisolone Sodium Succinate (Solu-medROL 40MG) 20 mg BID IVP 05/27/24 21:00 05/27/24 19:34 DC Montelukast Sodium (SinguLAIR) 10 mg DAILY PO 05/30/24 09:00 06/29/24 08:59 06/01/24 10:01 10 MG Oseltamivir Phosphate (Tamiflu) 30 mg QODAY PO 05/31/24 20:00 05/29/24 12:55 DC Oseltamivir Phosphate (Tamiflu) 75 mg MWFPHD PO 05/31/24 16:00 06/05/24 15:59 06/02/24 17:36 75 MG Oseltamivir Phosphate (Tamiflu) 75 mg Q24H PO 05/28/24 21:00 05/29/24 12:47 DC 05/28/24 20:52 75 MG Oseltamivir Phosphate (Tamiflu) 75 mg QODAY@2100 PO 05/27/24 21:00 05/28/24 14:12 DC 05/27/24 21:41 75 MG Pharmacy Profile Note (Pharmacy Communication) 1 each AD MISC 05/28/24 06:00 05/28/24 11:37 DC Pharmacy Profile Note (Pharmacy Communication) 1 each ONCE MISC 05/27/24 19:30 05/28/24 11:37 DC Pharmacy Profile Note (Pharmacy Communication) 1 each ONCE MISC 05/28/24 15:30 05/28/24 15:14 DC Piperacillin Sod/ Tazobactam Sod (Zosyn 3.375gm+NS 50ml) 3.375 gm Q12H IV 06/01/24 05:00 06/11/24 04:59 06/03/24 04:10 3.375 GM Sodium Chloride 250 ml @ 0 mls/hr AD IV 05/26/24 15:30 06/25/24 15:29 Sodium Chloride 1,000 ml @ 0 mls/hr ONCE IV 05/26/24 15:30 06/25/24 15:29 06/02/24 10:31 100 MLS/HR Vancomycin HCl 250 ml @ 125 mls/hr ONCE IV 05/28/24 21:00 05/28/24 23:59 DC 05/28/24 20:53 125 MLS/HR Vancomycin HCl 250 ml @ 125 mls/hr [id number][DIALYSIS] IV 05/31/24 16:00 06/01/24 04:53 DC 05/31/24 17:53 125 MLS/HR Vancomycin HCl (Vancomycin Protocol) 1 each AD IV 05/27/24 16:00 06/02/24 00:08 DC DIAGNOSTICS / RADIOLOGY: [ ] ASSESSMENT: Acute sepsis due to UTI POA Acute hypoxic respiratory failure due to volume overload/missed dialysis POA Volume overload secondary to missed dialysis POA Metabolic acidosis POA Troponin elevation likely in setting of missed dialysis and type 2 [place] (down trending) no chest POA Metabolic/infectious encephalopathy. Suspected pneumonia/URI POA Acute complicated cystitis POA Right ankle wound infection with Enterococcus faecalis and ESBL E coli from anaerobic and aerobic culture 05/27/2024 POA Positive Influenza A POA Acute asthma exacerbation History of right ankle abscess status post incision and drainage and hardware removal by Dr. Cabrera on 03/2025 Suspected cellulitis in the right ankle with mild purulent drainage History of MSSA infection Uncontrolled hypertension Uncontrolled diabetes mellitus type 2 with hypoglycemia Hyperlipidemia Obesity BMI 45.5 PLAN: Admitted to the medical floor Continue renal dialysis diet consultants: [employer], physician ophthalmologist's, Infectious Disease, cardiovascular Continue Tamiflu Continue IV Zosyn Dr. De Souza for antimicrobial stewardship. Recommending IV Merrem times 10 days Wound cultures positive for Enterococcus faecalis and ESBL E coli Blood culture negative Continue wound care Continue supplemental O2 to keep O2 saturations above 92%, currently satting 99% Please titrate down supplemental O2 to keep O2 sats >92%. DC if not needed. Continues bronchodilators Test: ECHO LVEF: 60-65% with moderate mitral value stenosis Continue dialysis 3x week we will follow physician ophthalmologist's fluid restriction strict I&Os and daily weights Fluid restriction 1.5 L/daily Aspiration precautions head of the bed at [address] Madrigal planning brachiocephalic AV fistula Vein mapping complete Continue to work with physical therapy Monitor a.m. labs PRN Treatment - Add when necessary meds for nausea, vomiting, pain, constipation, insomnia. DVT/GI prophylaxis- Continue heparin at current doses. Full CODE STATUS Disposition: Case management consulted for nursing home facility placement for continued antibiotic therapy, wound care and physical therapy This document was generated in part using voice recognition software, occasional wrong word or sound alike substitutions may have occurred due to the inherent limitations of voice recognition software. Read the chart carefully and recognize using context, where the substitutions have occurred. Although every effort was made to edit the content, architectural practice manager and typing errors may occur ZAYDA PINA APRN Jun 03, 2024 08:33
--- NOTE | 2024-06-03 12:57 | PN ---
NEPHROLOGY PROGRESS NOTE Date/Time Patient Seen: Jun 03, 2024 Reason for Consultation: 12:57 SUBJECTIVE: This is a 58-year-old female with a past medical history of hypertension, diabetes mellitus type 2, end-stage renal disease on hemodialysis Friday, anemia, coronary artery disease, arthritis, anxiety, asthma, morbid obesity. She presented to the emergency with complaints of shortness of breath and flu- like symptoms. She reports missing dialysis sessions due to symptoms. Positive for influenza A, continues on Tamiflu. CV planning permanent dialysis access, vein mapping has been done Continues on antibiotics as per ID Case management coordinating SNF placement. She tolerated dialysis without difficulty yesterday. She is more awake today, out of bed sitting in the chair She was seen in the medical floor No family at the bedside REVIEW OF SYSTEMS: Unable to obtain due to patient's status PHYSICAL EXAM: GENERAL: Alert and oriented x 3.. Well-nourished. EYES: EOMI. Anicteric. HENT: Moist mucous membranes. No scleral icterus. No cervical lymphadenopathy. LUNGS: Clear to auscultation bilaterally. No accessory muscle use. CARDIOVASCULAR: Regular rate and rhythm. No murmur. No JVD. ABDOMEN: Soft, non-tender and non-distended. No palpable masses. EXTREMITIES: No edema. Non-tender. SKIN: No rashes or lesions. Warm. NEUROLOGIC: No focal neurological deficits. CN II-XII grossly intact, but not individually tested. PSYCHIATRIC: Cooperative. Appropriate mood and affect. LABORATORY: [ ] Hematology Labs: Test 06/03/24 04:55 Range/Units White Blood Count 5.2 4.8-10.8 K/uL Red Blood Count 4.03 4.00-5.50 MIL/uL Hemoglobin 11.5 L 12.0-16.0 g/dL Hematocrit 35.0 L 36-48 % Mean Corpuscular Volume 86.8 79-99 fL Mean Corpuscular Hemoglobin 28.5 27.0-33.0 pg Mean Corpuscular Hemoglobin Concent 32.9 32.0-36.0 g/dL Red Cell Distribution Width 13.2 11.0-15.5 % Platelet Count 225 130-400 K/uL Mean Platelet Volume 10.6 H 7.5-10.5 fL Immature Granulocyte % (Auto) 0.8 0-1 % Neutrophils (%) (Auto) 61.8 40.0-77.0 % Lymphocytes (%) (Auto) 23.7 21.0-51.0 % Monocytes (%) (Auto) 9.8 3.0-13.0 % Eosinophils (%) (Auto) 3.5 0.0-8.0 % Basophils (%) (Auto) 0.4 0.0-5.0 % Neutrophils # (Auto) 3.2 1.8-7.7 K/uL Lymphocytes # (Auto) 1.2 1.0-4.8 K/uL Monocytes # (Auto) 0.5 0.1-1.0 K/uL Eosinophils # (Auto) 0.18 0.00-0.70 K/uL Basophils # (Auto) 0.02 0.00-0.20 K/uL Absolute Immature Granulocyte (auto 0.04 0-1 K/uL Nucleated Red Blood Cells 0.0 0.0-0.19 % Chemistry Labs: Test 06/03/24 12:02 06/03/24 04:55 Range/Units Whole Blood Glucose 188 H 70-110 MG/DL Sodium Level 133 L 136-145 mmol/L Potassium Level 4.4 3.5-5.1 mmol/L Chloride Level 94 L 101-111 mmol/L Carbon Dioxide Level 26 21-32 mmol/L Blood Urea Nitrogen 34 H 7-18 mg/dL Creatinine 7.0 H 0.5-1.0 mg/dL Glomerular Filtration Rate Calc 6 >90 mL/min Random Glucose 175 H 70-105 mg/dL Total Calcium 8.9 8.5-10.1 mg/dL DIAGNOSTICS / RADIOLOGY: REASON: AV GRAFT ORDERING PHYSICIAN: LJ MEDINA MD PROCEDURE: VEIN M UNI - US VEIN MAPPING UNI/LTD US VEIN MAPPING UNI/LTD HISTORY: AV graft COMPARISON: None TECHNIQUE: Ultrasound upper extremity venous mapping study was performed for hemodialysis access. FINDINGS: Left cephalic vein High upper arm: 18 x 3 millimeter Mid upper arm: 16 x 2 millimeter Low upper arm: 14 x 3 millimeter High forearm: 4 x 3 millimeter Mid forearm: 3 x 2 millimeter Low forearm: 4 x 3 millimeter Left basilic vein Upper arm: 24 x 3 millimeter Lower arm: 22 x 4 millimeter Antecubital fossa: 19 x 2 millimeter IMPRESSION: 1. Ultrasound upper extremity venous mapping study as described above. DICTATED BY: TRICIA MAHER MD DATE: 05/31/241957 REASON: SHORT OF BREATH ORDERING PHYSICIAN: EVELINE ASHLEY PROCEDURE: CXR1VW - CHEST 1VW PORTABLE CHEST RADIOGRAPH INDICATION: SHORT OF BREATH COMPARISON: 05/28/2024 FINDINGS: cardiac monitor technician leads overlie the field of view. Stable right-sided hemodialysis catheter. Stable mild cardiac enlargement. The pulmonary vascularity and zachery appear normal. No abnormal pulmonary parenchymal opacity or consolidation identified. No significant pleural effusion noted. No pneumothorax detected. IMPRESSION: Mild cardiac enlargement without radiographic evidence for any acute cardiopulmonary process. DICTATED BY: MEGA RADFORD MD DATE: 05/30/24 105 REASON: ACUTE ENCEPHALOPATHY ORDERING PHYSICIAN: EVELINE ASHLEY PROCEDURE: HEAD WO - CT HEAD/BRAIN W/O CONTRAST CT HEAD/BRAIN W/O CONTRAST CLINICAL HISTORY: ACUTE ENCEPHALOPATHY COMPARISON: None TECHNIQUE: Multiple sequential axial images of the head were obtained from the base of the skull through vertex. CT was performed with one or more of the following dose reduction techniques: automated exposure control, adjustment of the mA and/or kV according to patient size, or use of iterative reconstruction technique FINDINGS: There is resolved right basal ganglia lacunar infarct. The orbital contents are unremarkable. There is right mastoid air cell opacification extending into the middle ear. This demonstrated is mucoperiosteal thickening throughout the paranasal sinuses with small air-fluid level in the sphenoid sinuses. The calvarium is intact. IMPRESSION: Resolved right basal ganglia lacunar infarct. Acute and chronic sinusitis. Right mastoid effusion or mastoiditis with otitis media DICTATED BY: REGGIE GUARDADO DO DATE: 05/29/24 1554 REASON: elevated troponin ORDERING PHYSICIAN: CARMINE GAMBLE MD PROCEDURE: ECHO CMP - ECHO 2-D COMPLETE APPROVED REPORT EXAM: Two-dimensional and M-mode echocardiogram with Doppler and color Doppler. INDICATION ICD: Elevated troponin 2D Dimensions RVDd 5.1 cm LVEF(%) 59.0 (>50%) LVED Vol(simp.) 73.2 mL IVSd 1.2 (0.7-1.1cm) FS(%) 31 % LVES Vol(simp.) 27.3 mL LVDd 3.9 (3.8-5.6cm) LA (2D) 4.6 (1.6-4.0cm) LVEF(%, simp.) 63 % PWd 1.2 (0.7-1.1cm) Ao Root(2D) 3.6 (2.0-3.7cm) LA ESV INDEX (4CH) 31.90 mL/m2 IVSs 1.5 cm LVOT diam 1.9 (1.8-2.4cm) LVDs 2.7 (2.5-4.0cm) PWs 1.5 cm M-Mode Dimensions EPSS 0.9 cm LA (MM) 4.1 (1.6-4.0cm) Ao Root(MM) 3.1 (2.0-3.7cm) Aortic Valve AoV VTI 0.3 m Ao Mean GR 4.0 mmHg LVOT VTI 0.20 m LUIS FELIPE (VMAX) 2.1 cm2 LUIS FELIPE (VTI) 2.1 cm2 Mitral Valve MV E Vmax 114.0 cm/s DECEL Time 331 ms MV Mean GR 6 mmHg MV A Vmax 115.0 cm/s MVA (VTI) 1.2 cm2 E/A ratio 1.0 MR Max PG 33 mmHg TDI E/E' Medial 40.7 E/E' Lateral 21.1 Medial E' Peak V 2.80 cm/s Lateral E' Peak V 5.40 cm/s Pulmonary Valve PV Vmax 1.2 m/s PV Peak GR 6.0 mmHg Left Ventricle The left ventricle is normal size. There is normal LV segmental wall motion. Mild concentric left ventricular hypertrophy. LVEF is 60-65%. Indeterminate diastolic dysfunction. Right Ventricle The right ventricle is severely dilated. The right ventricular systolic function is normal. Moderator band is seen in the right ventricle. Atria The left atrium size is normal. The right atrium is moderately dilated. Aortic Valve Aortic valve nodular calcification noted. Aortic valve is trileaflet and opens well. No aortic regurgitation is present. There is no aortic valvular stenosis. Mitral Valve There is mitral annular calcification. There is mild mitral valve regurgitation noted. There is moderate mitral valve stenosis with mean gradient of 6mmHg. Tricuspid Valve The tricuspid valve is normal in structure. There is no tricuspid valve regurgitation noted. Pulmonic Valve The pulmonary valve is normal in structure. There is no pulmonic valvular regurgitation. Great Vessels The aortic root is normal in size. The IVC is normal in size and collapses >50% with inspiration. Pericardium There is no pericardial effusion. Other Information Quality : Technically difficult study due to body habitus Conclusion LVEF is 60-65%. There is moderate mitral valve stenosis with mean gradient of 6mmHg. There is no pericardial effusion. DICTATED BY: LISA RM MD DATE: 05/28/24 1401 REASON: sob ORDERING PHYSICIAN: EVELINE ASHLEY PROCEDURE: CXR1VW - CHEST 1VW Exam Type: CHEST 1VW Clinical Information: sob Comparison: None Findings: Right permacath line is noted with tip at the distal superior vena caval level. The lungs are clear of infiltrates. The heart is enlarged. Bony and soft tissue structures of the chest wall are unremarkable. IMPRESSION: Cardiomegaly. Clear lungs. DICTATED BY: NIKA SOTO MD DATE: 05/28/24 1534 REASON: history of ankle abscess, assess for osteo ORDERING PHYSICIAN: CARMINE GAMBLE MD PROCEDURE: FT 2VW RT - FOOT LIMITED 2VWS RT Exam Type: FOOT LIMITED 2VWS RT Clinical Information: history of ankle abscess, assess for osteo Comparison: None Findings and impression: Soft tissue swelling of the ankle which could represent cellulitis. Postoperative changes of the distal tibia. Degenerative changes of the interphalangeal joints. Calcaneal spurs. Osteopenia. DICTATED BY: NIKA SOTO MD DATE: 05/27/24 1618 REASON: Dyspnea/SOB ORDERING PHYSICIAN: ALONSO CALIXTO DO PROCEDURE: CXR1VW - CHEST 1VW Exam Type: CHEST 1VW Clinical Information: Dyspnea/SOB Comparison: None Findings: Pulmonary pattern is as before. No worrisome interval changes have taken place. Impression: Stable exam. DICTATED BY: NIKA SOTO MD DATE: 05/26/24 0829 ASSESSMENT: Life-threatening hyperkalemia Fluid overload Respiratory failure with hypoxia Anemia Metabolic acidosis End-stage renal disease Diabetes mellitus type 2 Hypertension Morbid obesity PLAN: Labs and Diagnostics/ Radiology personally reviewed and interpreted by myself and supervising physician We have reviewed dialysis and external records in detail Continue dialysis schedule Friday Pending CV surgeon recommendations regarding AV access creation Case management coordinating SNF placement 1.5 L fluid restriction Continue to monitor H&H Epogen on dialysis days, as needed Continue with frequent monitoring of renal function, anemia, and electrolytes Order CBC, BMP, and electrolytes in the morning May use Dilaudid 0.5 mg IV every 6 hours as needed for severe pain Monitor blood pressure adjust medication doses as needed Maintain normotensive state Strict intake, output, and daily weight should be monitored Please renally adjust medications. Avoid nephrotoxics and nonsteroidal drugs. We will continue to monitor the patient closely We have discussed with the other team physicians in detail about the care plan ATTESTATION BY PHYSICIAN I have seen and examined the patient. I reviewed the documentation, medical decision making, and treatment plan as noted by the mid-level provider above. I agree with the findings and plan of care. CARLO KAUR MD, [facility] Jun 03, 2024 12:57
--- NOTE | 2024-06-03 19:35 | NUR ---
MEDS SHIFT ASSESSMENT DONE, PLEASE REFER TO CHART. DUE MEDS ADMINISTERED, TOLERATED WELL. KEPT RESTED AND COMFORTABLE IN BED. CALL LIGHT WITHIN REACH.
--- NOTE | 2024-06-03 20:54 | PN ---
SUBJECTIVE: A 58-year-old lady with end-stage renal failure, new to hemodialysis. She was referred for establishment of permanent access port. The patient is to be scheduled. TID: [id number] RECEIPT: [id number]
--- NOTE | 2024-06-03 21:40 | PN ---
INFECTIOUS DISEASE PROGRESS NOTE Date of Service: Jun 03, 2024 SUBJECTIVE: This is a 58-year-old female patient who was admitted to the hospital for shortness of breaths, fever, cough and reported missing hemodialysis due to not feeling well. On admission patient was positive for influenza type A. Patient was seen and examined at bedside in room 315. Patient is awake alert and oriented x3. Patient was dialyzed today and 3 L were removed. No fever reported, temperature 97.5 and a WBC of 5.1. Patient is saturating 95 to 97% on room air. Patient is pending a physical therapy evaluation. Patient has been vein mapped and is pending an AV graft placement. Presently on Zosyn. Patient is also on Tamiflu for Influenza viral infection type A. Will continue to monitor patient's care. PHYSICAL EXAM EYES: Anicteric. Pupils equal and reactive. HENT: No oral thrush seen, moist Oral mucosa. NECK: Supple, no JVD or thyromegaly. RESPIRATORY: Good air entry. Oxygen support via nasal cannula. CARDIOVASCULAR: S1, S2 regular. No murmur heard. ABDOMEN: Soft, non tender, bowel sounds present, no organomegaly. CENTRAL NERVOUS SYSTEM: Awake, alert, oriented x 3. SKIN: No rashes, no swelling. LYMPHATICS: No peripheral lymphadenopathy. MUSCULOSKELETAL: No joint swelling, erythema or tenderness. EXTREMITIES: No cyanosis or clubbing. Right ankle wound infection. BACK: No deformity, no pressure ulcer. GENITOURINARY: No dysuria or hematuria. Vital Sign (Last 12 Hours) 06/03/24 06/03/24 06/03/24 06/03/24 11:39 12:00 16:00 19:31 Temp 98.1 97.5 Pulse 75 68 69 Resp 20 20 20 B/P (MAP) 97/61 109/56 120/30 Pulse Ox 99 98 O2 Delivery Room Air Room Air 06/03/24 06/03/24 06/03/24 19:53 19:57 20:00 Temp 97.7 Pulse 73 72 70 Resp 20 18 20 B/P (MAP) 124/30 Pulse Ox 99 O2 Delivery N/A Room Air Room Air FiO2 21 Intake & Output (last 24hrs) 06/02/24 06/02/24 06/03/24 15:00 23:00 07:00 Intake Total 970.0 ml Output Total 3000 ml Balance -3000 ml 970.0 ml LABS: Laboratory: Test 06/03/24 19:42 06/03/24 04:55 Range/Units Whole Blood Glucose 176 H 70-110 MG/DL White Blood Count 5.2 4.8-10.8 K/uL Red Blood Count 4.03 4.00-5.50 MIL/uL Hemoglobin 11.5 L 12.0-16.0 g/dL Hematocrit 35.0 L 36-48 % Mean Corpuscular Volume 86.8 79-99 fL Mean Corpuscular Hemoglobin 28.5 27.0-33.0 pg Mean Corpuscular Hemoglobin Concent 32.9 32.0-36.0 g/dL Red Cell Distribution Width 13.2 11.0-15.5 % Platelet Count 225 130-400 K/uL Mean Platelet Volume 10.6 H 7.5-10.5 fL Immature Granulocyte % (Auto) 0.8 0-1 % Neutrophils (%) (Auto) 61.8 40.0-77.0 % Lymphocytes (%) (Auto) 23.7 21.0-51.0 % Monocytes (%) (Auto) 9.8 3.0-13.0 % Eosinophils (%) (Auto) 3.5 0.0-8.0 % Basophils (%) (Auto) 0.4 0.0-5.0 % Neutrophils # (Auto) 3.2 1.8-7.7 K/uL Lymphocytes # (Auto) 1.2 1.0-4.8 K/uL Monocytes # (Auto) 0.5 0.1-1.0 K/uL Eosinophils # (Auto) 0.18 0.00-0.70 K/uL Basophils # (Auto) 0.02 0.00-0.20 K/uL Absolute Immature Granulocyte (auto 0.04 0-1 K/uL Nucleated Red Blood Cells 0.0 0.0-0.19 % Sodium Level 133 L 136-145 mmol/L Potassium Level 4.4 3.5-5.1 mmol/L Chloride Level 94 L 101-111 mmol/L Carbon Dioxide Level 26 21-32 mmol/L Blood Urea Nitrogen 34 H 7-18 mg/dL Creatinine 7.0 H 0.5-1.0 mg/dL Glomerular Filtration Rate Calc 6 >90 mL/min Random Glucose 175 H 70-105 mg/dL Total Calcium 8.9 8.5-10.1 mg/dL ASSESSMENT: Acute on chronic respiratory failure requiring oxygen support. Sepsis. Influenza Viral infection type A. Right ankle wound infection with ESBL, E coli. History of right ankle hardware infection, status post removal. End-stage renal disease, on dialysis. Morbid obesity. Debility. PLAN: Continue Zosyn. Continue Tamiflu. Continue dialysis as recommended by overlock hemmer. Patient has been vein mapped and pending a AV graft placement. Continue wound care to the right ankle. Continue pain management. Continue oxygen support. Continue DVT prophylaxis. Patient has been evaluated by Physical therapy. Patient is being referred to SNF for rehab. (patient will need 10 days of Meropenem at SNF). This case was reviewed and discussed with my supervising physician and the above assessment and plan was formulated and agreed upon. ATTESTATION BY PHYSICIAN I have seen and examined the patient. I reviewed the documentation, medical decision making, and treatment plan as noted by the mid-level provider above. I agree with the findings and plan of care. DIDIER CONTRERAS MD, [facility] Jun 03, 2024 21:40
[2024-06-04] VITALS (31 sets, daily range): BP systolic 90–143; BP diastolic 38–69; PULSE 63–78; RESP 16–20; TEMP 97.4–98.5; O2SAT 96–100
[2024-06-04 05:25] LABS: BASOPHILS # (AUTO) 0.02 K/uL (0.00-0.20); BASOPHILS % (AUTO) 0.3 % (0.0-5.0); EOSINOPHILS % (AUTO) 3.2 % (0.0-8.0); HEMATOCRIT 33.9 % (36-48); IMMATURE GRANULOCYTE ABSOLUTE 0.05 K/uL (0-1); LYMPHOCYTES # (AUTO) 1.5 K/uL (1.0-4.8); LYMPHOCYTES % (AUTO) 24.8 % (21.0-51.0); MEAN CORPUSCULAR HEMOGLOBIN 28.3 pg (27.0-33.0); MEAN CORPUSCULAR HGB CONC 32.2 g/dL (32.0-36.0); MEAN CORPUSCULAR VOLUME 88.1 fL (79-99); MONOCYTES # (AUTO) 0.7 K/uL (0.1-1.0); MONOCYTES % (AUTO) 11.9 % (3.0-13.0); NEUTROPHILS # (AUTO) 3.7 K/uL (1.8-7.7); PLATELET COUNT (AUTO) 238 K/uL (130-400); RED BLOOD CELL COUNT(AUTO) 3.85 MIL/uL (4.00-5.50); RED CELL DISTRIBUTION WIDTH 13.3 % (11.0-15.5); WHITE BLOOD COUNT (AUTO) 6.2 K/uL (4.8-10.8)
[2024-06-04 05:48] LABS: PHOSPHORUS 5.1 mg/dL (2.5-4.9); POTASSIUM 3.9 mmol/L (3.5-5.1)
[2024-06-04 05:55] LABS: CREATININE 8.4 mg/dL (0.5-1.0)
--- NOTE | 2024-06-04 06:26 | NUR ---
ROUNDS PT RESTING SLEPT AT INTERVALS DURING THE SHIFT. NO DISTRESS NOTED. NO CONCERNS VERBALIZED. KEPT COMFORTABLE IN BED. CALL LIGHT WITHIN REACH. FOR MORE CARE.
--- NOTE | 2024-06-04 09:01 | PN ---
[facility] PROGRESS NOTE Date of Service: Jun 04, 2024 Time of Service: 08:54 SUBJECTIVE: [ ] This is a 50-year-old with a significant medical history of end-stage renal disease on dialysis on Friday hypertension hyperlipidemia and asthma presented in ED with chief complaints of shortness a breath apparently patient missed her dialysis. ER workup was consistent with asthma exacerbation possible pneumonia respiratory failure apparently Follow up visit patient is stable. Latest vital signs and labs are stable. She is due for dialysis. Continues IV Zosyn at ID direction secondary to positive wound cultures with Enterococcus faecalis and ESBL E coli. Continue Tamiflu. Her sugars are currently under control with current insulin regimen. Continue renal dialysis diet. Vein mapping is complete, pending AV graft placement. Case management continues to work with patient's insurance for approval to custodial facility for continued IV antibiotics with IV Merrem times 10 days, this is also pending. REVIEW OF SYSTEMS CONSTITUTIONAL: Denies or night sweats. No unintentional weight loss reported. Positive for fever, chills NEUROLOGICAL: Denies headache, amaurosis fugax, motor weakness, sensory deficit, vertigo/spinning sensation, gait abnormalities, or tremors. ENT: No hearing loss, otalgia, otorrhea, rhinitis, rhinorrhea, hoarseness, or sore throat. CARDIOVASCULAR: Denies any exertional angina, dyspnea on exertion, orthopnea, paroxysmal nocturnal dyspnea, palpitations, life-threatening arrhythmias, floyd ication. PULMONARY: Positive for cough, sputum production. Denied any hemoptysis GASTROINTESTINAL: Denies any type of dysphagia to either liquids or solids. Denies nausea, vomiting, pyrosis, early satiety, abdominal pain, constipation, or changes in stool consistency or caliber. Denies coffee-ground emesis, hematemesis, hematochezia, or melanotic stools. Positive for diarrhea GENITOURINARY: Denies frequency, urgency, nocturia, hematuria or incontinence (Storage/Irritative symptoms.) Low urinary stream, straining to void, urinary intermittency or hesitancy, splitting of the voiding stream, terminal dribbling. ENDOCRINOLOGIC: Denies polyuria, polydipsia, polyphagia or heat/cold intolerances. HEMATOLOGIC: Denies thrombophilia/previous clots, or coagulopathy/bleeding disorders. ONCOLOGIC: Denies personal history of malignancy. DERMATOLOGIC: Denies rashes or pruritus. PSYCHIATRIC: Denies any suicidal or homicidal ideation. Denies hallucinations. PHYSICAL EXAM GENERAL APPEARANCE: The patient is awake, alert, and oriented, in no acute cardiopulmonary distress. NEUROLOGICAL: Cranial nerves II-XII grossly intact. Motor is 5/5 in bilateral upper and lower extremities proximal to distal. No sensory deficits. HEENT: Face is symmetric. Pupils are equal and reactive. Extraocular movements are intact. NECK: Supple. No JVD. No thyromegaly. No submental, submandibular, pre-/postauricular, occipital or supraclavicular lymphadenopathy. CHEST: Normal chest expansion. No Telemetry. LUNGS: She has wheezing present bilaterally with rhonchi. CARDIOVASCULAR: Regular. S1 and S2 normal. No appreciable rubs, murmurs or gallops. ABDOMEN: Soft, nontender, and nondistended. There is no rebound, voluntary guarding, or rigidity. : Deferred. No Ardon. EXTREMITIES: She has a wound noted in the right ankle. She has a wound in the lateral and medial aspect of the leg. There is some purulent discharge noted. SKIN: No skin breakdown. Vital Signs (last 8hr) Date Time Temp Pulse Resp B/P (MAP) Pulse Ox O2 Delivery O2 Flow Rate FiO2 06/04/24 08:12 98.1 72 20 100/49 99 06/04/24 07:27 72 18 N/A Room Air 21 06/04/24 07:09 70 18 N/Cannula Low lpm 2.0 28 06/04/24 07:06 70 20 06/04/24 04:00 98.4 67 20 120/45 99 Nasal Cannula 2.0 LABS: Laboratory: Test 06/04/24 05:16 Range/Units White Blood Count 6.2 4.8-10.8 K/uL Red Blood Count 3.85 L 4.00-5.50 MIL/uL Hemoglobin 10.9 L 12.0-16.0 g/dL Hematocrit 33.9 L 36-48 % Mean Corpuscular Volume 88.1 79-99 fL Mean Corpuscular Hemoglobin 28.3 27.0-33.0 pg Mean Corpuscular Hemoglobin Concent 32.2 32.0-36.0 g/dL Red Cell Distribution Width 13.3 11.0-15.5 % Platelet Count 238 130-400 K/uL Mean Platelet Volume 11.1 H 7.5-10.5 fL Immature Granulocyte % (Auto) 0.8 0-1 % Neutrophils (%) (Auto) 59.0 40.0-77.0 % Lymphocytes (%) (Auto) 24.8 21.0-51.0 % Monocytes (%) (Auto) 11.9 3.0-13.0 % Eosinophils (%) (Auto) 3.2 0.0-8.0 % Basophils (%) (Auto) 0.3 0.0-5.0 % Neutrophils # (Auto) 3.7 1.8-7.7 K/uL Lymphocytes # (Auto) 1.5 1.0-4.8 K/uL Monocytes # (Auto) 0.7 0.1-1.0 K/uL Eosinophils # (Auto) 0.20 0.00-0.70 K/uL Basophils # (Auto) 0.02 0.00-0.20 K/uL Absolute Immature Granulocyte (auto 0.05 0-1 K/uL Nucleated Red Blood Cells 0.0 0.0-0.19 % Sodium Level 136 136-145 mmol/L Potassium Level 3.9 3.5-5.1 mmol/L Chloride Level 95 L 101-111 mmol/L Carbon Dioxide Level 30 21-32 mmol/L Blood Urea Nitrogen 46 H 7-18 mg/dL Creatinine 8.4 *H 0.5-1.0 mg/dL Glomerular Filtration Rate Calc 5 >90 mL/min Whole Blood Glucose 198 H 70-110 MG/DL Random Glucose 200 H 70-105 mg/dL Total Calcium 8.2 L 8.5-10.1 mg/dL Phosphorus Level 5.1 H 2.5-4.9 mg/dL Current Medications Medications (Trade) Dose Ordered Sig/Susannah Route PRN Reason Start Time Stop Time Status Last Admin Dose Admin Acetaminophen (TYLenol 500MG TAB) 500 mg Q6H PRN PO MILD PAIN (1-3) 05/27/24 15:00 06/26/24 14:59 06/03/24 19:32 500 MG Albuterol Sulfate (Proventil 0.083% 2.5mg/3ml) 2.5MG [id number] IH 05/27/24 15:00 06/26/24 14:59 06/04/24 07:06 2.5 MG Albuterol Sulfate (Proventil 0.083% 2.5mg/3ml) 10 mg ONCE IH 05/26/24 08:00 05/26/24 15:17 DC 05/26/24 08:11 10 MG Budesonide (Pulmicort 0.5 Mg/2ml) 0.5 mg BIDRESP IH 05/27/24 18:00 06/26/24 17:59 06/04/24 07:06 0.5 MG Carvedilol (Coreg 12.5MG) 12.5 mg BID PO 05/27/24 21:00 06/26/24 20:59 06/03/24 19:31 12.5 MG Cefepime HCl (MAXipime 1 GM vial) 1 gm Q12H IVPB 05/27/24 15:00 05/27/24 18:22 DC Cefepime HCl (MAXipime 1 GM vial) 1 gm Q12H9 IVPB 05/27/24 21:00 05/28/24 11:36 DC 05/28/24 07:46 1 GM Cefepime HCl (MAXipime 1 GM vial) 1 gm Q24H IVPB 05/29/24 09:00 05/29/24 12:58 DC 05/29/24 09:50 1 GM Ceftriaxone Sodium (ROCEphine 1G INJ) 1 gm Q24H IVPB 05/27/24 10:30 05/27/24 14:24 DC Ceftriaxone Sodium (ROCEphine 1G INJ) 1 gm Q24H IVPB 05/27/24 17:00 05/27/24 14:58 DC Doxycycline Hyclate (Doxycycline Hyclate) 100 mg BID PO 05/27/24 21:00 05/27/24 15:46 DC Guaifenesin (RobiTUSSin SUGAR-FREE 100 MG/ 5 ML UDCUP) 400 mg Q4H PRN PO COUGH 05/28/24 06:30 06/27/24 06:29 05/29/24 22:44 400 MG Heparin Sodium (Porcine) (HEParin 5,000 UNIT VIAL) 5,000 unit Q12H SQ 06/01/24 09:00 07/01/24 08:59 06/03/24 19:33 5,000 UNIT Heparin Sodium (Porcine) (HEParin 5,000 UNIT VIAL) 10,000 unit AD IRRIG 05/26/24 15:30 3/7/25 15:29 06/02/24 12:28 10,000 UNIT Hydralazine HCl (APRESOLine 20MG INJ) 10 mg Q6H PRN IV ADMINISTER FOR SBP > 180 05/27/24 15:00 06/26/24 14:59 Insulin Human Regular (humuLIN R 100 UNIT/ML 3ML) INSULIN SLIDING SCAL... ACHS SQ 05/28/24 07:30 06/27/24 07:29 06/04/24 06:33 2 UNIT Ipratropium [place] (AtrovENT UD) 0.5 mg [id number] IH 05/28/24 00:00 06/27/24 00:00 06/04/24 07:06 0.5 MG Leptospermum Honey (ANF Technologyney) APPLY DIRECTED DAILY TP 05/28/24 09:00 06/27/24 08:59 06/03/24 08:38 1 APPL Meropenem (Merrem 500mg) 500 mg Q12H IV 05/30/24 12:30 06/01/24 04:53 DC 06/01/24 01:07 500 MG Methylprednisolone Sodium Succinate (Solu-medROL 40MG) 20 mg BID IVP 05/27/24 21:00 05/27/24 19:34 DC Montelukast Sodium (SinguLAIR) 10 mg DAILY PO 05/30/24 09:00 06/29/24 08:59 06/03/24 08:33 10 MG Oseltamivir Phosphate (Tamiflu) 30 mg QODAY PO 05/31/24 20:00 05/29/24 12:55 DC Oseltamivir Phosphate (Tamiflu) 75 mg MWFPHD PO 05/31/24 16:00 06/05/24 15:59 06/02/24 17:36 75 MG Oseltamivir Phosphate (Tamiflu) 75 mg Q24H PO 05/28/24 21:00 05/29/24 12:47 DC 05/28/24 20:52 75 MG Oseltamivir Phosphate (Tamiflu) 75 mg QODAY@2100 PO 05/27/24 21:00 05/28/24 14:12 DC 05/27/24 21:41 75 MG Pharmacy Profile Note (Pharmacy Communication) 1 each AD MISC 05/28/24 06:00 05/28/24 11:37 DC Pharmacy Profile Note (Pharmacy Communication) 1 each ONCE MISC 05/27/24 19:30 05/28/24 11:37 DC Pharmacy Profile Note (Pharmacy Communication) 1 each ONCE MISC 05/28/24 15:30 05/28/24 15:14 DC Piperacillin Sod/ Tazobactam Sod (Zosyn 3.375gm+NS 50ml) 3.375 gm Q12H IV 06/01/24 05:00 06/11/24 04:59 06/04/24 04:09 3.375 GM Sodium Chloride 250 ml @ 0 mls/hr AD IV 05/26/24 15:30 06/25/24 15:29 Sodium Chloride 1,000 ml @ 0 mls/hr ONCE IV 05/26/24 15:30 06/25/24 15:29 06/02/24 10:31 100 MLS/HR Vancomycin HCl 250 ml @ 125 mls/hr ONCE IV 05/28/24 21:00 05/28/24 23:59 DC 05/28/24 20:53 125 MLS/HR Vancomycin HCl 250 ml @ 125 mls/hr [id number][DIALYSIS] IV 05/31/24 16:00 06/01/24 04:53 DC 05/31/24 17:53 125 MLS/HR Vancomycin HCl (Vancomycin Protocol) 1 each AD IV 05/27/24 16:00 06/02/24 00:08 DC DIAGNOSTICS / RADIOLOGY: [ ] ASSESSMENT: Acute sepsis due to UTI POA Acute hypoxic respiratory failure due to volume overload/missed dialysis POA Volume overload secondary to missed dialysis POA Metabolic acidosis POA Troponin elevation likely in setting of missed dialysis and type 2 PR (down trending) no chest POA Metabolic/infectious encephalopathy. Suspected pneumonia/URI POA Acute complicated cystitis POA Right ankle wound infection with Enterococcus faecalis and ESBL E coli from anaerobic and aerobic culture 05/27/2024 POA Positive Influenza A POA Acute asthma exacerbation History of right ankle abscess status post incision and drainage and hardware removal by Dr. Cabrera on 03/2025 Suspected cellulitis in the right ankle with mild purulent drainage History of MSSA infection Uncontrolled hypertension Uncontrolled diabetes mellitus type 2 with hypoglycemia Hyperlipidemia Obesity BMI 45.5 PLAN: Admitted to the medical floor Continue renal dialysis diet consultants: [employer], record systems analyst's, Infectious Disease, cardiovascular Continue Tamiflu on Wednesdays and Fridays Continue IV Zosyn, id we will transition to IV Merrem once ready for discharge Dr. De Souza for antimicrobial stewardship. Recommending IV Merrem times 10 days Wound cultures positive for Enterococcus faecalis and ESBL E coli Blood culture negative Continue wound care Continue supplemental O2 to keep O2 saturations above 92%, currently satting 99% Please titrate down supplemental O2 to keep O2 sats >92%. DC if not needed. Continues bronchodilators Test: ECHO LVEF: 60-65% with moderate mitral value stenosis Continue dialysis 3x week we will follow record systems analyst's fluid restriction strict I&Os and daily weights Fluid restriction 1.5 L/daily Aspiration precautions head of the bed at [address] Madrigal planning brachiocephalic AV fistula Vein mapping complete Continue to work with physical therapy Monitor a.m. labs PRN Treatment - Add when necessary meds for nausea, vomiting, pain, constipation, insomnia. DVT/GI prophylaxis- Continue heparin at current doses. Full CODE STATUS Disposition: Case management consulted for custodial facility placement for continued antibiotic therapy for IV Merrem, wound care and physical therapy This document was generated in part using voice recognition software, occasional wrong word or sound alike substitutions may have occurred due to the inherent limitations of voice recognition software. Read the chart carefully and recognize using context, where the substitutions have occurred. Although every effort was made to edit the content, business analyst project manager and typing errors may occur ZAYDA PINA APRN Jun 04, 2024 09:01
[2024-06-04] MEDS ORDERED: LACTULOSE 20 GM/30 ML UDCUP PO PRN (15:30)
[2024-06-04] MEDS: polyETHYLene GLYCol 3350 17 GM POWD.PACK PO SCH (16:26)
--- NOTE | 2024-06-04 21:00 | NUR ---
MEDS SHIFT ASSESSMENT DONE, PLEASE REFER TO CHART. DUE MEDS ADMINISTERED, TOLERATED WELL. KEPT RESTED AND COMFORTABLE IN BED. CALL LIGHT WITHIN REACH.
--- NOTE | 2024-06-04 22:05 | PN ---
NEPHROLOGY NOTE SUBJECTIVE: The patient has been evaluated and seen for dialysis and seen several times. The patient has no other associated finding. No other aggravating or relieving factors. Other systemic review is unchanged. The patient is weak. PHYSICAL EXAMINATION: GENERAL: Pale, critically ill, lying in bed. VITAL SIGNS: Blood pressure is 118/74, respiratory rate is 18, afebrile. HEENT: Head is atraumatic. Pupils are round and reactive. Sclerae are anicteric. Conjunctivae not pale. Oral mucosa is not dry. NECK: Without masses, bruits. Thyroid is palpable. Neck has no bruits. CHEST: Shows diminished at both bases, prolonged expiration, percussion note being resonant in all areas. CARDIAC: Regular rhythm, no rub, no S3, S4. No parasternal heave. ABDOMEN: No guarding or tenderness. Bowel sounds are normoactive. No free fluid. LABORATORY DATA: Have been reviewed. Old records reviewed. PROBLEMS: Renal failure, anemia, multiple comorbidities, metabolic encephalopathy. PLAN: To continue dialysis support. Continue monitoring of anemia and Epogen as needed. Seen for dialysis and seen multiple times. I have discussed with other team members in detail. Overall condition remains critical and guarded. TID: [id number] RECEIPT: [id number]
--- NOTE | 2024-06-04 22:05 | PN ---
SUBJECTIVE: The patient has been evaluated and seen for dialysis and seen several times. The patient's condition is critical, guarded. No other associated finding. No other aggravating or relieving factors. No other associated symptoms. PROBLEMS: The patient has renal failure, anemia, multiple other comorbidities, underlying metabolic encephalopathy, volume overload, end-stage renal disease. PLAN: To continue dialysis support. We will continue monitoring of renal function, electrolytes and overall status. I have discussed with other team members. We will give Epogen as needed and condition is critical, guarded. Seen several times today. Her condition remains guarded. Thank you for this patient. TID: [id number] RECEIPT: [id number]
[2024-06-05] VITALS (12 sets, daily range): BP systolic 86–143; BP diastolic 41–71; PULSE 60–76; RESP 18–20; TEMP 97.9–98.3; O2SAT 95–100
--- NOTE | 2024-06-05 04:12 | PN ---
INFECTIOUS DISEASE FOLLOWUP NOTE DATE OF SERVICE: 06/04/2024. SUBJECTIVE: The patient is seen and examined at bedside today. The patient initially had no fever, no chills. No bleeding tendency. No sore throat, no rhinorrhea. No earache. No limb weakness. The patient tolerated antibiotic, tolerating dialysis. Shortness of breath . PHYSICAL EXAMINATION: VITAL SIGNS: Temperature . EYES: No icterus. Pupils equal and reactive. HENT: No oral thrush seen. Moist oral mucosa. NECK: Supple. No JVD, no thyromegaly. LUNGS: Good air entry. No rales, no rhonchi. CARDIOVASCULAR: S1, S2 regular. No murmur heard. ABDOMEN: Full, soft, nontender. Bowel sounds present. CENTRAL NERVOUS SYSTEM: Awake, alert, oriented x 3. No focal deficits. SKIN: No rash or itchiness. LYMPHATIC: No peripheral lymphadenopathy. EXTREMITIES: Wound involving the lateral side of the right ankle, which is clean, granulating. ASSESSMENT: A 53-year-old female with multiple problems which include: * Pneumonia. * Acute respiratory failure. * Right ankle osteomyelitis. * Morbid obesity. * Hypertension. * Diabetes mellitus. * Debility. PLAN: * Continue cefepime. * Continue vancomycin. * Continue wound care. * Continue dialysis. * Continue pain management. * Continue antiemetic. * Continue nutritional support. * The patient will be followed up closely. TID: [id number] RECEIPT: [id number]
--- NOTE | 2024-06-05 05:50 | NUR ---
MEDS PT SLEPT AT INTERVALS DURING THE SHIFT. NO DISTRESS NOTED. DUE MEDS ADMINISTERED, TOLERATED WELL. KEPT RESTED AND COMFORTABLE IN BED. CALL LIGHT WITHIN REACH.
[2024-06-05 06:38] LABS: BASOPHILS # (AUTO) 0.02 K/uL (0.00-0.20); BASOPHILS % (AUTO) 0.3 % (0.0-5.0); EOSINOPHILS # (AUTO) 0.15 K/uL (0.00-0.70); EOSINOPHILS % (AUTO) 2.3 % (0.0-8.0); HEMATOCRIT 35.5 % (36-48); IMMATURE GRANULOCYTE ABSOLUTE 0.05 K/uL (0-1); LYMPHOCYTES # (AUTO) 1.8 K/uL (1.0-4.8); LYMPHOCYTES % (AUTO) 27.5 % (21.0-51.0); MEAN CORPUSCULAR HEMOGLOBIN 28.1 pg (27.0-33.0); MEAN CORPUSCULAR HGB CONC 31.3 g/dL (32.0-36.0); MEAN CORPUSCULAR VOLUME 89.9 fL (79-99); MONOCYTES # (AUTO) 0.8 K/uL (0.1-1.0); MONOCYTES % (AUTO) 11.9 % (3.0-13.0); NEUTROPHILS # (AUTO) 3.8 K/uL (1.8-7.7); NEUTROPHILS % (AUTO) 57.2 % (40.0-77.0); PLATELET COUNT (AUTO) 222 K/uL (130-400); RED BLOOD CELL COUNT(AUTO) 3.95 MIL/uL (4.00-5.50); RED CELL DISTRIBUTION WIDTH 13.3 % (11.0-15.5); WHITE BLOOD COUNT (AUTO) 6.6 K/uL (4.8-10.8)
[2024-06-05 06:43] LABS: CREATININE 6.3 mg/dL (0.5-1.0)
--- NOTE | 2024-06-05 07:30 | NUR ---
The patient is on droplet isolation. She is in no distress and has her call lozano in reach. The bed is in a low position and she is encouraged to call for any concerns.
--- NOTE | 2024-06-05 09:05 | NUR ---
Wound care. The patient has a poorly aproximated incision to both sides of her right ankle. The right side is about 6 x 0.5 No drainage or foul odor. Medihoney is applied to the wound bed and covers with non adherant pad. The interior aspect of the right ankle measure 3x 0.25 and received the same treatment. The anckle is then wraped with Kerlix.
--- NOTE | 2024-06-05 09:30 | NUR ---
Denzel malhotra auth remains pending at this time.
--- NOTE | 2024-06-05 11:28 | NUR ---
CALLED MRS. ROCKY MONK FOR HOSPITALIST; NOTIFY HER ABOUT PATIENTS BLOOD PRESSURE BEING 80/40 mmHg MANUALLY. (VIEW ORDERS). Addendum: 06/05/24 at 1136 by PREMA RON RN RN PATIENT ASYMPTOMATIC, NO SIGNS OF RESPIRATORY DISTRESS, PATIENT IS ALERT, ORIENTED IN PERSON TIME AND PLACE. ABLE TO VOICE NEEDS. NO COMPLAINTS OF CHEST PAIN OR DYSPHAGIA. NOTIFY MR. ROA, NURSE ASSIGNED TO PATIENT TO GIVE MEDICATION ORDERED BY MRS. ROCKY MONK FOR HOSPITALIST AND RE CHECK BLOOD PRESSURE 30 MINUTES AFTER GIVEN MEDICATION. PATIENT WAS PLACED ON TRENDELEMBERG POSITION FOR 15 MINUTES.
[2024-06-05] MEDS: miDODRine HCL 5 MG TABLET PO SCH (11:36)
--- NOTE | 2024-06-05 12:15 | PN ---
[facility] PROGRESS NOTE Date of Service: Jun 05, 2024 Time of Service: 12:10 SUBJECTIVE: [ ] This is a 50-year-old with a significant medical history of end-stage renal disease on dialysis on Friday hypertension hyperlipidemia and asthma presented in ED with chief complaints of shortness a breath apparently patient missed her dialysis. ER workup was consistent with asthma exacerbation possible pneumonia respiratory failure. Patient was with fluid overload for which patient was diuresed. Patient now improve with her symptoms. Now she was noted with Enterococcus faecalis and ESBL in the wound. Patient is status post vein mapping, pending AV graft placement. We will follow up with REVIEW OF SYSTEMS CONSTITUTIONAL: Denies or night sweats. No unintentional weight loss reported. Positive for fever, chills NEUROLOGICAL: Denies headache, amaurosis fugax, motor weakness, sensory deficit, vertigo/spinning sensation, gait abnormalities, or tremors. ENT: No hearing loss, otalgia, otorrhea, rhinitis, rhinorrhea, hoarseness, or sore throat. CARDIOVASCULAR: Denies any exertional angina, dyspnea on exertion, orthopnea, paroxysmal nocturnal dyspnea, palpitations, life-threatening arrhythmias, claudication. PULMONARY: Positive for cough, sputum production. Denied any hemoptysis GASTROINTESTINAL: Denies any type of dysphagia to either liquids or solids. Denies nausea, vomiting, pyrosis, early satiety, abdominal pain, constipation, or changes in stool consistency or caliber. Denies coffee-ground emesis, hematemesis, hematochezia, or melanotic stools. Positive for diarrhea GENITOURINARY: Denies frequency, urgency, nocturia, hematuria or incontinence (Storage/Irritative symptoms.) Low urinary stream, straining to void, urinary intermittency or hesitancy, splitting of the voiding stream, terminal dribbling. ENDOCRINOLOGIC: Denies polyuria, polydipsia, polyphagia or heat/cold intolerances. HEMATOLOGIC: Denies thrombophilia/previous clots, or coagulopathy/bleeding disorders. ONCOLOGIC: Denies personal history of malignancy. DERMATOLOGIC: Denies rashes or pruritus. PSYCHIATRIC: Denies any suicidal or homicidal ideation. Denies hallucinations. PHYSICAL EXAM GENERAL APPEARANCE: The patient is awake, alert, and oriented, in no acute cardiopulmonary distress. NEUROLOGICAL: Cranial nerves II-XII grossly intact. Motor is 5/5 in bilateral upper and lower extremities proximal to distal. No sensory deficits. HEENT: Face is symmetric. Pupils are equal and reactive. Extraocular movements are intact. NECK: Supple. No JVD. No thyromegaly. No submental, submandibular, pre- /postauricular, occipital or supraclavicular lymphadenopathy. CHEST: Normal chest expansion. No Telemetry. LUNGS: She has wheezing present bilaterally with rhonchi. CARDIOVASCULAR: Regular. S1 and S2 normal. No appreciable rubs, murmurs or gallops. ABDOMEN: Soft, nontender, and nondistended. There is no rebound, voluntary guarding, or rigidity. : Deferred. No Ardon. EXTREMITIES: She has a wound noted in the right ankle. She has a wound in the lateral and medial aspect of the leg. There is some purulent discharge noted. SKIN: No skin breakdown. Vital Signs (last 8hr) Date Time Temp Pulse Resp B/P (MAP) Pulse Ox O2 Delivery O2 Flow Rate FiO2 06/05/24 11:46 97.9 67 18 86/50 98 Nasal Cannula 2.0 06/05/24 11:18 69 20 06/05/24 10:33 95 Nasal Cannula* 2 28 06/05/24 09:20 143/59 06/05/24 07:50 97.9 75 18 143/59 95 Nasal Cannula 2.0 06/05/24 07:14 75 20 06/05/24 07:14 75 18 N/Cannula Low lpm 2.0 28 LABS: Laboratory: Test 06/05/24 10:58 06/05/24 06:17 06/04/24 05:16 Range/Units Whole Blood Glucose 157 H 70-110 MG/DL White Blood Count 6.6 4.8-10.8 K/uL Red Blood Count 3.95 L 4.00-5.50 MIL/uL Hemoglobin 11.1 L 12.0-16.0 g/dL Hematocrit 35.5 L 36-48 % Mean Corpuscular Volume 89.9 79-99 fL Mean Corpuscular Hemoglobin 28.1 27.0-33.0 pg Mean Corpuscular Hemoglobin Concent 31.3 L 32.0-36.0 g/dL Red Cell Distribution Width 13.3 11.0-15.5 % Platelet Count 222 130-400 K/uL Mean Platelet Volume 11.2 H 7.5-10.5 fL Immature Granulocyte % (Auto) 0.8 0-1 % Neutrophils (%) (Auto) 57.2 40.0-77.0 % Lymphocytes (%) (Auto) 27.5 21.0-51.0 % Monocytes (%) (Auto) 11.9 3.0-13.0 % Eosinophils (%) (Auto) 2.3 0.0-8.0 % Basophils (%) (Auto) 0.3 0.0-5.0 % Neutrophils # (Auto) 3.8 1.8-7.7 K/uL Lymphocytes # (Auto) 1.8 1.0-4.8 K/uL Monocytes # (Auto) 0.8 0.1-1.0 K/uL Eosinophils # (Auto) 0.15 0.00-0.70 K/uL Basophils # (Auto) 0.02 0.00-0.20 K/uL Absolute Immature Granulocyte (auto 0.05 0-1 K/uL Nucleated Red Blood Cells 0.0 0.0-0.19 % Sodium Level 136 136-145 mmol/L Potassium Level 4.0 3.5-5.1 mmol/L Chloride Level 94 L 101-111 mmol/L Carbon Dioxide Level 29 21-32 mmol/L Blood Urea Nitrogen 27 H 7-18 mg/dL Creatinine 6.3 H 0.5-1.0 mg/dL Glomerular Filtration Rate Calc 7 >90 mL/min Random Glucose 188 H 70-105 mg/dL Total Calcium 8.9 8.5-10.1 mg/dL Phosphorus Level 5.1 H 2.5-4.9 mg/dL Current Medications Medications (Trade) Dose Ordered Sig/Susannah Route PRN Reason Start Time Stop Time Status Last Admin Dose Admin Acetaminophen (TYLenol 500MG TAB) 500 mg Q6H PRN PO MILD PAIN (1-3) 05/27/24 15:00 06/26/24 14:59 06/04/24 23:34 500 MG Albuterol Sulfate (Proventil 0.083% 2.5mg/3ml) 2.5MG [id number] IH 05/27/24 15:00 06/26/24 14:59 06/05/24 11:11 2.5 MG Albuterol Sulfate (Proventil 0.083% 2.5mg/3ml) 10 mg ONCE IH 05/26/24 08:00 05/26/24 15:17 DC 05/26/24 08:11 10 MG Budesonide (Pulmicort 0.5 Mg/2ml) 0.5 mg BIDRESP IH 05/27/24 18:00 06/26/24 17:59 06/05/24 07:12 0.5 MG Carvedilol (Coreg 12.5MG) 12.5 mg BID PO 05/27/24 21:00 06/26/24 20:59 06/05/24 09:20 12.5 MG Cefepime HCl (MAXipime 1 GM vial) 1 gm Q12H IVPB 05/27/24 15:00 05/27/24 18:22 DC Cefepime HCl (MAXipime 1 GM vial) 1 gm Q12H9 IVPB 05/27/24 21:00 05/28/24 11:36 DC 05/28/24 07:46 1 GM Cefepime HCl (MAXipime 1 GM vial) 1 gm Q24H IVPB 05/29/24 09:00 05/29/24 12:58 DC 05/29/24 09:50 1 GM Ceftriaxone Sodium (ROCEphine 1G INJ) 1 gm Q24H IVPB 05/27/24 10:30 05/27/24 14:24 DC Ceftriaxone Sodium (ROCEphine 1G INJ) 1 gm Q24H IVPB 05/27/24 17:00 05/27/24 14:58 DC Doxycycline Hyclate (Doxycycline Hyclate) 100 mg BID PO 05/27/24 21:00 05/27/24 15:46 DC Guaifenesin (RobiTUSSin SUGAR-FREE 100 MG/ 5 ML UDCUP) 400 mg Q4H PRN PO COUGH 05/28/24 06:30 06/27/24 06:29 05/29/24 22:44 400 MG Heparin Sodium (Porcine) (HEParin 5,000 UNIT VIAL) 5,000 unit Q12H SQ 06/01/24 09:00 07/01/24 08:59 06/05/24 09:35 5,000 UNIT Heparin Sodium (Porcine) (HEParin 5,000 UNIT VIAL) 10,000 unit AD IRRIG 05/26/24 15:30 06/25/24 15:29 06/04/24 13:22 10,000 UNIT Hydralazine HCl (APRESOLine 20MG INJ) 10 mg Q6H PRN IV ADMINISTER FOR SBP > 180 05/27/24 15:00 06/26/24 14:59 Insulin Human Regular (humuLIN R 100 UNIT/ML 3ML) INSULIN SLIDING SCAL... ACHS SQ 05/28/24 07:30 06/27/24 07:29 06/05/24 05:48 2 UNIT Ipratropium Doyle (AtrovENT UD) 0.5 mg [id number] IH 05/28/24 00:00 06/27/24 00:00 06/05/24 11:11 0.5 MG Lactulose (Constulose 20gm/ 30ml Udcup) 20 gm TID PRN PO CONSTIPATION 06/04/24 15:30 07/04/24 15:29 Leptospermum Honey ([facility]) APPLY DIRECTED DAILY TP 05/28/24 09:00 06/27/24 08:59 06/05/24 09:22 1 APPL Meropenem (Merrem 500mg) 500 mg Q12H IV 05/30/24 12:30 06/01/24 04:53 DC 06/01/24 01:07 500 MG Methylprednisolone Sodium Succinate (Solu-medROL 40MG) 20 mg BID IVP 05/27/24 21:00 05/27/24 19:34 DC Midodrine (PROAMatine 5 MG TABLET) 5 mg TID PO 06/05/24 11:30 07/05/24 11:29 06/05/24 11:36 5 MG Montelukast Sodium (SinguLAIR) 10 mg DAILY PO 05/30/24 09:00 06/29/24 08:59 06/05/24 09:20 10 MG Oseltamivir Phosphate (Tamiflu) 30 mg QODAY PO 05/31/24 20:00 05/29/24 12:55 DC Oseltamivir Phosphate (Tamiflu) 75 mg MWFPHD PO 05/31/24 16:00 06/05/24 15:59 06/04/24 15:43 75 MG Oseltamivir Phosphate (Tamiflu) 75 mg Q24H PO 05/28/24 21:00 05/29/24 12:47 DC 05/28/24 20:52 75 MG Oseltamivir Phosphate (Tamiflu) 75 mg QODAY@2100 PO 05/27/24 21:00 05/28/24 14:12 DC 05/27/24 21:41 75 MG Pharmacy Profile Note (Pharmacy Communication) 1 each AD MISC 05/28/24 06:00 05/28/24 11:37 DC Pharmacy Profile Note (Pharmacy Communication) 1 each ONCE MISC 05/27/24 19:30 05/28/24 11:37 DC Pharmacy Profile Note (Pharmacy Communication) 1 each ONCE MISC 05/28/24 15:30 05/28/24 15:14 DC Piperacillin Sod/ Tazobactam Sod (Zosyn 3.375gm+NS 50ml) 3.375 gm Q12H IV 06/01/24 05:00 06/11/24 04:59 06/05/24 04:08 3.375 GM Polyethylene Glycol (MIRalax 3350 17 GM POWD.PACK) 17 gm DAILY PO 06/04/24 16:30 07/04/24 16:29 06/05/24 09:20 17 GM Sodium Chloride 250 ml @ 0 mls/hr AD IV 05/26/24 15:30 06/25/24 15:29 Sodium Chloride 1,000 ml @ 0 mls/hr ONCE IV 05/26/24 15:30 06/25/24 15:29 06/04/24 11:13 100 MLS/HR Vancomycin HCl 250 ml @ 125 mls/hr ONCE IV 05/28/24 21:00 05/28/24 23:59 DC 05/28/24 20:53 125 MLS/HR Vancomycin HCl 250 ml @ 125 mls/hr [id number][DIALYSIS] IV 05/31/24 16:00 06/01/24 04:53 DC 05/31/24 17:53 125 MLS/HR Vancomycin HCl (Vancomycin Protocol) 1 each AD IV 05/27/24 16:00 06/02/24 00:08 DC DIAGNOSTICS / RADIOLOGY: [ ] ASSESSMENT: Acute sepsis due to UTI POA Acute hypoxic respiratory failure due to volume overload/missed dialysis POA Volume overload secondary to missed dialysis POA Metabolic acidosis POA Troponin elevation likely in setting of missed dialysis and type 2 AL (down trending) no chest POA Metabolic/infectious encephalopathy. Suspected pneumonia/URI POA Acute complicated cystitis POA Right ankle wound infection with Enterococcus faecalis and ESBL E coli from anaerobic and aerobic culture 05/27/2024 POA Positive Influenza A POA Acute asthma exacerbation History of right ankle abscess status post incision and drainage and hardware removal by Dr. Cabrera on 03/2025 Suspected cellulitis in the right ankle with mild purulent drainage History of MSSA infection Uncontrolled hypertension Uncontrolled diabetes mellitus type 2 with hypoglycemia Hyperlipidemia Obesity BMI 45.5 PLAN: Admitted to the medical floor Continue renal dialysis diet consultants: Gas Fitter's, mailing machine assistant's, Infectious Disease, cardiovascular Continue Tamiflu on Wednesdays and Fridays Continue IV Zosyn, we will transition to IV Merrem once ready for discharge Dr. De Souza for antimicrobial stewardship. Recommending IV Merrem times 10 days Wound cultures positive for Enterococcus faecalis and ESBL E coli Blood culture negative Continue wound care Continue supplemental O2 to keep O2 saturations above 92%, currently satting 99% Please titrate down supplemental O2 to keep O2 sats >92%. DC if not needed. Continues bronchodilators Test: ECHO LVEF: 60-65% with moderate mitral value stenosis Continue dialysis 3x week we will follow mailing machine assistant's fluid restriction strict I&Os and daily weights Fluid restriction 1.5 L/daily Aspiration precautions head of the bed at [address] Madrigal planning brachiocephalic AV fistula Vein mapping complete Continue to work with physical therapy Monitor a.m. labs PRN Treatment - Add when necessary meds for nausea, vomiting, pain, con stipation, insomnia. DVT/GI prophylaxis- Continue heparin at current doses. Full CODE STATUS Disposition: Case management consulted for group home facility placement for continued antibiotic therapy for IV Merrem, wound care and physical therapy This document was generated in part using voice recognition software, occasional wrong word or sound alike substitutions may have occurred due to the inherent limitations of voice recognition software. Read the chart carefully and recognize using context, where the substitutions have occurred. Although every effort was made to edit the content, emergency room physician assistant and typing errors may occur ATTESTATION BY PHYSICIAN I have seen and examined the patient. I reviewed the documentation, medical decision making, and treatment plan as noted by the mid-level provider above. I agree with the findings and plan of care. WAYNE BRIGGS MD, JANICE B AGPCNP Jun 05, 2024 12:15
--- NOTE | 2024-06-05 12:40 | NUR ---
Dr. Poe at the bedside. He is updated on the patient' s BP status. The patient is alert and in no distress. She denies chest pain of feeling faint. The Peripheral auto cuff presures remain at 90/40. Dr. Poe gives no further orders but to continue monitoring as she has few places to take a blood presure from. The left arm is restricted and the right arm is the site of an old graft. The right and left legs are also painful for the patient to use.
--- NOTE | 2024-06-05 13:40 | NUR ---
The patient continues to rest comfortably. She is eating a [employer] meal. she has no concerns or complaints and is asking for more food if it is available.
--- NOTE | 2024-06-05 15:50 | PN ---
FOLLOWUP PROGRESS NOTE SUBJECTIVE: A 58-year-old female with a history of diabetes mellitus and hypertension. Has a history of end-stage renal disease, on dialysis on a Friday, Friday, Friday schedule. She initially presented with increasing shortness of breath, orthopnea. The patient was positive for influenza. The patient remains on multiple antibiotics and is pending placement at the SNF and she is being seen as a followup visit for all of the above. REVIEW OF SYSTEMS: GENERAL: She is feeling improved. HEENT: No change in vision. No change in hearing. CARDIOVASCULAR: No current chest pains or palpitations. PULMONARY: Shortness of breath is improved. GASTROINTESTINAL: She is tolerating a diet. MUSCULOSKELETAL: Complains of weakness. PHYSICAL EXAMINATION: VITAL SIGNS: Blood pressure 143/59, pulse in the 70s. GENERAL: Chronically ill female lying in bed on medical floor. HEENT: Head is atraumatic. Pupils equal, roving to light. Oropharynx is without exudate. Nares clear. NECK: There is no JVP. There is no thyromegaly, no mass. CARDIOVASCULAR: Regular. There is no S3, S4 gallop. LUNGS: Coarse with equal thoracic movement. ABDOMEN: Soft, nondistended, nontender. EXTREMITIES: Reveal no clubbing, no cyanosis. NEUROLOGIC: She is awake. She is alert. LABORATORY DATA: Hemoglobin 11, hematocrit 35, BUN 27, creatinine 6. IMPRESSION: * Influenza pneumonia. * Diabetes mellitus. * Hypertension. * Anemia. PLAN: The patient's pulmonary symptoms continued to slowly improve. She remains on the broad spectrum IV antibiotics. She will continue dialysis on a Friday, Friday, Friday schedule. She does receive erythropoietin injections for the anemia. We will continue to follow closely. The patient with multiple questions, which were all answered. TID: [id number] RECEIPT: [id number]
--- NOTE | 2024-06-05 16:08 | PN ---
INFECTIOUS DISEASE PROGRESS NOTE Date of Service: Jun 05, 2024 SUBJECTIVE: This is a 58-year-old female patient who was admitted to the hospital for shortness of breaths, fever, cough and reported missing hemodialysis due to not feeling well. On admission patient was positive for influenza type A. Patient was seen and examined at bedside in room 315. Patient is awake alert and oriented x3. No dyspnea, patient is saturating 95 to 98%. Patient was dialyzed yesterday and 1.9 L were removed. Per report physical therapy was held today due to patient is hypotensive. Patient is afebrile, temperature is 97.9 and the WBC is 6.6. Continues on Zosyn. Patient is also on Tamiflu for Influenza viral infection type A. Patient has been referred to [facility] and pending insurance authorization. Will continue to monitor patient's care. PHYSICAL EXAM EYES: Anicteric. Pupils equal and reactive. HENT: No oral thrush seen, moist Oral mucosa. NECK: Supple, no JVD or thyromegaly. RESPIRATORY: Good air entry. Oxygen support via nasal cannula. CARDIOVASCULAR: S1, S2 regular. No murmur heard. ABDOMEN: Soft, non tender, bowel sounds present, no organomegaly. CENTRAL NERVOUS SYSTEM: Awake, alert, oriented x 3. SKIN: No rashes, no swelling. LYMPHATICS: No peripheral lymphadenopathy. MUSCULOSKELETAL: No joint swelling, erythema or tenderness. EXTREMITIES: No cyanosis or clubbing. Right ankle wound infection. BACK: No deformity, no pressure ulcer. GENITOURINARY: No dysuria or hematuria. Vital Sign (Last 12 Hours) 06/05/24 06/05/24 06/05/24 06/05/24 07:14 07:14 07:50 09:20 Temp 97.9 Pulse 75 75 75 Resp 18 20 18 B/P (MAP) 143/59 143/59 Pulse Ox 95 O2 Delivery N/Cannula Low lpm Nasal Cannula O2 Flow Rate 2.0 2.0 FiO2 28 06/05/24 06/05/24 06/05/24 06/05/24 10:33 11:18 11:46 15:52 Temp 97.9 97.9 Pulse 69 67 76 Resp 20 18 18 B/P (MAP) 86/50 120/60 Pulse Ox 95 98 98 O2 Delivery Nasal Cannula* Nasal Cannula Nasal Cannula O2 Flow Rate 2 2.0 2.0 FiO2 28 Intake & Output (last 24hrs) 06/04/24 06/04/24 06/05/24 15:00 23:00 07:00 Intake Total 100 ml 565.0 ml Output Total 1900 ml Balance -1900 ml 100 ml 565.0 ml LABS: Laboratory: Test 06/05/24 15:27 06/05/24 06:17 06/04/24 05:16 Range/Units Whole Blood Glucose 255 #H 70-110 MG/DL White Blood Count 6.6 4.8-10.8 K/uL Red Blood Count 3.95 L 4.00-5.50 MIL/uL Hemoglobin 11.1 L 12.0-16.0 g/dL Hematocrit 35.5 L 36-48 % Mean Corpuscular Volume 89.9 79-99 fL Mean Corpuscular Hemoglobin 28.1 27.0-33.0 pg Mean Corpuscular Hemoglobin Concent 31.3 L 32.0-36.0 g/dL Red Cell Distribution Width 13.3 11.0-15.5 % Platelet Count 222 130-400 K/uL Mean Platelet Volume 11.2 H 7.5-10.5 fL Immature Granulocyte % (Auto) 0.8 0-1 % Neutrophils (%) (Auto) 57.2 40.0-77.0 % Lymphocytes (%) (Auto) 27.5 21.0-51.0 % Monocytes (%) (Auto) 11.9 3.0-13.0 % Eosinophils (%) (Auto) 2.3 0.0-8.0 % Basophils (%) (Auto) 0.3 0.0-5.0 % Neutrophils # (Auto) 3.8 1.8-7.7 K/uL Lymphocytes # (Auto) 1.8 1.0-4.8 K/uL Monocytes # (Auto) 0.8 0.1-1.0 K/uL Eosinophils # (Auto) 0.15 0.00-0.70 K/uL Basophils # (Auto) 0.02 0.00-0.20 K/uL Absolute Immature Granulocyte (auto 0.05 0-1 K/uL Nucleated Red Blood Cells 0.0 0.0-0.19 % Sodium Level 136 136-145 mmol/L Potassium Level 4.0 3.5-5.1 mmol/L Chloride Level 94 L 101-111 mmol/L Carbon Dioxide Level 29 21-32 mmol/L Blood Urea Nitrogen 27 H 7-18 mg/dL Creatinine 6.3 H 0.5-1.0 mg/dL Glomerular Filtration Rate Calc 7 >90 mL/min Random Glucose 188 H 70-105 mg/dL Total Calcium 8.9 8.5-10.1 mg/dL Phosphorus Level 5.1 H 2.5-4.9 mg/dL ASSESSMENT: Acute on chronic respiratory failure requiring oxygen support. Pneumonia. Sepsis. Influenza Viral infection type A. Right ankle wound infection with ESBL, E coli. History of right ankle osteomyelitis, status post hardware removal. End-stage renal disease, on dialysis. Morbid obesity. Debility. PLAN: Continue Zosyn. Patient will need 10 days of Meropenem IV at SNF. Continue Tamiflu. Continue dialysis as recommended by child guidance counselor. Patient has been vein mapped and pending a AV graft placement. Continue wound care to the right ankle. Continue pain management. Continue oxygen support. Continue DVT prophylaxis. Continue with Physical therapy. Patient has been referred to [facility] [place] and pending insurance auth orization. This case was reviewed and discussed with my supervising physician and the above assessment and plan was formulated and agreed upon. ATTESTATION BY PHYSICIAN I have seen and examined the patient. I reviewed the documentation, medical decision making, and treatment plan as noted by the mid-level provider above. I agree with the findings and plan of care. DIDIER CONTRERAS MD, MIRTA L [employer] DEL[employer]HIC[employer] TEAM TECHNICIAN Jun 05, 2024 16:08
--- NOTE | 2024-06-05 16:10 | PN ---
[facility] PROGRESS NOTE Date of Service: Jun 05, 2024 Time of Service: 16:10 SUBJECTIVE: [ ] This is a 50-year-old with a significant medical history of end-stage renal disease on dialysis on Friday hypertension hyperlipidemia and asthma presented in ED with chief complaints of shortness a breath apparently patient missed her dialysis. ER workup was consistent with asthma exacerbation possible pneumonia respiratory failure. Patient was with fluid overload for which patient was diuresed. Patient now improve with her symptoms. Now she was noted with Enterococcus faecalis and ESBL in the wound. Patient is status post vein mapping, pending AV graft placement. We will follow up with 06/05/24 patient was seen and examined. Case discussed with the RN. Appreciate ID IV Merrem recommended for the next 10 days this patient was to go back to [facility] facility. REVIEW OF SYSTEMS CONSTITUTIONAL: Denies or night sweats. No unintentional weight loss reported. Positive for fever, chills NEUROLOGICAL: Denies headache, amaurosis fugax, motor weakness, sensory deficit, vertigo/spinning sensation, gait abnormalities, or tremors. ENT: No hearing loss, otalgia, otorrhea, rhinitis, rhinorrhea, hoarseness, or sore throat. CARDIOVASCULAR: Denies any exertional angina, dyspnea on exertion, orthopnea, paroxysmal nocturnal dyspnea, palpitations, life-threatening arrhythmias, claudication. PULMONARY: Positive for cough, sputum production. Denied any hemoptysis GASTROINTESTINAL: Denies any type of dysphagia to either liquids or solids. Denies nausea, vomiting, pyrosis, early satiety, abdominal pain, constipation, or changes in stool consistency or caliber. Denies coffee-ground emesis, hematemesis, hematochezia, or melanotic stools. Positive for diarrhea GENITOURINARY: Denies frequency, urgency, nocturia, hematuria or incontinence (Storage/Irritative symptoms.) Low urinary stream, straining to void, urinary intermittency or hesitancy, splitting of the voiding stream, terminal dribbling. ENDOCRINOLOGIC: Denies polyuria, polydipsia, polyphagia or heat/cold intolerances. HEMATOLOGIC: Denies thrombophilia/previous clots, or coagulopathy/bleeding disorders. ONCOLOGIC: Denies personal history of malignancy. DERMATOLOGIC: Denies rashes or pruritus. PSYCHIATRIC: Denies any suicidal or homicidal ideation. Denies hallucinations. PHYSICAL EXAM GENERAL APPEARANCE: The patient is awake, alert, and oriented, in no acute cardiopulmonary distress. NEUROLOGICAL: Cranial nerves II-XII grossly intact. Motor is 5/5 in bilateral upper and lower extremities proximal to distal. No sensory deficits. HEENT: Face is symmetric. Pupils are equal and reactive. Extraocular movements are intact. NECK: Supple. No JVD. No thyromegaly. No submental, submandibular, pre- /postauricular, occipital or supraclavicular lymphadenopathy. CHEST: Normal chest expansion. No Telemetry. LUNGS: She has wheezing present bilaterally with rhonchi. CARDIOVASCULAR: Regular. S1 and S2 normal. No appreciable rubs, murmurs or gallops. ABDOMEN: Soft, nontender, and nondistended. There is no rebound, voluntary guarding, or rigidity. : Deferred. No Ardon. EXTREMITIES: She has a wound noted in the right ankle. She has a wound in the lateral and medial aspect of the leg. There is some purulent discharge noted. SKIN: No skin breakdown. Vital Signs (last 8hr) Date Time Temp Pulse Resp B/P (MAP) Pulse Ox O2 Delivery O2 Flow Rate FiO2 06/05/24 15:52 97.9 76 18 120/60 98 Nasal Cannula 2.0 06/05/24 11:46 97.9 67 18 86/50 98 Nasal Cannula 2.0 06/05/24 11:18 69 20 06/05/24 10:33 95 Nasal Cannula* 2 28 06/05/24 09:20 143/59 LABS: Laboratory: Test 06/05/24 15:27 06/05/24 06:17 06/04/24 05:16 Range/Units Whole Blood Glucose 255 #H 70-110 MG/DL White Blood Count 6.6 4.8-10.8 K/uL Red Blood Count 3.95 L 4.00-5.50 MIL/uL Hemoglobin 11.1 L 12.0-16.0 g/dL Hematocrit 35.5 L 36-48 % Mean Corpuscular Volume 89.9 79-99 fL Mean Corpuscular Hemoglobin 28.1 27.0-33.0 pg Mean Corpuscular Hemoglobin Concent 31.3 L 32.0-36.0 g/dL Red Cell Distribution Width 13.3 11.0-15.5 % Platelet Count 222 130-400 K/uL Mean Platelet Volume 11.2 H 7.5-10.5 fL Immature Granulocyte % (Auto) 0.8 0-1 % Neutrophils (%) (Auto) 57.2 40.0-77.0 % Lymphocytes (%) (Auto) 27.5 21.0-51.0 % Monocytes (%) (Auto) 11.9 3.0-13.0 % Eosinophils (%) (Auto) 2.3 0.0-8.0 % Basophils (%) (Auto) 0.3 0.0-5.0 % Neutrophils # (Auto) 3.8 1.8-7.7 K/uL Lymphocytes # (Auto) 1.8 1.0-4.8 K/uL Monocytes # (Auto) 0.8 0.1-1.0 K/uL Eosinophils # (Auto) 0.15 0.00-0.70 K/uL Basophils # (Auto) 0.02 0.00-0.20 K/uL Absolute Immature Granulocyte (auto 0.05 0-1 K/uL Nucleated Red Blood Cells 0.0 0.0-0.19 % Sodium Level 136 136-145 mmol/L Potassium Level 4.0 3.5-5.1 mmol/L Chloride Level 94 L 101-111 mmol/L Carbon Dioxide Level 29 21-32 mmol/L Blood Urea Nitrogen 27 H 7-18 mg/dL Creatinine 6.3 H 0.5-1.0 mg/dL Glomerular Filtration Rate Calc 7 >90 mL/min Random Glucose 188 H 70-105 mg/dL Total Calcium 8.9 8.5-10.1 mg/dL Phosphorus Level 5.1 H 2.5-4.9 mg/dL Current Medications Medications (Trade) Dose Ordered Sig/Susannah Route PRN Reason Start Time Stop Time Status Last Admin Dose Admin Acetaminophen (TYLenol 500MG TAB) 500 mg Q6H PRN PO MILD PAIN (1-3) 05/27/24 15:00 06/26/24 14:59 06/04/24 23:34 500 MG Albuterol Sulfate (Proventil 0.083% 2.5mg/3ml) 2.5MG [id number] IH 05/27/24 15:00 06/26/24 14:59 06/05/24 11:11 2.5 MG Albuterol Sulfate (Proventil 0.083% 2.5mg/3ml) 10 mg ONCE IH 05/26/24 08:00 05/26/24 15:17 DC 05/26/24 08:11 10 MG Budesonide (Pulmicort 0.5 Mg/2ml) 0.5 mg BIDRESP IH 05/27/24 18:00 06/26/24 17:59 06/05/24 07:12 0.5 MG Carvedilol (Coreg 12.5MG) 12.5 mg BID PO 05/27/24 21:00 06/26/24 20:59 06/05/24 09:20 12.5 MG Cefepime HCl (MAXipime 1 GM vial) 1 gm Q12H IVPB 05/27/24 15:00 05/27/24 18:22 DC Cefepime HCl (MAXipime 1 GM vial) 1 gm Q12H9 IVPB 05/27/24 21:00 05/28/24 11:36 DC 05/28/24 07:46 1 GM Cefepime HCl (MAXipime 1 GM vial) 1 gm Q24H IVPB 05/29/24 09:00 05/29/24 12:58 DC 05/29/24 09:50 1 GM Ceftriaxone Sodium (ROCEphine 1G INJ) 1 gm Q24H IVPB 05/27/24 10:30 05/27/24 14:24 DC Ceftriaxone Sodium (ROCEphine 1G INJ) 1 gm Q24H IVPB 05/27/24 17:00 05/27/24 14:58 DC Doxycycline Hyclate (Doxycycline Hyclate) 100 mg BID PO 05/27/24 21:00 05/27/24 15:46 DC Guaifenesin (RobiTUSSin SUGAR-FREE 100 MG/ 5 ML UDCUP) 400 mg Q4H PRN PO COUGH 05/28/24 06:30 06/27/24 06:29 05/29/24 22:44 400 MG Heparin Sodium (Porcine) (HEParin 5,000 UNIT VIAL) 5,000 unit Q12H SQ 06/01/24 09:00 07/01/24 08:59 06/05/24 09:35 5,000 UNIT Heparin Sodium (Porcine) (HEParin 5,000 UNIT VIAL) 10,000 unit AD IRRIG 05/26/24 15:30 06/25/24 15:29 06/04/24 13:22 10,000 UNIT Hydralazine HCl (APRESOLine 20MG INJ) 10 mg Q6H PRN IV ADMINISTER FOR SBP > 180 05/27/24 15:00 06/26/24 14:59 Insulin Human Regular (humuLIN R 100 UNIT/ML 3ML) INSULIN SLIDING SCAL... ACHS SQ 05/28/24 07:30 06/27/24 07:29 06/05/24 05:48 2 UNIT Ipratropium [place] (AtrovENT UD) 0.5 mg [id number] IH 05/28/24 00:00 06/27/24 00:00 06/05/24 11:11 0.5 MG Lactulose (Constulose 20gm/ 30ml Udcup) 20 gm TID PRN PO CONSTIPATION 06/04/24 15:30 07/04/24 15:29 Leptospermum Honey (Medihoney) APPLY DIRECTED DAILY TP 05/28/24 09:00 06/27/24 08:59 06/05/24 09:22 1 APPL Meropenem (Merrem 500mg) 500 mg Q12H IV 05/30/24 12:30 06/01/24 04:53 DC 06/01/24 01:07 500 MG Methylprednisolone Sodium Succinate (Solu-medROL 40MG) 20 mg BID IVP 05/27/24 21:00 05/27/24 19:34 DC Midodrine (PROAMatine 5 MG TABLET) 5 mg TID PO 06/05/24 11:30 07/05/24 11:29 06/05/24 13:59 5 MG Montelukast Sodium (SinguLAIR) 10 mg DAILY PO 05/30/24 09:00 06/29/24 08:59 06/05/24 09:20 10 MG Oseltamivir Phosphate (Tamiflu) 30 mg QODAY PO 05/31/24 20:00 05/29/24 12:55 DC Oseltamivir Phosphate (Tamiflu) 75 mg MWFPHD PO 05/31/24 16:00 06/05/24 15:59 DC 06/04/24 15:43 75 MG Oseltamivir Phosphate (Tamiflu) 75 mg Q24H PO 05/28/24 21:00 05/29/24 12:47 DC 05/28/24 20:52 75 MG Oseltamivir Phosphate (Tamiflu) 75 mg QODAY@2100 PO 05/27/24 21:00 05/28/24 14:12 DC 05/27/24 21:41 75 MG Pharmacy Profile Note (Pharmacy Communication) 1 each AD MISC 05/28/24 06:00 05/28/24 11:37 DC Pharmacy Profile Note (Pharmacy Communication) 1 each ONCE MISC 05/27/24 19:30 05/28/24 11:37 DC Pharmacy Profile Note (Pharmacy Communication) 1 each ONCE MISC 05/28/24 15:30 05/28/24 15:14 DC Piperacillin Sod/ Tazobactam Sod (Zosyn 3.375gm+NS 50ml) 3.375 gm Q12H IV 06/01/24 05:00 06/11/24 04:59 06/05/24 04:08 3.375 GM Polyethylene Glycol (MIRalax 3350 17 GM POWD.PACK) 17 gm DAILY PO 06/04/24 16:30 07/04/24 16:29 06/05/24 09:20 17 GM Sodium Chloride 250 ml @ 0 mls/hr AD IV 05/26/24 15:30 06/25/24 15:29 Sodium Chloride 1,000 ml @ 0 mls/hr ONCE IV 05/26/24 15:30 06/25/24 15:29 06/04/24 11:13 100 MLS/HR Vancomycin HCl 250 ml @ 125 mls/hr ONCE IV 05/28/24 21:00 05/28/24 23:59 DC 05/28/24 20:53 125 MLS/HR Vancomycin HCl 250 ml @ 125 mls/hr [id number][DIALYSIS] IV 05/31/24 16:00 06/01/24 04:53 DC 05/31/24 17:53 125 MLS/HR Vancomycin HCl (Vancomycin Protocol) 1 each AD IV 05/27/24 16:00 06/02/24 00:08 DC DIAGNOSTICS / RADIOLOGY: [ ] ASSESSMENT: Acute sepsis due to UTI POA Acute hypoxic respiratory failure due to volume overload/missed dialysis POA Volume overload secondary to missed dialysis POA Metabolic acidosis POA Troponin elevation likely in setting of missed dialysis and type 2 TN (down trending) no chest POA Metabolic/infectious encephalopathy. Suspected pneumonia/URI POA Acute complicated cystitis POA Right ankle wound infection with Enterococcus faecalis and ESBL E coli from anaerobic and aerobic culture 05/27/2024 POA Positive Influenza A POA Acute asthma exacerbation History of right ankle abscess status post incision and drainage and hardware removal by Dr. Cabrera on 03/2025 Suspected cellulitis in the right ankle with mild purulent drainage History of MSSA infection Uncontrolled hypertension Uncontrolled diabetes mellitus type 2 with hypoglycemia Hyperlipidemia Obesity BMI 45.5 PLAN: Admitted to the medical floor Continue renal dialysis diet consultants: Bellows Tester's, health informatics specialist's, Infectious Disease, cardiovascular Continue Tamiflu on Wednesdays and Fridays Continue IV Zosyn, we will transition to IV Merrem once ready for discharge Dr. De Souza for antimicrobial stewardship. Recommending IV Merrem times 10 days Wound cultures positive for Enterococcus faecalis and ESBL E coli Blood culture negative Continue wound care Continue supplemental O2 to keep O2 saturations above 92%, currently satting 99% Please titrate down supplemental O2 to keep O2 sats >92%. DC if not needed. Continues bronchodilators Test: ECHO LVEF: 60-65% with moderate mitral value stenosis Continue dialysis 3x week we will follow health informatics specialist's fluid restriction strict I&Os and daily weights Fluid restriction 1.5 L/daily Aspiration precautions head of the bed at [address] Madrigal planning brachiocephalic AV fistula Vein mapping complete Continue to work with physical therapy Monitor a.m. labs PRN Treatment - Add when necessary meds for nausea, vomiting, pain, constipation, insomnia. DVT/GI prophylaxis- Continue heparin at current doses. Full CODE STATUS Disposition: Case management consulted for [facility]pc facility placement for continued antibiotic therapy for IV Merrem, wound care and physical therapy This document was generated in part using voice recognition software, occasional wrong word or sound alike substitutions may have occurred due to the inherent limitations of voice recognition software. Read the chart carefully and recognize using context, where the substitutions have occurred. Although every effort was made to edit the content, manufacturing technology analyst and typing errors may occur YAN RENAE MD Jun 05, 2024 16:10
[2024-06-06] VITALS (16 sets, daily range): BP systolic 84–140; BP diastolic 33–58; PULSE 64–72; RESP 16–20; TEMP 97.7–98.7; O2SAT 98–100
[2024-06-06 05:10] LABS: BASOPHILS # (AUTO) 0.03 K/uL (0.00-0.20); BASOPHILS % (AUTO) 0.4 % (0.0-5.0); EOSINOPHILS # (AUTO) 0.17 K/uL (0.00-0.70); EOSINOPHILS % (AUTO) 2.2 % (0.0-8.0); IMMATURE GRANULOCYTE ABSOLUTE 0.07 K/uL (0-1); LYMPHOCYTES # (AUTO) 2.1 K/uL (1.0-4.8); LYMPHOCYTES % (AUTO) 26.8 % (21.0-51.0); MEAN CORPUSCULAR HEMOGLOBIN 28.3 pg (27.0-33.0); MEAN CORPUSCULAR HGB CONC 32.8 g/dL (32.0-36.0); MEAN CORPUSCULAR VOLUME 86.3 fL (79-99); MONOCYTES # (AUTO) 0.9 K/uL (0.1-1.0); MONOCYTES % (AUTO) 11.5 % (3.0-13.0); NEUTROPHILS # (AUTO) 4.5 K/uL (1.8-7.7); NEUTROPHILS % (AUTO) 58.2 % (40.0-77.0); PLATELET COUNT (AUTO) 201 K/uL (130-400); RED BLOOD CELL COUNT(AUTO) 3.71 MIL/uL (4.00-5.50); RED CELL DISTRIBUTION WIDTH 13.5 % (11.0-15.5); WHITE BLOOD COUNT (AUTO) 7.8 K/uL (4.8-10.8)
[2024-06-06 05:25] LABS: POTASSIUM 3.4 mmol/L (3.5-5.1)
--- NOTE | 2024-06-06 08:12 | PN ---
[facility] PROGRESS NOTE Date of Service: Jun 06, 2024 Time of Service: 08:08 SUBJECTIVE: [ ] This is a 50-year-old with a significant medical history of end-stage renal disease on dialysis on Friday hypertension hyperlipidemia and asthma presented in ED with chief complaints of shortness a breath apparently patient missed her dialysis. ER workup was consistent with asthma exacerbation possible pneumonia respiratory failure. Patient was with fluid overload for which patient was diuresed. Patient now improve with her symptoms. Now she was noted with Enterococcus faecalis and ESBL in the wound. Patient is status post vein mapping, pending AV graft placement. We will follow up with ID and nephro on final recommendations. She was evaluated in her room 315, she offers no complaints during rounds. She is afebrile. Labs reviewed. REVIEW OF SYSTEMS CONSTITUTIONAL: Denies or night sweats. No unintentional weight loss reported. Positive for fever, chills NEUROLOGICAL: Denies headache, amaurosis fugax, motor weakness, sensory deficit, vertigo/spinning sensation, gait abnormalities, or tremors. ENT: No hearing loss, otalgia, otorrhea, rhinitis, rhinorrhea, hoarseness, or sore throat. CARDIOVASCULAR: Denies any exertional angina, dyspnea on exertion, orthopnea, paroxysmal nocturnal dyspnea, palpitations, life-threatening arrhythmias, claudication. PULMONARY: Positive for cough, sputum production. Denied any hemoptysis GASTROINTESTINAL: Denies any type of dysphagia to either liquids or solids. Denies nausea, vomiting, pyrosis, early satiety, abdominal pain, constipation, or changes in stool consistency or caliber. Denies coffee-ground emesis, hematemesis, hematochezia, or melanotic stools. Positive for diarrhea GENITOURINARY: Denies frequency, urgency, nocturia, hematuria or incontinence (Storage/Irritative symptoms.) Low urinary stream, straining to void, urinary intermittency or hesitancy, splitting of the voiding stream, terminal dribbling. ENDOCRINOLOGIC: Denies polyuria, polydipsia, polyphagia or heat/cold intolerances. HEMATOLOGIC: Denies thrombophilia/previous clots, or coagulopathy/bleeding disorders. ONCOLOGIC: Denies personal history of malignancy. DERMATOLOGIC: Denies rashes or pruritus. PSYCHIATRIC: Denies any suicidal or homicidal ideation. Denies hallucinations. PHYSICAL EXAM GENERAL APPEARANCE: The patient is awake, alert, and oriented, in no acute c ardiopulmonary distress. NEUROLOGICAL: Cranial nerves II-XII grossly intact. Motor is 5/5 in bilateral upper and lower extremities proximal to distal. No sensory deficits. HEENT: Face is symmetric. Pupils are equal and reactive. Extraocular movements are intact. NECK: Supple. No JVD. No thyromegaly. No submental, submandibular, pre- /postauricular, occipital or supraclavicular lymphadenopathy. CHEST: Normal chest expansion. No Telemetry. LUNGS: She has wheezing present bilaterally with rhonchi. CARDIOVASCULAR: Regular. S1 and S2 normal. No appreciable rubs, murmurs or gallops. ABDOMEN: Soft, nontender, and nondistended. There is no rebound, voluntary guarding, or rigidity. : Deferred. No Ardon. EXTREMITIES: She has a wound noted in the right ankle. She has a wound in the lateral and medial aspect of the leg. There is some purulent discharge noted. SKIN: No skin breakdown. Vital Signs (last 8hr) Date Time Temp Pulse Resp B/P (MAP) Pulse Ox O2 Delivery O2 Flow Rate FiO2 06/06/24 08:04 98.2 65 18 97/33 98 Nasal Cannula 2.0 06/06/24 07:11 70 18 N/A Room Air 2.0 28 06/06/24 07:09 70 20 06/06/24 04:00 98.8 64 16 126/44 99 Nasal Cannula 2.0 LABS: Laboratory: Test 06/06/24 05:07 06/06/24 04:47 Range/Units Whole Blood Glucose 188 H 70-110 MG/DL White Blood Count 7.8 4.8-10.8 K/uL Red Blood Count 3.71 L 4.00-5.50 MIL/uL Hemoglobin 10.5 L 12.0-16.0 g/dL Hematocrit 32.0 L 36-48 % Mean Corpuscular Volume 86.3 79-99 fL Mean Corpuscular Hemoglobin 28.3 27.0-33.0 pg Mean Corpuscular Hemoglobin Concent 32.8 32.0-36.0 g/dL Red Cell Distribution Width 13.5 11.0-15.5 % Platelet Count 201 130-400 K/uL Mean Platelet Volume 11.5 H 7.5-10.5 fL Immature Granulocyte % (Auto) 0.9 0-1 % Neutrophils (%) (Auto) 58.2 40.0-77.0 % Lymphocytes (%) (Auto) 26.8 21.0-51.0 % Monocytes (%) (Auto) 11.5 3.0-13.0 % Eosinophils (%) (Auto) 2.2 0.0-8.0 % Basophils (%) (Auto) 0.4 0.0-5.0 % Neutrophils # (Auto) 4.5 1.8-7.7 K/uL Lymphocytes # (Auto) 2.1 1.0-4.8 K/uL Monocytes # (Auto) 0.9 0.1-1.0 K/uL Eosinophils # (Auto) 0.17 0.00-0.70 K/uL Basophils # (Auto) 0.03 0.00-0.20 K/uL Absolute Immature Granulocyte (auto 0.07 0-1 K/uL Nucleated Red Blood Cells 0.0 0.0-0.19 % Sodium Level 140 136-145 mmol/L Potassium Level 3.4 L 3.5-5.1 mmol/L Chloride Level 96 L 101-111 mmol/L Carbon Dioxide Level 27 21-32 mmol/L Blood Urea Nitrogen 38 H 7-18 mg/dL Creatinine 8.0 *H 0.5-1.0 mg/dL Glomerular Filtration Rate Calc 5 >90 mL/min Random Glucose 199 H 70-105 mg/dL Total Calcium 8.1 L 8.5-10.1 mg/dL Magnesium Level 2.00 1.80-2.40 mg/dL Current Medications Medications (Trade) Dose Ordered Sig/Susannah Route PRN Reason Start Time Stop Time Status Last Admin Dose Admin Acetaminophen (TYLenol 500MG TAB) 500 mg Q6H PRN PO MILD PAIN (1-3) 05/27/24 15:00 06/26/24 14:59 06/05/24 20:55 500 MG Albuterol Sulfate (Proventil 0.083% 2.5mg/3ml) 2.5MG [id number] IH 05/27/24 15:00 06/26/24 14:59 06/06/24 07:09 2.5 MG Albuterol Sulfate (Proventil 0.083% 2.5mg/3ml) 10 mg ONCE 05/26/24 08:00 05/26/24 15:17 DC 05/26/24 08:11 10 MG Budesonide (Pulmicort 0.5 Mg/2ml) 0.5 mg BIDRESP IH 05/27/24 18:00 06/26/24 17:59 06/06/24 07:09 0.5 MG Carvedilol (Coreg 12.5MG) 12.5 mg BID PO 05/27/24 21:00 06/26/24 20:59 06/05/24 20:49 12.5 MG Cefepime HCl (MAXipime 1 GM vial) 1 gm Q12H IVPB 05/27/24 15:00 05/27/24 18:22 DC Cefepime HCl (MAXipime 1 GM vial) 1 gm Q12H9 IVPB 05/27/24 21:00 05/28/24 11:36 DC 05/28/24 07:46 1 GM Cefepime HCl (MAXipime 1 GM vial) 1 gm Q24H IVPB 05/29/24 09:00 05/29/24 12:58 DC 05/29/24 09:50 1 GM Ceftriaxone Sodium (ROCEphine 1G INJ) 1 gm Q24H IVPB 05/27/24 10:30 05/27/24 14:24 DC Ceftriaxone Sodium (ROCEphine 1G INJ) 1 gm Q24H IVPB 05/27/24 17:00 05/27/24 14:58 DC Doxycycline Hyclate (Doxycycline Hyclate) 100 mg BID PO 05/27/24 21:00 05/27/24 15:46 DC Guaifenesin (RobiTUSSin SUGAR-FREE 100 MG/ 5 ML UDCUP) 400 mg Q4H PRN PO COUGH 05/28/24 06:30 06/27/24 06:29 05/29/24 22:44 400 MG Heparin Sodium (Porcine) (HEParin 5,000 UNIT VIAL) 5,000 unit Q12H SQ 06/01/24 09:00 07/01/24 08:59 06/05/24 20:50 5,000 UNIT Heparin Sodium (Porcine) (HEParin 5,000 UNIT VIAL) 10,000 unit AD IRRIG 05/26/24 15:30 06/25/24 15:29 06/04/24 13:22 10,000 UNIT Hydralazine HCl (APRESOLine 20MG INJ) 10 mg Q6H PRN IV ADMINISTER FOR SBP > 180 05/27/24 15:00 06/26/24 14:59 Insulin Human Regular (humuLIN R 100 UNIT/ML 3ML) INSULIN SLIDING SCAL... ACHS SQ 05/28/24 07:30 06/27/24 07:29 06/06/24 06:16 2 [address] [place] (AtrovENT UD) 0.5 mg [id number] IH 05/28/24 00:00 06/27/24 00:00 06/06/24 07:09 0.5 MG Lactulose (Constulose 20gm/ 30ml Udcup) 20 gm TID PRN PO CONSTIPATION 06/04/24 15:30 07/04/24 15:29 Leptospermum Honey (Medihoney) APPLY DIRECTED DAILY TP 05/28/24 09:00 06/27/24 08:59 06/05/24 09:22 1 APPL Meropenem (Merrem 500mg) 500 mg Q12H IV 05/30/24 12:30 06/01/24 04:53 DC 06/01/24 01:07 500 MG Methylprednisolone Sodium Succinate (Solu-medROL 40MG) 20 mg BID IVP 05/27/24 21:00 05/27/24 19:34 DC Midodrine (PROAMatine 5 MG TABLET) 5 mg TID PO 06/05/24 11:30 07/05/24 11:29 06/05/24 20:48 5 MG Montelukast Sodium (SinguLAIR) 10 mg DAILY PO 05/30/24 09:00 06/29/24 08:59 06/05/24 09:20 10 MG Oseltamivir Phosphate (Tamiflu) 30 mg QODAY PO 05/31/24 20:00 05/29/24 12:55 DC Oseltamivir Phosphate (Tamiflu) 75 mg MWFPHD PO 05/31/24 16:00 06/05/24 15:59 DC 06/04/24 15:43 75 MG Oseltamivir Phosphate (Tamiflu) 75 mg Q24H PO 05/28/24 21:00 05/29/24 12:47 DC 05/28/24 20:52 75 MG Oseltamivir Phosphate (Tamiflu) 75 mg QODAY@2100 PO 05/27/24 21:00 05/28/24 14:12 DC 05/27/24 21:41 75 MG Pharmacy Profile Note (Pharmacy Communication) 1 each AD MISC 05/28/24 06:00 05/28/24 11:37 DC Pharmacy Profile Note (Pharmacy Communication) 1 each ONCE MISC 05/27/24 19:30 05/28/24 11:37 DC Pharmacy Profile Note (Pharmacy Communication) 1 each ONCE MISC 05/28/24 15:30 05/28/24 15:14 DC Piperacillin Sod/ Tazobactam Sod (Zosyn 3.375gm+NS 50ml) 3.375 gm Q12H IV 06/01/24 05:00 06/11/24 04:59 06/06/24 04:08 3.375 GM Polyethylene Glycol (MIRalax 3350 17 GM POWD.PACK) 17 gm DAILY PO 06/04/24 16:30 07/04/24 16:29 06/05/24 09:20 17 GM Sodium Chloride 250 ml @ 0 mls/hr AD IV 05/26/24 15:30 06/25/24 15:29 Sodium Chloride 1,000 ml @ 0 mls/hr ONCE IV 05/26/24 15:30 06/25/24 15:29 06/04/24 11:13 100 MLS/HR Vancomycin HCl 250 ml @ 125 mls/hr ONCE IV 05/28/24 21:00 05/28/24 23:59 DC 05/28/24 20:53 125 MLS/HR Vancomycin HCl 250 ml @ 125 mls/hr [id number][DIALYSIS] IV 05/31/24 16:00 06/01/24 04:53 DC 05/31/24 17:53 125 MLS/HR Vancomycin HCl (Vancomycin Protocol) 1 each AD IV 05/27/24 16:00 06/02/24 00:08 DC DIAGNOSTICS / RADIOLOGY: [ ] ASSESSMENT: Acute sepsis due to UTI POA Acute hypoxic respiratory failure due to volume overload/missed dialysis POA Volume overload secondary to missed dialysis POA Metabolic acidosis POA Troponin elevation likely in setting of missed dialysis and type 2 PR (down trending) no chest POA Metabolic/infectious encephalopathy. Suspected pneumonia/URI POA Acute complicated cystitis POA Right ankle wound infection with Enterococcus faecalis and ESBL E coli from anaerobic and aerobic culture 05/27/2024 POA Positive Influenza A POA Acute asthma exacerbation History of right ankle abscess status post incision and drainage and hardware removal by Dr. Cabrera on 03/2025 Suspected cellulitis in the right ankle with mild purulent drainage History of MSSA infection Uncontrolled hypertension Uncontrolled diabetes mellitus type 2 with hypoglycemia Hyperlipidemia Obesity BMI 45.5 PLAN: Admitted to the medical floor Continue renal dialysis diet consultants: Marketing Graphics Specialist's, polymerization supervisor's, Infectious Disease, cardiovascular Continue Tamiflu on Wednesdays and Fridays Continue IV Zosyn, we will transition to IV Merrem once ready for discharge Dr. De Souza for antimicrobial stewardship. Recommending IV Merrem times 10 days Wound cultures positive for Enterococcus faecalis and ESBL E coli Blood culture negative Continue wound care Continue supplemental O2 to keep O2 saturations above 92%, currently satting 99% Please titrate down supplemental O2 to keep O2 sats >92%. DC if not needed. Continues bronchodilators Test: ECHO LVEF: 60-65% with moderate mitral value stenosis Continue dialysis 3x week we will follow polymerization supervisor's fluid restriction strict I&Os and daily weights Fluid restriction 1.5 L/daily Aspiration precautions head of the bed at [address] Madrigal planning brachiocephalic AV fistula Vein mapping complete Continue to work with physical therapy Monitor a.m. labs PRN Treatment - Add when necessary meds for nausea, vomiting, pain, const ipation, insomnia. DVT/GI prophylaxis- Continue heparin at current doses. Full CODE STATUS Disposition: Case management consulted for [facility] facility placement for continued antibiotic therapy for IV Merrem, wound care and physical therapy This document was generated in part using voice recognition software, occasional wrong word or sound alike substitutions may have occurred due to the inherent limitations of voice recognition software. Read the chart carefully and recognize using context, where the substitutions have occurred. Although every effort was made to edit the content, precision farming coordinator and typing errors may occur ATTESTATION BY PHYSICIAN I have seen and examined the patient. I reviewed the documentation, medical decision making, and treatment plan as noted by the mid-level provider above. I agree with the findings and plan of care. WAYNE BRIGGS MD, JANICE B AGDENNIS Jun 06, 2024 08:12
--- NOTE | 2024-06-06 11:16 | NUR ---
@0840 patient monitor notified this writter of pt decreased hr, @0845 pt was pronounced by house superintendent estefani and rn sherlyn, post mortem care preformed, family at bedside, property and personal belongings returned to [place] pt daughter, primary dr hassan notified
--- NOTE | 2024-06-06 12:17 | PN ---
FOLLOWUP PROGRESS NOTE SUBJECTIVE: A 58-year-old female with a history of diabetes mellitus and hypertension. She has a history of end-stage renal disease, on dialysis 3 times per week. She initially presented with increasing shortness of breath and orthopnea. The patient was found to have positive influenza. The patient with underlying osteomyelitis and remains on the IV antibiotics. She is being seen by case management in regards to outpatient antibiotics and the patient is being seen as a followup visit for all of the above. REVIEW OF SYSTEMS: GENERAL: She is feeling weak and tired. HEENT: No change in vision. No change in hearing. CARDIOVASCULAR: There is no current chest pain or palpitations. PULMONARY: Her shortness of breath is improved. GASTROINTESTINAL: She is tolerating a diet. MUSCULOSKELETAL: Complains of weakness. PHYSICAL EXAMINATION: VITAL SIGNS: Blood pressure is 126/44, pulse in the 60s. GENERAL: Chronically ill female, older than appearing. HEENT: Head is atraumatic. Pupils equal, roving to light. Oropharynx is without exudate. Nares clear. NECK: There is no JVP. There is no thyromegaly, no mass. CARDIOVASCULAR: Regular. There is no S3, S4 gallop. LUNGS: Coarse with equal thoracic movement. ABDOMEN: Soft, nondistended, nontender. EXTREMITIES: Reveal no clubbing, no cyanosis. NEUROLOGIC: She is awake. She is alert. She is oriented. SKIN: Reveals no rash or nodules. BACK: There is no CVA tenderness, no back deformities. LABORATORY DATA: Hemoglobin 10, hematocrit 32, white cell count 7000. BUN 38, creatinine is 8. IMPRESSION: * Influenza pneumonia. * Diabetes mellitus. * Hypertension. * End-stage renal disease. PLAN: The patient continues with the antibiotics as prescribed. The patient's pulmonary symptoms have greatly improved. She can continue with midodrine for the underlying hypotension. She remains on dialysis 3 times per week and we will continue to follow the patient closely. The patient with multiple questions, all of which were answered. TID: [id number] RECEIPT: [id number]
--- NOTE | 2024-06-06 20:32 | PN ---
INFECTIOUS DISEASE PROGRESS NOTE Date of Service: Jun 06, 2024 SUBJECTIVE: This is a 58-year-old female patient who was admitted to the hospital for shortness of breaths, fever, cough and reported missing hemodialysis due to not feeling well. On admission patient was positive for influenza type A. Patient was seen and examined at bedside in room 315. Patient is awake alert and oriented x3. Patient is afebrile, temperature is 98.2. Continues on Zosyn. Patient is also on Tamiflu for Influenza viral infection type A. Patient is pending insurance authorization to [facility]. Will continue to monitor patient's care. PHYSICAL EXAM EYES: Anicteric. Pupils equal and reactive. HENT: No oral thrush seen, moist Oral mucosa. NECK: Supple, no JVD or thyromegaly. RESPIRATORY: Good air entry. Oxygen support via nasal cannula. CARDIOVASCULAR: S1, S2 regular. No murmur heard. ABDOMEN: Soft, non tender, bowel sounds present, no organomegaly. CENTRAL NERVOUS SYSTEM: Awake, alert, oriented x 3. SKIN: No rashes, no swelling. LYMPHATICS: No peripheral lymphadenopathy. MUSCULOSKELETAL: No joint swelling, erythema or tenderness. EXTREMITIES: No cyanosis or clubbing. Right ankle wound infection. BACK: No deformity, no pressure ulcer. GENITOURINARY: No dysuria or hematuria. Vital Sign (Last 12 Hours) 06/06/24 06/06/24 06/06/24 06/06/24 09:00 11:29 11:31 13:20 Temp 97.7 Pulse 68 67 66 Resp 18 20 B/P (MAP) 97/33 84/47 116/44 Pulse Ox 99 O2 Delivery Nasal Cannula O2 Flow Rate 2.0 06/06/24 06/06/24 06/06/24 15:54 19:41 19:44 Temp 97.7 Pulse 67 69 69 Resp 18 19 19 B/P (MAP) 140/58 Pulse Ox 100 O2 Delivery Nasal Cannula N/A Room Air O2 Flow Rate 2.0 2.0 FiO2 28 Intake & Output (last 24hrs) 06/05/24 06/05/24 06/06/24 15:00 23:00 07:00 Intake Total 800 ml 450.0 ml Balance 800 ml 450.0 ml LABS: Laboratory: Test 06/06/24 19:35 06/06/24 04:47 Range/Units Whole Blood Glucose 202 H 70-110 MG/DL White Blood Count 7.8 4.8-10.8 K/uL Red Blood Count 3.71 L 4.00-5.50 MIL/uL Hemoglobin 10.5 L 12.0-16.0 g/dL Hematocrit 32.0 L 36-48 % Mean Corpuscular Volume 86.3 79-99 fL Mean Corpuscular Hemoglobin 28.3 27.0-33.0 pg Mean Corpuscular Hemoglobin Concent 32.8 32.0-36.0 g/dL Red Cell Distribution Width 13.5 11.0-15.5 % Platelet Count 201 130-400 K/uL Mean Platelet Volume 11.5 H 7.5-10.5 fL Immature Granulocyte % (Auto) 0.9 0-1 % Neutrophils (%) (Auto) 58.2 40.0-77.0 % Lymphocytes (%) (Auto) 26.8 21.0-51.0 % Monocytes (%) (Auto) 11.5 3.0-13.0 % Eosinophils (%) (Auto) 2.2 0.0-8.0 % Basophils (%) (Auto) 0.4 0.0-5.0 % Neutrophils # (Auto) 4.5 1.8-7.7 K/uL Lymphocytes # (Auto) 2.1 1.0-4.8 K/uL Monocytes # (Auto) 0.9 0.1-1.0 K/uL Eosinophils # (Auto) 0.17 0.00-0.70 K/uL Basophils # (Auto) 0.03 0.00-0.20 K/uL Absolute Immature Granulocyte (auto 0.07 0-1 K/uL Nucleated Red Blood Cells 0.0 0.0-0.19 % Sodium Level 140 136-145 mmol/L Potassium Level 3.4 L 3.5-5.1 mmol/L Chloride Level 96 L 101-111 mmol/L Carbon Dioxide Level 27 21-32 mmol/L Blood Urea Nitrogen 38 H 7-18 mg/dL Creatinine 8.0 *H 0.5-1.0 mg/dL Glomerular Filtration Rate Calc 5 >90 mL/min Random Glucose 199 H 70-105 mg/dL Total Calcium 8.1 L 8.5-10.1 mg/dL Magnesium Level 2.00 1.80-2.40 mg/dL ASSESSMENT: Acute on chronic respiratory failure requiring oxygen support. Pneumonia. Sepsis. Influenza Viral infection type A. Right ankle wound infection with ESBL, E coli. History of right ankle osteomyelitis, status post hardware removal. End-stage renal disease, on dialysis. Morbid obesity. Debility. PLAN: Continue Zosyn. Patient will need 10 days of Meropenem IV at SNF. Continue Tamiflu. Continue dialysis as recommended by departmental buyer. Patient has been vein mapped and pending a AV graft placement. Continue wound care to the right ankle. Continue pain management. Continue oxygen support. Continue DVT prophylaxis. Continue with Physical therapy. Patient is pending insurance authorization to [facility]. This case was reviewed and discussed with my supervising physician and the above assessment and plan was formulated and agreed upon. ATTESTATION BY PHYSICIAN I have seen and examined the patient. I reviewed the documentation, medical decision making, and treatment plan as noted by the mid-level provider above. I agree with the findings and plan of care. DIDIER CONTRERAS MD, MIRTA L DIRECTOR WRITING Jun 06, 2024 20:32
[2024-06-07] VITALS (27 sets, daily range): BP systolic 90–146; BP diastolic 43–83; PULSE 63–77; RESP 16–20; TEMP 97.5–98.1; O2SAT 96–99
--- NOTE | 2024-06-07 03:35 | NUR ---
nurse note patient alert and oriented times 3. plan of care discussed with her and she verbalized understanding. she has slept about 6 hours tonight. she calls for assistance with the bed arroyo for bowel movements. she has no pain. call light within reach, bed alarm on, 2 side rails up. will continue to monitor patient.
--- NOTE | 2024-06-07 04:29 | NUR ---
wound care wound care done to medial and lateral ankle incisions with ns, pat rafa, medihoney, vaseline gauze, gauze, kerlix, tape. patient's incision looks clean and dry with no bruising or redness around it.
[2024-06-07 05:52] LABS: HEMATOCRIT 34.3 % (36-48); MEAN CORPUSCULAR HEMOGLOBIN 28.5 pg (27.0-33.0); MEAN CORPUSCULAR HGB CONC 31.8 g/dL (32.0-36.0); MEAN CORPUSCULAR VOLUME 89.6 fL (79-99); RED BLOOD CELL COUNT(AUTO) 3.83 MIL/uL (4.00-5.50); RED CELL DISTRIBUTION WIDTH 13.5 % (11.0-15.5); WHITE BLOOD COUNT (AUTO) 8.9 K/uL (4.8-10.8)
[2024-06-07 06:21] LABS: ALBUMIN 3.1 g/dL (3.5-5.0); BILIRUBIN,TOTAL 0.5 mg/dL (0.2-1.0); MAGNESIUM 2.1 mg/dL (1.80-2.40); POTASSIUM 3.8 mmol/L (3.5-5.1); TOTAL PROTEIN, SERUM 7.5 g/dL (6.0-8.3)
[2024-06-07 10:20] LABS: INR 1.06 (0.85-1.15); PROTHROMBIN TIME 11.8 SEC (9.6-11.6)
[2024-06-07 10:21] LABS: PARTIAL THROMBOPLASTIN TIME 40.8 SEC (26.3-35.5)
--- NOTE | 2024-06-07 13:46 | PN ---
[facility] PROGRESS NOTE Date of Service: Jun 07, 2024 Time of Service: 13:[address] Howell SUBJECTIVE: [ ] 06/06 This is a 50-year-old with a significant medical history of end-stage renal disease on dialysis on Friday hypertension hyperlipidemia and asthma presented in ED with chief complaints of shortness a breath apparently patient missed her dialysis. ER workup was consistent with asthma exacerbation possible pneumonia respiratory failure. Patient was with fluid overload for which patient was diuresed. Patient now improve with her symptoms. Now she was noted with Enterococcus faecalis and ESBL in the wound. Patient is status post vein mapping, pending AV graft placement. We will follow up with ID and nephro on final recommendations. She was evaluated in her room 315, she offers no complaints during rounds. She is afebrile. Labs reviewed. 06/07 patient was seen by nurse practitioner physician during rounding in room 315. As per ID Merrem will be discontinued and we will start patient on Zosyn. Patient is pending AV fistula placement today in the afternoon due to patient ate breakfast in a.m.. WBC 8.9 creatinine 10 BUN 47 GFR four patient is ESRD dialysis. Adhesive Sprayer on case. We will continue to monitor patient in the meantime. A.m. labs. Patient is pending acceptance to [facility] once insurance approved. Case management is working on disposition. REVIEW OF SYSTEMS CONSTITUTIONAL: Denies or night sweats. No unintentional weight loss reported. Positive for fever, chills NEUROLOGICAL: Denies headache, amaurosis fugax, motor weakness, sensory deficit, vertigo/spinning sensation, gait abnormalities, or tremors. ENT: No hearing loss, otalgia, otorrhea, rhinitis, rhinorrhea, hoarseness, or sore throat. CARDIOVASCULAR: Denies any exertional angina, dyspnea on exertion, orthopnea, paroxysmal nocturnal dyspnea, palpitations, life-threatening arrhythmias, claudication. PULMONARY: Positive for cough, sputum production. Denied any hemoptysis GASTROINTESTINAL: Denies any type of dysphagia to either liquids or solids. Denies nausea, vomiting, pyrosis, early satiety, abdominal pain, constipation, or changes in stool consistency or caliber. Denies coffee-ground emesis, hematemesis, hematochezia, or melanotic stools. Positive for diarrhea GENITOURINARY: Denies frequency, urgency, nocturia, hematuria or incontinence (Storage/Irritative symptoms.) Low urinary stream, straining to void, urinary intermittency or hesitancy, splitting of the voiding stream, terminal dribbling. ENDOCRINOLOGIC: Denies polyuria, polydipsia, polyphagia or heat/cold intolerances. HEMATOLOGIC: Denies thrombophilia/previous clots, or coagulopathy/bleeding disorders. ONCOLOGIC: Denies personal history of malignancy. DERMATOLOGIC: Denies rashes or pruritus. PSYCHIATRIC: Denies any suicidal or homicidal ideation. Denies hallucinations. PHYSICAL EXAM GENERAL APPEARANCE: The patient is awake, alert, and oriented, in no acute cardiopulmonary distress. NEUROLOGICAL: Cranial nerves II-XII grossly intact. Motor is 5/5 in bilateral upper and lower extremities proximal to distal. No sensory deficits. HEENT: Face is symmetric. Pupils are equal and reactive. Extraocular movements are intact. NECK: Supple. No JVD. No thyromegaly. No submental, submandibular, pre- /postauricular, occipital or supraclavicular lymphadenopathy. CHEST: Normal chest expansion. No Telemetry. LUNGS: She has wheezing present bilaterally with rhonchi. CARDIOVASCULAR: Regular. S1 and S2 normal. No appreciable rubs, murmurs or gallops. ABDOMEN: Soft, nontender, and nondistended. There is no rebound, voluntary guarding, or rigidity. : Deferred. No Ardon. EXTREMITIES: She has a wound noted in the right ankle. She has a wound in the lateral and medial aspect of the leg. There is some purulent discharge noted. SKIN: No skin breakdown. Vital Signs (last 8hr) Date Time Temp Pulse Resp B/P (MAP) Pulse Ox O2 Delivery O2 Flow Rate FiO2 06/07/24 12:00 97.7 70 18 124/61 97 06/07/24 11:26 68 20 06/07/24 08:30 66 19 N/Cannula Low lpm 2.0 28 06/07/24 08:16 131/43 06/07/24 08:00 97.9 63 18 131/43 97 Nasal Cannula 1.0 06/07/24 07:31 63 19 LABS: Laboratory: Test 06/07/24 11:08 06/07/24 09:45 06/07/24 05:33 06/06/24 04:47 Range/Units Whole Blood Glucose 172 H 70-110 MG/DL Prothrombin Time 11.8 H 9.6-11.6 SEC Prothromb Time International Ratio 1.06 0.85-1.15 Activated Partial Thromboplast Time 40.8 H 26.3-35.5 SEC White Blood Count 8.9 4.8-10.8 K/uL Red Blood Count 3.83 L 4.00-5.50 MIL/uL Hemoglobin 10.9 L 12.0-16.0 g/dL Hematocrit 34.3 L 36-48 % Mean Corpuscular Volume 89.6 79-99 fL Mean Corpuscular Hemoglobin 28.5 27.0-33.0 pg Mean Corpuscular Hemoglobin Concent 31.8 L 32.0-36.0 g/dL Red Cell Distribution Width 13.5 11.0-15.5 % Platelet Count 200 130-400 K/uL Mean Platelet Volume 11.3 H 7.5-10.5 fL Nucleated Red Blood Cells 0.0 0.0-0.19 % Sodium Level 137 136-145 mmol/L Potassium Level 3.8 3.5-5.1 mmol/L Chloride Level 95 L 101-111 mmol/L Carbon Dioxide Level 27 21-32 mmol/L Blood Urea Nitrogen 47 H 7-18 mg/dL Creatinine 10.0 *H 0.5-1.0 mg/dL Glomerular Filtration Rate Calc 4 >90 mL/min Random Glucose 220 H 70-105 mg/dL Total Calcium 8.4 L 8.5-10.1 mg/dL Magnesium Level 2.10 1.80-2.40 mg/dL Total Bilirubin 0.5 0.2-1.0 mg/dL Aspartate Amino Transf (AST/SGOT) 13 10-37 U/L Alanine Aminotransferase (ALT/SGPT) 9 L 12-78 U/L Alkaline Phosphatase 215 H 50-136 U/L Total Protein 7.5 6.0-8.3 g/dL Albumin 3.1 L 3.5-5.0 g/dL Immature Granulocyte % (Auto) 0.9 0-1 % Neutrophils (%) (Auto) 58.2 40.0-77.0 % Lymphocytes (%) (Auto) 26.8 21.0-51.0 % Monocytes (%) (Auto) 11.5 3.0-13.0 % Eosinophils (%) (Auto) 2.2 0.0-8.0 % Basophils (%) (Auto) 0.4 0.0-5.0 % Neutrophils # (Auto) 4.5 1.8-7.7 K/uL Lymphocytes # (Auto) 2.1 1.0-4.8 K/uL Monocytes # (Auto) 0.9 0.1-1.0 K/uL Eosinophils # (Auto) 0.17 0.00-0.70 K/uL Basophils # (Auto) 0.03 0.00-0.20 K/uL Absolute Immature Granulocyte (auto 0.07 0-1 K/uL Current Medications Medications (Trade) Dose Ordered Sig/Susannah Route PRN Reason Start Time Stop Time Status Last Admin Dose Admin Acetaminophen (TYLenol 500MG TAB) 500 mg Q6H PRN PO MILD PAIN (1-3) 05/27/24 15:00 06/26/24 14:59 06/07/24 08:19 500 MG Albuterol Sulfate (Proventil 0.083% 2.5mg/3ml) 2.5MG [id number] IH 05/27/24 15:00 06/26/24 14:59 06/07/24 11:26 2.5 MG Albuterol Sulfate (Proventil 0.083% 2.5mg/3ml) 10 mg ONCE IH 05/26/24 08:00 05/26/24 15:17 DC 05/26/24 08:11 10 MG Budesonide (Pulmicort 0.5 Mg/2ml) 0.5 mg BIDRESP IH 05/27/24 18:00 06/26/24 17:59 06/07/24 07:31 0.5 MG Carvedilol (Coreg 12.5MG) 12.5 mg BID PO 05/27/24 21:00 06/26/24 20:59 06/07/24 08:16 12.5 MG Cefepime HCl (MAXipime 1 GM vial) 1 gm Q12H IVPB 05/27/24 15:00 05/27/24 18:22 DC Cefepime HCl (MAXipime 1 GM vial) 1 gm Q12H9 IVPB 05/27/24 21:00 05/28/24 11:36 DC 05/28/24 07:46 1 GM Cefepime HCl (MAXipime 1 GM vial) 1 gm Q24H IVPB 05/29/24 09:00 05/29/24 12:58 DC 05/29/24 09:50 1 GM Ceftriaxone Sodium (ROCEphine 1G INJ) 1 gm Q24H IVPB 05/27/24 10:30 05/27/24 14:24 DC Ceftriaxone Sodium (ROCEphine 1G INJ) 1 gm Q24H IVPB 05/27/24 17:00 05/27/24 14:58 DC Doxycycline Hyclate (Doxycycline Hyclate) 100 mg BID PO 05/27/24 21:00 05/27/24 15:46 DC Guaifenesin (RobiTUSSin SUGAR-FREE 100 MG/ 5 ML UDCUP) 400 mg Q4H PRN PO COUGH 05/28/24 06:30 06/27/24 06:29 05/29/24 22:44 400 MG Heparin Sodium (Porcine) (HEParin 5,000 UNIT VIAL) 5,000 unit Q12H SQ 06/01/24 09:00 07/01/24 08:59 06/07/24 08:13 5,000 UNIT Heparin Sodium (Porcine) (HEParin 5,000 UNIT VIAL) 10,000 unit AD IRRIG 05/26/24 15:30 06/25/24 15:29 06/04/24 13:22 10,000 UNIT Hydralazine HCl (APRESOLine 20MG INJ) 10 mg Q6H PRN IV ADMINISTER FOR SBP > 180 05/27/24 15:00 06/26/24 14:59 Insulin Human Regular (humuLIN R 100 UNIT/ML 3ML) INSULIN SLIDING SCAL... ACHS SQ 05/28/24 07:30 06/27/24 07:29 06/07/24 06:08 3 UNIT Ipratropium [place] (AtrovENT UD) 0.5 mg [id number] IH 05/28/24 00:00 06/27/24 00:00 06/07/24 11:26 0.5 MG Lactulose (Constulose 20gm/ 30ml Udcup) 20 gm TID PRN PO CONSTIPATION 06/04/24 15:30 07/04/24 15:29 [facility]os[facility]um [place] [facility] APPLY DIRECTED DAILY TP 05/28/24 09:00 06/27/24 08:59 06/06/24 09:56 1 APPL Meropenem (Merrem 500mg) 500 mg Q12H IV 05/30/24 12:30 06/01/24 04:53 DC 06/01/24 01:07 500 MG Methylprednisolone Sodium Succinate (Solu-medROL 40MG) 20 mg BID IVP 05/27/24 21:00 05/27/24 19:34 DC Midodrine (PROAMatine 5 MG TABLET) 5 mg TID PO 06/05/24 11:30 07/05/24 11:29 06/07/24 08:18 5 MG Montelukast Sodium (SinguLAIR) 10 mg DAILY PO 05/30/24 09:00 06/29/24 08:59 06/07/24 08:16 10 MG Oseltamivir Phosphate (Tamiflu) 30 mg QODAY PO 05/31/24 20:00 05/29/24 12:55 DC Oseltamivir Phosphate (Tamiflu) 75 mg MWFPHD PO 05/31/24 16:00 06/05/24 15:59 DC 06/04/24 15:43 75 MG Oseltamivir Phosphate (Tamiflu) 75 mg Q24H PO 05/28/24 21:00 05/29/24 12:47 DC 05/28/24 20:52 75 MG Oseltamivir Phosphate (Tamiflu) 75 mg QODAY@2100 PO 05/27/24 21:00 05/28/24 14:12 DC 05/27/24 21:41 75 MG Pharmacy Profile Note (Pharmacy Communication) 1 each AD MISC 05/28/24 06:00 05/28/24 11:37 DC Pharmacy Profile Note (Pharmacy Communication) 1 each ONCE MISC 05/27/24 19:30 05/28/24 11:37 DC Pharmacy Profile Note (Pharmacy Communication) 1 each ONCE MISC 05/28/24 15:30 05/28/24 15:14 DC Piperacillin Sod/ Tazobactam Sod (Zosyn 3.375gm+NS 50ml) 3.375 gm Q12H IV 06/01/24 05:00 06/11/24 04:59 06/07/24 03:56 3.375 GM Polyethylene Glycol (MIRalax 3350 17 GM POWD.PACK) 17 gm DAILY PO 06/04/24 16:30 07/04/24 16:29 06/07/24 08:16 17 GM Sodium Chloride 250 ml @ 0 mls/hr AD IV 05/26/24 15:30 06/25/24 15:29 Sodium Chloride 1,000 ml @ 0 mls/hr ONCE IV 05/26/24 15:30 06/25/24 15:29 06/04/24 11:13 100 MLS/HR Vancomycin HCl 250 ml @ 125 mls/hr ONCE IV 05/28/24 21:00 05/28/24 23:59 DC 05/28/24 20:53 125 MLS/HR Vancomycin HCl 250 ml @ 125 mls/hr [id number][DIALYSIS] IV 05/31/24 16:00 06/01/24 04:53 DC 05/31/24 17:53 125 MLS/HR Vancomycin HCl (Vancomycin Protocol) 1 each AD IV 05/27/24 16:00 06/02/24 00:08 DC DIAGNOSTICS / RADIOLOGY: [ ] ASSESSMENT: Acute sepsis due to acute complicated cystitis POA Acute hypoxic respiratory failure due to volume overload/missed dialysis POA Volume overload secondary to missed dialysis POA Metabolic acidosis POA Acute complicated cystitis POA Troponin elevation likely in setting of missed dialysis and type 2 SC (down trending) no chest POA Metabolic/infectious encephalopathy. Suspected pneumonia/URI POA Right ankle wound infection with Enterococcus faecalis and ESBL E coli from anaerobic and aerobic culture 05/27/2024 POA Positive Influenza A POA Acute asthma exacerbation History of right ankle abscess status post incision and drainage and hardware removal by Dr. Cabrera on 03/2025 Suspected cellulitis in the right ankle with mild purulent drainage History of MSSA infection Uncontrolled hypertension Uncontrolled diabetes mellitus type 2 with hypoglycemia Hyperlipidemia Obesity BMI 45.5 PLAN: Continue on medical floor Continue renal dialysis diet consultants: Rug Designer's, staff accountant's, Infectious Disease, cardiovascular Continue IV Zosyn, once patient discharged discontinue Zosyn and start patient on Merrem as per ISABEL De Souza for antimicrobial stewardship. Recommending IV Merrem times 10 days Wound cultures positive for Enterococcus faecalis and ESBL E coli Blood culture negative Continue wound care Continue supplemental O2 to keep O2 saturations above 92%, currently satting 99% Please titrate down supplemental O2 to keep O2 sats >92%. DC if not needed. Continues bronchodilators Test: ECHO LVEF: 60-65% with moderate mitral value stenosis Continue dialysis 3x week we will follow staff accountant's fluid restriction strict I&Os and daily weights Fluid restriction 1.5 L/daily Aspiration precautions head of the bed at [address] Madrigal planning brachiocephalic AV fistula 06/07/2024 Vein mapping complete Continue to work with physical therapy Monitor a.m. labs PRN Treatment - Add when necessary meds for nausea, vomiting, pain, c onstipation, insomnia. DVT/GI prophylaxis- Continue heparin at current doses. Full CODE STATUS Disposition: Case management consulted for nursing home facility placement for continued antibiotic therapy for IV continue PT and wound care ATTESTATION BY PHYSICIAN I have seen and examined the patient. I reviewed the documentation, medical decision making, and treatment plan as noted by the mid-level provider above. I agree with the findings and plan of care. Tien Howell IV, MD, KATARZYNA B LEAF TIER Jun 07, 2024 13:46
--- NOTE | 2024-06-07 15:44 | PN ---
NEPHROLOGY PROGRESS NOTE Date/Time Patient Seen: Jun 07, 2024 Reason for Consultation: 15:43 SUBJECTIVE: This is a 58-year-old female with a past medical history of hypertension, diabetes mellitus type 2, end-stage renal disease on hemodialysis Friday, anemia, coronary artery disease, arthritis, anxiety, asthma, morbid obesity. She presented to the emergency with complaints of shortness of breath and flu- like symptoms. She reports missing dialysis sessions due to symptoms. Positive for influenza A, continues on Tamiflu. CV planning permanent dialysis access, vein mapping has been done Continues on antibiotics as per ID Case management coordinating SNF placement. She tolerated dialysis without difficulty Pending AV access later today. She was seen in the medical floor, in no acute distress No family at the bedside REVIEW OF SYSTEMS: Unable to obtain due to patient's status PHYSICAL EXAM: GENERAL: Alert and oriented x 3.. Well-nourished. EYES: EOMI. Anicteric. HENT: Moist mucous membranes. No scleral icterus. No cervical lymphadenopathy. LUNGS: Clear to auscultation bilaterally. No accessory muscle use. CARDIOVASCULAR: Regular rate and rhythm. No murmur. No JVD. ABDOMEN: Soft, non-tender and non-distended. No palpable masses. EXTREMITIES: No edema. Non-tender. SKIN: No rashes or lesions. Warm. NEUROLOGIC: No focal neurological deficits. CN II-XII grossly intact, but not individually tested. PSYCHIATRIC: Cooperative. Appropriate mood and affect. LABORATORY: [ ] Hematology Labs: Test 06/07/24 05:33 06/06/24 04:47 Range/Units White Blood Count 8.9 4.8-10.8 K/uL Red Blood Count 3.83 L 4.00-5.50 MIL/uL Hemoglobin 10.9 L 12.0-16.0 g/dL Hematocrit 34.3 L 36-48 % Mean Corpuscular Volume 89.6 79-99 fL Mean Corpuscular Hemoglobin 28.5 27.0-33.0 pg Mean Corpuscular Hemoglobin Concent 31.8 L 32.0-36.0 g/dL Red Cell Distribution Width 13.5 11.0-15.5 % Platelet Count 200 130-400 K/uL Mean Platelet Volume 11.3 H 7.5-10.5 fL Nucleated Red Blood Cells 0.0 0.0-0.19 % Immature Granulocyte % (Auto) 0.9 0-1 % Neutrophils (%) (Auto) 58.2 40.0-77.0 % Lymphocytes (%) (Auto) 26.8 21.0-51.0 % Monocytes (%) (Auto) 11.5 3.0-13.0 % Eosinophils (%) (Auto) 2.2 0.0-8.0 % Basophils (%) (Auto) 0.4 0.0-5.0 % Neutrophils # (Auto) 4.5 1.8-7.7 K/uL Lymphocytes # (Auto) 2.1 1.0-4.8 K/uL Monocytes # (Auto) 0.9 0.1-1.0 K/uL Eosinophils # (Auto) 0.17 0.00-0.70 K/uL Basophils # (Auto) 0.03 0.00-0.20 K/uL Absolute Immature Granulocyte (auto 0.07 0-1 K/uL Chemistry Labs: Test 06/07/24 11:08 06/07/24 05:33 Range/Units Whole Blood Glucose 172 H 70-110 MG/DL Sodium Level 137 136-145 mmol/L Potassium Level 3.8 3.5-5.1 mmol/L Chloride Level 95 L 101-111 mmol/L Carbon Dioxide Level 27 21-32 mmol/L Blood Urea Nitrogen 47 H 7-18 mg/dL Creatinine 10.0 *H 0.5-1.0 mg/dL Glomerular Filtration Rate Calc 4 >90 mL/min Random Glucose 220 H 70-105 mg/dL Total Calcium 8.4 L 8.5-10.1 mg/dL Magnesium Level 2.10 1.80-2.40 mg/dL Total Bilirubin 0.5 0.2-1.0 mg/dL Aspartate Amino Transf (AST/SGOT) 13 10-37 U/L Alanine Aminotransferase (ALT/SGPT) 9 L 12-78 U/L Alkaline Phosphatase 215 H 50-136 U/L Total Protein 7.5 6.0-8.3 g/dL Albumin 3.1 L 3.5-5.0 g/dL Coagulation Labs: Test 06/07/24 09:45 Range/Units Prothrombin Time 11.8 H 9.6-11.6 SEC Prothromb Time International Ratio 1.06 0.85-1.15 Activated Partial Thromboplast Time 40.8 H 26.3-35.5 SEC DIAGNOSTICS / RADIOLOGY: REASON: AV GRAFT ORDERING PHYSICIAN: LJ MEDINA MD PROCEDURE: VEIN M UNI - US VEIN MAPPING UNI/LTD US VEIN MAPPING UNI/LTD HISTORY: AV graft COMPARISON: None TECHNIQUE: Ultrasound upper extremity venous mapping study was performed for hemodialysis access. FINDINGS: Left cephalic vein High upper arm: 18 x 3 millimeter Mid upper arm: 16 x 2 millimeter Low upper arm: 14 x 3 millimeter High forearm: 4 x 3 millimeter Mid forearm: 3 x 2 millimeter Low forearm: 4 x 3 millimeter Left basilic vein Upper arm: 24 x 3 millimeter Lower arm: 22 x 4 millimeter Antecubital fossa: 19 x 2 millimeter IMPRESSION: 1. Ultrasound upper extremity venous mapping study as described above. DICTATED BY: TRICIA MAHER MD DATE: 05/31/241957 REASON: SHORT OF BREATH ORDERING PHYSICIAN: EVELINE ASHLEY PROCEDURE: CXR1VW - CHEST 1VW PORTABLE CHEST RADIOGRAPH INDICATION: SHORT OF BREATH COMPARISON: 05/28/2024 FINDINGS: case monitor leads overlie the field of view. Stable right-sided hemodialysis catheter. Stable mild cardiac enlargement. The pulmonary vascularity and zachery appear normal. No abnormal pulmonary parenchymal opacity or consolidation identified. No significant pleural effusion noted. No pneumothorax detected. IMPRESSION: Mild cardiac enlargement without radiographic evidence for any acute cardiopulmonary process. DICTATED BY: MEGA RADFORD MD DATE: 05/30/24 1052 REASON: ACUTE ENCEPHALOPATHY ORDERING PHYSICIAN: EVELINE ASHLEY PROCEDURE: HEAD WO - CT HEAD/BRAIN W/O CONTRAST CT HEAD/BRAIN W/O CONTRAST CLINICAL HISTORY: ACUTE ENCEPHALOPATHY COMPARISON: None TECHNIQUE: Multiple sequential axial images of the head were obtained from the base of the skull through vertex. CT was performed with one or more of the following dose reduction techniques: automated exposure control, adjustment of the mA and/or kV according to patient size, or use of iterative reconstruction technique FINDINGS: There is resolved right basal ganglia lacunar infarct. The orbital contents are unremarkable. There is right mastoid air cell opacification extending into the middle ear. This demonstrated is mucoperiosteal thickening throughout the paranasal sinuses with small air-fluid level in the sphenoid sinuses. The calvarium is intact. IMPRESSION: Resolved right basal ganglia lacunar infarct. Acute and chronic sinusitis. Right mastoid effusion or mastoiditis with otitis media DICTATED BY: DEBBYREGGIE Karis DO DATE: 05/29/24 4472 REASON: elevated troponin ORDERING PHYSICIAN: CARMINE GAMBLE MD PROCEDURE: ECHO CMP - ECHO 2-D COMPLETE APPROVED REPORT EXAM: Two-dimensional and M-mode echocardiogram with Doppler and color Doppler. INDICATION ICD: Elevated troponin 2D Dimensions RVDd 5.1 cm LVEF(%) 59.0 (>50%) LVED Vol(simp.) 73.2 mL IVSd 1.2 (0.7-1.1cm) FS(%) 31 % LVES Vol(simp.) 27.3 mL LVDd 3.9 (3.8-5.6cm) LA (2D) 4.6 (1.6-4.0cm) LVEF(%, simp.) 63 % PWd 1.2 (0.7-1.1cm) Ao Root(2D) 3.6 (2.0-3.7cm) LA ESV INDEX (4CH) 31.90 mL/m2 IVSs 1.5 cm LVOT diam 1.9 (1.8-2.4cm) LVDs 2.7 (2.5-4.0cm) PWs 1.5 cm M-Mode Dimensions EPSS 0.9 cm LA (MM) 4.1 (1.6-4.0cm) Ao Root(MM) 3.1 (2.0-3.7cm) Aortic Valve AoV VTI 0.3 m Ao Mean GR 4.0 mmHg LVOT VTI 0.20 m LUIS FELIPE (VMAX) 2.1 cm2 LUIS FELIPE (VTI) 2.1 cm2 Mitral Valve MV E Vmax 114.0 cm/s DECEL Time 331 ms MV Mean GR 6 mmHg MV A Vmax 115.0 cm/s MVA (VTI) 1.2 cm2 E/A ratio 1.0 MR Max PG 33 mmHg TDI E/E' Medial 40.7 E/E' Lateral 21.1 Medial E' Peak V 2.80 cm/s Lateral E' Peak V 5.40 cm/s Pulmonary Valve PV Vmax 1.2 m/s PV Peak GR 6.0 mmHg Left Ventricle The left ventricle is normal size. There is normal LV segmental wall motion. Mild concentric left ventricular hypertrophy. LVEF is 60-65%. Indeterminate diastolic dysfunction. Right Ventricle The right ventricle is severely dilated. The right ventricular systolic function is normal. Moderator band is seen in the right ventricle. Atria The left atrium size is normal. The right atrium is moderately dilated. Aortic Valve Aortic valve nodular calcification noted. Aortic valve is trileaflet and opens well. No aortic regurgitation is present. There is no aortic valvular stenosis. Mitral Valve There is mitral annular calcification. There is mild mitral valve regurgitation noted. There is moderate mitral valve stenosis with mean gradient of 6mmHg. Tricuspid Valve The tricuspid valve is normal in structure. There is no tricuspid valve regurgitation noted. Pulmonic Valve The pulmonary valve is normal in structure. There is no pulmonic valvular regurgitation. Great Vessels The aortic root is normal in size. The IVC is normal in size and collapses >50% with inspiration. Pericardium There is no pericardial effusion. Other Information Quality : Technically difficult study due to body habitus Conclusion LVEF is 60-65%. There is moderate mitral valve stenosis with mean gradient of 6mmHg. There is no pericardial effusion. DICTATED BY: LISA RM MD DATE: 05/28/24 1401 REASON: sob ORDERING PHYSICIAN: EVELINE ASHLEY PROCEDURE: CXR1VW - CHEST 1VW Exam Type: CHEST 1VW Clinical Information: sob Comparison: None Findings: Right permacath line is noted with tip at the distal superior vena caval level. The lungs are clear of infiltrates. The heart is enlarged. Bony and soft tissue structures of the chest wall are unremarkable. IMPRESSION: Cardiomegaly. Clear lungs. DICTATED BY: NIKA SOTO MD DATE: 05/28/24 1534 REASON: history of ankle abscess, assess for osteo ORDERING PHYSICIAN: CARMINE GAMBLE MD PROCEDURE: FT 2VW RT - FOOT LIMITED 2VWS RT Exam Type: FOOT LIMITED 2VWS RT Clinical Information: history of ankle abscess, assess for osteo Comparison: None Findings and impression: Soft tissue swelling of the ankle which could represent cellulitis. Postoperative changes of the distal tibia. Degenerative changes of the interphalangeal joints. Calcaneal spurs. Osteopenia. DICTATED BY: NIKA SOTO MD DATE: 05/27/24 1618 REASON: Dyspnea/SOB ORDERING PHYSICIAN: ALONSO CALIXTO DO PROCEDURE: CXR1VW - CHEST 1VW Exam Type: CHEST 1VW Clinical Information: Dyspnea/SOB Comparison: None Findings: Pulmonary pattern is as before. No worrisome interval changes have taken place. Impression: Stable exam. DICTATED BY: NIKA SOTO MD DATE: 05/26/24 0887 ASSESSMENT: Life-threatening hyperkalemia Fluid overload Respiratory failure with hypoxia Anemia Metabolic acidosis End-stage renal disease Diabetes mellitus type 2 Hypertension Morbid obesity PLAN: Labs and Diagnostics/ Radiology personally reviewed and interpreted by myself and supervising physician We have reviewed dialysis and external records in detail Pending AV access dated today, dialysis to be done early tomorrow morning Case management coordinating SNF placement 1.5 L fluid restriction Continue to monitor H&H Epogen on dialysis days, as needed Continue with frequent monitoring of renal function, anemia, and electrolytes Order CBC, BMP, and electrolytes in the morning May use Dilaudid 0.5 mg IV every 6 hours as needed for severe pain Monitor blood pressure adjust medication doses as needed Maintain normotensive state Strict intake, output, and daily weight should be monitored Please renally adjust medications. Avoid nephrotoxics and nonsteroidal drugs. We will continue to monitor the patient closely We have discussed with the other team physicians in detail about the care plan ATTESTATION BY PHYSICIAN I have seen and examined the patient. I reviewed the documentation, medical decision making, and treatment plan as noted by the mid-level provider above. I agree with the findings and plan of care. CARLO KAUR MD, [facility] Jun 07, 2024 15:44
--- NOTE | 2024-06-07 16:29 | PN ---
INFECTIOUS DISEASE PROGRESS NOTE Date of Service: Jun 07, 2024 SUBJECTIVE: This is a 58-year-old female patient who was admitted to the hospital for shortness of breaths, fever, cough and reported missing hemodialysis due to not feeling well. On admission patient was positive for influenza type A s/p treated with Tamiflu. Patient was seen and examined at bedside in room 315. Patient is awake alert and oriented x3. Patient is currently NPO for left upper extremity AV fistula versus AV graft for possible today. No fever this morning, temperature is 97.7 and a WBC of 8.9. Continues on Zosyn. Patient has been referred to [facility] and pending insurance authorization. Will continue to monitor patient's care. PHYSICAL EXAM EYES: Anicteric. Pupils equal and reactive. HENT: No oral thrush seen, moist Oral mucosa. NECK: Supple, no JVD or thyromegaly. RESPIRATORY: Good air entry. Oxygen support via nasal cannula. CARDIOVASCULAR: S1, S2 regular. No murmur heard. ABDOMEN: Soft, non tender, bowel sounds present, no organomegaly. CENTRAL NERVOUS SYSTEM: Awake, alert, oriented x 3. SKIN: No rashes, no swelling. LYMPHATICS: No peripheral lymphadenopathy. MUSCULOSKELETAL: No joint swelling, erythema or tenderness. EXTREMITIES: No cyanosis or clubbing. Right ankle wound infection. BACK: No deformity, no pressure ulcer. GENITOURINARY: No dysuria or hematuria. Vital Sign (Last 12 Hours) 06/07/24 06/07/24 06/07/24 06/07/24 07:31 08:00 08:16 08:30 Temp 97.9 Pulse 63 63 66 Resp 19 18 19 B/P (MAP) 131/43 131/43 Pulse Ox 97 O2 Delivery Nasal Cannula N/Cannula Low lpm O2 Flow Rate 1.0 2.0 FiO2 28 06/07/24 06/07/24 06/07/24 11:26 12:00 16:00 Temp 97.7 98.1 Pulse 68 70 67 Resp 20 18 18 B/P (MAP) 124/61 146/43 Pulse Ox 97 98 O2 Delivery Room Air Intake & Output (last 24hrs) 06/06/24 06/06/24 06/07/24 15:00 23:00 07:00 Intake Total 400.0 ml Balance 400.0 ml LABS: Laboratory: Test 06/07/24 15:30 06/07/24 09:45 06/07/24 05:33 06/06/24 04:47 Range/Units Whole Blood Glucose 187 H 70-110 MG/DL Prothrombin Time 11.8 H 9.6-11.6 SEC Prothromb Time International Ratio 1.06 0.85-1.15 Activated Partial Thromboplast Time 40.8 H 26.3-35.5 SEC White Blood Count 8.9 4.8-10.8 K/uL Red Blood Count 3.83 L 4.00-5.50 MIL/uL Hemoglobin 10.9 L 12.0-16.0 g/dL Hematocrit 34.3 L 36-48 % Mean Corpuscular Volume 89.6 79-99 fL Mean Corpuscular Hemoglobin 28.5 27.0-33.0 pg Mean Corpuscular Hemoglobin Concent 31.8 L 32.0-36.0 g/dL Red Cell Distribution Width 13.5 11.0-15.5 % Platelet Count 200 130-400 K/uL Mean Platelet Volume 11.3 H 7.5-10.5 fL Nucleated Red Blood Cells 0.0 0.0-0.19 % Sodium Level 137 136-145 mmol/L Potassium Level 3.8 3.5-5.1 mmol/L Chloride Level 95 L 101-111 mmol/L Carbon Dioxide Level 27 21-32 mmol/L Blood Urea Nitrogen 47 H 7-18 mg/dL Creatinine 10.0 *H 0.5-1.0 mg/dL Glomerular Filtration Rate Calc 4 >90 mL/min Random Glucose 220 H 70-105 mg/dL Total Calcium 8.4 L 8.5-10.1 mg/dL Magnesium Level 2.10 1.80-2.40 mg/dL Total Bilirubin 0.5 0.2-1.0 mg/dL Aspartate Amino Transf (AST/SGOT) 13 10-37 U/L Alanine Aminotransferase (ALT/SGPT) 9 L 12-78 U/L Alkaline Phosphatase 215 H 50-136 U/L Total Protein 7.5 6.0-8.3 g/dL Albumin 3.1 L 3.5-5.0 g/dL Immature Granulocyte % (Auto) 0.9 0-1 % Neutrophils (%) (Auto) 58.2 40.0-77.0 % Lymphocytes (%) (Auto) 26.8 21.0-51.0 % Monocytes (%) (Auto) 11.5 3.0-13.0 % Eosinophils (%) (Auto) 2.2 0.0-8.0 % Basophils (%) (Auto) 0.4 0.0-5.0 % Neutrophils # (Auto) 4.5 1.8-7.7 K/uL Lymphocytes # (Auto) 2.1 1.0-4.8 K/uL Monocytes # (Auto) 0.9 0.1-1.0 K/uL Eosinophils # (Auto) 0.17 0.00-0.70 K/uL Basophils # (Auto) 0.03 0.00-0.20 K/uL Absolute Immature Granulocyte (auto 0.07 0-1 K/uL ASSESSMENT: Acute on chronic respiratory failure requiring oxygen support. Pneumonia. Sepsis. Influenza Viral infection type A, s/p treated. Right ankle wound infection with ESBL, E coli. History of right ankle osteomyelitis, status post hardware removal. End-stage renal disease, on dialysis. Morbid obesity. Debility. PLAN: Continue Zosyn. Patient will need 10 days of Meropenem IV at SNF. Continue Tamiflu. Continue dialysis as recommended by traffic reporter. Continue wound care to the right ankle. Continue pain management. Continue oxygen support. Continue DVT prophylaxis. Continue with Physical therapy. Patient is pending insurance authorization to [facility]. Patient has been vein mapped and is NPO for left upper extremity AV fistula versus AV graft for possible today. This case was reviewed and discussed with my supervising physician and the above assessment and plan was formulated and agreed upon. ATTESTATION BY PHYSICIAN I have seen and examined the patient. I reviewed the documentation, medical decision making, and treatment plan as noted by the mid-level provider above. I agree with the findings and plan of care. DIDIER CONTRERAS MD, MIRTA L NURSE DISCHARGE Jun 07, 2024 16:29
--- NOTE | 2024-06-07 21:49 | NUR ---
Nursing Note After speaking with Inspector Poising who stated pt is not scheduled for tomorrow. Paged Dr. Madrigal at [phone] to clarify orders pending call back
--- NOTE | 2024-06-07 22:42 | NUR ---
Nursing Note Dr. Madrigal called back at [phone]. I attempted to clarify order as to when to schedule pt for procedure and to make pt NPO. He stated to Keep pt NPO and he will look at the schedule in the morning. No orders given to me to schedule the pt only order to keep pt NPO.
--- NOTE | 2024-06-07 22:46 | NUR ---
Nursing Note I informed paper supervisor of what Dr. Madrigal said. I spoke with the pt and informed her what Dr. Madrigal said. I informed her that she needs to be NPO and he will look at his schedule. I also informed her about the consent but she stated she hasn't spoken to the about the procedure yet.
[2024-06-08] VITALS (12 sets, daily range): BP systolic 98–151; BP diastolic 50–99; PULSE 66–79; RESP 18–20; TEMP 97.6–98; O2SAT 93–98
[2024-06-08 05:08] LABS: BASOPHILS # (AUTO) 0.03 K/uL (0.00-0.20); BASOPHILS % (AUTO) 0.4 % (0.0-5.0); EOSINOPHILS # (AUTO) 0.19 K/uL (0.00-0.70); EOSINOPHILS % (AUTO) 2.3 % (0.0-8.0); HEMATOCRIT 35.6 % (36-48); IMMATURE GRANULOCYTE ABSOLUTE 0.03 K/uL (0-1); LYMPHOCYTES # (AUTO) 1.5 K/uL (1.0-4.8); LYMPHOCYTES % (AUTO) 18.5 % (21.0-51.0); MEAN CORPUSCULAR HEMOGLOBIN 28.2 pg (27.0-33.0); MEAN CORPUSCULAR HGB CONC 33.1 g/dL (32.0-36.0); MEAN CORPUSCULAR VOLUME 85.2 fL (79-99); MONOCYTES # (AUTO) 0.7 K/uL (0.1-1.0); MONOCYTES % (AUTO) 8.5 % (3.0-13.0); NEUTROPHILS # (AUTO) 5.7 K/uL (1.8-7.7); NEUTROPHILS % (AUTO) 69.9 % (40.0-77.0); PLATELET COUNT (AUTO) 185 K/uL (130-400); RED BLOOD CELL COUNT(AUTO) 4.18 MIL/uL (4.00-5.50); RED CELL DISTRIBUTION WIDTH 13.6 % (11.0-15.5); WHITE BLOOD COUNT (AUTO) 8.2 K/uL (4.8-10.8)
[2024-06-08 05:26] LABS: ALBUMIN 3.4 g/dL (3.5-5.0); BILIRUBIN,TOTAL 0.7 mg/dL (0.2-1.0); CREATININE 6.9 mg/dL (0.5-1.0); MAGNESIUM 2.1 mg/dL (1.80-2.40); POTASSIUM 3.8 mmol/L (3.5-5.1); TOTAL PROTEIN, SERUM 7.9 g/dL (6.0-8.3)
--- NOTE | 2024-06-08 12:45 | DS ---
Discharge Summary Hospital Course Summary: DATE OF ADMISSION:[05/26/2024] DATE OF DISCHARGE:[06/08/2024] DISPOSITION:[[facility]] CONDITION: Medically stable] CONSULTANTS:[Information Technology Assistant, cardiovascular surgeon] FOLLOW UP APPOINTMENTS:[PCP 2 to 3 days. Information Technology Assistant as scheduled for dialysis. Cardiovascular surgeon outpatient for AV fistula placement within one week] PROCEDURES:[None] IMAGING: report attached to summary MICROBIOLOGY: report attached to summary ACTIVITY:[One-person assist] HOME MEDICATIONS: see med recc NEW MEDICATIONS:[See med rec] EMERGENCY INSTRUCTIONS: The patient was instructed to present to the nearest Emergency departmentr or call 911 once their symptoms will return or worsen Special Agent Secret Service(s): This is a 50-year-old with a significant medical history of end-stage renal disease on dialysis on Friday hypertension hyperlipidemia and asthma presented in ED with chief complaints of shortness a breath apparently patient missed her dialysis. ER workup was consistent with asthma exacerbation possible pneumonia respiratory failure. Patient was with fluid overload for which patient was diuresed. Patient now improve with her symptoms. Now she was noted with Enterococcus faecalis and ESBL in the wound. Blood culture negative x5 days. Throughout the hospitalization patient underwent vessel mapping for AV fistula placement. As per Dr. Madrigal 06/08/2024 patient to follow up outpatient and is cleared to be discharged home today with a PermCath. Patient we will continue with the dialysis as scheduled. Most recent chest x-ray showed mild cardiac enlargement without radiographic evidence for any acute cardio pulmonary process. Head CT showed resolved right basal ganglia lacunar infarct. Acute and chronic sinusitis. Right mastoid effusion or mastoiditis with otitis media two. 05/28/2024 2D echo showed 60 to 65 EF indeterminate diastolic dysfunction. Moderate mitral valve stenosis and no pericardial effusion. Right foot showed osteopenia. Today patient was cleared by all the consultants to be discharged. Patient to be discharged to [facility] once insurance approved. Follow-up with PCP within 2 to 3 days. Follow up with cardiovascular surgeon for outpatient AV fistula placement within one week. And as well follow up with plate printer as stated above. As per Infectious Disease doctor patient to be started on Merrem once discharged to jail times 10 days. Procedure(s): REVIEW OF SYSTEMS CONSTITUTIONAL: Denies or night sweats. No unintentional weight loss reported. Positive for fever, chills NEUROLOGICAL: Denies headache, amaurosis fugax, motor weakness, sensory deficit, vertigo/spinning sensation, gait abnormalities, or tremors. ENT: No hearing loss, otalgia, otorrhea, rhinitis, rhinorrhea, hoarseness, or sore throat. CARDIOVASCULAR: Denies any exertional angina, dyspnea on exertion, orthopnea, paroxysmal nocturnal dyspnea, palpitations, life-threatening arrhythmias, claudication. PULMONARY: Positive for cough, sputum production. Denied any hemoptysis GASTROINTESTINAL: Denies any type of dysphagia to either liquids or solids. Denies nausea, vomiting, pyrosis, early satiety, abdominal pain, constipation, or changes in stool consistency or caliber. Denies coffee-ground emesis, hematemesis, hematochezia, or melanotic stools. Positive for diarrhea GENITOURINARY: Denies frequency, urgency, nocturia, hematuria or incontinence (Storage/Irritative symptoms.) Low urinary stream, straining to void, urinary intermittency or hesitancy, splitting of the voiding stream, terminal dribbling. ENDOCRINOLOGIC: Denies polyuria, polydipsia, polyphagia or heat/cold intolerances. HEMATOLOGIC: Denies thrombophilia/previous clots, or coagulopathy/bleeding disorders. ONCOLOGIC: Denies personal history of malignancy. DERMATOLOGIC: Denies rashes or pruritus. PSYCHIATRIC: Denies any suicidal or homicidal ideation. Denies hallucinations. PHYSICAL EXAM GENERAL APPEARANCE: The patient is awake, alert, and oriented, in no acute cardiopulmonary distress. NEUROLOGICAL: Cranial nerves II-XII grossly intact. Motor is 5/5 in bilateral upper and lower extremities proximal to distal. No sensory deficits. HEENT: Face is symmetric. Pupils are equal and reactive. Extraocular movements are intact. NECK: Supple. No JVD. No thyromegaly. No submental, submandibular, pre- /postauricular, occipital or supraclavicular lymphadenopathy. CHEST: Normal chest expansion. No Telemetry. LUNGS: She has wheezing present bilaterally with rhonchi. CARDIOVASCULAR: Regular. S1 and S2 normal. No appreciable rubs, murmurs or gallops. ABDOMEN: Soft, nontender, and nondistended. There is no rebound, voluntary guarding, or rigidity. : Deferred. No Ardon. EXTREMITIES: She has a wound noted in the right ankle. She has a wound in the lateral and medial aspect of the leg. There is some purulent discharge noted. SKIN: No skin breakdown. Assessment/Plan: ASSESSMENT: Acute sepsis due to acute complicated cystitis POA Acute hypoxic respiratory failure due to volume overload/missed dialysis POA Volume overload secondary to missed dialysis POA Metabolic acidosis POA Acute complicated cystitis POA Troponin elevation likely in setting of missed dialysis and type 2 [place] (down t rending) no chest POA Metabolic/infectious encephalopathy. Suspected pneumonia/URI POA Right ankle wound infection with Enterococcus faecalis and ESBL E coli from anaerobic and aerobic culture 05/27/2024 POA Positive Influenza A POA Acute asthma exacerbation History of right ankle abscess status post incision and drainage and hardware removal by Dr. Cabrera on 03/2025 Suspected cellulitis in the right ankle with mild purulent drainage History of MSSA infection Uncontrolled hypertension Uncontrolled diabetes mellitus type 2 with hypoglycemia Hyperlipidemia Obesity BMI 45.5 Home Medications: Unable to Obtain Active Prescriptions or Reported Meds Time spent arranging discharge: 31-60 minutes ATTESTATION BY PHYSICIAN I have seen and examined the patient. I reviewed the documentation, medical decision making, and treatment plan as noted by the mid-level provider above. I agree with the findings and plan of care. Tien Howell IV, MD, KATARZYNA B PRESS SET UP Jun 08, 2024 12:45
--- NOTE | 2024-06-08 14:45 | PN ---
NEPHROLOGY PROGRESS NOTE Date/Time Patient Seen: Jun 08, 2024 Reason for Consultation: 14:41 SUBJECTIVE: This is a 58-year-old female with a past medical history of hypertension, diabetes mellitus type 2, end-stage renal disease on hemodialysis Friday, anemia, coronary artery disease, arthritis, anxiety, asthma, morbid obesity. She presented to the emergency with complaints of shortness of breath and flu- like symptoms. She reports missing dialysis sessions due to symptoms. Positive for influenza A, continues on Tamiflu. CV planning permanent dialysis access, vein mapping has been done Continues on antibiotics as per ID Case management coordinating SNF placement. She tolerated dialysis without difficulty Surgery has been cancelled. She was seen in the medical floor, in no acute distress No family at the bedside REVIEW OF SYSTEMS: Unable to obtain due to patient's status PHYSICAL EXAM: GENERAL: Alert and oriented x 3.. Well-nourished. EYES: EOMI. Anicteric. HENT: Moist mucous membranes. No scleral icterus. No cervical lymphadenopathy. LUNGS: Clear to auscultation bilaterally. No accessory muscle use. CARDIOVASCULAR: Regular rate and rhythm. No murmur. No JVD. ABDOMEN: Soft, non-tender and non-distended. No palpable masses. EXTREMITIES: No edema. Non-tender. SKIN: No rashes or lesions. Warm. NEUROLOGIC: No focal neurological deficits. CN II-XII grossly intact, but not individually tested. PSYCHIATRIC: Cooperative. Appropriate mood and affect. LABORATORY: [ ] Hematology Labs: Test 06/08/24 04:56 Range/Units White Blood Count 8.2 4.8-10.8 K/uL Red Blood Count 4.18 4.00-5.50 MIL/uL Hemoglobin 11.8 L 12.0-16.0 g/dL Hematocrit 35.6 L 36-48 % Mean Corpuscular Volume 85.2 79-99 fL Mean Corpuscular Hemoglobin 28.2 27.0-33.0 pg Mean Corpuscular Hemoglobin Concent 33.1 32.0-36.0 g/dL Red Cell Distribution Width 13.6 11.0-15.5 % Platelet Count 185 130-400 K/uL Mean Platelet Volume 11.7 H 7.5-10.5 fL Immature Granulocyte % (Auto) 0.4 0-1 % Neutrophils (%) (Auto) 69.9 40.0-77.0 % Lymphocytes (%) (Auto) 18.5 L 21.0-51.0 % Monocytes (%) (Auto) 8.5 3.0-13.0 % Eosinophils (%) (Auto) 2.3 0.0-8.0 % Basophils (%) (Auto) 0.4 0.0-5.0 % Neutrophils # (Auto) 5.7 1.8-7.7 K/uL Lymphocytes # (Auto) 1.5 1.0-4.8 K/uL Monocytes # (Auto) 0.7 0.1-1.0 K/uL Eosinophils # (Auto) 0.19 0.00-0.70 K/uL Basophils # (Auto) 0.03 0.00-0.20 K/uL Absolute Immature Granulocyte (auto 0.03 0-1 K/uL Nucleated Red Blood Cells 0.0 0.0-0.19 % Chemistry Labs: Test 06/08/24 11:01 06/08/24 04:56 Range/Units Whole Blood Glucose 194 H 70-110 MG/DL Sodium Level 133 L 136-145 mmol/L Potassium Level 3.8 3.5-5.1 mmol/L Chloride Level 93 L 101-111 mmol/L Carbon Dioxide Level 27 21-32 mmol/L Blood Urea Nitrogen 26 #H 7-18 mg/dL Creatinine 6.9 H 0.5-1.0 mg/dL Glomerular Filtration Rate Calc 6 >90 mL/min Random Glucose 249 H 70-105 mg/dL Total Calcium 9.3 8.5-10.1 mg/dL Magnesium Level 2.10 1.80-2.40 mg/dL Total Bilirubin 0.7 # 0.2-1.0 mg/dL Aspartate Amino Transf (AST/SGOT) 12 10-37 U/L Alanine Aminotransferase (ALT/SGPT) 9 L 12-78 U/L Alkaline Phosphatase 231 H 50-136 U/L Total Protein 7.9 6.0-8.3 g/dL Albumin 3.4 L 3.5-5.0 g/dL Coagulation Labs: Test 06/07/24 09:45 Range/Units Prothrombin Time 11.8 H 9.6-11.6 SEC Prothromb Time International Ratio 1.06 0.85-1.15 Activated Partial Thromboplast Time 40.8 H 26.3-35.5 SEC DIAGNOSTICS / RADIOLOGY: REASON: AV GRAFT ORDERING PHYSICIAN: LJ MEDINA MD PROCEDURE: VEIN M UNI - US VEIN MAPPING UNI/LTD US VEIN MAPPING UNI/LTD HISTORY: AV graft COMPARISON: None TECHNIQUE: Ultrasound upper extremity venous mapping study was performed for hemodialysis access. FINDINGS: Left cephalic vein High upper arm: 18 x 3 millimeter Mid upper arm: 16 x 2 millimeter Low upper arm: 14 x 3 millimeter High forearm: 4 x 3 millimeter Mid forearm: 3 x 2 millimeter Low forearm: 4 x 3 millimeter Left basilic vein Upper arm: 24 x 3 millimeter Lower arm: 22 x 4 millimeter Antecubital fossa: 19 x 2 millimeter IMPRESSION: 1. Ultrasound upper extremity venous mapping study as described above. DICTATED BY: TRICIA MAHER MD DATE: 05/31/241957 REASON: SHORT OF BREATH ORDERING PHYSICIAN: EVELINE ASHLEY PROCEDURE: CXR1VW - CHEST 1VW PORTABLE CHEST RADIOGRAPH INDICATION: SHORT OF BREATH COMPARISON: 05/28/2024 FINDINGS: hospital monitor leads overlie the field of view. Stable right-sided hemodialysis catheter. Stable mild cardiac enlargement. The pulmonary vascularity and zachery appear normal. No abnormal pulmonary parenchymal opacity or consolidation identified. No significant pleural effusion noted. No pneumothorax detected. IMPRESSION: Mild cardiac enlargement without radiographic evidence for any acute cardiopulmonary process. DICTATED BY: MEGA RADFORD MD DATE: 05/30/24 105 REASON: ACUTE ENCEPHALOPATHY ORDERING PHYSICIAN: EVELINE ASHLEY PROCEDURE: HEAD WO - CT HEAD/BRAIN W/O CONTRAST CT HEAD/BRAIN W/O CONTRAST CLINICAL HISTORY: ACUTE ENCEPHALOPATHY COMPARISON: None TECHNIQUE: Multiple sequential axial images of the head were obtained from the base of the skull through vertex. CT was performed with one or more of the following dose reduction techniques: automated exposure control, adjustment of the mA and/or kV according to patient size, or use of iterative reconstruction technique FINDINGS: There is resolved right basal ganglia lacunar infarct. The orbital contents are unremarkable. There is right mastoid air cell opacification extending into the middle ear. This demonstrated is mucoperiosteal thickening throughout the paranasal sinuses with small air-fluid level in the sphenoid sinuses. The calvarium is intact. IMPRESSION: Resolved right basal ganglia lacunar infarct. Acute and chronic sinusitis. Right mastoid effusion or mastoiditis with otitis media DICTATED BY: REGGIE GUARDADO DO DATE: 05/29/24 1554 REASON: elevated troponin ORDERING PHYSICIAN: CARMINE GAMBLE MD PROCEDURE: ECHO CMP - ECHO 2-D COMPLETE APPROVED REPORT EXAM: Two-dimensional and M-mode echocardiogram with Doppler and color Doppler. INDICATION ICD: Elevated troponin 2D Dimensions RVDd 5.1 cm LVEF(%) 59.0 (>50%) LVED Vol(simp.) 73.2 mL IVSd 1.2 (0.7-1.1cm) FS(%) 31 % LVES Vol(simp.) 27.3 mL LVDd 3.9 (3.8-5.6cm) LA (2D) 4.6 (1.6-4.0cm) LVEF(%, simp.) 63 % PWd 1.2 (0.7-1.1cm) Ao Root(2D) 3.6 (2.0-3.7cm) LA ESV INDEX (4CH) 31.90 mL/m2 IVSs 1.5 cm LVOT diam 1.9 (1.8-2.4cm) LVDs 2.7 (2.5-4.0cm) PWs 1.5 cm M-Mode Dimensions EPSS 0.9 cm LA (MM) 4.1 (1.6-4.0cm) Ao Root(MM) 3.1 (2.0-3.7cm) Aortic Valve AoV VTI 0.3 m Ao Mean GR 4.0 mmHg LVOT VTI 0.20 m LUIS FELIPE (VMAX) 2.1 cm2 LUIS FELIPE (VTI) 2.1 cm2 Mitral Valve MV E Vmax 114.0 cm/s DECEL Time 331 ms MV Mean GR 6 mmHg MV A Vmax 115.0 cm/s MVA (VTI) 1.2 cm2 E/A ratio 1.0 MR Max PG 33 mmHg TDI E/E' Medial 40.7 E/E' Lateral 21.1 Medial E' Peak V 2.80 cm/s Lateral E' Peak V 5.40 cm/s Pulmonary Valve PV Vmax 1.2 m/s PV Peak GR 6.0 mmHg Left Ventricle The left ventricle is normal size. There is normal LV segmental wall motion. Mild concentric left ventricular hypertrophy. LVEF is 60-65%. Indeterminate diastolic dysfunction. Right Ventricle The right ventricle is severely dilated. The right ventricular systolic function is normal. Moderator band is seen in the right ventricle. Atria The left atrium size is normal. The right atrium is moderately dilated. Aortic Valve Aortic valve nodular calcification noted. Aortic valve is trileaflet and opens well. No aortic regurgitation is present. There is no aortic valvular stenosis. Mitral Valve There is mitral annular calcification. There is mild mitral valve regurgitation noted. There is moderate mitral valve stenosis with mean gradient of 6mmHg. Tricuspid Valve The tricuspid valve is normal in structure. There is no tricuspid valve regurgitation noted. Pulmonic Valve The pulmonary valve is normal in structure. There is no pulmonic valvular regurgitation. Great Vessels The aortic root is normal in size. The IVC is normal in size and collapses >50% with inspiration. Pericardium There is no pericardial effusion. Other Information Quality : Technically difficult study due to body habitus Conclusion LVEF is 60-65%. There is moderate mitral valve stenosis with mean gradient of 6mmHg. There is no pericardial effusion. DICTATED BY: LISA RM MD DATE: 05/28/24 1401 REASON: sob ORDERING PHYSICIAN: EVELINE ASHLEY PROCEDURE: CXR1VW - CHEST 1VW Exam Type: CHEST 1VW Clinical Information: sob Comparison: None Findings: Right permacath line is noted with tip at the distal superior vena caval level. The lungs are clear of infiltrates. The heart is enlarged. Bony and soft tissue structures of the chest wall are unremarkable. IMPRESSION: Cardiomegaly. Clear lungs. DICTATED BY: NIKA SOTO MD DATE: 05/28/24 1534 REASON: history of ankle abscess, assess for osteo ORDERING PHYSICIAN: CARMINE GAMBLE MD PROCEDURE: FT 2VW RT - FOOT LIMITED 2VWS RT Exam Type: FOOT LIMITED 2VWS RT Clinical Information: history of ankle abscess, assess for osteo Comparison: None Findings and impression: Soft tissue swelling of the ankle which could represent cellulitis. Postoperative changes of the distal tibia. Degenerative changes of the interphalangeal joints. Calcaneal spurs. Osteopenia. DICTATED BY: NIKA SOTO MD DATE: 05/27/24 1618 REASON: Dyspnea/SOB ORDERING PHYSICIAN: ALONSO CALIXTO DO PROCEDURE: CXR1VW - CHEST 1VW Exam Type: CHEST 1VW Clinical Information: Dyspnea/SOB Comparison: None Findings: Pulmonary pattern is as before. No worrisome interval changes have taken place. Impression: Stable exam. DICTATED BY: NIKA SOTO MD DATE: 05/26/24828 ASSESSMENT: Life-threatening hyperkalemia Fluid overload Respiratory failure with hypoxia Anemia Metabolic acidosis End-stage renal disease Diabetes mellitus type 2 Hypertension Morbid obesity PLAN: Labs and Diagnostics/ Radiology personally reviewed and interpreted by myself and supervising physician We have reviewed dialysis and external records in detail Continue dialysis schedule Friday Case Management to verify outpatient dialysis chair before discharge Case management coordinating SNF placement 1.5 L fluid restriction Continue to monitor H&H Epogen on dialysis days, as needed Continue with frequent monitoring of renal function, anemia, and electrolytes Order CBC, BMP, and electrolytes in the morning May use Dilaudid 0.5 mg IV every 6 hours as needed for severe pain Monitor blood pressure adjust medication doses as needed Maintain normotensive state Strict intake, output, and daily weight should be monitored Please renally adjust medications. Avoid nephrotoxics and nonsteroidal drugs. We will continue to monitor the patient closely We have discussed with the other team physicians in detail about the care plan ATTESTATION BY PHYSICIAN I have seen and examined the patient. I reviewed the documentation, medical decision making, and treatment plan as noted by the mid-level provider above. I agree with the findings and plan of care. CARLO KAUR MD, [facility] Jun 08, 2024 14:45
--- NOTE | 2024-06-08 17:23 | PN ---
INFECTIOUS DISEASE PROGRESS NOTE Date of Service: Jun 08, 2024 SUBJECTIVE: This is a 58-year-old female patient who was admitted to the hospital for shortness of breaths, fever, cough and reported missing hemodialysis due to not feeling well. On admission patient was positive for influenza type A s/p treated with Tamiflu. Patient was seen and examined at bedside in room 315. Patient is awake alert and oriented x 3. Patient is afebrile, temperature is 97.5. Patient was dialyzed last night and 2.5 L were removed. Per report patient will be having the AV fistula versus AV graft as outpatient. Patient has been approved to [facility] and will be discharged today. From Infectious Disease standpoint no antibiotics needed on discharge. PHYSICAL EXAM EYES: Anicteric. Pupils equal and reactive. HENT: No oral thrush seen, moist Oral mucosa. NECK: Supple, no JVD or thyromegaly. RESPIRATORY: Good air entry. Oxygen support via nasal cannula. CARDIOVASCULAR: S1, S2 regular. No murmur heard. ABDOMEN: Soft, non tender, bowel sounds present, no organomegaly. CENTRAL NERVOUS SYSTEM: Awake, alert, oriented x 3. SKIN: No rashes, no swelling. LYMPHATICS: No peripheral lymphadenopathy. MUSCULOSKELETAL: No joint swelling, erythema or tenderness. EXTREMITIES: No cyanosis or clubbing. Right ankle wound infection. BACK: No deformity, no pressure ulcer. GENITOURINARY: No dysuria or hematuria. Vital Sign (Last 12 Hours) 06/08/24 06/08/24 06/08/24 06/08/24 07:31 07:32 08:00 11:30 Temp 98.1 Pulse 66 66 67 70 Resp 18 18 18 18 B/P (MAP) 124/55 Pulse Ox 98 O2 Delivery N/A Room Air Room Air FiO2 21 06/08/24 06/08/24 12:00 16:00 Temp 97.5 97.7 Pulse 69 72 Resp 18 18 B/P (MAP) 98/50 151/99 Pulse Ox 100 98 O2 Delivery Room Air Intake & Output (last 24hrs) 06/07/24 06/07/24 06/08/24 15:00 23:00 07:00 Output Total 2500 ml Balance -2500 ml LABS: Laboratory: Test 06/08/24 15:30 06/08/24 04:56 06/07/24 09:45 Range/Units Whole Blood Glucose 242 H 70-110 MG/DL White Blood Count 8.2 4.8-10.8 K/uL Red Blood Count 4.18 4.00-5.50 MIL/uL Hemoglobin 11.8 L 12.0-16.0 g/dL Hematocrit 35.6 L 36-48 % Mean Corpuscular Volume 85.2 79-99 fL Mean Corpuscular Hemoglobin 28.2 27.0-33.0 pg Mean Corpuscular Hemoglobin Concent 33.1 32.0-36.0 g/dL Red Cell Distribution Width 13.6 11.0-15.5 % Platelet Count 185 130-400 K/uL Mean Platelet Volume 11.7 H 7.5-10.5 fL Immature Granulocyte % (Auto) 0.4 0-1 % Neutrophils (%) (Auto) 69.9 40.0-77.0 % Lymphocytes (%) (Auto) 18.5 L 21.0-51.0 % Monocytes (%) (Auto) 8.5 3.0-13.0 % Eosinophils (%) (Auto) 2.3 0.0-8.0 % Basophils (%) (Auto) 0.4 0.0-5.0 % Neutrophils # (Auto) 5.7 1.8-7.7 K/uL Lymphocytes # (Auto) 1.5 1.0-4.8 K/uL Monocytes # (Auto) 0.7 0.1-1.0 K/uL Eosinophils # (Auto) 0.19 0.00-0.70 K/uL Basophils # (Auto) 0.03 0.00-0.20 K/uL Absolute Immature Granulocyte (auto 0.03 0-1 K/uL Nucleated Red Blood Cells 0.0 0.0-0.19 % Sodium Level 133 L 136-145 mmol/L Potassium Level 3.8 3.5-5.1 mmol/L Chloride Level 93 L 101-111 mmol/L Carbon Dioxide Level 27 21-32 mmol/L Blood Urea Nitrogen 26 #H 7-18 mg/dL Creatinine 6.9 H 0.5-1.0 mg/dL Glomerular Filtration Rate Calc 6 >90 mL/min Random Glucose 249 H 70-105 mg/dL Total Calcium 9.3 8.5-10.1 mg/dL Magnesium Level 2.10 1.80-2.40 mg/dL Total Bilirubin 0.7 # 0.2-1.0 mg/dL Aspartate Amino Transf (AST/SGOT) 12 10-37 U/L Alanine Aminotransferase (ALT/SGPT) 9 L 12-78 U/L Alkaline Phosphatase 231 H 50-136 U/L Total Protein 7.9 6.0-8.3 g/dL Albumin 3.4 L 3.5-5.0 g/dL Prothrombin Time 11.8 H 9.6-11.6 SEC Prothromb Time International Ratio 1.06 0.85-1.15 Activated Partial Thromboplast Time 40.8 H 26.3-35.5 SEC ASSESSMENT: Acute on chronic respiratory failure requiring oxygen support. Pneumonia. Sepsis. Influenza Viral infection type A, s/p treated. Right ankle wound infection with ESBL, E coli. History of right ankle osteomyelitis, status post hardware removal. End-stage renal disease, on dialysis. Morbid obesity. Debility. PLAN: Patient has been approved to [facility]. Patient to have the AV fistula versus AV graft as outpatient. From Infectious Disease standpoint no antibiotics needed on discharge. This case was reviewed and discussed with my supervising physician and the above assessment and plan was formulated and agreed upon. ATTESTATION BY PHYSICIAN I have seen and examined the patient. I reviewed the documentation, medical decision making, and treatment plan as noted by the mid-level provider above. I agree with the findings and plan of care. DIDIER CONTRERAS MD, [facility] Jun 08, 2024 17:22
--- NOTE | 2024-06-08 21:20 | PN ---
SUBJECTIVE: This is a 58-year-old lady that was referred for creation of AV fistula for hemodialysis. She is scheduled for surgery and we will plan for surgery on . TID: [id number] RECEIPT: [id number]
[2024-06-09] VITALS (35 sets, daily range): BP systolic 72–150; BP diastolic 20–81; PULSE 63–83; RESP 12–20; TEMP 97.4–98.4; O2SAT 96–100
--- NOTE | 2024-06-09 03:35 | NUR ---
Nursing Note Informed Enma MONK of pt's BP's. Order for 500ml bolus of fluid
--- NOTE | 2024-06-09 06:09 | NUR ---
Nursing Note Spoke with Respiratory and informed that pt is requesting her treatments now. He stated she has been refusing all night and she is on the schedule to see.
[2024-06-09] MEDS: 0.9% NACL 500ML IV.SOLN 500 ML IV SCH (06:12)
--- NOTE | 2024-06-09 08:25 | NUR ---
OBTAINED CONSENT FOR PROCEDURE WITH DR. MEDINA AT 1400
--- NOTE | 2024-06-09 09:00 | NUR ---
PLACED PATIENT NPO FO PROCEDURE WITH DR. MEDINA AT 1400
--- NOTE | 2024-06-09 09:04 | NUR ---
DID NOT GIVE COREG DUE TO PATIENT BEING HYPOTENSIVE 100/30 MMHG. DID NOT GIVE HEPARIN DUE TO POSSIBLE SURGERY WITH DR. MEDINA TOMORROW IN AM. DISCUSSED WITH PATIENT PLAN OD CARE, MEDICATIONS, AND FUTURE PROCEDURES. PATIENT VERBALIZED UNDERSTANDING.
--- NOTE | 2024-06-09 11:20 | DS ---
Discharge Summary Hospital Course Summary: DATE OF ADMISSION:[05/26/2024] DATE OF DISCHARGE:[06/09/2024] DISPOSITION:[[facility]] CONDITION: Medically stable] CONSULTANTS:[Public Information Director, cardiovascular surgeon] FOLLOW UP APPOINTMENTS:[PCP 2 to 3 days. Public Information Director as scheduled for dialysis. Cardiovascular surgeon outpatient for AV fistula placement within one week] PROCEDURES:[06/09/[address] MEDINA] IMAGING: report attached to summary MICROBIOLOGY: report attached to summary ACTIVITY:[One-person assist] HOME MEDICATIONS: see med recc NEW MEDICATIONS:[See med rec] EMERGENCY INSTRUCTIONS: The patient was instructed to present to the nearest Emergency departmentr or call 911 once their symptoms will return or worsen Vacuum Kettle Cook(s): This is a 50-year-old with a significant medical history of end-stage renal dise ase on dialysis on Friday hypertension hyperlipidemia and asthma presented in ED with chief complaints of shortness a breath apparently patient missed her dialysis. ER workup was consistent with asthma exacerbation possible pneumonia respiratory failure. Patient was with fluid overload for which patient was diuresed. Patient now improve with her symptoms. Now she was noted with Enterococcus faecalis and ESBL in the wound. Blood culture negative x5 days. Throughout the hospitalization patient underwent vessel mapping for AV fistula placement. As per Dr. Medina orders patient will undergo AV fistula placement today at 2:00 p.m. and then can be discharged to [facility]. Follow outpatient within 1 to 2 weeks. Patient we will continue with the dialysis as scheduled. Most recent chest x-ray showed mild cardiac enlargement without radiographic evidence for any acute cardio pulmonary process. Head CT showed resolved right basal ganglia lacunar infarct. Acute and chronic sinusitis. Right mastoid effusion or mastoiditis with otitis media two. 05/28/2024 2D echo showed 60 to 65 EF indeterminate diastolic dysfunction. Moderate mitral valve stenosis and no pericardial effusion. Right foot showed osteopenia. Today patient was cleared by all the consultants to be discharged. Patient to be discharged to [facility] as nurse practitioner was notified that patient was approv ed today. Follow-up with PCP within 2 to 3 days. And as well follow up with solid waste disposal manager as stated above. As per Infectious Disease doctor patient to be started on Merrem once discharged to detention times 10 days. Procedure(s): REVIEW OF SYSTEMS CONSTITUTIONAL: Denies or night sweats. No unintentional weight loss reported. Positive for fever, chills NEUROLOGICAL: Denies headache, amaurosis fugax, motor weakness, sensory deficit, vertigo/spinning sensation, gait abnormalities, or tremors. ENT: No hearing loss, otalgia, otorrhea, rhinitis, rhinorrhea, hoarseness, or sore throat. CARDIOVASCULAR: Denies any exertional angina, dyspnea on exertion, orthopnea, paroxysmal nocturnal dyspnea, palpitations, life-threatening arrhythmias, claudication. PULMONARY: Positive for cough, sputum production. Denied any hemoptysis GASTROINTESTINAL: Denies any type of dysphagia to either liquids or solids. Denies nausea, vomiting, pyrosis, early satiety, abdominal pain, constipation, or changes in stool consistency or caliber. Denies coffee-ground emesis, hematemesis, hematochezia, or melanotic stools. Positive for diarrhea GENITOURINARY: Denies frequency, urgency, nocturia, hematuria or incontinence (Storage/Irritative symptoms.) Low urinary stream, straining to void, urinary intermittency or hesitancy, splitting of the voiding stream, terminal dribbling. ENDOCRINOLOGIC: Denies polyuria, polydipsia, polyphagia or heat/cold intolerances. HEMATOLOGIC: Denies thrombophilia/previous clots, or coagulopathy/bleeding disorders. ONCOLOGIC: Denies personal history of malignancy. DERMATOLOGIC: Denies rashes or pruritus. PSYCHIATRIC: Denies any suicidal or homicidal ideation. Denies hallucinations. PHYSICAL EXAM GENERAL APPEARANCE: The patient is awake, alert, and oriented, in no acute cardiopulmonary distress. NEUROLOGICAL: Cranial nerves II-XII grossly intact. Motor is 5/5 in bilateral upper and lower extremities proximal to distal. No sensory deficits. HEENT: Face is symmetric. Pupils are equal and reactive. Extraocular movements are intact. NECK: Supple. No JVD. No thyromegaly. No submental, submandibular, pre- /postauricular, occipital or supraclavicular lymphadenopathy. CHEST: Normal chest expansion. No Telemetry. LUNGS: She has wheezing present bilaterally with rhonchi. CARDIOVASCULAR: Regular. S1 and S2 normal. No appreciable rubs, murmurs or gallops. ABDOMEN: Soft, nontender, and nondistended. There is no rebound, voluntary guarding, or rigidity. : Deferred. No Ardon. EXTREMITIES: She has a wound noted in the right ankle. She has a wound in the lateral and medial aspect of the leg. There is some purulent discharge noted. SKIN: No skin breakdown. Assessment/Plan: ASSESSMENT: Acute sepsis due to acute complicated cystitis POA Acute hypoxic respiratory failure due to volume overload/missed dialysis POA Volume overload secondary to missed dialysis POA Metabolic acidosis POA Acute complicated cystitis POA Troponin elevation likely in setting of missed dialysis and type 2 NH (down trending) no chest POA Metabolic/infectious encephalopathy. Suspected pneumonia/URI POA Right ankle wound infection with Enterococcus faecalis and ESBL E coli from anaerobic and aerobic culture 05/27/2024 POA Positive Influenza A POA Acute asthma exacerbation History of right ankle abscess status post incision and drainage and hardware removal by Dr. Cabrera on 03/2025 Suspected cellulitis in the right ankle with mild purulent drainage History of MSSA infection Uncontrolled hypertension Uncontrolled diabetes mellitus type 2 with hypoglycemia Hyperlipidemia Obesity BMI 45.5 Home Medications: Unable to Obtain Active Prescriptions or Reported Meds Time spent arranging discharge: 31-60 minutes ATTESTATION BY PHYSICIAN I have seen and examined the patient. I reviewed the documentation, medical decision making, and treatment plan as noted by the mid-level provider above. I agree with the findings and plan of care. Tien Howell IV, MD, [facility] [employer] Jun 09, 2024 11:20
--- NOTE | 2024-06-09 14:19 | NUR ---
[facility] Follow-up: Patient re-assessed by wound healing team. See wound assessment. Assessment and recommendations provided to primary nurse. Education provided. Wound care done. Addendum: 06/10/24 at 1408 by ANDREA CUMMINGS RN RN/ Amended: Links added.
--- NOTE | 2024-06-09 14:27 | PN ---
NEPHROLOGY PROGRESS NOTE Date/Time Patient Seen: Jun 09, 2024 Reason for Consultation: 14:25 SUBJECTIVE: This is a 58-year-old female with a past medical history of hypertension, diabetes mellitus type 2, end-stage renal disease on hemodialysis Friday, anemia, coronary artery disease, arthritis, anxiety, asthma, morbid obesity. She presented to the emergency with complaints of shortness of breath and flu- like symptoms. She reports missing dialysis sessions due to symptoms. Positive for influenza A, completed Tamiflu treatment Continues on antibiotics as per ID Case management coordinating SNF placement. She tolerated dialysis without difficulty Pending AV access placement, today as per Nurse She was seen in the medical floor, in no acute distress No family at the bedside REVIEW OF SYSTEMS: Unable to obtain due to patient's status PHYSICAL EXAM: GENERAL: Alert and oriented x 3.. Well-nourished. EYES: EOMI. Anicteric. HENT: Moist mucous membranes. No scleral icterus. No cervical lymphadenopathy. LUNGS: Clear to auscultation bilaterally. No accessory muscle use. CARDIOVASCULAR: Regular rate and rhythm. No murmur. No JVD. ABDOMEN: Soft, non-tender and non-distended. No palpable masses. EXTREMITIES: No edema. Non-tender. SKIN: No rashes or lesions. Warm. NEUROLOGIC: No focal neurological deficits. CN II-XII grossly intact, but not individually tested. PSYCHIATRIC: Cooperative. Appropriate mood and affect. LABORATORY: [ ] Hematology Labs: Test 06/08/24 04:56 Range/Units White Blood Count 8.2 4.8-10.8 K/uL Red Blood Count 4.18 4.00-5.50 MIL/uL Hemoglobin 11.8 L 12.0-16.0 g/dL Hematocrit 35.6 L 36-48 % Mean Corpuscular Volume 85.2 79-99 fL Mean Corpuscular Hemoglobin 28.2 27.0-33.0 pg Mean Corpuscular Hemoglobin Concent 33.1 32.0-36.0 g/dL Red Cell Distribution Width 13.6 11.0-15.5 % Platelet Count 185 130-400 K/uL Mean Platelet Volume 11.7 H 7.5-10.5 fL Immature Granulocyte % (Auto) 0.4 0-1 % Neutrophils (%) (Auto) 69.9 40.0-77.0 % Lymphocytes (%) (Auto) 18.5 L 21.0-51.0 % Monocytes (%) (Auto) 8.5 3.0-13.0 % Eosinophils (%) (Auto) 2.3 0.0-8.0 % Basophils (%) (Auto) 0.4 0.0-5.0 % Neutrophils # (Auto) 5.7 1.8-7.7 K/uL Lymphocytes # (Auto) 1.5 1.0-4.8 K/uL Monocytes # (Auto) 0.7 0.1-1.0 K/uL Eosinophils # (Auto) 0.19 0.00-0.70 K/uL Basophils # (Auto) 0.03 0.00-0.20 K/uL Absolute Immature Granulocyte (auto 0.03 0-1 K/uL Nucleated Red Blood Cells 0.0 0.0-0.19 % Chemistry Labs: Test 06/09/24 11:20 06/08/24 04:56 Range/Units Whole Blood Glucose 203 H 70-110 MG/DL Sodium Level 133 L 136-145 mmol/L Potassium Level 3.8 3.5-5.1 mmol/L Chloride Level 93 L 101-111 mmol/L Carbon Dioxide Level 27 21-32 mmol/L Blood Urea Nitrogen 26 #H 7-18 mg/dL Creatinine 6.9 H 0.5-1.0 mg/dL Glomerular Filtration Rate Calc 6 >90 mL/min Random Glucose 249 H 70-105 mg/dL Total Calcium 9.3 8.5-10.1 mg/dL Magnesium Level 2.10 1.80-2.40 mg/dL Total Bilirubin 0.7 # 0.2-1.0 mg/dL Aspartate Amino Transf (AST/SGOT) 12 10-37 U/L Alanine Aminotransferase (ALT/SGPT) 9 L 12-78 U/L Alkaline Phosphatase 231 H 50-136 U/L Total Protein 7.9 6.0-8.3 g/dL Albumin 3.4 L 3.5-5.0 g/dL DIAGNOSTICS / RADIOLOGY: REASON: AV GRAFT ORDERING PHYSICIAN: LJ MEDINA MD PROCEDURE: VEIN M UNI - US VEIN MAPPING UNI/LTD US VEIN MAPPING UNI/LTD HISTORY: AV graft COMPARISON: None TECHNIQUE: Ultrasound upper extremity venous mapping study was performed for hemodialysis access. FINDINGS: Left cephalic vein High upper arm: 18 x 3 millimeter Mid upper arm: 16 x 2 millimeter Low upper arm: 14 x 3 millimeter High forearm: 4 x 3 millimeter Mid forearm: 3 x 2 millimeter Low forearm: 4 x 3 millimeter Left basilic vein Upper arm: 24 x 3 millimeter Lower arm: 22 x 4 millimeter Antecubital fossa: 19 x 2 millimeter IMPRESSION: 1. Ultrasound upper extremity venous mapping study as described above. DICTATED BY: TRICIA MAHER MD DATE: 05/31/241957 REASON: SHORT OF BREATH ORDERING PHYSICIAN: EVELINE ASHLEY PROCEDURE: CXR1VW - CHEST 1VW PORTABLE CHEST RADIOGRAPH INDICATION: SHORT OF BREATH COMPARISON: 05/28/2024 FINDINGS: tooling inspector leads overlie the field of view. Stable right-sided hemodialysis catheter. Stable mild cardiac enlargement. The pulmonary vascularity and zachery appear normal. No abnormal pulmonary parenchymal opacity or consolidation identified. No significant pleural effusion noted. No pneumothorax detected. IMPRESSION: Mild cardiac enlargement without radiographic evidence for any acute cardiopulmonary process. DICTATED BY: MEGA RADFORD MD DATE: 05/30/24 1052 REASON: ACUTE ENCEPHALOPATHY ORDERING PHYSICIAN: EVELINE ASHLEY PROCEDURE: HEAD WO - CT HEAD/BRAIN W/O CONTRAST CT HEAD/BRAIN W/O CONTRAST CLINICAL HISTORY: ACUTE ENCEPHALOPATHY COMPARISON: None TECHNIQUE: Multiple sequential axial images of the head were obtained from the base of the skull through vertex. CT was performed with one or more of the following dose reduction techniques: automated exposure control, adjustment of the mA and/or kV according to patient size, or use of iterative reconstruction technique FINDINGS: There is resolved right basal ganglia lacunar infarct. The orbital contents are unremarkable. There is right mastoid air cell opacification extending into the middle ear. This demonstrated is mucoperiosteal thickening throughout the paranasal sinuses with small air-fluid level in the sphenoid sinuses. The calvarium is intact. IMPRESSION: Resolved right basal ganglia lacunar infarct. Acute and chronic sinusitis. Right mastoid effusion or mastoiditis with otitis media DICTATED BY: REGGIE GUARDADO DO DATE: 05/29/24 1554 REASON: elevated troponin ORDERING PHYSICIAN: CARMINE GAMBLE MD PROCEDURE: ECHO CMP - ECHO 2-D COMPLETE APPROVED REPORT EXAM: Two-dimensional and M-mode echocardiogram with Doppler and color Doppler. INDICATION ICD: Elevated troponin 2D Dimensions RVDd 5.1 cm LVEF(%) 59.0 (>50%) LVED Vol(simp.) 73.2 mL IVSd 1.2 (0.7-1.1cm) FS(%) 31 % LVES Vol(simp.) 27.3 mL LVDd 3.9 (3.8-5.6cm) LA (2D) 4.6 (1.6-4.0cm) LVEF(%, simp.) 63 % PWd 1.2 (0.7-1.1cm) Ao Root(2D) 3.6 (2.0-3.7cm) LA ESV INDEX (4CH) 31.90 mL/m2 IVSs 1.5 cm LVOT diam 1.9 (1.8-2.4cm) LVDs 2.7 (2.5-4.0cm) PWs 1.5 cm M-Mode Dimensions EPSS 0.9 cm LA (MM) 4.1 (1.6-4.0cm) Ao Root(MM) 3.1 (2.0-3.7cm) Aortic Valve AoV VTI 0.3 m Ao Mean GR 4.0 mmHg LVOT VTI 0.20 m LUIS FELIPE (VMAX) 2.1 cm2 LUIS FELIPE (VTI) 2.1 cm2 Mitral Valve MV E Vmax 114.0 cm/s DECEL Time 331 ms MV Mean GR 6 mmHg MV A Vmax 115.0 cm/s MVA (VTI) 1.2 cm2 E/A ratio 1.0 MR Max PG 33 mmHg TDI E/E' Medial 40.7 E/E' Lateral 21.1 Medial E' Peak V 2.80 cm/s Lateral E' Peak V 5.40 cm/s Pulmonary Valve PV Vmax 1.2 m/s PV Peak GR 6.0 mmHg Left Ventricle The left ventricle is normal size. There is normal LV segmental wall motion. Mild concentric left ventricular hypertrophy. LVEF is 60-65%. Indeterminate diastolic dysfunction. Right Ventricle The right ventricle is severely dilated. The right ventricular systolic function is normal. Moderator band is seen in the right ventricle. Atria The left atrium size is normal. The right atrium is moderately dilated. Aortic Valve Aortic valve nodular calcification noted. Aortic valve is trileaflet and opens well. No aortic regurgitation is present. There is no aortic valvular stenosis. Mitral Valve There is mitral annular calcification. There is mild mitral valve regurgitation noted. There is moderate mitral valve stenosis with mean gradient of 6mmHg. Tricuspid Valve The tricuspid valve is normal in structure. There is no tricuspid valve regurgitation noted. Pulmonic Valve The pulmonary valve is normal in structure. There is no pulmonic valvular regurgitation. Great Vessels The aortic root is normal in size. The IVC is normal in size and collapses >50% with inspiration. Pericardium There is no pericardial effusion. Other Information Quality : Technically difficult study due to body habitus Conclusion LVEF is 60-65%. There is moderate mitral valve stenosis with mean gradient of 6mmHg. There is no pericardial effusion. DICTATED BY: LISA RM MD DATE: 05/28/24 1401 REASON: sob ORDERING PHYSICIAN: EVELINE ASHLEY PROCEDURE: CXR1VW - CHEST 1VW Exam Type: CHEST 1VW Clinical Information: sob Comparison: None Findings: Right permacath line is noted with tip at the distal superior vena caval level. The lungs are clear of infiltrates. The heart is enlarged. Bony and soft tissue structures of the chest wall are unremarkable. IMPRESSION: Cardiomegaly. Clear lungs. DICTATED BY: NIKA SOTO MD DATE: 05/28/24 1534 REASON: history of ankle abscess, assess for osteo ORDERING PHYSICIAN: CARMINE GAMBLE MD PROCEDURE: FT 2VW RT - FOOT LIMITED 2VWS RT Exam Type: FOOT LIMITED 2VWS RT Clinical Information: history of ankle abscess, assess for osteo Comparison: None Findings and impression: Soft tissue swelling of the ankle which could represent cellulitis. Postoperative changes of the distal tibia. Degenerative changes of the interphalangeal joints. Calcaneal spurs. Osteopenia. DICTATED BY: NIKA SOTO MD DATE: 05/27/24 1618 REASON: Dyspnea/SOB ORDERING PHYSICIAN: ALONSO CALIXTO DO PROCEDURE: CXR1VW - CHEST 1VW Exam Type: CHEST 1VW Clinical Information: Dyspnea/SOB Comparison: None Findings: Pulmonary pattern is as before. No worrisome interval changes have taken place. Impression: Stable exam. DICTATED BY: NIKA SOTO MD DATE: 05/26/24 0829 ASSESSMENT: Life-threatening hyperkalemia Fluid overload Respiratory failure with hypoxia Anemia Metabolic acidosis End-stage renal disease Diabetes mellitus type 2 Hypertension Morbid obesity PLAN: Labs and Diagnostics/ Radiology personally reviewed and interpreted by myself and supervising physician We have reviewed dialysis and external records in detail Pending AV access placement later today, dialysis may be done early tomorrow morning Continue dialysis schedule Friday Case Management to verify outpatient dialysis chair before discharge Case management coordinating SNF placement 1.5 L fluid restriction Continue to monitor H&H Epogen on dialysis days, as needed Continue with frequent monitoring of renal function, anemia, and electrolytes Order CBC, BMP, and electrolytes in the morning May use Dilaudid 0.5 mg IV every 6 hours as needed for severe pain Monitor blood pressure adjust medication doses as needed Maintain normotensive state Strict intake, output, and daily weight should be monitored Please renally adjust medications. Avoid nephrotoxics and nonsteroidal drugs. We will continue to monitor the patient closely We have discussed with the other team physicians in detail about the care plan ATTESTATION BY PHYSICIAN I have seen and examined the patient. I reviewed the documentation, medical decision making, and treatment plan as noted by the mid-level provider above. I agree with the findings and plan of care. CARLO KAUR MD, ELIZABETH FNP Jun 09, 2024 14:27
--- NOTE | 2024-06-09 16:00 | NUR ---
MRS. FRANCISCO TENA NURSE PRACTITIONER FOR DR. MEDINA TO NOTIFY ME THAT PROCEDURE WAS CANCELLED DUE TO NOT ENOUGH PERSONNEL AT THE OR. DID NOT GIVE ME A RE SCHEDULED DATE.
[2024-06-09] MEDS ORDERED: ALBUMIN (HUMAN) 25% 50 ML IV SCH (17:30)
--- NOTE | 2024-06-09 20:08 | PN ---
INFECTIOUS DISEASE PROGRESS NOTE Date of Service: Jun 09, 2024 SUBJECTIVE: This is a 58-year-old female patient who was admitted to the hospital for shortness of breaths, fever, cough and reported missing hemodialysis due to not feeling well. On admission patient was positive for influenza type A s/p treated with Tamiflu. Patient was seen and examined at bedside in room 315. Patient is awake alert and oriented x 3. Per report the transfer to SNF was canceled yesterday and during rounded today patient is scheduled for a AV fis corwin versus AV graft. Patient is afebrile, temperature 98.9. From Infectious Disease standpoint no antibiotics is needed on discharge. PHYSICAL EXAM EYES: Anicteric. Pupils equal and reactive. HENT: No oral thrush seen, moist Oral mucosa. NECK: Supple, no JVD or thyromegaly. RESPIRATORY: Good air entry. Oxygen support via nasal cannula. CARDIOVASCULAR: S1, S2 regular. No murmur heard. ABDOMEN: Soft, non tender, bowel sounds present, no organomegaly. CENTRAL NERVOUS SYSTEM: Awake, alert, oriented x 3. SKIN: No rashes, no swelling. LYMPHATICS: No peripheral lymphadenopathy. MUSCULOSKELETAL: No joint swelling, erythema or tenderness. EXTREMITIES: No cyanosis or clubbing. Right ankle wound infection. BACK: No deformity, no pressure ulcer. GENITOURINARY: No dysuria or hematuria. Vital Sign (Last 12 Hours) 06/09/24 06/09/24 06/09/24 06/09/24 11:02 12:00 16:00 16:30 Temp 98.1 97.5 98.1 Pulse 76 68 69 71 Resp 20 18 20 12 B/P (MAP) 123/39 99/30 91/59 Pulse Ox 100 99 O2 Delivery Room Air Room Air Room Air FiO2 21 21 06/09/24 06/09/24 18:47 18:47 Pulse 76 76 Resp 20 20 O2 Delivery N/A Room Air FiO2 21 Intake & Output (last 24hrs) 06/08/24 06/08/24 06/09/24 15:00 23:00 07:00 Intake Total 220 ml 220 ml Balance 220 ml 220 ml LABS: Laboratory: Test 06/09/24 15:41 06/08/24 04:56 Range/Units Whole Blood Glucose 212 H 70-110 MG/DL White Blood Count 8.2 4.8-10.8 K/uL Red Blood Count 4.18 4.00-5.50 MIL/uL Hemoglobin 11.8 L 12.0-16.0 g/dL Hematocrit 35.6 L 36-48 % Mean Corpuscular Volume 85.2 79-99 fL Mean Corpuscular Hemoglobin 28.2 27.0-33.0 pg Mean Corpuscular Hemoglobin Concent 33.1 32.0-36.0 g/dL Red Cell Distribution Width 13.6 11.0-15.5 % Platelet Count 185 130-400 K/uL Mean Platelet Volume 11.7 H 7.5-10.5 fL Immature Granulocyte % (Auto) 0.4 0-1 % Neutrophils (%) (Auto) 69.9 40.0-77.0 % Lymphocytes (%) (Auto) 18.5 L 21.0-51.0 % Monocytes (%) (Auto) 8.5 3.0-13.0 % Eosinophils (%) (Auto) 2.3 0.0-8.0 % Basophils (%) (Auto) 0.4 0.0-5.0 % Neutrophils # (Auto) 5.7 1.8-7.7 K/uL Lymphocytes # (Auto) 1.5 1.0-4.8 K/uL Monocytes # (Auto) 0.7 0.1-1.0 K/uL Eosinophils # (Auto) 0.19 0.00-0.70 K/uL Basophils # (Auto) 0.03 0.00-0.20 K/uL Absolute Immature Granulocyte (auto 0.03 0-1 K/uL Nucleated Red Blood Cells 0.0 0.0-0.19 % Sodium Level 133 L 136-145 mmol/L Potassium Level 3.8 3.5-5.1 mmol/L Chloride Level 93 L 101-111 mmol/L Carbon Dioxide Level 27 21-32 mmol/L Blood Urea Nitrogen 26 #H 7-18 mg/dL Creatinine 6.9 H 0.5-1.0 mg/dL Glomerular Filtration Rate Calc 6 >90 mL/min Random Glucose 249 H 70-105 mg/dL Total Calcium 9.3 8.5-10.1 mg/dL Magnesium Level 2.10 1.80-2.40 mg/dL Total Bilirubin 0.7 # 0.2-1.0 mg/dL Aspartate Amino Transf (AST/SGOT) 12 10-37 U/L Alanine Aminotransferase (ALT/SGPT) 9 L 12-78 U/L Alkaline Phosphatase 231 H 50-136 U/L Total Protein 7.9 6.0-8.3 g/dL Albumin 3.4 L 3.5-5.0 g/dL ASSESSMENT: Acute on chronic respiratory failure requiring oxygen support. Pneumonia. Sepsis. Influenza Viral infection type A, s/p treated. Right ankle wound infection with ESBL, E coli. History of right ankle osteomyelitis, status post hardware removal. End-stage renal disease, on dialysis. Morbid obesity. Debility. PLAN: Patient is NPO for a AV fistula versus AV graft for today. Patient has been referred and approved to [facility]. From Infectious Disease standpoint no antibiotic is needed on discharge. This case was reviewed and discussed with my supervising physician and the above assessment and plan was formulated and agreed upon. ATTESTATION BY PHYSICIAN I have seen and examined the patient. I reviewed the documentation, medical decision making, and treatment plan as noted by the mid-level provider above. I agree with the findings and plan of care. DIDIER CONTRERAS MD, MIRTA L FNP Jun 09, 2024 20:08
--- NOTE | 2024-06-09 22:25 | NUR ---
Nursing Note Blood band removed per pt request. Consent states no blood products. Pt is Jehovah witness. Verified with pt and pt confirmed she doesn't want to receive blood products.
[2024-06-10] VITALS (12 sets, daily range): BP systolic 57–136; BP diastolic 30–80; PULSE 55–89; RESP 20–22; TEMP 97.7–98.1; O2SAT 97–99
[2024-06-10 05:33] LABS: HEMATOCRIT 38.1 % (36-48); MEAN CORPUSCULAR HEMOGLOBIN 28.4 pg (27.0-33.0); MEAN CORPUSCULAR HGB CONC 31.5 g/dL (32.0-36.0); MEAN CORPUSCULAR VOLUME 90.3 fL (79-99); RED BLOOD CELL COUNT(AUTO) 4.22 MIL/uL (4.00-5.50); RED CELL DISTRIBUTION WIDTH 14.1 % (11.0-15.5); WHITE BLOOD COUNT (AUTO) 8.6 K/uL (4.8-10.8)
[2024-06-10 05:42] LABS: INR 1.1 (0.85-1.15); PROTHROMBIN TIME 12.2 SEC (9.6-11.6)
[2024-06-10 05:43] LABS: PARTIAL THROMBOPLASTIN TIME 34.9 SEC (26.3-35.5)
[2024-06-10 05:47] LABS: CREATININE 6.4 mg/dL (0.5-1.0); PHOSPHORUS 5.3 mg/dL (2.5-4.9); POTASSIUM 3.5 mmol/L (3.5-5.1)
--- NOTE | 2024-06-10 07:15 | NUR ---
VERIFIED WITH REHABILITATION CONSULTANT MRS. CRISOSTOMO THAT PATIENT WAS SCHEDULED FOR PROCEDURE WITH DR. MEDINA. REVIEWED PATIENTS CHART AND CONSENTS. MADE SURE PATIENTS DENOMINATIONAL BELIEFS WERE WRITTEN IN CONSENT.
--- NOTE | 2024-06-10 09:00 | NUR ---
DID NOT GIVE ORAL MEDICATIONS DUE TO PATIENT BEING NPO FOR PROCEDURE. DID NOT HEPARIN DUE TO PATIENT GOING TO PROCEDURE AND TO AVOID BLEEDING.
--- NOTE | 2024-06-10 11:30 | NUR ---
BLOOD GLUCOSE 227. DID NOT COVER DUE TO PATIENT BEING NPO FOR PROCEDURE WITH DR. MEDINA
--- NOTE | 2024-06-10 12:26 | PN ---
[facility] PROGRESS NOTE Date of Service: Jun 10, 2024 Time of Service: 12:[address] Howell SUBJECTIVE: [ ] DATE OF ADMISSION:[05/26/2024] DATE OF DISCHARGE:[06/10/2024] DISPOSITION:[[facility]] CONDITION: Medically stable] CONSULTANTS:[Compressor Repairer, cardiovascular surgeon] FOLLOW UP APPOINTMENTS:[PCP 2 to 3 days. Compressor Repairer as scheduled for dialysis. Cardiovascular surgeon outpatient for AV fistula placement within one week] PROCEDURES:[06/09/[address] MEDINA] IMAGING: report attached to summary MICROBIOLOGY: report attached to summary ACTIVITY:[One-person assist] HOME MEDICATIONS: see med recc NEW MEDICATIONS:[See med rec] EMERGENCY INSTRUCTIONS: The patient was instructed to present to the nearest Emergency departmentr or call 911 once their symptoms will return or worsen 06/09 This is a 50-year-old with a significant medical history of end-stage renal disease on dialysis on Friday hypertension hyperlipidemia and asthma presented in ED with chief complaints of shortness a breath apparently patient missed her dialysis. ER workup was consistent with asthma exacerbation possible pneumonia respiratory failure. Patient was with fluid overload for which patient was diuresed. Patient now improve with her symptoms. Now she was noted with Enterococcus faecalis and ESBL in the wound. Blood culture negative x5 days. Throughout the hospitalization patient underwent vessel mapping for AV fistula placement. As per Dr. Medina orders patient will undergo AV fistula placement today at 2:00 p.m. and then can be discharged to [facility]. Follow outpatient within 1 to 2 weeks. Patient we will continue with the dialysis as scheduled. Most recent chest x-ray showed mild cardiac enlargement without radiographic evidence for any acute cardio pulmonary process. Head CT showed resolved right basal ganglia lacunar infarct. Acute and chronic sinusitis. Right mastoid effusion or mastoiditis with otitis media two. 05/28/2024 2D echo showed 60 to 65 EF indeterminate diastolic dysfunction. Moderate mitral valve stenosis and no pericardial effusion. Right foot showed osteopenia. Today keo ent was cleared by all the consultants to be discharged. Patient to be discharged to [facility] as nurse practitioner was notified that patient was approved today. Follow-up with PCP within 2 to 3 days. And as well follow up with devops developer as stated above. As per Infectious Disease doctor patient to be started on Merrem once discharged to assisted times 10 days. 06/10 patient was cleared to be discharged yesterday to [facility] right after AV fistula placement. Unfortunately Dr. Medina canceled the surgical procedure and rescheduled for today 06/10/2024. Please discharge patient right after AV fistula placement. If AV fistula placement will be canceled again discharge patient to [facility] and follow-up with Dr. Medina outpatient for AV fistula placement. REVIEW OF SYSTEMS CONSTITUTIONAL: Denies or night sweats. No unintentional weight loss reported. Positive for fever, chills NEUROLOGICAL: Denies headache, amaurosis fugax, motor weakness, sensory deficit, vertigo/spinning sensation, gait abnormalities, or tremors. ENT: No hearing loss, otalgia, otorrhea, rhinitis, rhinorrhea, hoarseness, or sore throat. CARDIOVASCULAR: Denies any exertional angina, dyspnea on exertion, orthopnea, paroxysmal nocturnal dyspnea, palpitations, life-threatening arrhythmias, claudication. PULMONARY: Positive for cough, sputum production. Denied any hemoptysis GASTROINTESTINAL: Denies any type of dysphagia to either liquids or solids. Denies nausea, vomiting, pyrosis, early satiety, abdominal pain, constipation, or changes in stool consistency or caliber. Denies coffee-ground emesis, hemate mesis, hematochezia, or melanotic stools. Positive for diarrhea GENITOURINARY: Denies frequency, urgency, nocturia, hematuria or incontinence (Storage/Irritative symptoms.) Low urinary stream, straining to void, urinary intermittency or hesitancy, splitting of the voiding stream, terminal dribbling. ENDOCRINOLOGIC: Denies polyuria, polydipsia, polyphagia or heat/cold intolerances. HEMATOLOGIC: Denies thrombophilia/previous clots, or coagulopathy/bleeding disorders. ONCOLOGIC: Denies personal history of malignancy. DERMATOLOGIC: Denies rashes or pruritus. PSYCHIATRIC: Denies any suicidal or homicidal ideation. Denies hallucinations. PHYSICAL EXAM GENERAL APPEARANCE: The patient is awake, alert, and oriented, in no acute cardiopulmonary distress. NEUROLOGICAL: Cranial nerves II-XII grossly intact. Motor is 5/5 in bilateral upper and lower extremities proximal to distal. No sensory deficits. HEENT: Face is symmetric. Pupils are equal and reactive. Extraocular movements are intact. NECK: Supple. No JVD. No thyromegaly. No submental, submandibular, pre- /postauricular, occipital or supraclavicular lymphadenopathy. CHEST: Normal chest expansion. No Telemetry. LUNGS: She has wheezing present bilaterally with rhonchi. CARDIOVASCULAR: Regular. S1 and S2 normal. No appreciable rubs, murmurs or gallops. ABDOMEN: Soft, nontender, and nondistended. There is no rebound, voluntary guarding, or rigidity. : Deferred. No Ardon. EXTREMITIES: She has a wound noted in the right ankle. She has a wound in the lateral and medial aspect of the leg. There is some purulent discharge noted. SKIN: No skin breakdown. Vital Signs (last 8hr) Date Time Temp Pulse Resp B/P (MAP) Pulse Ox O2 Delivery O2 Flow Rate FiO2 06/10/24 12:00 97.9 55 20 109/50 98 Room Air 21 06/10/24 10:57 82 21 06/10/24 08:00 98.1 70 20 100/39 98 Room Air 21 06/10/24 06:24 82 21 06/10/24 06:23 82 21 N/A Room Air 06/10/24 06:23 82 21 LABS: Laboratory: Test 06/10/24 11:16 06/10/24 05:16 Range/Units Whole Blood Glucose 188 H 70-110 MG/DL White Blood Count 8.6 4.8-10.8 K/uL Red Blood Count 4.22 4.00-5.50 MIL/uL Hemoglobin 12.0 12.0-16.0 g/dL Hematocrit 38.1 36-48 % Mean Corpuscular Volume 90.3 79-99 fL Mean Corpuscular Hemoglobin 28.4 27.0-33.0 pg Mean Corpuscular Hemoglobin Concent 31.5 L 32.0-36.0 g/dL Red Cell Distribution Width 14.1 11.0-15.5 % Platelet Count 177 130-400 K/uL Mean Platelet Volume 12.5 H 7.5-10.5 fL Nucleated Red Blood Cells 0.0 0.0-0.19 % Prothrombin Time 12.2 H 9.6-11.6 SEC Prothromb Time International Ratio 1.10 0.85-1.15 Activated Partial Thromboplast Time 34.9 26.3-35.5 SEC Sodium Level 138 136-145 mmol/L Potassium Level 3.5 3.5-5.1 mmol/L Chloride Level 91 L 101-111 mmol/L Carbon Dioxide Level 24 21-32 mmol/L Blood Urea Nitrogen 24 H 7-18 mg/dL Creatinine 6.4 H 0.5-1.0 mg/dL Glomerular Filtration Rate Calc 7 >90 mL/min Random Glucose 230 H 70-105 mg/dL Total Calcium 9.3 8.5-10.1 mg/dL Phosphorus Level 5.3 H 2.5-4.9 mg/dL Current Medications Medications (Trade) Dose Ordered Sig/Susannah Route PRN Reason Start Time Stop Time Status Last Admin Dose Admin Acetaminophen (TYLenol 500MG TAB) 500 mg Q6H PRN PO MILD PAIN (1-3) 05/27/24 15:00 06/26/24 14:59 06/09/24 22:16 500 MG Albumin Human 50 ml @ 0 mls/hr AD IV 06/09/24 17:30 06/19/24 17:29 Albuterol Sulfate (Proventil 0.083% 2.5mg/3ml) 2.5MG [id number] IH 05/27/24 15:00 06/26/24 14:59 06/10/24 10:55 2.5 MG Albuterol Sulfate (Proventil 0.083% 2.5mg/3ml) 10 mg ONCE IH 05/26/24 08:00 05/26/24 15:17 DC 05/26/24 08:11 10 MG Budesonide (Pulmicort 0.5 Mg/2ml) 0.5 mg BIDRESP IH 05/27/24 18:00 06/26/24 17:59 06/10/24 06:19 0.5 MG Carvedilol (Coreg 12.5MG) 12.5 mg BID PO 05/27/24 21:00 06/26/24 20:59 06/09/24 20:34 12.5 MG Cefepime HCl (MAXipime 1 GM vial) 1 gm Q12H IVPB 05/27/24 15:00 05/27/24 18:22 DC Cefepime HCl (MAXipime 1 GM vial) 1 gm Q12H9 IVPB 05/27/24 21:00 05/28/24 11:36 DC 05/28/24 07:46 1 GM Cefepime HCl (MAXipime 1 GM vial) 1 gm Q24H IVPB 05/29/24 09:00 05/29/24 12:58 DC 05/29/24 09:50 1 GM Ceftriaxone Sodium (ROCEphine 1G INJ) 1 gm Q24H IVPB 05/27/24 10:30 05/27/24 14:24 DC Ceftriaxone Sodium (ROCEphine 1G INJ) 1 gm Q24H IVPB 05/27/24 17:00 05/27/24 14:58 DC Doxycycline Hyclate (Doxycycline Hyclate) 100 mg BID PO 05/27/24 21:00 05/27/24 15:46 DC Guaifenesin (RobiTUSSin SUGAR-FREE 100 MG/ 5 ML UDCUP) 400 mg Q4H PRN PO COUGH 05/28/24 06:30 06/27/24 06:29 05/29/24 22:44 400 MG Heparin Sodium (Porcine) (HEParin 5,000 UNIT VIAL) 5,000 unit Q12H SQ 06/01/24 09:00 07/01/24 08:59 06/09/24 20:38 5,000 UNIT Heparin Sodium (Porcine) (HEParin 5,000 UNIT VIAL) 10,000 unit AD IRRIG 05/26/24 15:30 06/25/24 15:29 06/09/24 20:15 10,000 UNIT Hydralazine HCl (APRESOLine 20MG INJ) 10 mg Q6H PRN IV ADMINISTER FOR SBP > 180 05/27/24 15:00 06/26/24 14:59 Insulin Human Regular (humuLIN R 100 UNIT/ML 3ML) INSULIN SLIDING SCAL... ACHS SQ 05/28/24 07:30 06/27/24 07:29 06/10/24 06:04 4 UNIT Ipratropium [place] (AtrovENT UD) 0.5 mg [id number] IH 05/28/24 00:00 06/27/24 00:00 06/10/24 10:55 0.5 MG Lactulose (Constulose 20gm/ 30ml Udcup) 20 gm TID PRN PO CONSTIPATION 06/04/24 15:30 07/04/24 15:29 Leptospermum Honey ([facility]) APPLY DIRECTED DAILY TP 05/28/24 09:00 06/27/24 08:59 06/10/24 09:00 1 APPL Meropenem (Merrem 500mg) 500 mg Q12H IV 05/30/24 12:30 06/01/24 04:53 DC 06/01/24 01:07 500 MG Methylprednisolone Sodium Succinate (Solu-medROL 40MG) 20 mg BID IVP 05/27/24 21:00 05/27/24 19:34 DC Midodrine (PROAMatine 5 MG TABLET) 5 mg TID PO 06/05/24 11:30 07/05/24 11:29 06/09/24 20:34 5 MG Montelukast Sodium (SinguLAIR) 10 mg DAILY PO 05/30/24 09:00 06/29/24 08:59 06/09/24 09:00 10 MG Oseltamivir Phosphate (Tamiflu) 30 mg QODAY PO 05/31/24 20:00 05/29/24 12:55 DC Oseltamivir Phosphate (Tamiflu) 75 mg MWFPHD PO 05/31/24 16:00 06/05/24 15:59 DC 06/04/24 15:43 75 MG Oseltamivir Phosphate (Tamiflu) 75 mg Q24H PO 05/28/24 21:00 05/29/24 12:47 DC 05/28/24 20:52 75 MG Oseltamivir Phosphate (Tamiflu) 75 mg QODAY@2100 PO 05/27/24 21:00 05/28/24 14:12 DC 05/27/24 21:41 75 MG Pharmacy Profile Note (Pharmacy Communication) 1 each AD MISC 05/28/24 06:00 05/28/24 11:37 DC Pharmacy Profile Note (Pharmacy Communication) 1 each ONCE MISC 05/27/24 19:30 05/28/24 11:37 DC Pharmacy Profile Note (Pharmacy Communication) 1 each ONCE MISC 05/28/24 15:30 05/28/24 15:14 DC Piperacillin Sod/ Tazobactam Sod (Zosyn 3.375gm+NS 50ml) 3.375 gm Q12H IV 06/01/24 05:00 06/11/24 04:59 06/10/24 04:49 3.375 GM Polyethylene Glycol (MIRalax 3350 17 GM POWD.PACK) 17 gm DAILY PO 06/04/24 16:30 07/04/24 16:29 06/09/24 09:00 17 GM Sodium Chloride 250 ml @ 0 mls/hr AD IV 05/26/24 15:30 06/25/24 15:29 Sodium Chloride 500 ml @ 0 mls/hr Q0M IV 06/09/24 03:45 07/09/24 03:44 06/09/24 06:12 120 MLS/HR Sodium Chloride 1,000 ml @ 0 mls/hr ONCE IV 05/26/24 15:30 06/25/24 15:29 06/09/24 18:10 100 MLS/HR Vancomycin HCl 250 ml @ 125 mls/hr ONCE IV 05/28/24 21:00 05/28/24 23:59 DC 05/28/24 20:53 125 MLS/HR Vancomycin HCl 250 ml @ 125 mls/hr [id number][DIALYSIS] IV 05/31/24 16:00 06/01/24 04:53 DC 05/31/24 17:53 125 MLS/HR Vancomycin HCl (Vancomycin Protocol) 1 each AD IV 05/27/24 16:00 06/02/24 00:08 DC DIAGNOSTICS / RADIOLOGY: [ ] ASSESSMENT: Acute sepsis due to acute complicated cystitis POA Acute hypoxic respiratory failure due to volume overload/missed dialysis POA Volume overload secondary to missed dialysis POA Metabolic acidosis POA Acute complicated cystitis POA Troponin elevation likely in setting of missed dialysis and type 2 PA (down trending) no chest POA Metabolic/infectious encephalopathy. Suspected pneumonia/URI POA Right ankle wound infection with Enterococcus faecalis and ESBL E coli from anaerobic and aerobic culture 05/27/2024 POA Positive Influenza A POA Acute asthma exacerbation History of right ankle abscess status post incision and drainage and hardware removal by Dr. Cabrera on 03/2025 Suspected cellulitis in the right ankle with mild purulent drainage History of MSSA infection Uncontrolled hypertension Uncontrolled diabetes mellitus type 2 with hypoglycemia Hyperlipidemia Obesity BMI 45.5 ATTESTATION BY PHYSICIAN I have seen and examined the patient. I reviewed the documentation, medical decision making, and treatment plan as noted by the mid-level provider above. I agree with the findings and plan of care. Tien Howell IV, MD, KATARZYNA B FLOORPERSON Jun 10, 2024 12:26
--- NOTE | 2024-06-10 12:32 | PN ---
INFECTIOUS DISEASE PROGRESS NOTE Date of Service: Jun 10, 2024 SUBJECTIVE: This is a 58-year-old female patient who was admitted to the hospital for shortness of breaths, fever, cough and reported missing hemodialysis due to not feeling well. On admission patient was positive for influenza type A s/p treated with Tamiflu. Patient was seen and examined at bedside in room 315. Patient is awake alert and oriented x 3. Per report the left upper extremity AV fistula versus AV graft was rescheduled for today. Patient's WBC is 8.6 and patient has remained afebrile, temperature is 98.1. Currently continues on Zosyn IV. Patient was dialyzed yesterday and 1.7 L were removed. No other issues reported by nursing. PHYSICAL EXAM EYES: Anicteric. Pupils equal and reactive. HENT: No oral thrush seen, moist Oral mucosa. NECK: Supple, no JVD or thyromegaly. RESPIRATORY: Good air entry. Oxygen support via nasal cannula. CARDIOVASCULAR: S1, S2 regular. No murmur heard. ABDOMEN: Soft, non tender, bowel sounds present, no organomegaly. CENTRAL NERVOUS SYSTEM: Awake, alert, oriented x 3. SKIN: No rashes, no swelling. LYMPHATICS: No peripheral lymphadenopathy. MUSCULOSKELETAL: No joint swelling, erythema or tenderness. EXTREMITIES: No cyanosis or clubbing. Right ankle wound infection. BACK: No deformity, no pressure ulcer. GENITOURINARY: No dysuria or hematuria. Vital Sign (Last 12 Hours) 06/10/24 06/10/24 06/10/24 06/10/24 03:31 06:23 06:23 06:24 Temp 98.1 Pulse 78 82 82 82 Resp 20 21 21 21 B/P (MAP) 101/49 Pulse Ox 97 O2 Delivery Room Air N/A Room Air FiO2 21 06/10/24 06/10/24 06/10/24 08:00 10:57 12:00 Temp 98.1 97.9 Pulse 70 82 55 Resp 20 21 20 B/P (MAP) 100/39 109/50 Pulse Ox 98 98 O2 Delivery Room Air Room Air FiO2 21 21 Intake & Output (last 24hrs) 06/09/24 06/09/24 06/10/24 15:00 23:00 07:00 Intake Total 250 ml Output Total 1700 ml Balance -1700 ml 250 ml LABS: Laboratory: Test 06/10/24 11:16 06/10/24 05:16 Range/Units Whole Blood Glucose 188 H 70-110 MG/DL White Blood Count 8.6 4.8-10.8 K/uL Red Blood Count 4.22 4.00-5.50 MIL/uL Hemoglobin 12.0 12.0-16.0 g/dL Hematocrit 38.1 36-48 % Mean Corpuscular Volume 90.3 79-99 fL Mean Corpuscular Hemoglobin 28.4 27.0-33.0 pg Mean Corpuscular Hemoglobin Concent 31.5 L 32.0-36.0 g/dL Red Cell Distribution Width 14.1 11.0-15.5 % Platelet Count 177 130-400 K/uL Mean Platelet Volume 12.5 H 7.5-10.5 fL Nucleated Red Blood Cells 0.0 0.0-0.19 % Prothrombin Time 12.2 H 9.6-11.6 SEC Prothromb Time International Ratio 1.10 0.85-1.15 Activated Partial Thromboplast Time 34.9 26.3-35.5 SEC Sodium Level 138 136-145 mmol/L Potassium Level 3.5 3.5-5.1 mmol/L Chloride Level 91 L 101-111 mmol/L Carbon Dioxide Level 24 21-32 mmol/L Blood Urea Nitrogen 24 H 7-18 mg/dL Creatinine 6.4 H 0.5-1.0 mg/dL Glomerular Filtration Rate Calc 7 >90 mL/min Random Glucose 230 H 70-105 mg/dL Total Calcium 9.3 8.5-10.1 mg/dL Phosphorus Level 5.3 H 2.5-4.9 mg/dL ASSESSMENT: Acute on chronic respiratory failure requiring oxygen support. Pneumonia. Sepsis. Influenza Viral infection type A, s/p treated. Right ankle wound infection with ESBL, E coli. History of right ankle osteomyelitis, status post hardware removal. End-stage renal disease, on dialysis. Morbid obesity. Debility. PLAN: Patient is NPO for a AV fistula versus AV graft for today. Continue Zosyn IV. Patient has been approved to [facility]. From Infectious Disease standpoint no antibiotic is needed on discharge. This case was reviewed and discussed with my supervising physician and the above assessment and plan was formulated and agreed upon. ATTESTATION BY PHYSICIAN I have seen and examined the patient. I reviewed the documentation, medical decision making, and treatment plan as noted by the mid-level provider above. I agree with the findings and plan of care. DIDIER CONTRERAS MD, [facility] Jun 10, 2024 12:32
--- NOTE | 2024-06-10 12:52 | PN ---
SUBJECTIVE: This patient was in preop for surgery, pending a left AV fistula. TID: [id number] RECEIPT: [id number]
--- NOTE | 2024-06-10 13:00 | NUR ---
MRS. GOETZ RN, CHARGE NURSE, CALLED OR TO VERIFY IF PATIENT WAS GOINT TO PROCEDURE WITH DR. MEDINA. THEY VERIFIED THAT PATIENT IS ON THE SCHEDULE.
--- NOTE | 2024-06-10 13:52 | NUR ---
Notes: Met with pt. Pt reported poor appetite, WL of 12 lb. (4.6%) in 3 months, NKFA, no N/V and Last BM 06/09/2014. Compliance with hemodialysis, started 2013, compliance with phosphate binders, diet and fluid restriction, meets with RD once a month, and denies taking Vitamin B complex per pt. Wt fluctuation may be related to Hemodialysis removal. 1.7L HD output 06/09/24 per chart review. Provided pt MNT on Fluid Restricted, left at bedside. Pt expected to have fair compliance. Pt d/c to [facility]dc facility per SS Nutrition Concerns: Fluid Overload Recommendations: Continue NPO Advance to Oral Diet Recommendation: Renal Dialysis Diet when medically feasible Add Modifier + [id number] Provide Nephrovite QD per dialysis Monitor weight Re-weigh as possible Monitor electrolytes Replenish as protocol Monitor ins and outs Monitor goals of care RD to follow + available for consult per protocol Dietetic Student, Karime Joe Addendum: 06/10/24 at [address] Amended: Links added.
[2024-06-10] MEDS: ceFAZolin SODIUM 2 GM VIAL IVPB ONE (14:00)
--- NOTE | 2024-06-10 14:36 | PN ---
NEPHROLOGY PROGRESS NOTE Date/Time Patient Seen: Jun 10, 2024 Reason for Consultation: 14:35 SUBJECTIVE: This is a 58-year-old female with a past medical history of hypertension, diabetes mellitus type 2, end-stage renal disease on hemodialysis Friday, anemia, coronary artery disease, arthritis, anxiety, asthma, morbid obesity. She presented to the emergency with complaints of shortness of breath and flu- like symptoms. She reports missing dialysis sessions due to symptoms. Positive for influenza A, completed Tamiflu treatment Continues on antibiotics as per ID Case management coordinating SNF placement. She tolerated dialysis without difficulty Surgery was canceled yesterday, pending surgery today She was seen in the medical floor, in no acute distress No family at the bedside REVIEW OF SYSTEMS: GENERAL: Negative for any nausea, vomiting, fevers, chills, or weight loss. NEUROLOGIC: Negative for any blurry vision, blind spots, double vision, facial asymmetry, dysphagia, dysarthria, hemiparesis, hemisensory deficits, vertigo, ataxia. HEENT: Negative for any head trauma, neck trauma, neck stiffness, photophobia, phonophobia, sinusitis, rhinitis. CARDIAC: Negative for any chest pain, dyspnea on exertion, paroxysmal nocturnal dyspnea, peripheral edema. PULMONARY: Negative for any shortness of breath, wheezing, COPD, or TB exposure. GASTROINTESTINAL: Negative for any abdominal pain, nausea, vomiting, bright red blood per rectum, melena. GENITOURINARY: Negative for any dysuria, hematuria, incontinence. INTEGUMENTARY: Negative for any rashes, cuts, insect bites. RHEUMATOLOGIC: Negative for any joint pains, photosensitive rashes, history of vasculitis or kidney problems. HEMATOLOGIC: Negative for any abnormal bruising, frequent infections or bleedi ng. PHYSICAL EXAM: GENERAL: Alert and oriented x 3.. Well-nourished. EYES: EOMI. Anicteric. HENT: Moist mucous membranes. No scleral icterus. No cervical lymphadenopathy. LUNGS: Clear to auscultation bilaterally. No accessory muscle use. CARDIOVASCULAR: Regular rate and rhythm. No murmur. No JVD. ABDOMEN: Soft, non-tender and non-distended. No palpable masses. EXTREMITIES: No edema. Non-tender. SKIN: No rashes or lesions. Warm. NEUROLOGIC: No focal neurological deficits. CN II-XII grossly intact, but not individually tested. PSYCHIATRIC: Cooperative. Appropriate mood and affect. LABORATORY: [ ] Hematology Labs: Test 06/10/24 05:16 Range/Units White Blood Count 8.6 4.8-10.8 K/uL Red Blood Count 4.22 4.00-5.50 MIL/uL Hemoglobin 12.0 12.0-16.0 g/dL Hematocrit 38.1 36-48 % Mean Corpuscular Volume 90.3 79-99 fL Mean Corpuscular Hemoglobin 28.4 27.0-33.0 pg Mean Corpuscular Hemoglobin Concent 31.5 L 32.0-36.0 g/dL Red Cell Distribution Width 14.1 11.0-15.5 % Platelet Count 177 130-400 K/uL Mean Platelet Volume 12.5 H 7.5-10.5 fL Nucleated Red Blood Cells 0.0 0.0-0.19 % Chemistry Labs: Test 06/10/24 11:16 06/10/24 05:16 Range/Units Whole Blood Glucose 188 H 70-110 MG/DL Sodium Level 138 136-145 mmol/L Potassium Level 3.5 3.5-5.1 mmol/L Chloride Level 91 L 101-111 mmol/L Carbon Dioxide Level 24 21-32 mmol/L Blood Urea Nitrogen 24 H 7-18 mg/dL Creatinine 6.4 H 0.5-1.0 mg/dL Glomerular Filtration Rate Calc 7 >90 mL/min Random Glucose 230 H 70-105 mg/dL Total Calcium 9.3 8.5-10.1 mg/dL Phosphorus Level 5.3 H 2.5-4.9 mg/dL Coagulation Labs: Test 06/10/24 05:16 Range/Units Prothrombin Time 12.2 H 9.6-11.6 SEC Prothromb Time International Ratio 1.10 0.85-1.15 Activated Partial Thromboplast Time 34.9 26.3-35.5 SEC DIAGNOSTICS / RADIOLOGY: REASON: AV GRAFT ORDERING PHYSICIAN: LJ MEDINA MD PROCEDURE: VEIN M UNI - US VEIN MAPPING UNI/LTD US VEIN MAPPING UNI/LTD HISTORY: AV graft COMPARISON: None TECHNIQUE: Ultrasound upper extremity venous mapping study was performed for hemodialysis access. FINDINGS: Left cephalic vein High upper arm: 18 x 3 millimeter Mid upper arm: 16 x 2 millimeter Low upper arm: 14 x 3 millimeter High forearm: 4 x 3 millimeter Mid forearm: 3 x 2 millimeter Low forearm: 4 x 3 millimeter Left basilic vein Upper arm: 24 x 3 millimeter Lower arm: 22 x 4 millimeter Antecubital fossa: 19 x 2 millimeter IMPRESSION: 1. Ultrasound upper extremity venous mapping study as described above. DICTATED BY: TRICIA MAHER MD DATE: 05/31/241957 REASON: SHORT OF BREATH ORDERING PHYSICIAN: EVELINE ASHLEY PROCEDURE: CXR1VW - CHEST 1VW PORTABLE CHEST RADIOGRAPH INDICATION: SHORT OF BREATH COMPARISON: 05/28/2024 FINDINGS: school lunch monitor leads overlie the field of view. Stable right-sided hemodialysis catheter. Stable mild cardiac enlargement. The pulmonary vascularity and zachery appear normal. No abnormal pulmonary parenchymal opacity or consolidation identified. No significant pleural effusion noted. No pneumothorax detected. IMPRESSION: Mild cardiac enlargement without radiographic evidence for any acute cardiopulmonary process. DICTATED BY: MEGA RADFORD MD DATE: 05/30/24 1052 REASON: ACUTE ENCEPHALOPATHY ORDERING PHYSICIAN: EVELINE ASHLEY PROCEDURE: HEAD WO - CT HEAD/BRAIN W/O CONTRAST CT HEAD/BRAIN W/O CONTRAST CLINICAL HISTORY: ACUTE ENCEPHALOPATHY COMPARISON: None TECHNIQUE: Multiple sequential axial images of the head were obtained from the base of the skull through vertex. CT was performed with one or more of the following dose reduction techniques: automated exposure control, adjustment of the mA and/or kV according to patient size, or use of iterative reconstruction technique FINDINGS: There is resolved right basal ganglia lacunar infarct. The orbital contents are unremarkable. There is right mastoid air cell opacification extending into the middle ear. This demonstrated is mucoperiosteal thickening throughout the paranasal sinuses with small air-fluid level in the sphenoid sinuses. The calvarium is intact. IMPRESSION: Resolved right basal ganglia lacunar infarct. Acute and chronic sinusitis. Right mastoid effusion or mastoiditis with otitis media DICTATED BY: REGGIE GUARDADO DO DATE: 05/29/24 1554 REASON: elevated troponin ORDERING PHYSICIAN: CARMINE GAMBLE MD PROCEDURE: ECHO CMP - ECHO 2-D COMPLETE APPROVED REPORT EXAM: Two-dimensional and M-mode echocardiogram with Doppler and color Doppler. INDICATION ICD: Elevated troponin 2D Dimensions RVDd 5.1 cm LVEF(%) 59.0 (>50%) LVED Vol(simp.) 73.2 mL IVSd 1.2 (0.7-1.1cm) FS(%) 31 % LVES Vol(simp.) 27.3 mL LVDd 3.9 (3.8-5.6cm) LA (2D) 4.6 (1.6-4.0cm) LVEF(%, simp.) 63 % PWd 1.2 (0.7-1.1cm) Ao Root(2D) 3.6 (2.0-3.7cm) LA ESV INDEX (4CH) 31.90 mL/m2 IVSs 1.5 cm LVOT diam 1.9 (1.8-2.4cm) LVDs 2.7 (2.5-4.0cm) PWs 1.5 cm M-Mode Dimensions EPSS 0.9 cm LA (MM) 4.1 (1.6-4.0cm) Ao Root(MM) 3.1 (2.0-3.7cm) Aortic Valve AoV VTI 0.3 m Ao Mean GR 4.0 mmHg LVOT VTI 0.20 m LUIS FELIPE (VMAX) 2.1 cm2 LUIS FELIPE (VTI) 2.1 cm2 Mitral Valve MV E Vmax 114.0 cm/s DECEL Time 331 ms MV Mean GR 6 mmHg MV A Vmax 115.0 cm/s MVA (VTI) 1.2 cm2 E/A ratio 1.0 MR Max PG 33 mmHg TDI E/E' Medial 40.7 E/E' Lateral 21.1 Medial E' Peak V 2.80 cm/s Lateral E' Peak V 5.40 cm/s Pulmonary Valve PV Vmax 1.2 m/s PV Peak GR 6.0 mmHg Left Ventricle The left ventricle is normal size. There is normal LV segmental wall motion. Mild concentric left ventricular hypertrophy. LVEF is 60-65%. Indeterminate diastolic dysfunction. Right Ventricle The right ventricle is severely dilated. The right ventricular systolic function is normal. Moderator band is seen in the right ventricle. Atria The left atrium size is normal. The right atrium is moderately dilated. Aortic Valve Aortic valve nodular calcification noted. Aortic valve is trileaflet and opens well. No aortic regurgitation is present. There is no aortic valvular stenosis. Mitral Valve There is mitral annular calcification. There is mild mitral valve regurgitation noted. There is moderate mitral valve stenosis with mean gradient of 6mmHg. Tricuspid Valve The tricuspid valve is normal in structure. There is no tricuspid valve regurgitation noted. Pulmonic Valve The pulmonary valve is normal in structure. There is no pulmonic valvular regurgitation. Great Vessels The aortic root is normal in size. The IVC is normal in size and collapses >50% with inspiration. Pericardium There is no pericardial effusion. Other Information Quality : Technically difficult study due to body habitus Conclusion LVEF is 60-65%. There is moderate mitral valve stenosis with mean gradient of 6mmHg. There is no pericardial effusion. DICTATED BY: LISA RM MD DATE: 05/28/24 1401 REASON: sob ORDERING PHYSICIAN: EVELINE ASHLEY PROCEDURE: CXR1VW - CHEST 1VW Exam Type: CHEST 1VW Clinical Information: sob Comparison: None Findings: Right permacath line is noted with tip at the distal superior vena caval level. The lungs are clear of infiltrates. The heart is enlarged. Bony and soft tissue structures of the chest wall are unremarkable. IMPRESSION: Cardiomegaly. Clear lungs. DICTATED BY: NIKA SOTO MD DATE: 05/28/24 1534 REASON: history of ankle abscess, assess for osteo ORDERING PHYSICIAN: CARMINE GAMBLE MD PROCEDURE: FT 2VW RT - FOOT LIMITED 2VWS RT Exam Type: FOOT LIMITED 2VWS RT Clinical Information: history of ankle abscess, assess for osteo Comparison: None Findings and impression: Soft tissue swelling of the ankle which could represent cellulitis. Postoperative changes of the distal tibia. Degenerative changes of the interphalangeal joints. Calcaneal spurs. Osteopenia. DICTATED BY: NIKA SOTO MD DATE: 05/27/24 1618 REASON: Dyspnea/SOB ORDERING PHYSICIAN: ALONSO CALIXTO DO PROCEDURE: CXR1VW - CHEST 1VW Exam Type: CHEST 1VW Clinical Information: Dyspnea/SOB Comparison: None Findings: Pulmonary pattern is as before. No worrisome interval changes have taken place. Impression: Stable exam. DICTATED BY: NIKA SOTO MD DATE: 05/26/24 0811 ASSESSMENT: Life-threatening hyperkalemia Fluid overload Respiratory failure with hypoxia Anemia Metabolic acidosis End-stage renal disease Diabetes mellitus type 2 Hypertension Morbid obesity PLAN: Labs and Diagnostics/ Radiology personally reviewed and interpreted by myself and supervising physician We have reviewed dialysis and external records in detail Pending AV access placement later today Continue dialysis schedule Friday Case Management to verify outpatient dialysis chair before discharge Case management coordinating SNF placement 1.5 L fluid restriction Continue to monitor H&H Epogen on dialysis days, as needed Continue with frequent monitoring of renal function, anemia, and electrolytes Order CBC, BMP, and electrolytes in the morning May use Dilaudid 0.5 mg IV every 6 hours as needed for severe pain Monitor blood pressure adjust medication doses as needed Maintain normotensive state Strict intake, output, and daily weight should be monitored Please renally adjust medications. Avoid nephrotoxics and nonsteroidal drugs. We will continue to monitor the patient closely We have discussed with the other team physicians in detail about the care plan ATTESTATION BY PHYSICIAN I have seen and examined the patient. I reviewed the documentation, medical decision making, and treatment plan as noted by the mid-level provider above. I agree with the findings and plan of care. CARLO KAUR MD, [facility] [employer] [facility] Jun 10, 2024 14:36
--- NOTE | 2024-06-10 15:30 | NUR ---
PATIENT HYPOTENSIVE. BLOOD PRESSURE 80/30 MMHG. PLACED PATIENT IN TRENDELEMBERG POSITION. NO SIGNS OF SHORTNESS OF BREATH OR CHEST PAIN. PATIENT ABLE TO VERBALIZE NEEDS. CALLED MRS. PAYNE BUTTONHO[facility] FACER FOR HOSPITALIST. SHE GAVE ME A ORDER TO GIVE MIDODRINE 5MG EVEN THOUGH PATIENT IS NPO. AND RECHECK BLOOD PRESSURE IN 30 MINUTE.
--- NOTE | 2024-06-10 15:30 | NUR ---
BLOOD GLUCOSE 231. DID NOT COVER DUE TO PATIENT BEING NPO FOR PROCEDURE WITH DR. MEDINA
--- NOTE | 2024-06-10 15:37 | NUR ---
DC PLAN [facility] [phone] SPOKE TO REP PATIENT ACCEPTED. PASRR SENT. WILL BE ABLE TO GO VIA VAN. DELAY TO DC DUE TO AV PLACEMENT. PER REGINA MONK IF STILL DELAY SEND PATIENT ANYWAY AND FOLLOW UP OUTPATIENT WITH DR. MEDINA FOR AV PLACEMENT. Addendum: 06/10/24 at 1540 by HERNANDEZ BLANCAS RN CM Amended: Links added.
--- NOTE | 2024-06-10 16:00 | NUR ---
RAPID RESPONSE Patient bp 52/32, recheck on right wrist 60/37. Patient dizzy and placed Trendelenburg. BP not improving - patient had received midodrine 30 min prior but bp not responding. Due to bp not responding, rapid response called for hypotension. Refer to [facility] [employer] W[employer] EQUIPMENT OPERATOR record. Patient received albumin and bp began to respond. 1614 patient bp 104/40, Rapid cleared by Dr. Masters. Patient remains aox4, no complaints at this time.
--- NOTE | 2024-06-10 16:15 | NUR ---
Here to apple picker patient for OR - AV graft placement with Dr. Madrigal. However patient just experienced significant hypotensive episode. PACU nurse spoke with Rohan and av placement cancelled at this time. Notified patient and she verbalized understanding.
[2024-06-10] MEDS ORDERED: ALBUMIN (HUMAN) 25% 50 ML IV SCH (16:30)
--- NOTE | 2024-06-10 17:00 | NUR ---
Assumed care of patient. Patient aox4, no complaints, no s/sx distress. Patient sitting in bed talking on phone, asking to eat. Discussed plan of care and patient verbalized understanding, all questions answered.
[2024-06-11] VITALS (20 sets, daily range): BP systolic 95–142; BP diastolic 40–80; PULSE 67–76; RESP 12–20; TEMP 97.5–97.9; O2SAT 97–99
[2024-06-11] MEDS: ALBUMIN (HUMAN) 25% 50 ML IV.SOLN. IV ONE (11:41)
--- NOTE | 2024-06-11 12:59 | PN ---
INFECTIOUS DISEASE PROGRESS NOTE Date of Service: Jun 11, 2024 SUBJECTIVE: This is a 58-year-old female patient who was admitted to the hospital for shortness of breaths, fever, cough and reported missing hemodialysis due to not feeling well. On admission patient was positive for influenza type A s/p treated with Tamiflu. Patient was seen and examined at bedside in room 315. Patient is awake alert and oriented x 3. The left upper extremity AV fistula versus AV graft was canceled due to patient was hypotensive and had a rapid response. Patient is afebrile this morning, temperature is 97.5. Currently continues on Zosyn IV. Patient has been dialyzed this morning. Per report patient will be discharged to SNF today. PHYSICAL EXAM EYES: Anicteric. Pupils equal and reactive. HENT: No oral thrush seen, moist Oral mucosa. NECK: Supple, no JVD or thyromegaly. RESPIRATORY: Good air entry. Oxygen support via nasal cannula. CARDIOVASCULAR: S1, S2 regular. No murmur heard. ABDOMEN: Soft, non tender, bowel sounds present, no organomegaly. CENTRAL NERVOUS SYSTEM: Awake, alert, oriented x 3. SKIN: No rashes, no swelling. LYMPHATICS: No peripheral lymphadenopathy. MUSCULOSKELETAL: No joint swelling, erythema or tenderness. EXTREMITIES: No cyanosis or clubbing. Right ankle wound infection. BACK: No deformity, no pressure ulcer. GENITOURINARY: No dysuria or hematuria. Vital Sign (Last 12 Hours) 06/11/24 06/11/24 06/11/24 06/11/24 03:20 07:09 07:09 08:00 Temp 97.9 97.5 Pulse 73 75 75 73 Resp 20 20 20 18 B/P (MAP) 131/80 95/56 Pulse Ox 100 100 O2 Delivery Nasal Cannula N/A Room Air Nasal Cannula O2 Flow Rate 2.0 2.0 FiO2 21 06/11/24 06/11/24 06/11/24 09:00 09:30 12:00 Temp 97.5 Pulse 74 67 Resp 12 18 B/P (MAP) 95/56 116/45 127/56 Pulse Ox 99 O2 Delivery Room Air Room Air Intake & Output (last 24hrs) 06/10/24 06/10/24 06/11/24 15:00 23:00 07:00 Intake Total 250 ml 500 ml Balance 250 ml 500 ml LABS: Laboratory: Test 06/11/24 11:05 06/10/24 05:16 Range/Units Whole Blood Glucose 192 H 70-110 MG/DL White Blood Count 8.6 4.8-10.8 K/uL Red Blood Count 4.22 4.00-5.50 MIL/uL Hemoglobin 12.0 12.0-16.0 g/dL Hematocrit 38.1 36-48 % Mean Corpuscular Volume 90.3 79-99 fL Mean Corpuscular Hemoglobin 28.4 27.0-33.0 pg Mean Corpuscular Hemoglobin Concent 31.5 L 32.0-36.0 g/dL Red Cell Distribution Width 14.1 11.0-15.5 % Platelet Count 177 130-400 K/uL Mean Platelet Volume 12.5 H 7.5-10.5 fL Nucleated Red Blood Cells 0.0 0.0-0.19 % Prothrombin Time 12.2 H 9.6-11.6 SEC Prothromb Time International Ratio 1.10 0.85-1.15 Activated Partial Thromboplast Time 34.9 26.3-35.5 SEC Sodium Level 138 136-145 mmol/L Potassium Level 3.5 3.5-5.1 mmol/L Chloride Level 91 L 101-111 mmol/L Carbon Dioxide Level 24 21-32 mmol/L Blood Urea Nitrogen 24 H 7-18 mg/dL Creatinine 6.4 H 0.5-1.0 mg/dL Glomerular Filtration Rate Calc 7 >90 mL/min Random Glucose 230 H 70-105 mg/dL Total Calcium 9.3 8.5-10.1 mg/dL Phosphorus Level 5.3 H 2.5-4.9 mg/dL ASSESSMENT: Acute on chronic respiratory failure requiring oxygen support. Pneumonia. Sepsis. Influenza Viral infection type A, s/p treated. Right ankle wound infection with ESBL, E coli. History of right ankle osteomyelitis, status post hardware removal. End-stage renal disease, on dialysis. Morbid obesity. Debility. PLAN: The AV fistula versus AV graft was canceled yesterday due to patient was hypotensive and had a rapid response. Continue Zosyn IV. Patient has been approved to [facility] per report will be discharged today. From Infectious Disease standpoint no antibiotic is needed on discharge. This case was reviewed and discussed with my supervising physician and the above assessment and plan was formulated and agreed upon. ATTESTATION BY PHYSICIAN I have seen and examined the patient. I reviewed the documentation, medical decision making, and treatment plan as noted by the mid-level provider above. I agree with the findings and plan of care. DIDIER CONTRERAS MD, [facility] Jun 11, 2024 12:59
--- NOTE | 2024-06-11 13:11 | DS ---
Discharge Summary Hospital Course Summary: DATE OF ADMISSION:[05/26/2024] DATE OF DISCHARGE:[06/11/2024] DISPOSITION:[[facility]] CONDITION: Medically stable] CONSULTANTS:[Senior Tableau Developer, cardiovascular surgeon] FOLLOW UP APPOINTMENTS:[PCP 2 to 3 days. Senior Tableau Developer as scheduled for dialysis. Cardiovascular surgeon outpatient for AV fistula placement within one week] PROCEDURES:[none] IMAGING: report attached to summary MICROBIOLOGY: report attached to summary ACTIVITY:[One-person assist] HOME MEDICATIONS: see med recc NEW MEDICATIONS:[See med rec] EMERGENCY INSTRUCTIONS: The patient was instructed to present to the nearest Emergency departmentr or call 911 once their symptoms will return or worsen Pharmacist Helper(s): This is a 50-year-old with a significant medical history of end-stage renal disease on dialysis on Friday hypertension hyperlipidemia and asthma presented in ED with chief complaints of shortness a breath apparently patient missed her dialysis. ER workup was consistent with asthma exacerbation possible pneumonia respiratory failure. Patient was with fluid overload for which patient was diuresed. Patient now improve with her symptoms. Now she was noted with Enterococcus faecalis and ESBL in the wound. Blood culture negative x5 days. Throughout the hospitalization patient underwent vessel mapping for AV fistula placement. As per Dr. Madrigal orders patient will undergo AV fistula placement today at 2:00 p.m. and then can be discharged to [place]. Follow outpatient within 1 to 2 weeks. Patient we will continue with the dialysis as scheduled. Most recent chest x-ray showed mild cardiac enlargement without radiographic evidence for any acute cardio pulmonary process. Head CT showed resolved right basal ganglia lacunar infarct. Acute and chronic sinusitis. Right mastoid effusion or mastoiditis with otitis media two. 05/28/2024 2D echo showed 60 to 65 EF indeterminate diastolic dysfunction. Moderate mitral valve stenosis and no pericardial effusion. Right foot showed osteopenia. Today patient was cleared by all the consultants to be discharged. Patient to be discharged to [facility] as nurse practitioner was notified that patient was approved today. Follow-up with PCP within 2 to 3 days. And as well follow up with barber tool sharpener as stated above. As per Infectious Disease doctor patient to be started on Merrem once discharged to alf times 10 days. Yesterday 06/10/2024 patient is supposed to be discharged right after AV fistula placement. Unfortunately Dr. Madrigal reschedule surgery from morning to the evening and patient was NPO whole day her blood pressure dropped and rapid response was called. Patient received midodrine and a dose of albumin patient's blood pressure went up and was stable. Today we are going to ask to discharge patient to [facility] and follow-up outpatient for AV fistula with Dr. Madrigal outpatient. Procedure(s): REVIEW OF SYSTEMS CONSTITUTIONAL: Denies or night sweats. No unintentional weight loss reported. Positive for fever, chills NEUROLOGICAL: Denies headache, amaurosis fugax, motor weakness, sensory deficit, vertigo/spinning sensation, gait abnormalities, or tremors. ENT: No hearing loss, otalgia, otorrhea, rhinitis, rhinorrhea, hoarseness, or sore throat. CARDIOVASCULAR: Denies any exertional angina, dyspnea on exertion, orthopnea, paroxysmal nocturnal dyspnea, palpitations, life-threatening arrhythmias, claudication. PULMONARY: Positive for cough, sputum production. Denied any hemoptysis GASTROINTESTINAL: Denies any type of dysphagia to either liquids or solids. Denies nausea, vomiting, pyrosis, early satiety, abdominal pain, constipation, or changes in stool consistency or caliber. Denies coffee-ground emesis, hematemesis, hematochezia, or melanotic stools. Positive for diarrhea GENITOURINARY: Denies frequency, urgency, nocturia, hematuria or incontinence (Storage/Irritative symptoms.) Low urinary stream, straining to void, urinary intermittency or hesitancy, splitting of the voiding stream, terminal dribbling. ENDOCRINOLOGIC: Denies polyuria, polydipsia, polyphagia or heat/cold intolerances. HEMATOLOGIC: Denies thrombophilia/previous clots, or coagulopathy/bleeding disorders. ONCOLOGIC: Denies personal history of malignancy. DERMATOLOGIC: Denies rashes or pruritus. PSYCHIATRIC: Denies any suicidal or homicidal ideation. Denies hallucinations. PHYSICAL EXAM GENERAL APPEARANCE: The patient is awake, alert, and oriented, in no acute cardiopulmonary distress. NEUROLOGICAL: Cranial nerves II-XII grossly intact. Motor is 5/5 in bilateral upper and lower extremities proximal to distal. No sensory deficits. HEENT: Face is symmetric. Pupils are equal and reactive. Extraocular movements are intact. NECK: Supple. No JVD. No thyromegaly. No submental, submandibular, pre- /postauricular, occipital or supraclavicular lymphadenopathy. CHEST: Normal chest expansion. No Telemetry. LUNGS: She has wheezing present bilaterally with rhonchi. CARDIOVASCULAR: Regular. S1 and S2 normal. No appreciable rubs, murmurs or gallops. ABDOMEN: Soft, nontender, and nondistended. There is no rebound, voluntary guarding, or rigidity. : Deferred. No Ardon. EXTREMITIES: She has a wound noted in the right ankle. She has a wound in the lateral and medial aspect of the leg. There is some purulent discharge noted. SKIN: No skin breakdown. Assessment/Plan: ASSESSMENT: Acute sepsis due to acute complicated cystitis POA Acute hypoxic respiratory failure due to volume overload/missed dialysis POA Volume overload secondary to missed dialysis POA Metabolic acidosis POA Acute complicated cystitis POA Troponin elevation likely in setting of missed dialysis and type 2 ME (down trending) no chest POA Metabolic/infectious encephalopathy. Suspected pneumonia/URI POA Right ankle wound infection with Enterococcus faecalis and ESBL E coli from anaerobic and aerobic culture 05/27/2024 POA Positive Influenza A POA Acute asthma exacerbation History of right ankle abscess status post incision and drainage and hardware removal by Dr. Cabrera on 03/2025 Suspected cellulitis in the right ankle with mild purulent drainage History of MSSA infection Uncontrolled hypertension Uncontrolled diabetes mellitus type 2 with hypoglycemia Hyperlipidemia Obesity BMI 45.5 Home Medications: Unable to Obtain Active Prescriptions or Reported Meds Time spent arranging discharge: 31-60 minutes ATTESTATION BY PHYSICIAN I have seen and examined the patient. I reviewed the documentation, medical decision making, and treatment plan as noted by the mid-level provider above. I agree with the findings and plan of care. Tien Howell IV, MD, [facility] [employer] Jun 11, 2024 13:11
--- NOTE | 2024-06-11 14:30 | NUR ---
Two attempts made to see patient however she was undergoing dialysis both times. PT team to follow.
--- NOTE | 2024-06-11 16:26 | NUR ---
report given to [facility]. medication reconciliation delivered to nurse by audrey Brantley from [facility]. As per Linda rn in case management, faxed facesheet and other needed forms to [facility] to arrange for transport: she verified receitpt I called [facility] for transport. stated "ok we will be there soon."
[2024-06-11] MEDS: miDODRine HCL 5 MG TABLET PO SCH (17:18)
--- NOTE | 2024-06-11 17:27 | NUR ---
transported to [facility] via [facility]. no distress noted. vital signs stable and patient voices no complaints of pain or other discomfort.
--- NOTE | 2024-06-11 19:51 | PN ---
SUBJECTIVE: A 58-year-old is new to hemodialysis and we are consulted for the creation of AV fistula. The patient has been preoped and a consultation dictated and she was scheduled for surgery, however, the patient had a rapid response on the floor due to hypertension and the AV fistula was canceled. We will proceed with creation of AV fistula when the patient is more stable perhaps early next week. TID: [id number] RECEIPT: [id number]
--- NOTE | 2024-06-11 20:50 | PN ---
SUBJECTIVE: The patient has been evaluated and seen for dialysis and seen several times. The patient has no fever, chills or rigors. No other associated finding. No other aggravating or relieving factors. No other finding. PHYSICAL EXAMINATION: GENERAL: Pale, no other distress or deformities, lying in bed. VITAL SIGNS: The patient's blood pressure has been low. The patient has blood pressure of 95/50, pulse 73, respiratory rate is 18. HEENT: Head is atraumatic. Pupils are round and reactive. Sclerae are anicteric. Conjunctivae not pale. Oral mucosa is not dry. NECK: Supple. No masses or bruits. Thyroid is palpable. Neck has no bruits. CHEST: Shows equal thoracic percussion, note being resonant in all areas. CARDIAC: Regular rhythm, no rub, no S3 or S4. No parasternal heave. LABORATORY DATA: Labs have been reviewed and old records reviewed. PROBLEMS: Renal failure, anemia, multiple other comorbidities. PLAN: To continue dialysis support. Continue monitoring of renal function. Continue monitoring of electrolytes. Intake, output, weight and overall status to be monitored. The patient was evaluated and seen for dialysis and seen several times today. I have discussed with other team physicians. The patient was evaluated multiple times today. Condition remained guarded. Thank you for this patient. TID: [id number] RECEIPT: [id number]
--- NOTE | 2024-06-13 22:35 | PN ---
SUBJECTIVE: The patient has been evaluated and seen for dialysis and seen multiple times. The patient's blood pressure has been intermittently low yesterday. Rapid response was called because blood pressure in the evening was 60 systolic. The patient has now blood pressure 101/63, pulse 72, respiratory rate 20. PLAN: The patient has been evaluated on dialysis multiple times. We will continue monitoring. Cultures have grown, of blood no growth. The echo was reviewed. Lab data reviewed. The patient has been treated for influenza. Midodrine continues. The patient was seen for dialysis multiple times. IV albumin also ordered. Condition remained guarded. TID: [id number] RECEIPT: [id number]
== END 2024-06-11 17:25 | DRG 871 ==
LOC: EDH 07:23 → EDHIP 08:53 → OBSVTOIN 08:53 → 3CH 05-27 01:54
PROVIDERS: ADMIT Internal Medicine; ATTEND Internal Medicine
PROC: 5A09357 Assistance with Respiratory Ventilation, Less than 24 Consecutive Hours, Continuous Positive Airway Pressure (ICD-10-PCS; principal; 2024-05-26)
PROC: 5A1D70Z Performance of Urinary Filtration, Intermittent, Less than 6 Hours Per Day (ICD-10-PCS; 2024-05-26)
PROC: 5A09357 Assistance with Respiratory Ventilation, Less than 24 Consecutive Hours, Continuous Positive Airway Pressure (ICD-10-PCS; 2024-05-27)
PROC: 5A09357 Assistance with Respiratory Ventilation, Less than 24 Consecutive Hours, Continuous Positive Airway Pressure (ICD-10-PCS; 2024-05-28)
PROC: 5A1D70Z Performance of Urinary Filtration, Intermittent, Less than 6 Hours Per Day (ICD-10-PCS; 2024-05-28)
PROC: 5A09357 Assistance with Respiratory Ventilation, Less than 24 Consecutive Hours, Continuous Positive Airway Pressure (ICD-10-PCS; 2024-05-29)
PROC: 5A1D70Z Performance of Urinary Filtration, Intermittent, Less than 6 Hours Per Day (ICD-10-PCS; 2024-05-31)
PROC: 5A1D70Z Performance of Urinary Filtration, Intermittent, Less than 6 Hours Per Day (ICD-10-PCS; 2024-06-02)
PROC: 5A1D70Z Performance of Urinary Filtration, Intermittent, Less than 6 Hours Per Day (ICD-10-PCS; 2024-06-04)
PROC: 5A1D70Z Performance of Urinary Filtration, Intermittent, Less than 6 Hours Per Day (ICD-10-PCS; 2024-06-07)
PROC: 5A1D70Z Performance of Urinary Filtration, Intermittent, Less than 6 Hours Per Day (ICD-10-PCS; 2024-06-09)
PROC: 5A1D70Z Performance of Urinary Filtration, Intermittent, Less than 6 Hours Per Day (ICD-10-PCS; 2024-06-11)
PROC: 02HV33Z Insertion of Infusion Device into Superior Vena Cava, Percutaneous Approach (ICD-10-PCS; 2024-06-11)
DX: A41.51 Sepsis due to Escherichia coli [E. coli] (principal); G93.41 Metabolic encephalopathy; N18.6 End stage renal disease; J96.21 Acute and chronic respiratory failure with hypoxia; J10.00 Influenza due to other identified influenza virus with unspecified type of pneumonia; I21.A1 Myocardial infarction type 2; E87.20 Acidosis, unspecified; J45.901 Unspecified asthma with (acute) exacerbation; I12.0 Hypertensive chronic kidney disease with stage 5 chronic kidney disease or end stage renal disease; N30.00 Acute cystitis without hematuria; Z68.41 Body mass index [BMI] 40.0-44.9, adult; E11.22 Type 2 diabetes mellitus with diabetic chronic kidney disease; B95.2 Enterococcus as the cause of diseases classified elsewhere; B96.20 Unspecified Escherichia coli [E. coli] as the cause of diseases classified elsewhere; E87.70 Fluid overload, unspecified; D63.1 Anemia in chronic kidney disease; E11.649 Type 2 diabetes mellitus with hypoglycemia without coma; I25.10 Atherosclerotic heart disease of native coronary artery without angina pectoris; F41.9 Anxiety disorder, unspecified; B95.61 Methicillin susceptible Staphylococcus aureus infection as the cause of diseases classified elsewhere; E11.51 Type 2 diabetes mellitus with diabetic peripheral angiopathy without gangrene; J32.9 Chronic sinusitis, unspecified; J20.9 Acute bronchitis, unspecified; E66.01 Morbid (severe) obesity due to excess calories; E78.5 Hyperlipidemia, unspecified; E87.5 Hyperkalemia; Z86.19 Personal history of other infectious and parasitic diseases; Z99.2 Dependence on renal dialysis; Z91.158 Patient's noncompliance with renal dialysis for other reason; Z86.73 Personal history of transient ischemic attack (TIA), and cerebral infarction without residual deficits; Z90.710 Acquired absence of both cervix and uterus; Z98.891 History of uterine scar from previous surgery
CPT/HCPCS: 36415; 36600; 70450; 71045; 73620; 80048; 80053; 80202; 82140; 82435; 82533; 82550; 82803; 82947; 82948; 83036; 83605; 83735; 83880; 84100; 84132; 84145; 84295; 84443; 84484; 85018; 85025; 85027; 85610; 85651; 85730; 86140; 86156; 86704; 86706; 86803; 86850; 86870; 86900; 86901; 87040; 87070; 87076; 87086; 87186; 87340; 87635; 87804; 90935; 93005; 93306; 93970; 93971; 94640; 94660; 94664; 94667; 94668; 96365; 96375; 99291; G0378; J0612; J0692; J1644; J1815; J2185; J2543; J3370; J7070; P9047; 3370; J0690

== ENCOUNTER 2024-11-09 07:31 | Day surgery (SDC) | payer OTHER, MEDICARE ==
[2024-11-09] VITALS (19 sets, daily range): BP systolic 112–190; BP diastolic 40–76; PULSE 63–73; RESP 13–18; TEMP 96.7–97.5
[~2024-11-09] VITALS: Ht 162.6 cm; Wt 118.9 kg
[2024-11-09 08:28] LABS: IMMATURE GRANULOCYTE ABSOLUTE 0.01 K/uL (0-1); NUCLEATED RED BLOOD CELLS 0.0 % (0.0-0.19); PLATELET COUNT (AUTO) 241 K/uL (130-400); RED BLOOD CELL COUNT(AUTO) 4.38 MIL/uL (4.00-5.50); RED CELL DISTRIBUTION WIDTH 13.0 % (11.0-15.5); WHITE BLOOD COUNT (AUTO) 5.9 K/uL (4.8-10.8)
[2024-11-09 08:34] LABS: CREATININE 7.2 mg/dL (0.5-1.0); GLOMERULAR FILTR. RATE CALC 6.0 mL/min (>90); GLUCOSE,RANDOM 192.0 mg/dL (70-105); SODIUM SERUM 139.0 mmol/L (136-145); UREA NITROGEN, BLOOD 50.0 mg/dL (7-18)
[2024-11-09 08:38] LABS: INR 0.98 (0.85-1.15)
--- NOTE | 2024-11-09 08:41 | EKG ---
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
[2024-11-09] MEDS ORDERED: FERR210T PO (09:04)
[2024-11-09] MEDS ORDERED: ROSU20TA98 PO (09:19)
[2024-11-09] MEDS ORDERED: CARV25TA PO (09:19)
[2024-11-09] MEDS ORDERED: MIDO10TA3 PO (09:19)
[2024-11-09] MEDS ORDERED: SEVE0.8P PO (09:19)
[2024-11-09] MEDS ORDERED: INSU100V37 SQ (09:19)
--- NOTE | 2024-11-09 09:54 | HMCIMG ---
EXAM: CR Chest, 2 View. CLINICAL HISTORY: SURGERY TODAY COMPARISON: 05/30 10:36 EST CR - CHEST 1VW FINDINGS: Large caliber dual-lumen dialysis catheter on the right with the tip in the SVC. LUNGS: The lungs show no infiltrate or other acute finding. PLEURAL SPACES: No evidence of pleural effusion or pneumothorax. MEDIASTINUM: Cardiac size and mediastinal contours within normal limits. BONES: No aggressive appearing osseous lesion seen. IMPRESSION: No acute cardiopulmonary pathology is evident. Right dialysis catheter. /[place]
--- NOTE | 2024-11-09 10:50 | NUR ---
LABS/EG REPORTED POTASSIUM LEVEL OF 5.6 (PATIENT HAD DIALYSIS YESTERDAY) AND EKG TO DR. HARKINS FOR REVIEW. PER DR. HARKINS, OK TO PROCEED
[2024-11-09] MEDS: 0.9% NACL 500ML IV.SOLN 500 ML IV ONE (11:40)
[2024-11-09] MEDS ORDERED: HEParin-NS 1,000 UNIT/500 ML 500 ML IV ONE (12:56)
[2024-11-09] MEDS ORDERED: NEOSTIGMINE METHYLSULFATE 1MG/ML IV ONE (13:25)
[2024-11-09] MEDS ORDERED: LIDOCAINE PF 100MG/5ML (2%) SYRINGE 5ML ONE (13:25)
[2024-11-09] MEDS ORDERED: GLYCOPYRROLATE 0.2 MG/ML 5 ML VIAL ONE (13:25)
[2024-11-09] MEDS ORDERED: SUCCINYLCHOLINE CHLORIDE 20 MG/ML 10 ML VIAL ONE (13:25)
[2024-11-09] MEDS: LIDOCAINE HCL 1% 20 ML VIAL ONE (14:18)
--- NOTE | 2024-11-09 15:33 | OP ---
DATE OF PROCEDURE: 11/09/2024 PREOPERATIVE DIAGNOSES: End-stage renal disease and need for hemodialysis access. POSTOPERATIVE DIAGNOSES: End-stage renal disease and need for hemodialysis access. PROCEDURE PERFORMED: Left brachiobasilic AV forearm graft using a 4-6 mm Flixene graft. OPERATING SURGEON: Pierre Sheehan MD ANESTHESIOLOGIST: Dr. Gonzalez TYPE OF ANESTHESIA: General endotracheal anesthesia. CARDIAC CATH LAB TECHNOLOGIST: Elenita Aponte. BRIEF HISTORY: The patient is a 59-year-old female with end-stage renal disease, hypertension, hyperlipidemia, and diabetes mellitus who presented to us and received a right upper extremity AV fistula. This failed. The patient did not have many options for veins and she presents now for an attempted left upper extremity hemodialysis access. Given the preoperative size of her left upper extremity veins, we planned on putting an AV graft. FINDINGS: The patient had a 3.5 mm basilic vein. The brachial artery was starting to calcify, but was of good size and provided good inflow. DESCRIPTION OF PROCEDURE: The patient was brought to the operating room and placed on the operating table in supine position. She was given general endotracheal anesthesia. Her left arm was prepped and draped in the usual sterile fashion. A transverse incision was made in the left antecubital fossa and the left basilic vein and its brachial artery were dissected out and surrounded the vascular loops. The patient was given 5000 units of heparin. A second 1 cm incision was then made lower on her forearm for the purposes of tunneling a 4-6 mm Flixene graft as a loop on her forearm, taking care not to twist the graft. The brachial artery was then clamped proximal and distal to the target site, which was opened on its anterior wall with an 11-blade scalpel with two firings of a 2.3-mm hole punch. The beveled 4-mm end of the Flixene graft was in the anastomosis side of the brachial artery using a running 6-0 Prolene suture. The clamps were released and there was good flow into the graft, which was then cut to appropriate length to reach the basilic vein. Clamps were placed proximal to distal to the target sign of the basilic vein and the graft was clamped. The beveled 6-mm end of the Flixene graft was in the anastomosis side of the basilic vein using a running 7-0 Prolene suture. All clamps were released and there was a good Doppler signal in the basilic vein that was graft dependent. The wounds were then doused with Betadine. The wounds were then closed with single-layer running subcutaneous Vicryl suture and the skin was closed using a running intracuticular Monocryl stitch. The wounds were cleaned and dried, covered with bandages, and the patient was undraped, extubated, and taken to the recovery room and to outpatient surgery in stable condition. TID: [id number] RECEIPT: [id number] cc: LJ MEDINA MD(User), Elenita Aponte
--- NOTE | 2024-11-09 18:44 | HMCIMG ---
EXAM: CR Chest, 1 View. CLINICAL HISTORY: R COMPARISON: None provided. FINDINGS: LUNGS: Emphysematous lung changes PLEURAL SPACES: No pleural effusion or pneumothorax. MEDIASTINUM: Cardiac size and mediastinal contours within normal limits. BONES: No acute osseous abnormality. MISCELLANEOUS: Right venous line middle third SVC IMPRESSION: 1. Right venous line middle third SVC 2. Emphysematous lung changes /[place]
== END 2024-11-09 17:15 | disposition home or self-care (01) ==
LOC: DAH 07:31
PROVIDERS: ATTEND Thoracic Surgery (Cardiothoracic Vascular Surgery)
DX: I12.0 Hypertensive chronic kidney disease with stage 5 chronic kidney disease or end stage renal disease (principal); E11.22 Type 2 diabetes mellitus with diabetic chronic kidney disease; N18.6 End stage renal disease; E78.5 Hyperlipidemia, unspecified; Z99.2 Dependence on renal dialysis; E66.01 Morbid (severe) obesity due to excess calories; I25.10 Atherosclerotic heart disease of native coronary artery without angina pectoris; Z90.710 Acquired absence of both cervix and uterus; Z79.899 Other long term (current) drug therapy; Z68.41 Body mass index [BMI] 40.0-44.9, adult
CPT/HCPCS: 36832; 80048; 85025; 85610; 85730; 86850; 86900; 86922; 86901; 82948 ×2; 36415; 71045 ×2; 93005; A4663; J7030; J7040; J3010; J0690 ×2; J1100; J0330; J3490 ×3; J2003; J2720; J2704; J2710; J0665; J1644; C9250; A4649; C1713 ×2; C1768; A4215 ×2; A4222; A4221; A4216; A4223 ×2

== ENCOUNTER 2024-11-15 16:58 | Emergency (ER) | payer OTHER, MEDICARE ==
[~2024-11-15] VITALS: Ht 162.6 cm; Wt 117.9 kg
[~2024-11-15 16:58] MED LIST changes: -ALBU18HF7 IH; -AURYXIA PO; -CELE-125 PO; +FERR210T PO; -GABA300C PO; -INSU100I24 SQ; +INSU100V37 SQ; +MIDO10TA3 PO; -PHEN177S29 PO; +ROSU20TA98 PO; +SEVE0.8P PO; -SEVE800T27 PO
--- NOTE | 2024-11-15 17:11 | ERN ---
General Stated Complaint: DIALYSIS COMPLICATIONS Time Seen by MD: 17:02 Source: patient History of Present Illness Initial Comments Patient is a 59-year-old female coming in with left upper extremity discomfort. Per patient she had a graft surgically implanted and has been having pain when dialysis center tried to access it. No fever no chills Allergies: Coded Allergies: No Known Drug Allergies (Verified Allergy, Unknown, 05/27/24) Home Meds Reported Medications Rosuvastatin Calcium (Rosuvastatin Calcium) 20 Mg Tablet, 20 MG PO HS, TAB 11/09/24 Midodrine HCl (Midodrine HCl) 10 Mg Tablet, 1 TAB PO [id number] PRN for blood pressure 11/09/24 Insulin Degludec (Tresiba) 100 Unit/Ml Vial, 40 UNIT SQ DAILY, VIAL 11/09/24 Sevelamer Carbonate (Renvela) 0.8 Gram Powd.pack, 4000 MG PO TIDMEALS 11/09/24 Carvedilol (Carvedilol) 25 Mg Tablet, 25 MG PO DAILY, TAB 11/09/24 Ferric Citrate (Ferric Citrate) 210 Mg Iron Tablet, 210 MG PO TIDMEALS 11/09/24 Past Medical History Past Medical History: Anemia, Anxiety, Arthritis, Asthma, CAD, Diabetes-Type II, Hypertension, Hypotension, Renal Disese, Renal Failure Medical History Other: ESRD Past Surgical History: Hysterectomy, Other, Surgical History Other: AV GRAFT R ARM W/RECENT REVISION Social History Social History: Negative, Lives with family Female( History) History: Not Applicable ROS Dictation CONSTITUTIONAL: No chills, no fever, no weakness, no diaphoresis, no malaise. HEAD/FACE: No signs of trauma. EENT: No eye pain, no blurred vision, no tearing, no double vision, no ear pain, no ear discharge, no nose pain, no nasal congestion, no throat pain, no throat swelling, no mouth pain. RESPIRATORY: No cough, no orthopnea, no SOB, no stridor, no wheezing. CARDIOVASCULAR: No chest pain, no edema, no palpitations, no syncope. GASTROINTESTINAL/ABDOMINAL: No abdominal pain, no constipation, no diarrhea, no nausea, no vomiting. GENITOURINARY: No abnormal discharge, no dysuria, no frequent urination, no hematuria. No complaints of pain in the genitals. MUSCULOSKELETAL: No back pain, no gout, no joint pain, no joint swelling, muscle pain, no muscle stiffness, no neck pain. INTEGUMENTARY: No change in color, no change in hair/nails, no dryness, no lesion, no lumps, no rash. NEUROLOGICAL/PSYCH: No anxiety, not depressed, no emotional problem, no headach e, no numbness, no pre-existing deficit, no history of seizures, no tremors, no weakness. HEMATOLOGIC/LYMPHATIC: Not anemic, no history of blood clots, no apparent bleeding, no bruising, glands not swollen. All Systems Negative, Except as Noted. Physical Exam Physical Exam Dictation VITAL SIGNS: Reviewed. GENERAL APPEARANCE: Alert, oriented x3, no acute distress, obese. HEAD AND FACE: Non-traumatic. EYES: PERRL, pink conjunctivas, eyelid no trauma, anterior chamber clear. EARS: Pinnas intact and no signs of trauma or erythema. Ear canals clear and no discharge. TMs no erythema. NOSE: No discharge, no bleeding. OROPHARYNX: Mouth normal, teeth no caries, tongue pink. Pharynx clear, no erythema. Tonsils no exudates, no abscesses noted. Mucous membrane moist. NECK: Supple, non-tender, no thyromegaly, no masses, no JVD, no bruits. BREAST: Deferred. CHEST: No tenderness, no crepitus, no paradoxical movement, no retractions. LUNGS: Clear, well-ventilated, symmetric, no rales, no wheezing, no rhonchi, no stridor, good breath sounds bilaterally. HEART: Regular rate, regular rhythm, no murmur, no gallops. VASCULAR: No peripheral edema. ABDOMEN: Soft, positive bowel sounds, nondistended, no guarding, nontender, no rebound, no masses no hepatomegaly, no splenomegaly, no Raza's sign, no hernias. RECTAL: Deferred. GENITAL: Deferred. NEUROLOGICAL: Normal speech, gross motor function intact, gross sensory function intact. MUSCULOSKELETAL: Neck nontender, full range of motion, back nontender, full range of motion. EXTREMITIES: Nontender, full range of motion. SKIN: Color pink, dry, no turgor, no rash, no lacerations, no abrasions, no contusions. Left upper extremity erythema LYMPHATICS: Deferred. Results Laboratory and Microbiology Lab and Micro Result Laboratory Tests Test 11/15/24 17:30 White Blood Count 6.3 K/uL (4.8-10.8) Red Blood Count 4.01 MIL/uL (4.00-5.50) Hemoglobin 12.2 g/dL (12.0-16.0) Hematocrit 37.3 % (36-48) Mean Corpuscular Volume 93.0 fL (79-99) Mean Corpuscular Hemoglobin 30.4 pg (27.0-33.0) Mean Corpuscular Hemoglobin Concent 32.7 g/dL (32.0-36.0) Red Cell Distribution Width 12.9 % (11.0-15.5) Platelet Count 214 K/uL (130-400) Mean Platelet Volume 11.1 fL (7.5-10.5) H Immature Granulocyte % (Auto) 0.3 % (0-1) Neutrophils (%) (Auto) 74.1 % (40.0-77.0) Lymphocytes (%) (Auto) 14.7 % (21.0-51.0) L Monocytes (%) (Auto) 8.5 % (3.0-13.0) Eosinophils (%) (Auto) 2.1 % (0.0-8.0) Basophils (%) (Auto) 0.3 % (0.0-5.0) Neutrophils # (Auto) 4.7 K/uL (1.8-7.7) Lymphocytes # (Auto) 0.9 K/uL (1.0-4.8) L Monocytes # (Auto) 0.5 K/uL (0.1-1.0) Eosinophils # (Auto) 0.13 K/uL (0.00-0.70) Basophils # (Auto) 0.02 K/uL (0.00-0.20) Absolute Immature Granulocyte (auto 0.02 K/uL (0-1) Nucleated Red Blood Cells 0.0 % (0.0-0.19) Sodium Level 134 mmol/L (136-145) L Potassium Level 4.4 mmol/L (3.5-5.1) Chloride Level 96 mmol/L (101-111) L Carbon Dioxide Level 28 mmol/L (21-32) Blood Urea Nitrogen 47 mg/dL (7-18) H Creatinine 6.8 mg/dL (0.5-1.0) H Glomerular Filtration Rate Calc 7 mL/min (>90) Random Glucose 161 mg/dL (70-105) H Total Calcium 8.7 mg/dL (8.5-10.1) Total Creatine Kinase 33 U/L (21-232) # Labs Reviewed?: Yes EKG/XRAY/US/CT/MRI Ultrasound Comment Ultrasound left upper extremity AV fistula- no pseudoaneurysm, no thrombosis, no hematoma MDM MDM: Differential diagnosis: AV fistula evaluation, arm pain Rationale: Tests considered and ordered secondary to shared decision making include: Previous outside records reviewed: Old ER visits. Risk of complication and/or morbidity or mortality of patient management: None Medications-Per medication reconciliation Need for hospitalization: Patient does not meet criteria for hospitalization. Patient is a 59-year-old female history of end-stage renal disease on dialysis coming in to evaluate her left arm AV fistula. Ultrasound did not disclose acute findings. Laboratory workup within normal limits for her history of end- stage renal disease. Patient will be discharged in stable condition with a diagnosis of left upper arm pain with normal AV fistula. He was informed on findings I did advise her to worse sling as indicated prior to discharge from surgery. She states he will use it now. ED Course Orders Procedure Category Date Status Time Cbc With Differential LAB 11/15/24 Complete 17:05 Creatine Kinase, Total LAB 11/15/24 Complete 17:05 Basic Metabolic Panel LAB 11/15/24 Complete 17:05 Us Art Byp Gft, US 11/15/24 Taken Uni/Ltd 17:06 Vital Signs Date Time Temp Pulse Resp B/P (MAP) Pulse Ox O2 Delivery O2 Flow Rate FiO2 11/15/24 17:45 97.3 75 18 136/63 100 Room Air* 0 21 11/15/24 17:00 98.1 79 20 94/41 92 Nasal Cannula 3.0 DX & DISP Disposition: Discharge Departure Impression: Primary Impression: A-V fistula Additional Impression: Arm pain Condition: Stable Additional Instructions: FOLLOW-UP WITH PRIMARY CARE PROVIDER IN 1 TO 2 DAYS. TAKE MEDICATIONS DIRECTED HERE IN THE EMERGENCY ROOM. OKAY TO CONTINUE HOME MEDICATIONS UNLESS OTHERWISE DISCUSSED DURING YOUR VISIT IN THE EMERGENCY ROOM TODAY. RETURN TO YOUR NEAREST EMERGENCY ROOM IF SYMPTOMS WORSEN OR IF THERE IS NO IMPROVEMENT. CALL 911 IF YOU NEED IMMEDIATE ASSISTANCE. TAKE TYLENOL [id number] NEEDED AND IF NO CONTRAINDICATIONS ARE PRESENT. INCREASE ORAL HYDRATION. A WOUND CULTURE OR URINE CULTURE WAS ORDERED HERE IN THE EMERGENCY ROOM DEPARTMENT PLEASE FOLLOW-UP WITH PRIMARY CARE PROVIDER AND ADVISE THEM TO GET REPORTS FROM OUR FACILITY. IF YOU HAD ANY HUA WRAP/SPLINTS THAT WERE APPLIED HERE, PLEASE DO NOT REMOVE THEM UNTIL YOU SEE YOUR PRIMARY CARE OR SPECIALTY. Referrals: Referrals: TWIN MERCER MD (PCP) Time of Disposition: 18:38 TED ZAMBRANO MD Nov 15, 2024 17:11
[2024-11-15 17:35] LABS: IMMATURE GRANULOCYTE ABSOLUTE 0.02 K/uL (0-1); NUCLEATED RED BLOOD CELLS 0.0 % (0.0-0.19); PLATELET COUNT (AUTO) 214 K/uL (130-400); RED BLOOD CELL COUNT(AUTO) 4.01 MIL/uL (4.00-5.50); RED CELL DISTRIBUTION WIDTH 12.9 % (11.0-15.5); WHITE BLOOD COUNT (AUTO) 6.3 K/uL (4.8-10.8)
[2024-11-15 17:43] LABS: CREATININE 6.8 mg/dL (0.5-1.0); GLOMERULAR FILTR. RATE CALC 7.0 mL/min (>90); GLUCOSE,RANDOM 161.0 mg/dL (70-105); SODIUM SERUM 134.0 mmol/L (136-145); UREA NITROGEN, BLOOD 47.0 mg/dL (7-18)
[2024-11-15 17:48] LABS: CREATINE KINASE, TOTAL 33.0 U/L (21-232)
[2024-11-15 18:48] VITALS: BP 134/61; PULSE 70; RESP 17; TEMP 97.3; O2SAT 98
--- NOTE | 2024-11-15 19:01 | NUR ---
DISCHARGE PAPERWORK HANDED TO PATIENT.SHE IS WAITING FOR HER SISTER TO PICK HER UP.
--- NOTE | 2024-11-15 19:56 | HMCIMG ---
EXAMINATION: DUPLEX ULTRASOUND EXAMINATION OF THE LEFT UPPER EXTREMITY ARTERIO-VENOUS FISTULA. CLINICAL HISTORY: To evaluate the fistula. COMPARISON: None. FINDINGS: There is brachio-basilic arterio-venous fistula in the left arm. The velocities are as follows: Brachial artery (arterial inflow): 86 cm/s. Basilic vein (venous outflow): 37 cm/s. Arterial anastomosis: 399 cm/s. Venous anastomosis: 98 cm/s. The flow in the loop is 105 cm/s and the flow volume is about 300 to 380 ml/min. There is no thrombosis, aneurysm, or hematoma at present. Radial artery: 22 cm/s Ulnar artery: 20 cm/s There is monophasic flow in the radial and ulnar arteries. No reversal or steal. 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 The venous flow is less than 500 ml/min. Recommend follow-up in 2 to 3 weeks to evaluate the fistula maturity if needed. /[place]
== END 2024-11-15 19:05 | disposition home or self-care (01) ==
LOC: EDH 16:58
DX: T82.898A Other specified complication of vascular prosthetic devices, implants and grafts, initial encounter (principal); M79.642 Pain in left hand; I12.0 Hypertensive chronic kidney disease with stage 5 chronic kidney disease or end stage renal disease; E11.22 Type 2 diabetes mellitus with diabetic chronic kidney disease; N18.6 End stage renal disease; I25.10 Atherosclerotic heart disease of native coronary artery without angina pectoris; J45.909 Unspecified asthma, uncomplicated; M19.90 Unspecified osteoarthritis, unspecified site; Z79.4 Long term (current) use of insulin; Z79.899 Other long term (current) drug therapy; Z90.710 Acquired absence of both cervix and uterus; Z99.2 Dependence on renal dialysis; Y82.8 Other medical devices associated with adverse incidents; Y92.89 Other specified places as the place of occurrence of the external cause
CPT/HCPCS: 36415; 80048; 82550; 85025; 93926; 99284